=== PATIENT | female | born 1965 ===

== ENCOUNTER 2020-04-08 10:12 | Outpatient (REF) | payer MEDICAID, SELFPAY ==
--- NOTE | 2020-04-08 10:15 | MM_ITS ---
EXAMINATION: MM SCREENING DIGITAL BREAST TOMOSYNTHESIS, BILATERAL CLINICAL INFORMATION: Screening. Asymptomatic. The lifetime risk of breast cancer based on the Tyrer-Cuzick Model is 6.2%. COMPARISON: Mammography: 03/14/2019 and studies dating back to 07/11/2013. TECHNIQUE: Digital breast tomosynthesis is performed in both the craniocaudal and mediolateral oblique views along with computer-aided detection (CAD). Synthesized 2D images are generated from the tomosynthesis. FINDINGS: There are scattered areas of fibroglandular density (ACR BI-RADS breast composition Category b). There is a stable parenchymal pattern within the right breast. Within the anterior-lateral aspect of the left breast, there is a linear region of densities with question some associated calcification with the appearance of possible dilated and beaded ducts. Recommend spot magnification views in craniocaudal and 90-degree mediolateral views as well as possible ultrasound to follow. MM/MM tomosynthesis screening BI IMPRESSION: Left breast findings for which further evaluation with spot magnification films and ultrasound is recommended. ASSESSMENT: BI-RADS 0: Incomplete - Need Additional Imaging Evaluation RECOMMENDATION: 1. Additional views of the left breast. 2. Targeted ultrasound if warranted after review of the additional views. 3. Radiology department staff will contact the patient for additional imaging. This patient's information was entered into a reminder system with a target due date for their next mammogram.
== END 2020-04-08 10:13 | disposition home or self-care (01) ==
LOC: HO.MAMMO 10:12
PROVIDERS: Visit Provider Internal Medicine Geriatric Medicine
DX: Z12.31 Encounter for screening mammogram for malignant neoplasm of breast (principal)
CPT/HCPCS: 77063; 77067

== ENCOUNTER 2020-04-21 14:32 | Outpatient (REF) | payer MEDICAID, SELFPAY ==
--- NOTE | 2020-04-21 14:39 | US_ITS ---
EXAMINATION: MM DIAGNOSTIC DIGITAL MAMMOGRAPHY, LEFT US DIAGNOSTIC ULTRASOUND BREAST, LEFT CLINICAL INFORMATION: Recall from screening for question of focal duct ectasia with calcifications. The lifetime risk of breast cancer based on the Tyrer-Cuzick Model is 6%. COMPARISON: Mammography: 04/08/2020, 03/14/2019, 03/01/2018 TECHNIQUE: Digital mammography is performed in the following views: Magnification CC, magnification ML x2. Ultrasound left breast is targeted to the anterior outer breast. Grayscale imaging and color Doppler are performed without and with harmonics. FINDINGS: There are scattered areas of fibroglandular density (ACR BI-RADS breast composition Category b). The additional views demonstrate no grouped calcifications in the area recent imaging concern. There is no persistent nodular asymmetric density. No architectural abnormality or developing density from prior studies. Ultrasound demonstrates no cystic or solid mass or focal duct ectasia in the targeted area. No architectural abnormality. Results are discussed with the patient at time of visit. US/US breast LT limited IMPRESSION: Additional imaging shows no significant changes from prior studies. ASSESSMENT: BI-RADS 1: Negative RECOMMENDATION: Routine annual mammography screening. This patient's information was entered into a reminder system with a target due date for their next mammogram.
== END 2020-04-21 14:33 | disposition home or self-care (01) ==
LOC: HO.MAMMO 14:32
PROVIDERS: Visit Provider Internal Medicine Geriatric Medicine
DX: Z12.31 Encounter for screening mammogram for malignant neoplasm of breast (principal); R92.2 Inconclusive mammogram; R92.1 Mammographic calcification found on diagnostic imaging of breast
CPT/HCPCS: 76642; 77061; 77065

== ENCOUNTER 2020-09-04 17:29 | Emergency (ER) | payer MEDICAID, SELFPAY ==
--- NOTE | 2020-09-04 18:26 | PC.NURSE ---
called pt, not in WR
--- NOTE | 2020-09-04 18:48 | PC.NURSE ---
called pt 3 times, no answer. left without beinbg seen
== END 2020-09-04 19:01 | disposition left against medical advice (07) ==
PROVIDERS: Emergency Provider Emergency Medicine; PCP Internal Medicine Geriatric Medicine
DX: R10.9 Unspecified abdominal pain (principal)

== ENCOUNTER 2020-09-05 07:35 | Emergency (ER) | payer MEDICAID, SELFPAY ==
--- NOTE | ~2020-09-05 | CT_ITS ---
EXAMINATION: CT ABDOMEN AND PELVIS WITHOUT CONTRAST CLINICAL INFORMATION: 55-year-old female with right-sided flank pain. COMPARISON: Renal ultrasound 07/31/[address] abdomen pelvis 09/20/2018 TECHNIQUE: Multidetector volumetric imaging was performed from the superior aspect of the liver through the pubic symphysis. Sagittal and coronal reformatted images were obtained on the technologist's workstation. This CT examination was performed using dose optimization techniques as appropriate, variously including the following: *Automated exposure control *Adjustment of mA and/or kV according to patient size (this includes techniques or standardized protocols for targeted exams where dose is matched to indication/reason for exam; i.e. extremities or head) *Use of iterative reconstruction technique DLP: 892 mGy-cm FINDINGS: Visualized lung bases demonstrate mild dependent atelectasis. The liver is normal in size but demonstrates diffusely decreased attenuation. The gallbladder is surgically absent. The pancreas, spleen and adrenal glands are unremarkable. Symmetrically sized kidneys. No renal calculi or hydronephrosis bilaterally. Normal caliber loops of small and large bowel. Mild colonic diverticulosis. No CT evidence to suggest active diverticulitis. Normal appendix. Subtle central mesenteric haziness appreciated, nonspecific. Nonaneurysmal abdominal aorta. Retroaortic left renal vein. No gross retroperitoneal lymphadenopathy. The bladder is decompressed and therefore not optimally characterized. There is no gross bladder abnormality however. Unremarkable CT appearance of the uterus. No gross free pelvic fluid. No inguinal lymphadenopathy. Mild to moderate degenerative changes of the spine. CT/CT abdomen pelvis wo con IMPRESSION: -No renal calculi or hydronephrosis bilaterally. -Mild colonic diverticulosis without CT evidence to suggest active diverticulitis. -Diffusely decreased liver attenuation suggesting hepatic steatosis. Correlation with liver enzymes recommended. -Subtle central mesenteric haziness, a nonspecific finding but often times appreciated with mesenteric panniculitis.
[2020-09-05 07:43] VITALS: BP 173/85; PULSE 69; RESP 16; TEMP 36.7; O2SAT 98; BMI 33.9
--- NOTE | 2020-09-05 08:15 | ED_ITS ---
HPI - Abdominal Pain General Chief Complaint: Abdominal Pain Stated Complaint: flank pain Time Seen by Provider: 09/05/20 08:13 History of Present Illness HPI narrative: This is a 55 years old female presented ambulatory to the emergency department with a chief complaint of right flank pain x4 days. She has history of kidney stone in the past denies any nausea, vomiting, diarrhea MD elicited complaint: flank pain Related Data Allergies Allergy/AdvReac Type Severity Reaction Status Date / Time morphine [MORPHINE] Allergy Severe HIVES, Verified 09/05/20 07:42 rash, itching,hives tramadol [TRAMADOL] Allergy Intermediate HIVES Verified 09/05/20 07:42 Review of Systems Review of Systems Yes all other systems are reviewed and are negative Physical Exam Vital Signs: Vital Signs: Last Vital Signs Temp 98.0 F 09/05/20 07:43 Pulse 64 09/05/20 08:26 Resp 18 09/05/20 08:26 BP 159/78 H 09/05/20 08:26 Pulse Ox 96 09/05/20 08:26 Body Mass Index 33.9 Const: Other: She appear well in not acute distress Orientation/consciousness: oriented to person, oriented to place and oriented to time HENMT: Head: Yes normal to inspection Face and sinus: Yes normal facial exam Eyes: General: appearance normal, both eyes and all related structures Neck: Neck: Yes normal visual inspection and Yes full ROM Chest: Chest palpation & inspection: normal inspection of the chest Resp: Effort & Inspection: normal respiratory effort Auscultation: clear to auscultation bilaterally GI: Other: Soft no tenderness, no guarding Inspection: Yes normal to inspection Skin: General skin exam: no rashes or lesions noted Neuro: General: oriented to person, oriented to place and oriented to time Extrem: General: Yes normal to inspection and Yes full ROM Course Reevaluation(s) Reevaluation #1: Patient is feeling much better she has no symptoms at this time labs are within normal limits today CT scan of the abdomen and pelvis is within normal limit. She was unable to produce a urine but she does not have any symptoms of a urinary tract infection such as dysuria or fever at this time medical we could discharge the patient home with abdominal pain instruction to follow-up with her primary care physician Time: 09:40 MDM - Abdominal Pain Lab Data Result diagrams: 09/05/20 08:22 09/05/20 08:22 Labs: Lab Results 09/05/20 09/05/20 Range/Units 08:22 08:22 WBC 9.9 (4.8-10.8) X10*3/uL RBC 4.74 (4.20-5.50) X10*6/uL Hgb 14.4 (12.0-16.0) g/dl Hct 43.6 (37-47) % MCV 92.0 (80-98) fL MCH 30.4 (27.0-33.0) pg MCHC 33.0 (31.0-35.0) g/dl RDW 13.8 (11.0-16.0) % Plt Count 216 (160-400) X10*3/uL MPV 9.6 (9.4-12.3) fL Immature Gran % (Auto) 0.8 H (0.0-0.4) % Neut % (Auto) 47.4 (45-73) % Lymph % (Auto) 43.3 H (20-40) % K[place]t % (Auto) 6.7 (2-11) % Eos % (Auto) 1.4 (0-4) % Baso % (Auto) 0.4 (0-2) % Lymph # (Auto) 4.3 (1.2-4.9) X10*3/uL K[place]t # (Auto) 0.7 (0.1-1.2) X10*3/uL Eos # (Auto) 0.1 (0.0-0.4) X10*3/uL Baso # (Auto) 0.0 (0.0-0.2) X10*3/uL Abs Immat Gran (auto) 0.08 H (0.00-0.03) X10*3/uL Absolute Neuts (auto) 4.7 (2.0-8.3) X10*3/uL Absolute Nucleated RBC 0.000 (0.0-0.012) X10*3/uL Nucleated RBC % (auto) 0.0 (0.0-0.2) /100WBC Sodium 141 (135-145) mmol/L Potassium 3.3 (3.3-5.1) mmol/L Chloride 107 (96-108) mmol/L Carbon Dioxide 25 (22-29) mmol/L Anion Gap 12 (12-20) BUN 16 (9-16) mg/dL Creatinine 0.84 (0.5-1.4) mg/dL Estim Creat Clear Calc 89.0 Estimated GFR > 60 Random Glucose 90 (60-115) mg/dL Calcium 8.7 (8.4-10.2) mg/dL Total Bilirubin 0.9 (0.0-1.0) mg/dL AST 16 (5-31) U/L ALT 25 (0-31) U/L Alkaline Phosphatase 102 (39-117) U/L Total Protein 6.9 (6.5-8.0) g/dL Albumin 4.1 (3.5-5.0) g/dL Lipase 35 (8-78) U/L Imaging Data CT scan - abdomen: Radiologist's impression: No acute disease no free air no kidney stone no diverticulitis no colitis Discharge Plan Discharge Clinical Impression: Acute flank pain Patient Disposition: Home, Self-Care Instructions: Abdominal Pain (ED) Additional Instructions: Follow-up with your primary care physician return to the emergency room if you have a fever, vomiting any concern Referrals: Name,MD Humble [Primary Care Provider] - 3 days Interventions: ED Discharge Assessment Last Done: 09/05/20 10:05 Discharge Date/Time: 09/05/20 10:05 COUNTS INCLUDE 234 BEDS AT THE [facility] Past Medical History Medical History HTN (hypertension) Kidney stones Migraine Social History Social History Smoking Status: Current every day smoker Use of substances other than those prescribed or required for medical reasons: No Advance Directives: No Advance Directives Information Provided: Yes
[2020-09-05] MEDS: Ketorolac Tromethamine 15 MG/ML VIAL IV (08:25)
[2020-09-05 08:26] VITALS: BP 159/78; PULSE 64; RESP 18; O2SAT 96
[2020-09-05 08:26] LABS: MANUAL DIFF FLAG NO
[2020-09-05 08:31] LABS: Basophils Percent Auto 0.4 % (0-2); Eosinophils Absolute Auto 0.1 X10*3/uL (0.0-0.4); Eosinophils Percent Auto 1.4 % (0-4); Hematocrit 43.6 % (37-47); Hemoglobin 14.4 g/dl (12.0-16.0); Imm Gran Abs Auto 0.08 X10*3/uL (0.00-0.03); Imm Gran Pct Auto 0.8 % (0.0-0.4); Lymphocytes Absolute Auto 4.3 X10*3/uL (1.2-4.9); Lymphocytes Percent Auto 43.3 % (20-40); Mean Corpuscular Hemoglobin 30.4 pg (27.0-33.0); Mean Platelet Volume 9.6 fL (9.4-12.3); Monocytes Absolute Auto 0.7 X10*3/uL (0.1-1.2); Monocytes Percent Auto 6.7 % (2-11); Neutrophils Absolute Auto 4.7 X10*3/uL (2.0-8.3); Neutrophils Percent Auto 47.4 % (45-73); Platelet Count 216 X10*3/uL (160-400); Red Blood Count 4.74 X10*6/uL (4.20-5.50); Red Cell Distribution Width 13.8 % (11.0-16.0); White Blood Count 9.9 X10*3/uL (4.8-10.8)
[2020-09-05 08:53] LABS: Alanine Aminotransferase 25 U/L (0-31); Albumin Level 4.1 g/dL (3.5-5.0); Alkaline Phosphatase 102 U/L (39-117); Anion Gap 12 (12-20); Aspartate Amino Transferase 16 U/L (5-31); Bilirubin Total 0.9 mg/dL (0.0-1.0); Blood Urea Nitrogen 16 mg/dL (9-16); Calcium 8.7 mg/dL (8.4-10.2); Carbon Dioxide 25 mmol/L (22-29); Chloride 107 mmol/L (96-108); Estimated Glomerular Filt Rate > 60; Glucose Random 90 mg/dL (60-115); Lipase 35 U/L (8-78); Potassium 3.3 mmol/L (3.3-5.1); Sodium 141 mmol/L (135-145); Total Protein 6.9 g/dL (6.5-8.0)
== END 2020-09-05 10:05 | disposition home or self-care (01) ==
PROVIDERS: Emergency Provider Emergency Medicine; PCP Internal Medicine Geriatric Medicine
DX: R10.9 Unspecified abdominal pain (principal); I10 Essential (primary) hypertension; F17.200 Nicotine dependence, unspecified, uncomplicated; Z87.442 Personal history of urinary calculi; Z71.6 Tobacco abuse counseling; Z79.899 Other long term (current) drug therapy
CPT/HCPCS: 36415; 74176; 80053; 83690; 85025; 96360; 99284; J1885

== ENCOUNTER 2020-12-28 14:48 | Outpatient (REF) | payer MEDICAID, SELFPAY ==
[2020-12-29 09:54] LABS: BV Int Neg Control Negative (Negative); BV Int Pos Control Positive (Positive)
== END 2020-12-28 14:49 | disposition home or self-care (01) ==
LOC: HO.LAB 14:48
PROVIDERS: PCP Internal Medicine Geriatric Medicine; Visit Provider Advanced Practice Midwife
DX: Z11.3 Encounter for screening for infections with a predominantly sexual mode of transmission (principal); B37.3 Candidiasis of vulva and vagina; B35.6 Tinea cruris; Z20.2 Contact with and (suspected) exposure to infections with a predominantly sexual mode of transmission
CPT/HCPCS: 87480; 87510; 87660; 99212

== ENCOUNTER 2021-01-20 11:52 | Outpatient (REF) | payer MEDICAID, SELFPAY ==
[2021-01-25 12:05] LABS: Renin 0.77 ng/mL/h (0.25-5.82)
== END 2021-01-20 11:53 | disposition home or self-care (01) ==
LOC: HO.LAB 11:52
PROVIDERS: PCP Internal Medicine Geriatric Medicine; Visit Provider Internal Medicine Geriatric Medicine
DX: I10 Essential (primary) hypertension (principal)
CPT/HCPCS: 36415; 82088; 84244

== ENCOUNTER 2021-03-01 09:47 | Outpatient (REF) | payer MEDICAID, SELFPAY ==
[2021-03-01 14:26] LABS: CT PCR NOT DETECTED (Not Detect.); NG PCR NOT DETECTED (Not Detect.)
== END 2021-03-01 09:48 | disposition home or self-care (01) ==
LOC: HO.LAB 09:47
PROVIDERS: PCP Internal Medicine Geriatric Medicine; Visit Provider Advanced Practice Midwife
DX: Z01.411 Encounter for gynecological examination (general) (routine) with abnormal findings (principal); N95.2 Postmenopausal atrophic vaginitis; Z20.2 Contact with and (suspected) exposure to infections with a predominantly sexual mode of transmission
CPT/HCPCS: 87491; 87591

== ENCOUNTER → 2021-03-15 20:27 | Outpatient (REF) | payer MEDICAID, SELFPAY | LOC: HO.SL 20:27 | PROVIDERS: Visit Provider Internal Medicine Geriatric Medicine | DX: R40.0 Somnolence (principal); I10 Essential (primary) hypertension | CPT/HCPCS: 95810 ==

== ENCOUNTER 2021-04-02 10:51 | Emergency (ER) | payer MEDICAID, SELFPAY | END 2021-04-02 12:34 | disposition left against medical advice (07) | PROVIDERS: Emergency Provider Emergency Medicine; PCP Internal Medicine Geriatric Medicine | DX: R10.9 Unspecified abdominal pain (principal) ==

== ENCOUNTER 2021-04-03 06:59 | Emergency (ER) | payer MEDICAID, SELFPAY ==
--- NOTE | ~2021-04-03 | CT_ITS ---
EXAMINATION: CT ABDOMEN AND PELVIS WITH CONTRAST CLINICAL INFORMATION: Epigastric pain COMPARISON: None TECHNIQUE: Multidetector volumetric images were obtained from the superior aspect of the liver through the pubic symphysis following administration 85 mL of Omnipaque 350 intravenous contrast. Sagittal and coronal reformatted images were obtained on the technologist's workstation. Oral contrast: No This CT examination was performed using dose optimization techniques as appropriate, variously including the following: *Automated exposure control *Adjustment of mA and/or kV according to patient size (this includes techniques or standardized protocols for targeted exams where dose is matched to indication/reason for exam; i.e. extremities or head) *Use of iterative reconstruction technique DLP: 1127 mGy-cm FINDINGS: LUNG BASES: The visualized lung bases are unremarkable. LIVER, GALLBLADDER, AND BILIARY TREE: Hepatomegaly without any discrete abnormality. No biliary dilatation. Clips consistent with cholecystectomy. No choledocholithiasis. PANCREAS: Unremarkable. SPLEEN: Unremarkable. ADRENAL GLANDS: Unremarkable. KIDNEYS AND URETERS: The kidneys are normal in size, shape, and attenuation. No hydronephrosis, hydroureter, or calculi seen. No perinephric stranding. BLADDER: Unremarkable. GASTROINTESTINAL TRACT: The appendix appears normal. There are inflammatory changes noted within a long segment of the distal colon centered about the sigmoid colon consistent with nonspecific colitis. No evidence for diverticulitis. Scattered diverticula. No obstruction. ABDOMINAL WALL: No significant hernia is appreciated. LYMPH NODES: Normal. VASCULAR: Unremarkable. PELVIC VISCERA: Unremarkable. OSSEOUS STRUCTURES: Unremarkable. CT/CT abdomen pelvis w con IMPRESSION: Nonspecific colitis distal colon as above. No abscess or obstruction.
[2021-04-03 07:04] VITALS: BP 158/78; PULSE 70; RESP 16; TEMP 36.7; O2SAT 96; BMI 37.1
[2021-04-03 07:16] VITALS: BP 167/92; PULSE 67; RESP 18; TEMP 36.6; O2SAT 99
--- NOTE | 2021-04-03 07:23 | ED_ITS ---
HPI - Abdominal Pain General Chief Complaint: Abdominal Pain Stated Complaint: abd pain Time Seen by Provider: 04/03/21 07:14 Source: patient Mode of arrival: ambulatory Limitations: no limitations History of Present Illness HPI narrative: This is 55 years old female presented to the emergency department with a chief complaint of epigastric abdominal pain x2 weeks. She denies any fever, diarrhea, she states that she vomited x2 only. Patient states that she has an appointment with the supervisor chlorine liquefaction Dr. Foster. She has been seen in the past in this emergency room for abdominal pain. MD elicited complaint: abdominal pain Pertinent past history: kidney stones Onset (ago): week(s) (2) Pain Consistency: constant Location: epigastric Severity: moderate Quality: aching Radiation: epigastric Migration to: epigastric Exacerbating factors: nothing Relieving factors: nothing Associated symptoms: denies other symptoms Related Data Home Medications Medication Instructions Recorded Confirmed lisinopril 20 mg tablet 20 mg PO DAILY 12/28/20 12/28/20 albuterol sulfate mg INHALATION QID 03/01/21 albuterol sulfate 90 mcg/actuation 2 puff PO Q4-6H PRN 03/01/21 aerosol inhaler (ProAir HFA) amlodipine 10 mg tablet 10 mg PO DAILY 03/01/21 budesonide-formoterol HFA 160 2 puff PO 03/01/21 mcg-4.5 mcg/actuation aerosol inhaler (Symbicort) stivfgginh-ukztxoamtddyo-uzpojwyl 1 cap PO Q8H PRN 03/01/21 50 mg-300 mg-40 mg capsule (Fioricet) furosemide 40 mg tablet 40 mg PO DAILY 03/01/21 ibuprofen 400 mg tablet 400 mg PO Q6H PRN 03/01/21 loratadine 10 mg tablet 10 mg PO DAILY 03/01/21 metoprolol succinate 25 mg 25 mg PO DAILY 03/01/21 tablet,extended release 24 hr omeprazole 20 mg capsule,delayed 20 mg PO DAILY 03/01/21 release oxycodone-acetaminophen 5 mg-325 1 tab PO Q12H PRN 03/01/21 mg tablet Previous Rx's Medication Instructions Recorded clotrimazole 1 % vaginal cream 1 appful VAGINAL BEDTIME #45 g 12/28/20 clotrimazole-betamethasone 1 1 appl TOPICAL BID #45 g 12/28/20 %-0.05 % topical cream fluconazole 150 mg tablet 150 mg PO Q3D #2 tab 12/28/20 levofloxacin 500 mg tablet 500 mg PO DAILY #5 tab 04/03/21 Allergies Allergy/AdvReac Type Severity Reaction Status Date / Time morphine [MORPHINE] Allergy Severe HIVES, Verified 03/01/21 10:29 rash, itching,hives tramadol [TRAMADOL] Allergy Intermediate HIVES Verified 03/01/21 10:29 Review of Systems Review of Systems Yes all other systems are reviewed and are negative Constitutional: Denies fever(s) Cardiovascular: Denies chest pain Gastrointestinal: Reports abdominal pain Reports system reviewed and no additional complaints, except as documented Physical Exam Vital Signs: Vital Signs: Last Vital Signs Temp 97.9 F 04/03/21 07:16 Pulse 66 04/03/21 11:14 Resp 18 04/03/21 11:14 BP 136/69 04/03/21 11:14 Pulse Ox 98 04/03/21 11:14 Body Mass Index 37.1 Const: Other: She looks well, she is not toxic-appearing, a little anxious during the exam General: cooperative, comfortable, no acute distress, well developed and alert Orientation/consciousness: patient oriented x3 Limitations: no limitations HENMT: Other: Examination the head eyes nose mouth and throat is within normal limit Neck: Other: Neck is supple full range of motion Chest: Chest palpation & inspection: normal inspection of the chest Resp: Effort & Inspection: normal respiratory effort Auscultation: clear to auscultation bilaterally Cardio: Jugular venous distension: no JVD Rate: regular rate Rhythm: regular rhythm GI: Other: Abdomen examination shows soft abdomen no guarding and no rebound there is epigastric tenderness Skin: Other: No rash Neuro: General: patient oriented x3 Course Reevaluation(s) Reevaluation #1: Patient is feeling much better white count is normal, CT scan of the abdomen and pelvis that shows known specific colitis of the distal colon. At this point I think the patient can be discharged home a with follow-up with her supervisor chlorine liquefaction Dr. Foster. 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 She also will continue Prilosec as she was taking . MDM - Abdominal Pain MDM Narrative Medical decision making narrative: We will obtain basic labs including CBC chemistry, LFT and lipase ; we will do a CT scan of the abdomen and pelvis Lab Data Result diagrams: 04/03/21 07:51 04/03/21 07:51 Labs: Lab Results 04/03/21 04/03/21 04/03/21 Range/Units 07:51 07:51 08:28 WBC 6.7 (4.8-10.8) X10*3/uL RBC 4.62 (4.20-5.50) X10*6/uL Hgb 14.1 (12.0-16.0) g/dl Hct 41.7 (37-47) % MCV 90.3 (80-98) fL MCH 30.5 (27.0-33.0) pg MCHC 33.8 (31.0-35.0) g/dl RDW 13.2 (11.0-16.0) % Plt Count 206 (160-400) X10*3/uL MPV 9.8 (9.4-12.3) fL Immature Gran % (Auto) 0.6 H (0.0-0.4) % Neut % (Auto) 44.2 L (45-73) % Lymph % (Auto) 42.9 H (20-40) % Sheridan % (Auto) 7.6 (2-11) % Eos % (Auto) 4.3 H (0-4) % Baso % (Auto) 0.4 (0-2) % Lymph # (Auto) 2.9 (1.2-4.9) X10*3/uL [place]idan # (Auto) 0.5 (0.1-1.2) X10*3/uL Eos # (Auto) 0.3 (0.0-0.4) X10*3/uL Baso # (Auto) 0.0 (0.0-0.2) X10*3/uL Abs Immat Gran (auto) 0.04 H (0.00-0.03) X10*3/uL Absolute Neuts (auto) 3.0 (2.0-8.3) X10*3/uL Absolute Nucleated RBC 0.000 (0.0-0.012) X10*3/uL Nucleated RBC % (auto) 0.0 (0.0-0.2) /100WBC Sodium 138 (135-145) mmol/L Potassium 3.7 (3.3-5.1) mmol/L Chloride 106 (96-108) mmol/L Carbon Dioxide 25 (22-29) mmol/L Anion Gap 11 L (12-20) BUN 8 L (9-16) mg/dL Creatinine 0.76 (0.5-1.4) mg/dL Estim Creat Clear Calc 103.3 Estimated GFR > 60 Random Glucose 108 (60-115) mg/dL Calcium 9.0 (8.4-10.2) mg/dL Total Bilirubin 0.7 (0.0-1.0) mg/dL AST 17 (5-31) U/L ALT 27 (0-31) U/L Alkaline Phosphatase 99 (39-117) U/L Total Protein 6.3 L (6.5-8.0) g/dL Albumin 3.8 (3.5-5.0) g/dL Lipase 33 (8-78) U/L Urine Color YELLOW Urine Appearance HAZY Urine pH 6.0 (5.0-8.0) Ur Specific Speer 1.025 (1.005-1.025) Urine Protein TRACE (NEG-TRACE) MG/DL Urine Glucose (UA) NEG (NEG) MG/DL Urine Ketones NEG (NEG) MG/DL Urine Blood NEG (NEG) Urine Nitrite NEG (NEG) Ur Leukocyte Esterase TRACE H (NEG) Urine RBC 0-2 (0) /HPF Urine WBC 5-9 H (0-4) /HPF Ur Squamous Epith Cells 1+ /LPF Urine Bacteria 2+ /LPF Urine Mucus TRACE /LPF Imaging Data CT scan - abdomen: Radiologist's impression: megaly without any discrete abnormality. No biliary dilatation. Clips consistent with cholecystectomy. No choledocholithiasis.? PANCREAS: Unremarkable.? SPLEEN: Unremarkable.? ADRENAL GLANDS: Unremarkable.? KIDNEYS AND URETERS: The kidneys are normal in size, shape, and attenuation. No hydronephrosis, hydroureter, or calculi seen. No perinephric stranding. ? BLADDER: Unremarkable.? GASTROINTESTINAL TRACT: The appendix appears normal. There are inflammatory changes noted within a long segment of the distal colon centered about the sigmoid colon consistent with nonspecific colitis. No evidence for diverticulitis. Scattered diverticula. No obstruction. ABDOMINAL WALL: No significant hernia is appreciated.? LYMPH NODES: Normal. VASCULAR: Unremarkable. PELVIC VISCERA: Unremarkable.? OSSEOUS STRUCTURES: Unremarkable.? CT/CT abdomen pelvis w con IMPRESSION: Nonspecific colitis distal colon as above. No abscess or obstruction.? Dictated By: LISA CHOW MD Signed By: <Electronically signed by LISA CHOW MD in OV> 04/03/21 1031 Discharge Plan Discharge Clinical Impression: Epigastric abdominal pain, Colitis Patient Disposition: Home, Self-Care Instructions: Colitis (ED) Additional Instructions: Follow-up with gastroenterology as scheduled, return if you worse vomiting any concern. Continue the Prilosec as you are doing now, the CT scan of the abdomen and pelvis showed mild colitis, clear liquid diet of a few days will add an antibiotic also for 5 days Prescriptions: New levofloxacin 500 mg tablet 500 mg PO DAILY Qty: 5 RF: 0 No Action oxycodone-acetaminophen 5-325 mg tablet 1 tab PO Q12H PRNRF: 0 metoprolol succinate 25 mg tablet extended release 24 hr 25 mg PO DAILY RF: 0 albuterol sulfate [ProAir HFA] 90 mcg/actuation HFA aerosol inhaler 2 puff PO Q4-6H PRNRF: 0 lwhqxtbzax-wythnppqhjujk-kcwn [Fioricet] 50-300-40 mg capsule 1 cap PO Q8H PRNRF: 0 budesonide-formoterol [Symbicort] 160-4.5 mcg/actuation HFA aerosol inhaler 2 puff PO RF: 0 loratadine 10 mg tablet 10 mg PO DAILY RF: 0 omeprazole 20 mg capsule,delayed release(DR/EC) 20 mg PO DAILY RF: 0 amlodipine 10 mg tablet 10 mg PO DAILY RF: 0 albuterol sulfate 2.5 mg /3 mL (0.083 %) solution for nebulization inhalation QID RF: 0 furosemide 40 mg tablet 40 mg PO DAILY RF: 0 ibuprofen 400 mg tablet 400 mg PO Q6H PRN (Reason: pain) RF: 0 lisinopril 20 mg tablet 20 mg PO DAILY RF: 0 clotrimazole 1 % cream 1 appful vaginal BEDTIME Qty: 45 RF: 4 fluconazole 150 mg tablet 150 mg PO Q3D Qty: 2 RF: 0 clotrimazole-betamethasone 1-0.05 % cream 1 appl topical BID Qty: 45 RF: 1 Referrals: Yu Foster MD [Physician] - 2 days Interventions: ED Discharge Assessment Last Done: 04/03/21 11:28 Discharge Date/Time: 04/03/21 11:29 FOR[facility]LY [facility], [facility] Past Medical History Attestation statement: The following information was validated with the patient. Medical History Gallbladder abscess History of uterine fibroid HTN (hypertension) Kidney stones Migraine Para-ovarian adhesion Surgical History History of bunionectomy History of tubal ligation Family History Family History Mother Stroke Diabetes HTN (hypertension) Father Heart attack Sister Lupus Social History Social History Alcohol intake: never Patient Tobacco Use Status: Current everyday Tobacco user Tobacco use type: Cigarette Cigarettes Per Day: 2 Use of substances other than those prescribed or required for medical reasons: No Advance Directives: No Gender identity: Female
--- NOTE | 2021-04-03 07:48 | PC.NURSE ---
pt alert and oriented x4. pt c/o epigastric abdominal pain x2 weeks. she states that she has an appointment with the lean specialist Dr. Foster. She also states that she was seen here in the ed in the past for the same thing. She denies any fever, diarrhea, she states that she vomited x2.
[2021-04-03 07:54] LABS: MANUAL DIFF FLAG NO
[2021-04-03 07:56] LABS: Basophils Percent Auto 0.4 % (0-2); Eosinophils Absolute Auto 0.3 X10*3/uL (0.0-0.4); Eosinophils Percent Auto 4.3 % (0-4); Hematocrit 41.7 % (37-47); Hemoglobin 14.1 g/dl (12.0-16.0); Imm Gran Abs Auto 0.04 X10*3/uL (0.00-0.03); Imm Gran Pct Auto 0.6 % (0.0-0.4); Lymphocytes Absolute Auto 2.9 X10*3/uL (1.2-4.9); Lymphocytes Percent Auto 42.9 % (20-40); Mean Corpuscular HGB Conc 33.8 g/dl (31.0-35.0); Mean Corpuscular Hemoglobin 30.5 pg (27.0-33.0); Mean Corpuscular Volume 90.3 fL (80-98); Mean Platelet Volume 9.8 fL (9.4-12.3); Monocytes Absolute Auto 0.5 X10*3/uL (0.1-1.2); Monocytes Percent Auto 7.6 % (2-11); Neutrophils Percent Auto 44.2 % (45-73); Platelet Count 206 X10*3/uL (160-400); Red Blood Count 4.62 X10*6/uL (4.20-5.50); Red Cell Distribution Width 13.2 % (11.0-16.0); White Blood Count 6.7 X10*3/uL (4.8-10.8)
[2021-04-03 08:04] VITALS: BP 159/87; PULSE 86
[2021-04-03] MEDS: lisinopriL 20 MG TABLET PO (08:04)
[2021-04-03] MEDS: Famotidine/PF 20 MG/2 ML VIAL IVPUSH (08:05)
[2021-04-03] MEDS: LORazepam 2 MG/ML VIAL 1 MG IVPUSH (08:05)
[2021-04-03 08:18] LABS: Alanine Aminotransferase 27 U/L (0-31); Albumin Level 3.8 g/dL (3.5-5.0); Alkaline Phosphatase 99 U/L (39-117); Anion Gap 11 (12-20); Aspartate Amino Transferase 17 U/L (5-31); Bilirubin Total 0.7 mg/dL (0.0-1.0); Blood Urea Nitrogen 8 mg/dL (9-16); Carbon Dioxide 25 mmol/L (22-29); Chloride 106 mmol/L (96-108); Creatinine Clr Calc Pharmacy 103.3; Estimated Glomerular Filt Rate > 60; Glucose Random 108 mg/dL (60-115); Lipase 33 U/L (8-78); Potassium 3.7 mmol/L (3.3-5.1); Sodium 138 mmol/L (135-145); Total Protein 6.3 g/dL (6.5-8.0)
[2021-04-03 08:49] LABS: Appearance Urine HAZY; Color Urine YELLOW; Glucose Urine UA NEG (NEG); Leukocyte Esterase Urine TRACE (NEG); Nitrite Urine NEG (NEG); Specific Gravity - Urine 1.025 (1.005-1.025); UACC Culture Trigger YES; Urine Blood NEG (NEG); Urine Ketones NEG (NEG); Urine Protein TRACE MG/DL (NEG-TRACE)
[2021-04-03] MEDS: iohexoL 350 MG/ML 100 ML INFUS..BTL IV (08:50)
[2021-04-03 09:14] LABS: Bacteria Urine 2+ /LPF; RBC Urine 0-2 /HPF (0); Squamous Epithelial Cell Urine 1+ /LPF; UACC CULT YES
[2021-04-03 09:15] LABS: Mucus Urine TRACE /LPF
[2021-04-03 11:14] VITALS: BP 136/69; PULSE 66; RESP 18; O2SAT 98
--- NOTE | 2021-04-03 11:27 | PC.NURSE ---
pt medically cleared for discharge. discharge summary given and explained. pt reported understanding of information. vss.
== END 2021-04-03 11:29 | disposition home or self-care (01) ==
PROVIDERS: Emergency Provider Emergency Medicine; PCP Internal Medicine Geriatric Medicine
DX: K52.9 Noninfective gastroenteritis and colitis, unspecified (principal); R10.13 Epigastric pain; F17.210 Nicotine dependence, cigarettes, uncomplicated; Z71.6 Tobacco abuse counseling; Z79.899 Other long term (current) drug therapy
CPT/HCPCS: 36415; 74177; 80053; 81001; 83690; 85025; 87086; 99284; J2060; Q9967

== ENCOUNTER 2021-04-08 09:55 | Outpatient (REF) | payer MEDICAID, SELFPAY ==
--- NOTE | ~2021-04-08 | XR_ITS ---
EXAMINATION: CHEST AND BILATERAL RIB X-RAYS CLINICAL INFORMATION: Pain COMPARISON: Previous chest x-ray May 2019 TECHNIQUE: One view of the chest and 5 views of both ribs FINDINGS: Chest: The cardiac and mediastinal contours are normal. There is subsegmental atelectasis seen at both lung bases. The lungs are otherwise clear. There is no pleural effusion or pneumothorax. The ribs are normal appearing. No rib fracture is seen. There are degenerative changes of the spine. XR/XR ribs BI 3V IMPRESSION: Subsegmental atelectasis at the lung bases. No rib fracture seen.
--- NOTE | ~2021-04-08 | XR_ITS ---
EXAMINATION: CHEST AND BILATERAL RIB X-RAYS CLINICAL INFORMATION: Pain COMPARISON: Previous chest x-ray May 2019 TECHNIQUE: One view of the chest and 5 views of both ribs FINDINGS: Chest: The cardiac and mediastinal contours are normal. There is subsegmental atelectasis seen at both lung bases. The lungs are otherwise clear. There is no pleural effusion or pneumothorax. The ribs are normal appearing. No rib fracture is seen. There are degenerative changes of the spine. XR/XR chest 2V IMPRESSION: Subsegmental atelectasis at the lung bases. No rib fracture seen.
== END 2021-04-08 09:56 | disposition home or self-care (01) ==
LOC: HO.XRAY 09:55
PROVIDERS: PCP Internal Medicine Geriatric Medicine; Referring Provider Internal Medicine Geriatric Medicine; Visit Provider Nurse Practitioner
DX: R10.9 Unspecified abdominal pain (principal); K21.9 Gastro-esophageal reflux disease without esophagitis; K29.60 Other gastritis without bleeding; N20.0 Calculus of kidney
CPT/HCPCS: 71046; 71110; 99212

== ENCOUNTER 2021-04-16 15:19 | Outpatient (REF) | payer MEDICAID, SELFPAY ==
--- NOTE | ~2021-04-16 | US_ITS ---
EXAMINATION: US RETROPERITONEAL LIMITED (RENAL ONLY) CLINICAL INFORMATION: Abdominal pain. COMPARISON: 04/03/2021 TECHNIQUE: Sonographic evaluation of both kidneys. FINDINGS: RIGHT KIDNEY: 10.4 x 4.1 x 4.9 cm (SAG x AP x TRV). The kidney is normal in size, contour, and echogenicity. Renal cortical thickness is normal. No calculi or focal parenchymal lesions. No hydronephrosis. LEFT KIDNEY: 11 x 4.7 x 4 cm (SAG x AP x TRV). The kidney is normal in size, contour, and echogenicity. Renal cortical thickness is normal. No calculi or focal parenchymal lesions. No hydronephrosis. US/US renal BI IMPRESSION: Normal appearance of the kidneys.
== END 2021-04-16 15:20 | disposition home or self-care (01) ==
LOC: HO.US 15:19
PROVIDERS: PCP Internal Medicine Geriatric Medicine; Visit Provider Nurse Practitioner
DX: R10.9 Unspecified abdominal pain (principal)
CPT/HCPCS: 76775

== ENCOUNTER 2021-06-07 11:09 | Outpatient (REF) | payer MEDICAID, SELFPAY ==
--- NOTE | ~2021-06-07 | MM_ITS ---
EXAMINATION: MM SCREENING DIGITAL BREAST TOMOSYNTHESIS, BILATERAL CLINICAL INFORMATION: Screening. Asymptomatic. Prior reduction mammoplasty. The lifetime risk of breast cancer based on the Tyrer-Cuzick Model is 6%. COMPARISON: Mammography: 04/21/2020, 04/08/2020, 03/14/2019, 03/01/2018 TECHNIQUE: Digital breast tomosynthesis is performed in both the craniocaudal and mediolateral oblique views along with computer-aided detection (CAD). Synthesized 2D images are generated from the tomosynthesis. FINDINGS: There are scattered areas of fibroglandular density (ACR BI-RADS breast composition Category b). There are no significant masses, abnormal calcifications, or other abnormalities. Parenchymal pattern is similar to prior studies. There is no developing density or architectural abnormality. The axilla and skin contours are unremarkable. No significant changes. MM/MM tomosynthesis screening BI IMPRESSION: No mammographic evidence of malignancy. ASSESSMENT: BI-RADS 1: Negative RECOMMENDATION: Routine annual mammography screening. This patient's information was entered into a reminder system with a target due date for their next mammogram.
== END 2021-06-07 11:10 | disposition home or self-care (01) ==
LOC: HO.MAMMO 11:09
PROVIDERS: PCP Internal Medicine Geriatric Medicine; Visit Provider Internal Medicine Geriatric Medicine
DX: Z12.31 Encounter for screening mammogram for malignant neoplasm of breast (principal)
CPT/HCPCS: 77063; 77067

== ENCOUNTER 2021-10-23 06:57 | Emergency (ER) | payer MEDICAID, SELFPAY | END 2021-10-23 09:18 | disposition left against medical advice (07) | PROVIDERS: Emergency Provider Emergency Medicine; PCP Internal Medicine Geriatric Medicine | DX: R10.9 Unspecified abdominal pain (principal); M54.9 Dorsalgia, unspecified ==

== ENCOUNTER 2021-10-24 08:12 | Emergency (ER) | payer MEDICAID, SELFPAY ==
[2021-10-24 08:22] VITALS: BP 137/71; PULSE 68; RESP 19; TEMP 36.6; O2SAT 98; BMI 37.1
[2021-10-24 11:56] LABS: Appearance Urine CLOUDY; Color Urine YELLOW; Glucose Urine UA NEG (NEG); Leukocyte Esterase Urine NEG (NEG); Nitrite Urine NEG (NEG); PH 5.5 (5.0-8.0); Specific Gravity - Urine >= 1.030 (1.005-1.025); Urine Blood NEG (NEG); Urine Ketones NEG (NEG); Urine Protein NEG (NEG-TRACE)
[2021-10-24 11:58] LABS: Basophils Percent Auto 0.3 % (0-2); Eosinophils Absolute Auto 0.1 X10*3/uL (0.0-0.4); Eosinophils Percent Auto 0.7 % (0-4); Hematocrit 45.1 % (37.0-47.0); Hemoglobin 14.9 g/dl (12.0-16.0); Imm Gran Abs Auto 0.13 X10*3/uL (0.00-0.03); Imm Gran Pct Auto 1.1 % (0.0-0.4); Lymphocytes Percent Auto 33.6 % (20-40); MANUAL DIFF FLAG SCAN; Mean Corpuscular Hemoglobin 29.9 pg (27.0-33.0); Mean Corpuscular Volume 90.4 fL (80.0-98.0); Mean Platelet Volume 10.5 fL (9.4-12.3); Monocytes Absolute Auto 0.9 X10*3/uL (0.1-1.2); Monocytes Percent Auto 7.4 % (2-11); Neutrophils Absolute Auto 6.8 x10*3/uL (2.0-8.3); Neutrophils Percent Auto 56.9 % (45-73); PLT CLUMP 1; Red Blood Count 4.99 X10*6/uL (4.20-5.50); Red Cell Distribution Width 14.2 % (11.0-16.0); SCAN SMEAR FLAG 1
[2021-10-24 12:14] LABS: Alanine Aminotransferase 18 U/L (0-31); Albumin Level 4.2 g/dL (3.5-5.0); Alkaline Phosphatase 101 U/L (39-117); Anion Gap 11 (12-20); Aspartate Amino Transferase 14 U/L (5-31); Bilirubin Direct 0.3 mg/dL (0.0-0.5); Blood Urea Nitrogen 14 mg/dL (9-16); Calcium 9.8 mg/dL (8.4-10.2); Carbon Dioxide 29 mmol/L (22-29); Chloride 106 mmol/L (96-108); Creatinine Clr Calc Pharmacy 79.1; Estimated Glomerular Filt Rate 59; Glucose Random 91 mg/dL (60-115); Lipase 22 U/L (8-78); Sodium 142 mmol/L (135-145); Total Protein 7.3 g/dL (6.5-8.0)
[2021-10-24 12:22] LABS: White Blood Count 11.9 X10*3/uL (4.8-10.8)
[2021-10-24 12:23] LABS: Platelet Count 187 X10*3/uL (160-400); SLIDE REVIEW VERIFIED
== END 2021-10-24 12:15 | disposition left against medical advice (07) ==
PROVIDERS: Emergency Provider Emergency Medicine; PCP Internal Medicine Geriatric Medicine
DX: M54.50 Low back pain, unspecified (principal); N23 Unspecified renal colic
CPT/HCPCS: 36415; 80048; 80076; 81003; 83690; 85025; 99283

== ENCOUNTER 2021-12-06 09:10 | Outpatient (REF) | payer MEDICAID, SELFPAY ==
--- NOTE | ~2021-12-06 | XR_ITS ---
EXAMINATION: BILATERAL HIP X-RAY CLINICAL INFORMATION: Bilateral hip pain COMPARISON: Pelvis x-ray May 2016 TECHNIQUE: 2 views of each hip FINDINGS: Bone alignment is normal. No fracture or dislocation is seen. The joint spaces are normal. There is a small osteophyte or bony protuberance projecting off the inferior right greater trochanter that is unchanged. Soft tissues are otherwise unremarkable. XR/XR hip RT min 2V IMPRESSION: Small osteophyte or broad bony protuberance projecting off the right inferior greater trochanter similar to 2016 exam.
--- NOTE | ~2021-12-06 | XR_ITS ---
EXAMINATION: BILATERAL HIP X-RAY CLINICAL INFORMATION: Bilateral hip pain COMPARISON: Pelvis x-ray May 2016 TECHNIQUE: 2 views of each hip FINDINGS: Bone alignment is normal. No fracture or dislocation is seen. The joint spaces are normal. There is a small osteophyte or bony protuberance projecting off the inferior right greater trochanter that is unchanged. Soft tissues are otherwise unremarkable. XR/XR hip LT min 2V IMPRESSION: Small osteophyte or broad bony protuberance projecting off the right inferior greater trochanter similar to 2016 exam.
--- NOTE | ~2021-12-06 | XR_ITS ---
EXAMINATION: XR LUMBOSACRAL SPINE CLINICAL INFORMATION: Pain COMPARISON: Previous x-ray most recent 2018 MRI 2019 TECHNIQUE: Three views of the lumbosacral spine. FINDINGS: Bone alignment is normal. No fracture or dislocation is seen. There is degenerative disc disease at L4-L5. There is lower lumbar spine facet arthritis. XR/XR lumbar spine 2-3V IMPRESSION: Degenerative changes.
== END 2021-12-06 09:11 | disposition home or self-care (01) ==
LOC: HO.LAB 09:10
PROVIDERS: PCP Internal Medicine Geriatric Medicine; Visit Provider Internal Medicine Geriatric Medicine
DX: M25.551 Pain in right hip (principal); M25.552 Pain in left hip; M54.9 Dorsalgia, unspecified
CPT/HCPCS: 72100; 73502

== ENCOUNTER 2022-03-03 09:49 | Outpatient (REF) | payer MEDICAID, SELFPAY ==
[2022-03-03 19:50] LABS: CT PCR NOT DETECTED (Not Detect.); NG PCR NOT DETECTED (Not Detect.)
[2022-03-04 09:46] LABS: BV Int Neg Control Negative (Negative); BV Int Pos Control Positive (Positive)
== END 2022-03-03 09:50 | disposition home or self-care (01) ==
LOC: HO.LNP 09:49
PROVIDERS: Visit Provider Advanced Practice Midwife
DX: Z11.3 Encounter for screening for infections with a predominantly sexual mode of transmission (principal); R10.2 Pelvic and perineal pain
CPT/HCPCS: 87480; 87491; 87510; 87591; 87660

== ENCOUNTER 2022-03-22 08:30 | Outpatient (REF) | payer MEDICAID, SELFPAY ==
--- NOTE | ~2022-03-22 | MM_ITS ---
EXAMINATION: MM DIAGNOSTIC DIGITAL BREAST TOMOSYNTHESIS, LEFT US DIAGNOSTIC ULTRASOUND BREAST, LEFT CLINICAL INFORMATION: Chronic intermittent left medial breast pain past year. Tenderness at clinical exam. Prior history reduction mammoplasty. TC score 6%. COMPARISON: Mammography: 06/07/2021, 04/21/2020, 04/08/2020, 03/14/2019 TECHNIQUE: Digital breast tomosynthesis is performed in both the craniocaudal and mediolateral oblique views along with computer-aided detection (CAD). Synthesized 2D images are generated from the tomosynthesis. Additional spot left CC view is performed. Ultrasound left breast is targeted to the areas of clinical concern, 6:00-11:00. Grayscale imaging and color Doppler are performed without and with harmonics. FINDINGS: There are scattered areas of fibroglandular density (ACR BI-RADS breast composition Category b). There are no significant masses, abnormal calcifications, or other abnormalities. No developing density or interval architectural changes. No skin thickening or coarsening of the Saurav's ligaments. The axilla is unremarkable. Ultrasound demonstrates no cystic or solid mass or architectural abnormality. No skin thickening or edema tracking in soft tissue planes. No focal duct ectasia. No hyperemia. Results are discussed with the patient at time of visit, using an automotive parts interpreter. MM/MM tomosynthesis diagnostic LT IMPRESSION: -No mammographic evidence of malignancy or inflammatory changes.. -Unremarkable left breast ultrasound. ASSESSMENT: BI-RADS 1: Negative RECOMMENDATION: 1. Patient's chronic intermittent left breast pain may be managed based on the clinical impression. 2. Otherwise, routine annual screening mammography. This patient's information was entered into a reminder system with a target due date for their next mammogram.
== END 2022-03-22 08:31 | disposition home or self-care (01) ==
LOC: HO.MAMMO 08:30
PROVIDERS: Visit Provider Internal Medicine Geriatric Medicine
DX: N64.4 Mastodynia (principal)
CPT/HCPCS: 76642; 77061; 77065

== ENCOUNTER 2022-04-16 08:26 | Emergency (ER) | payer MEDICAID, SELFPAY ==
--- NOTE | ~2022-04-16 | CT_ITS ---
EXAMINATION: CT ABDOMEN AND PELVIS WITHOUT CONTRAST CLINICAL INFORMATION: Right flank pain. COMPARISON: 04/03/2021. TECHNIQUE: Multidetector volumetric imaging was performed from the superior aspect of the liver through the pubic symphysis. Sagittal and coronal reformatted images were obtained on the technologist's workstation. This CT examination was performed using dose optimization techniques as appropriate, variously including the following: *Automated exposure control *Adjustment of mA and/or kV according to patient size (this includes techniques or standardized protocols for targeted exams where dose is matched to indication/reason for exam; i.e. extremities or head) *Use of iterative reconstruction technique DLP: 776 mGy-cm FINDINGS: LUNG BASES: The lung bases appear clear, with no evidence of inflammation or nodules. LIVER, GALLBLADDER, AND BILIARY TREE: The liver appears unremarkable in size, shape, and attenuation. No focal hepatic lesion or biliary ductal dilatation is appreciated. Status post cholecystectomy. PANCREAS: Unremarkable SPLEEN: Unremarkable ADRENAL GLANDS: Unremarkable KIDNEYS AND URETERS: The kidneys appear unremarkable in size, shape, and attenuation. No hydronephrosis, hydroureter, or calculi seen. BLADDER: Unremarkable GASTROINTESTINAL TRACT: Stomach and small bowel appear unremarkable. Colonic diverticula predominantly involving the sigmoid colon, without evidence of diverticulitis. Normal-appearing distal ileum and vermiform appendix. ABDOMINAL WALL: No significant hernia is appreciated. LYMPH NODES: No evidence of adenopathy by size criteria. VASCULAR: Normal variant retroaortic left renal vein. PELVIC VISCERA: Unremarkable OSSEOUS STRUCTURES: No acute finding. Moderate disc degenerative change at L4-L5. CT/CT abdomen pelvis wo IV con IMPRESSION: Essentially unremarkable CT scans of the abdomen and pelvis without oral or intravenous contrast.
[2022-04-16 08:46] VITALS: PULSE 70; RESP 18; TEMP 37; O2SAT 97; BMI 36.3
--- NOTE | 2022-04-16 08:47 | ED_ITS ---
HPI - Abdominal Pain General Chief Complaint: Abdominal Pain Stated Complaint: pain in R side Time Seen by Provider: 04/16/22 08:35 Source: patient Mode of arrival: ambulatory Limitations: no limitations History of Present Illness HPI narrative: This is a 56 years old female presented to the ED with chief complaint of right flank pain x1 week denies any vomiting any fever. She has history of kidney stones, she has history of migraines, she is status post cholecystectomy. MD elicited complaint: flank pain Pertinent past history: other (kidney stones) Onset (ago): week(s) (1) Pain Consistency: constant Location: R flank Severity: moderate Radiation: none Migration to: no migration Exacerbating factors: nothing Relieving factors: nothing Associated symptoms: denies other symptoms Related Data Home Medications Medication Instructions Recorded Confirmed lisinopril 20 mg tablet 20 mg PO DAILY 12/28/20 12/28/20 albuterol sulfate 2.5 mg/3 mL mg inhalation QID 03/01/21 (0.083 %) solution for nebulization albuterol sulfate 90 mcg/actuation 2 puff PO Q4-6H PRN 03/01/21 aerosol inhaler (ProAir HFA) amlodipine 10 mg tablet 10 mg PO DAILY 03/01/21 budesonide-formoterol HFA 160 2 puff PO 03/01/21 mcg-4.5 mcg/actuation aerosol inhaler (Symbicort) mijwohbhsf-hdpcvehzxhkyj-zpylqdgj 1 cap PO Q8H PRN 03/01/21 50 mg-300 mg-40 mg capsule (Fioricet) furosemide 40 mg tablet 40 mg PO DAILY 03/01/21 ibuprofen 400 mg tablet 400 mg PO Q6H PRN pain 03/01/21 loratadine 10 mg tablet 10 mg PO DAILY itch 03/01/21 metoprolol succinate 25 mg 25 mg PO DAILY 03/01/21 tablet,extended release 24 hr omeprazole 20 mg capsule,delayed 20 mg PO DAILY 03/01/21 release oxycodone-acetaminophen 7.5 mg-325 1 tab PO Q8H PRN 03/03/22 mg tablet (Percocet) Previous Rx's Medication Instructions Recorded clotrimazole-betamethasone 1 1 appl topical BID #45 grams 12/28/20 %-0.05 % topical cream fluconazole 150 mg tablet 150 mg PO ONCE 1 day #1 tab 03/07/22 (Diflucan) Allergies Allergy/AdvReac Type Severity Reaction Status Date / Time morphine [MORPHINE] Allergy Severe HIVES, Verified 04/16/22 08:46 rash, itching,hives tramadol [TRAMADOL] Allergy Intermediate HIVES Verified 04/16/22 08:46 Review of Systems Constitutional: Reports no additional constitutional complaints Reports system reviewed and no additional complaints, except as documented Cardiovascular: Reports no additional cardiovascular complaints Gastrointestinal: Reports other (rt flank pain) PMFSH Past Medical History Medical History Chondral defect of patella Gallbladder abscess History of uterine fibroid HTN (hypertension) Kidney stones Migraine Para-ovarian adhesion Surgical History History of bunionectomy History of cholecystectomy History of kidney surgery History of tubal ligation Family History Family History Mother Stroke Diabetes HTN (hypertension) Father Heart attack Sister Lupus Leukemia Social History Social History Household Members: Spouse and Children Housing: Apartment Alcohol intake: never Patient Tobacco Use Status: Former Tobacco user Tobacco use type: Cigarette Cigarettes Per Day: 2 Smoked in Last 30 Days: No Use of substances other than those prescribed or required for medical reasons: No Advance Directives: No Advance Directives Information Provided: Yes Patient : No Current occupational status: unemployed Sexual orientation: Straight/Heterosexual Gender identity: Female Physical Exam ED Vital Signs: Vital Signs - 24 hr 04/16/22 08:46 04/16/22 10:47 Temperature 98.6 F 97.7 F Pulse Rate 70 66 Respiratory Rate 18 18 Blood Pressure 129/67 Pulse Oximetry 97 97 Oxygen Delivery Method Room Air Room Air BMI result Body Mass Index 36.3 Const General: cooperative and comfortable Nutritional Appearance: average body habitus and well nourished Orientation/consciousness: patient oriented x3 HENMT Head: Yes normal to inspection Ears: hearing grossly normal bilaterally General nose exam: Normal external nose present Mouth: Normal oral and palatal mucosa present Neck Neck: Yes full ROM and Yes no lymphadenopathy Chest Chest palpation & inspection: normal inspection of the chest Resp Effort & Inspection: normal respiratory effort Auscultation: clear to auscultation bilaterally Cardio Rate: regular rate GI Inspection: Yes normal to inspection Palpation (GI): Other GI palpation findings present (Tenderness right flank) Skin General skin exam: no rashes or lesions noted and elasticity normal Lesions: no lesions Rashes: no rashes Neuro General: patient oriented x3 and gait normal Cranial nerves: Yes CN's II-XII intact bilaterally Course Reevaluation(s) Reevaluation #1: Re-examined at this time she is feeling better workup negative plan discharge Time: 12:17 MDM - Abdominal Pain Lab Data Result diagrams: 04/16/22 09:39 04/16/22 09:39 Labs: Lab Results 04/16/22 04/16/22 04/16/22 Range/Units 09:39 09:39 09:39 WBC 7.7 (4.8-10.8) X10*3/uL RBC 4.69 (4.20-5.50) X10*6/uL Hgb 14.1 (12.0-16.0) g/dl Hct 42.1 (37.0-47.0) % MCV 89.8 (80.0-98.0) fL MCH 30.1 (27.0-33.0) pg MCHC 33.5 (31.0-35.0) g/dl RDW 13.7 (11.0-16.0) % Plt Count 227 (160-400) X10*3/uL MPV 9.7 (9.4-12.3) fL Immature Gran % (Auto) 0.8 H (0.0-0.4) % Neut % (Auto) 51.4 (45-73) % Lymph % (Auto) 35.9 (20-40) % [place] % (Auto) 8.6 (2-11) % Eos % (Auto) 2.9 (0-4) % Baso % (Auto) 0.4 (0-2) % Lymph # (Auto) 2.8 (1.2-4.9) X10*3/uL [place] # (Auto) 0.7 (0.1-1.2) X10*3/uL Eos # (Auto) 0.2 (0.0-0.4) X10*3/uL Baso # (Auto) 0.0 (0.0-0.2) X10*3/uL Abs Immat Gran (auto) 0.06 H (0.00-0.03) X10*3/uL Absolute Neuts (auto) 4.0 (2.0-8.3) x10*3/uL Absolute Nucleated RBC 0.000 (0.0-0.012) X10*3/uL Nucleated RBC % (auto) 0.0 (0.0-0.2) /100WBC Sodium 142 (135-145) mmol/L Potassium 4.0 (3.3-5.1) mmol/L Chloride 107 (96-108) mmol/L Carbon Dioxide 24 (22-29) mmol/L Anion Gap 15 (12-20) BUN 15 (9-16) mg/dL Creatinine 0.74 (0.5-1.4) mg/dL Estim Creat Clear Calc 103.5 Estimated GFR > 60 Random Glucose 97 (60-115) mg/dL Calcium 8.7 D (8.4-10.2) mg/dL Total Bilirubin 0.9 (0.0-1.0) mg/dL AST 16 (5-31) U/L ALT 25 (0-31) U/L Alkaline Phosphatase 117 (39-117) U/L Total Protein 6.4 L (6.5-8.0) g/dL Albumin 3.8 (3.5-5.0) g/dL Lipase 43 (8-78) U/L Urine Color Yellow Urine Appearance Clear Urine pH 5.5 (5.0-9.0) Ur Specific [place] 1.025 (1.005-1.025) Urine Protein Negative (Neg-Trace) mg/dL Urine Glucose (UA) Negative (Negative) mg/dL Urine Ketones Negative (Negative) mg/dL Urine Blood Negative (Negative) Urine Nitrite Negative (Negative) Ur Leukocyte Esterase Small (1+) H (Negative) Urine RBC 0-2 (0-2) /HPF Urine WBC 11-20 H (0-5) /HPF Ur Squamous Epith Cells 6-10 (0-2) /HPF Urine Bacteria 1+ (None Seen) Hyaline Casts 0-2 (0-2) /LPF Imaging Data CT scan - abdomen: Radiologist's impression: [address] [address] [address] Scan Report Signed Patient: Shira Molina MR#: [id number] : 1965 Acct:[id number] Age/Sex: 56 / F ADM Date: 04/16/22 Loc: HO.ED Attending Dr: Ordering Physician: Erickson Banks MD Date of Service: 04/16/22 Procedure(s): CT abdomen pelvis wo IV con Accession Number(s): [id number] cc: Erickson Banks MD~ EXAMINATION: CT ABDOMEN AND PELVIS WITHOUT CONTRAST? CLINICAL INFORMATION: Right flank pain.? COMPARISON: 04/03/2021.? TECHNIQUE: Multidetector volumetric imaging was performed from the superior aspect of the liver through the pubic symphysis. Sagittal and coronal reformatted images were obtained on the technologist's workstation.? This CT examination was performed using dose optimization techniques as appropriate, variously including the following: *Automated exposure control *Adjustment of mA and/or kV according to patient size (this includes techniques or standardized protocols for targeted exams where dose is matched to indication/reason for exam; i.e. extremities or head) *Use of iterative reconstruction technique DLP: 776 mGy-cm FINDINGS: LUNG BASES: The lung bases appear clear, with no evidence of inflammation or nodules.? LIVER, GALLBLADDER, AND BILIARY TREE: The liver appears unremarkable in size, shape, and attenuation. No focal hepatic lesion or biliary ductal dilatation is appreciated. Status post cholecystectomy.? PANCREAS: Unremarkable? SPLEEN: Unremarkable? ADRENAL GLANDS: Unremarkable? KIDNEYS AND URETERS: The kidneys appear unremarkable in size, shape, and attenuation. No hydronephrosis, hydroureter, or calculi seen. ? BLADDER: Unremarkable? GASTROINTESTINAL TRACT: Stomach and small bowel appear unremarkable. Colonic diverticula predominantly involving the sigmoid colon, without evidence of diverticulitis. Normal-appearing distal ileum and vermiform appendix.? ABDOMINAL WALL: No significant hernia is appreciated.? LYMPH NODES: No evidence of adenopathy by size criteria. VASCULAR: Normal variant retroaortic left renal vein. PELVIC VISCERA: Unremarkable OSSEOUS STRUCTURES: No acute finding. Moderate disc degenerative change at L4-L5.? CT/CT abdomen pelvis wo IV con IMPRESSION: ? Essentially unremarkable CT scans of the abdomen and pelvis without oral or intravenous contrast. Dictated By: Efrem Ricardo Signed By: <Electronically signed by Efrem? Haleigh in OV> 04/16/22937 DD/ 6 Discharge Plan Discharge Clinical Impression: Abdominal pain Patient Disposition: Home, Self-Care Instructions: Abdominal Pain (ED) Prescriptions: No Action fluconazole [Diflucan] 150 mg tablet 150 mg PO ONCE 1 Days Qty: 1 0RF metoprolol succinate 25 mg tablet extended release 24 hr 25 mg PO DAILY albuterol sulfate [ProAir HFA] 90 mcg/actuation HFA aerosol inhaler 2 puff PO Q4-6H PRN pijoamnmyj-rrvukpffxaxzd-nzby [Fioricet] 50-300-40 mg capsule 1 cap PO Q8H PRN budesonide-formoterol [Symbicort] 160-4.5 mcg/actuation HFA aerosol inhaler 2 puff PO loratadine 10 mg tablet 10 mg PO DAILY omeprazole 20 mg capsule,delayed release(DR/EC) 20 mg PO DAILY amlodipine 10 mg tablet 10 mg PO DAILY albuterol sulfate 2.5 mg /3 mL (0.083 %) solution for nebulization inhalation QID furosemide 40 mg tablet 40 mg PO DAILY ibuprofen 400 mg tablet 400 mg PO Q6H PRN (Reason: pain) lisinopril 20 mg tablet 20 mg PO DAILY clotrimazole-betamethasone 1-0.05 % cream 1 appl topical BID Qty: 45 1RF oxycodone-acetaminophen [Percocet] 7.5-325 mg tablet 1 tab PO Q8H PRN Referrals: Name,MD Humble [Primary Care Provider] - 3 days Interventions: ED Discharge Assessment Last Done: 04/16/22 13:02 Discharge Date/Time: 04/16/22 13:04
[2022-04-16 09:44] LABS: MANUAL DIFF FLAG NO
[2022-04-16 09:46] LABS: Basophils Percent Auto 0.4 % (0-2); Eosinophils Absolute Auto 0.2 X10*3/uL (0.0-0.4); Eosinophils Percent Auto 2.9 % (0-4); Hematocrit 42.1 % (37.0-47.0); Hemoglobin 14.1 g/dl (12.0-16.0); Imm Gran Abs Auto 0.06 X10*3/uL (0.00-0.03); Imm Gran Pct Auto 0.8 % (0.0-0.4); Lymphocytes Absolute Auto 2.8 X10*3/uL (1.2-4.9); Lymphocytes Percent Auto 35.9 % (20-40); Mean Corpuscular HGB Conc 33.5 g/dl (31.0-35.0); Mean Corpuscular Hemoglobin 30.1 pg (27.0-33.0); Mean Corpuscular Volume 89.8 fL (80.0-98.0); Mean Platelet Volume 9.7 fL (9.4-12.3); Monocytes Absolute Auto 0.7 X10*3/uL (0.1-1.2); Monocytes Percent Auto 8.6 % (2-11); Neutrophils Percent Auto 51.4 % (45-73); Platelet Count 227 X10*3/uL (160-400); Red Blood Count 4.69 X10*6/uL (4.20-5.50); Red Cell Distribution Width 13.7 % (11.0-16.0); White Blood Count 7.7 X10*3/uL (4.8-10.8)
[2022-04-16 09:47] LABS: Appearance Urine Clear; Color Urine Yellow; Glucose Urine UA Negative (Negative); Leukocyte Esterase Urine Small (1+) (Negative); Nitrite Urine Negative (Negative); PH 5.5 (5.0-9.0); Specific Gravity - Urine 1.025 (1.005-1.025); UMIC TRIGGER UACC YES; Urine Blood Negative (Negative); Urine Ketones Negative (Negative); Urine Protein Negative (Neg-Trace)
[2022-04-16 09:52] LABS: Bacteria Urine 1+ (None Seen); Hyaline Casts Urine 0-2 /LPF (0-2); RBC Urine 0-2 /HPF (0-2); UACC Culture Trigger YES
[2022-04-16] MEDS: 0.9 % Sodium Chloride 1,000 ML 999 ML IVCONT (09:58)
[2022-04-16] MEDS: Ketorolac Tromethamine 30 MG/ML VIAL IVPUSH (09:58)
[2022-04-16 10:05] LABS: Alanine Aminotransferase 25 U/L (0-31); Albumin Level 3.8 g/dL (3.5-5.0); Alkaline Phosphatase 117 U/L (39-117); Anion Gap 15 (12-20); Aspartate Amino Transferase 16 U/L (5-31); Bilirubin Total 0.9 mg/dL (0.0-1.0); Blood Urea Nitrogen 15 mg/dL (9-16); Calcium 8.7 mg/dL (8.4-10.2); Carbon Dioxide 24 mmol/L (22-29); Chloride 107 mmol/L (96-108); Creatinine Clr Calc Pharmacy 103.5; Estimated Glomerular Filt Rate > 60; Glucose Random 97 mg/dL (60-115); Lipase 43 U/L (8-78); Sodium 142 mmol/L (135-145); Total Protein 6.4 g/dL (6.5-8.0)
[2022-04-16 10:47] VITALS: BP 129/67; PULSE 66; RESP 18; TEMP 36.5; O2SAT 97
== END 2022-04-16 13:04 | disposition home or self-care (01) ==
PROVIDERS: Emergency Provider Emergency Medicine; PCP Internal Medicine Geriatric Medicine
DX: R10.9 Unspecified abdominal pain (principal); I10 Essential (primary) hypertension; Z87.891 Personal history of nicotine dependence; Z90.49 Acquired absence of other specified parts of digestive tract; Z87.442 Personal history of urinary calculi; Z79.899 Other long term (current) drug therapy
CPT/HCPCS: 36415; 74176; 80053; 81001; 83690; 85025; 87086; 96374; 99284; J1885

== ENCOUNTER 2022-07-29 14:56 | Outpatient (REF) | payer MEDICAID, SELFPAY ==
--- NOTE | ~2022-07-29 | US_ITS ---
EXAMINATION: US PELVIS COMPLETE CLINICAL INFORMATION: Pelvic and perineal pain; postmenopausal patient. COMPARISON: Pelvic ultrasound dated 12/03/2018 TECHNIQUE: Transabdominal and transvaginal imaging were performed. FINDINGS: The uterus is of normal size and echogenicity, measuring 6.6 x 3.5 x 4.7 cm. The uterus is anteverted and anteflexed. A regular, homogeneous endometrium is identified measuring 0.9 cm. There is a small amount nonspecific free fluid within the endometrial canal. FIBROIDS: There is 1 fibroid seen. 1. Location: Rightward body, myometrial. Size: 1.5 x 1.6 x 1.8 cm. Prior: 1.3 x 1.6 x 1.8 cm. Fibroid characteristics: Heterogeneous echotexture. Both ovaries are of normal size and echogenicity. The right ovary measures 2.5 x 1.4 x 1.7 cm for a volume of 3.1 mL. Small ovarian peripheral calcifications are incidentally noted, likely psammomatous calcifications or sequela of prior inflammation or infection. The left ovary measures 1.7 x 0.9 x 1.7 cm for a volume of 2.3 mL. There is no pelvic free fluid. No adnexal mass is seen. US/US pelvic and transvaginal IMPRESSION: 1. A small uterine fibroid is seen, as detailed. 2. There is a small amount nonspecific fluid within the endometrial canal.
== END 2022-07-29 14:57 | disposition home or self-care (01) ==
LOC: HO.US 14:56
PROVIDERS: Visit Provider Advanced Practice Midwife
DX: R10.2 Pelvic and perineal pain (principal); N64.4 Mastodynia
CPT/HCPCS: 76830; 76856

== ENCOUNTER → 2022-09-22 09:28 | Outpatient (BNVA) | payer MEDICAID, SELFPAY | PROVIDERS: PCP Internal Medicine Geriatric Medicine; Visit Provider Advanced Practice Midwife | DX: Z71.2 Person consulting for explanation of examination or test findings (principal); D25.9 Leiomyoma of uterus, unspecified | CPT/HCPCS: 99212 ==

== ENCOUNTER → 2022-10-17 12:36 | Outpatient (BNVA) | payer MEDICAID, SELFPAY | PROVIDERS: PCP Internal Medicine Geriatric Medicine; Visit Provider Nurse Practitioner Family | DX: N20.0 Calculus of kidney (principal) | CPT/HCPCS: 99202 ==

== ENCOUNTER 2022-11-10 08:45 | Outpatient (REF) | payer MEDICAID, SELFPAY ==
--- NOTE | ~2022-11-10 | US_ITS ---
EXAMINATION: US RETROPERITONEAL LIMITED (RENAL ONLY) CLINICAL INFORMATION: Calculus of kidney. COMPARISON: CT abdomen and pelvis 04/16/2022. Renal ultrasound 04/16/2021 and 07/31/2019. X-ray abdomen KUB 03/14/2011. TECHNIQUE: Real-time imaging of the kidneys. FINDINGS: RIGHT KIDNEY: 11.1 x 4.8 x 3.6 cm (SAG x AP x TRV). The kidney is normal in size, contour, and echogenicity. Renal cortical thickness is normal. No calculi or focal parenchymal lesions. No hydronephrosis. LEFT KIDNEY: 11.8 x 4.9 x 4.7 cm (SAG x AP x TRV). The kidney is normal in size, contour, and echogenicity. Renal cortical thickness is normal. No calculi or focal parenchymal lesions. No hydronephrosis. US/US renal BI IMPRESSION: No significant sonographic abnormality.
== END 2022-11-10 08:46 | disposition home or self-care (01) ==
LOC: HO.US 08:45
PROVIDERS: PCP Internal Medicine Geriatric Medicine; Visit Provider Nurse Practitioner Family
DX: N20.0 Calculus of kidney (principal)
CPT/HCPCS: 76775

== ENCOUNTER → 2022-11-30 09:07 | Outpatient (BNVA) | payer MEDICAID, SELFPAY | PROVIDERS: PCP Internal Medicine Geriatric Medicine; Visit Provider Nurse Practitioner Family ==

== ENCOUNTER 2022-12-19 19:23 | Emergency (ER) | payer MEDICAID, SELFPAY ==
--- NOTE | ~2022-12-19 | XR_ITS ---
EXAMINATION: XR LUMBOSACRAL SPINE CLINICAL INFORMATION: Lower back pain COMPARISON: 12/06/2021 TECHNIQUE: Three views of the lumbosacral spine. FINDINGS: Bones are normal anatomic alignment with no acute fracture or spondylolisthesis seen. Degenerative changes are seen with loss of disc height, osteophyte formation, and endplate sclerosis more so at L4/L5, similar to the prior study. Unremarkable bowel gas pattern. Surgical clips the right upper quadrant likely from prior cholecystectomy. XR/XR lumbar spine 2-3V IMPRESSION: Chronic appearing and degenerative changes similar to the prior study.
[2022-12-19 19:25] VITALS: BP 137/67; PULSE 87; RESP 16; TEMP 36.3; O2SAT 99; BMI 36.0
--- NOTE | 2022-12-19 19:29 | ED_ITS ---
HPI - General Adult General Chief complaint: Back Pain/Injury Stated complaint: Back Pain/Hip pain Time Seen by Provider: 12/19/22 21:50 Source: patient Mode of arrival: ambulatory Limitations: language barrier (Malay-speaking medical laboratory specialist utilized) History of Present Illness HPI narrative: Patient is a 57-year-old female who presents to the emergency department for evaluation of acute on chronic right lower back pain with radiation to the right leg. Patient has had chronic pain due to arthritis of her spine. She has been followed by her primary care provider for pain management with Percocet. Just over 1 month ago she went to her routine appointment at her primary care provider's office, they had checked a urine drug screening, and reportedly oxycodone was not present therefore they are no longer prescribing her the oxycodone. Patient states that she brought with her to the office her oxycodone tablets that were remaining, to prove that she had taken some but did have some remaining; she was taking at less than prescribed. However her doctor is no longer willing to prescribe her the oxycodone by her report. Over the past few days her pain has increased, making it difficult to ambulate. Denies fevers, chills, nausea, vomiting, abdominal pain, dysuria urinary frequency/urgency/hesitancy, saddle paresthesias Related Data Home Medications Medication Instructions Recorded Confirmed lisinopril 20 mg tablet 20 mg PO DAILY 12/28/20 12/28/20 albuterol sulfate 2.5 mg/3 mL mg inhalation QID 03/01/21 (0.083 %) solution for nebulization albuterol sulfate 90 mcg/actuation 2 puff PO Q4-6H PRN 03/01/21 aerosol inhaler (ProAir HFA) amlodipine 10 mg tablet 10 mg PO DAILY 03/01/21 budesonide-formoterol HFA 160 2 puff PO 03/01/21 mcg-4.5 mcg/actuation aerosol inhaler (Symbicort) [id number]-hgtwsbkbfapcq-iffifyaw 1 cap PO Q8H PRN 03/01/21 50 mg-300 mg-40 mg capsule (Fioricet) furosemide 40 mg tablet 40 mg PO DAILY 03/01/21 loratadine 10 mg tablet 10 mg PO DAILY itch 03/01/21 omeprazole 20 mg capsule,delayed 20 mg PO DAILY 03/01/21 release oxycodone-acetaminophen 7.5 mg-325 1 tab PO Q8H PRN 03/03/22 mg tablet (Percocet) buspirone 5 mg tablet 5 mg PO BID 10/17/22 carvedilol 12.5 mg tablet 12.5 mg PO BID 10/17/22 duloxetine 30 mg capsule,delayed 30 mg PO DAILY 10/17/22 release gabapentin 100 mg capsule 100 mg PO DAILY 10/17/22 lisinopril 20 2 tab PO DAILY 10/17/22 mg-hydrochlorothiazide 12.5 mg tablet naloxone 4 mg/actuation nasal spray 0 spray intranasal 10/17/22 tiotropium bromide 18 mcg capsule 1 cap inhalation DAILY 10/17/22 with inhalation device (Spiriva with HandiHaler) Previous Rx's Medication Instructions Recorded oxycodone 5 mg tablet 7.5 mg PO BID PRN pain #9 tabs 12/19/22 Allergies Allergy/AdvReac Type Severity Reaction Status Date / Time morphine [MORPHINE] Allergy Severe HIVES, Verified 11/30/22 09:25 rash, itching,hives tramadol [TRAMADOL] Allergy Intermediate HIVES Verified 11/30/22 09:25 Review of Systems Review of Systems: Constitutional: No weight loss, fever, chills, weakness or fatigue. HEENT: No visual loss, blurred vision, double vision. No hearing loss, sneezing, congestion, runny nose or sore throat. Skin: No rash or itching. Cardiovascular: No chest pain, chest pressure or chest discomfort. No palpitations or pedal edema. Respiratory: No shortness of breath, cough or sputum production. Gastrointestinal: No anorexia, nausea, vomiting or diarrhea. No abdominal pain or blood in stool. Genitourinary: No burning micturition. No urinary frequency or incontinence. Neurologic: No headache, dizziness, syncope, unilateral weakness, ataxia, numbness or tingling in the extremities. No change in bowel or bladder control. Musculoskeletal: + Back pain as noted in HPI. No joint pain or stiffness. Hematologic: No bleeding or bruising. Lymphatics: No enlarged lymph nodes. Psychiatric:No depression or anxiety. Endocrine: No reports of sweating. No cold or heat intolerance. No polyuria or polydipsia. [facility] Past Medical History Attestation statement: The following information was validated with the patient. Source: old records reviewed Medical History Chondral defect of patella Gallbladder abscess History of uterine fibroid HTN (hypertension) Kidney stones Migraine Para-ovarian adhesion Surgical History History of bunionectomy History of cholecystectomy History of kidney surgery History of tubal ligation Family History Family History Mother Stroke Diabetes HTN (hypertension) Father Heart attack Sister Lupus Leukemia Social History Social History Household Members: Spouse and Children Housing: Apartment Alcohol intake: never Patient Tobacco Use Status: Former Tobacco user Tobacco use type: Cigarette Cigarettes Per Day: 2 Advance Directives: No Advance Directives Information Provided: No Current occupational status: unemployed Sexual orientation: Straight/Heterosexual Gender identity: Female Physical Exam ED Vital Signs: Vital Signs - 24 hr 12/19/22 19:25 Temperature 97.3 F Pulse Rate 87 Respiratory Rate 16 Blood Pressure 137/67 Pulse Oximetry 99 Oxygen Delivery Method Room Air BMI result Body Mass Index 36.0 Appearance: Alert.?Oriented to person, place and time. No acute distress.?Normal affect. Eyes: Pupils equal, round and reactive to light.? ENT: Pharynx normal.?? Neck: Normal inspection.? Neck supple.?? CVS: Heart sounds normal. Normal heart rate and rhythm.? Pulses normal.?? Respiratory: No respiratory distress.? Lung sounds clear to auscultation bilaterally?? Abdomen: Soft and non-tender. Normoactive bowel sounds. Skin: Skin warm and dry.? Normal skin color.? Back: Right paraspinal muscle tenderness upon palpation?? Extremities: No lower extremity edema.? No calf ttp? Neuro: Moves all extremities spontaneously. Sensation intact bilaterally. No focal neuro deficits. Ambulates with normal steady gait. Course Course Course Narrative: This is an RME: Additional HPI, ROS, PE not included below will be deferred to primary provider. Patient is a 57 year old female presenting with atraumatic right sided flank pain for 1 week. Patient has known arthritis in back and notes this feels similar to that. No trauma or falls. No red flag sx. No fever, chills, numbness, tingling, nausea, vomiting. Plan: imaging, pain control Medications Administered Discontinued Medications Generic Name Dose Route Start Last Admin Trade Name Grace PRN Reason Stop Dose Admin Ketorolac Tromethamine 30 mg 12/19/22 19:30 12/19/22 22:07 Ketorolac Tromethamine 15 Mg/Ml Vial IM 12/19/22 19:31 30 mg ONCE ONE Administration Lidocaine 2 patch 12/19/22 19:30 12/19/22 22:07 Lidocaine 4 % Patch Adh..Patch TRANSDERMA 12/19/22 19:31 2 patch ONCE ONE Administration Protocol Medical Decision Making Medical Decision Making MDM Narrative: Patient is a 57-year-old female presenting to emergency department for acute on chronic lower back pain in the setting of recent discontinuation of her chronic opiates. Pain by her count is consistent with her chronic pain no worse than baseline. This is likely due to the discontinuation of her chronic opiates. No precipitating injury, no genitourinary symptoms. No neurological deficits upon examination. Not consistent with spinal fracture, spinal infection, epidural abscess. XR imaging reveals no acute fracture, consistent with chronic degeneration. She has no high-risk past medical history that would warrant MRI or CT. Not consistent with pyelonephritis, urinary tract infection, renal calculi, pelvic infection, appendicitis, diverticulitis. On exam no concern for cauda equina syndrome. No imaging is currently indicated at this time. Plan for discharge home with short course of oxycodone, and follow-up with primary care provider for further chronic pain management and patient agreed with plan. Differential Diagnosis Differential Diagnoses: The differential diagnosis associated with the presentation includes (As noted above) Independent Interpretation I performed an independent interpretation of an: Plain X-Ray (I have personally interpreted XR imaging and agree with radiologist impression no acute fracture dislocation) Radiology Impression Discussion of test interpretation with radiology: I have reviewed the radiologist's reading. Radiologist Impression: XR/XR lumbar spine 2-3V IMPRESSION: Chronic appearing and degenerative changes similar to the prior study. Independent Historian Clinical information obtained from an independent historian. History obtained from or confirmed by: Spouse (Spouse is present at bedside who confirms history) External Record Review External record reviewed: Outpatient record and Other (Reviewed [employer] [facility] prior to prescription for oxycodone, no conflicts at this time) Tests considered The following testing was considered but not selected: CT/MRI imaging of the lumbar spine as noted above, deferred Prescription Management I considered prescription management with: Pain Medication Discharge Plan Discharge Clinical Impression: Lumbar radiculopathy Patient Disposition: Home, Self-Care Additional Instructions: As discussed, I have sent a short prescription for the oxycodone to your pharmacy. You must follow-up with your primary care doctor to discuss continued chronic pain management with the use of oxycodone at your doctor's discretion. Prescriptions: New oxycodone 5 mg tablet 7.5 mg PO BID PRN (Reason: pain) Qty: 9 0RF Rx Instructions: Partial Fill upon patient request. No Action albuterol sulfate [ProAir HFA] 90 mcg/actuation HFA aerosol inhaler 2 puff PO Q4-6H PRN gitywutnqm-rqceepajrwicr-uuve [Fioricet] 50-300-40 mg capsule 1 cap PO Q8H PRN budesonide-formoterol [Symbicort] 160-4.5 mcg/actuation HFA aerosol inhaler 2 puff PO loratadine 10 mg tablet 10 mg PO DAILY omeprazole 20 mg capsule,delayed release(DR/EC) 20 mg PO DAILY amlodipine 10 mg tablet 10 mg PO DAILY albuterol sulfate 2.5 mg /3 mL (0.083 %) solution for nebulization inhalation QID furosemide 40 mg tablet 40 mg PO DAILY lisinopril 20 mg tablet 20 mg PO DAILY oxycodone-acetaminophen [Percocet] 7.5-325 mg tablet 1 tab PO Q8H PRN naloxone 4 mg/actuation spray,non-aerosol 0 spray intranasal duloxetine 30 mg capsule,delayed release(DR/EC) 30 mg PO DAILY Spiriva with HandiHaler 18 mcg capsule, w/inhalation device 1 cap inhalation DAILY gabapentin 100 mg capsule 100 mg PO DAILY buspirone 5 mg tablet 5 mg PO BID carvedilol 12.5 mg tablet 12.5 mg PO BID lisinopril-hydrochlorothiazide 20-12.5 mg tablet 2 tab PO DAILY
[2022-12-19] MEDS: Lidocaine 4 % Patch ADH..PATCH 2 PATCH TRANSDERMA (22:07)
[2022-12-19] MEDS: Ketorolac Tromethamine 15 MG/ML VIAL 30 MG IM (22:07)
--- NOTE | 2022-12-19 22:14 | PC.NURSE ---
pt medicated per AUG for 10 right lower back/hip pain. pt pending ED provider.
== END 2022-12-19 22:59 | disposition home or self-care (01) ==
PROVIDERS: Emergency Provider Internal Medicine; PCP Internal Medicine Geriatric Medicine
DX: M54.16 Radiculopathy, lumbar region (principal); M54.50 Low back pain, unspecified; Z87.891 Personal history of nicotine dependence; Z79.899 Other long term (current) drug therapy
CPT/HCPCS: 72100; 96372; 99283; 99284; J1885

== ENCOUNTER 2022-12-23 10:59 | Outpatient (REF) | payer MEDICAID, SELFPAY ==
--- NOTE | ~2022-12-23 | CT_ITS ---
EXAMINATION: CT ABDOMEN AND PELVIS without CONTRAST CLINICAL INFORMATION: Abdominal pain. COMPARISON: CT scan abdomen pelvis 04/16/2022. Renal ultrasound 11/10/2022 TECHNIQUE: Helical CT scan of abdomen and pelvis. IV contrast: None Oral contrast: None Reconstruction: Coronal and sagittal reformatted images performed at CT scanner by the technologist. [This CT examination was performed using dose optimization techniques as appropriate, variously including the following: *Automated exposure control *Adjustment of mA and/or kV according to patient size (this includes techniques or standardized protocols for targeted exams where dose is matched to indication/reason for exam; i.e. extremities or head) *Use of iterative reconstruction technique] FINDINGS: LUNG BASES: The visualized lung bases are unremarkable. LIVER, GALLBLADDER, AND BILIARY TREE: The liver is normal in size, shape, and attenuation. No focal hepatic lesion or biliary ductal dilatation is present. Status post cholecystectomy PANCREAS: No acute change of the pancreas. No mass. No pancreatic duct dilatation. SPLEEN: Spleen normal in size and contour. No focal lesion. ADRENAL GLANDS: Adrenal glands are normal in size. No focal mass. KIDNEYS AND URETERS: The kidneys are normal in size, shape, and attenuation. No hydronephrosis, hydroureter, or calculi seen. No perinephric stranding. BLADDER: Unremarkable. GASTROINTESTINAL TRACT: There are scattered diverticula of the sigmoid colon. There is no diverticulitis. There is no bowel wall thickening /edema. There is no bowel obstruction. There is a moderate volume of stool in the colon. The appendix is normal . The small bowel loops are unremarkable. The stomach is normal. There is no hiatal hernia. MESENTERY: No focal inflammation. No free fluid. No free air. ABDOMINAL WALL: No significant hernia is appreciated. LYMPH NODES: Normal. VASCULAR: Unremarkable. PELVIC VISCERA: Unremarkable. OSSEOUS STRUCTURES: Degenerative disc height narrowing vacuum disc phenomenon L5-S1 with endplate spurs of vertebrae. Degenerative bridging and nonbridging vertebral endplate spurs of the lower thoracic and the upper lumbar spine. CT/CT kidney stone IMPRESSION: No acute abnormality CT scan abdomen pelvis.
== END 2022-12-23 11:00 | disposition home or self-care (01) ==
LOC: HO.CT 10:59
PROVIDERS: Visit Provider Nurse Practitioner Family
DX: R10.9 Unspecified abdominal pain (principal); N20.0 Calculus of kidney
CPT/HCPCS: 74176

== ENCOUNTER 2022-12-27 07:15 | Emergency (ER) | payer MEDICAID, SELFPAY ==
[2022-12-27 07:49] VITALS: BP 147/88; PULSE 71; RESP 18; TEMP 36.7; O2SAT 99; BMI 35.5
== END 2022-12-27 07:55 | disposition left against medical advice (07) ==
PROVIDERS: Emergency Provider Emergency Medicine; PCP Internal Medicine Geriatric Medicine
DX: I10 Essential (primary) hypertension (principal)
CPT/HCPCS: 99281

== ENCOUNTER 2022-12-29 08:27 | Emergency (ER) | payer MEDICAID, SELFPAY ==
[2022-12-29 08:31] VITALS: BP 155/73; PULSE 76; RESP 20; TEMP 36.1; O2SAT 96; BMI 35.5
--- NOTE | 2022-12-29 08:54 | ED.GENADULT ---
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 Patient states that she was seen here approximately 9 days ago and given 9 pills of medication for her pain. Patient states that the medication helped her pain but now she is out of them. Patient states that she previously saw a pain specialist but given her fear of needles, she did not follow up with them again. Patient denies any dizziness, lightheadedness, abdominal pain, nausea, vomiting, fever, chills, blurry vision, double vision, loss of vision, chest pain, difficulty breathing, shortness of breath, night sweats, pain with urination, increased urinary frequency, increased urinary urgency, blood in her urine or stool, syncope or a near syncopal episode, recent trauma or falls, bowel incontinence, bladder incontinence, bowel retention, bladder retention, or any other complaints at this time. Onset (ago): year(s) Location: back Radiation: non-radiation Severity: mild Severity scale (1-10): 4 Quality: aching and dull Pain Consistency: constant Relieving factors: none Exacerbating factors: movement Associated symptoms: denies other symptoms Treatments prior to arrival: other (oxycodone previously prescribed) Related Data Home Medications Medication Instructions Recorded Confirmed lisinopril 20 mg tablet 20 mg PO DAILY 12/28/20 12/28/20 albuterol sulfate 2.5 mg/3 mL mg inhalation QID 03/01/21 (0.083 %) solution for nebulization albuterol sulfate 90 mcg/actuation 2 puff PO Q4-6H PRN 03/01/21 aerosol inhaler (ProAir HFA) amlodipine 10 mg tablet 10 mg PO DAILY 03/01/21 budesonide-formoterol HFA 160 2 puff PO 03/01/21 mcg-4.5 mcg/actuation aerosol inhaler (Symbicort) iazikuewlb-hjacokgaiiyvo-sbulaijs 1 cap PO Q8H PRN 03/01/21 50 mg-300 mg-40 mg capsule (Fioricet) furosemide 40 mg tablet 40 mg PO DAILY 03/01/21 loratadine 10 mg tablet 10 mg PO DAILY itch 03/01/21 omeprazole 20 mg capsule,delayed 20 mg PO DAILY 03/01/21 release oxycodone-acetaminophen 7.5 mg-325 1 tab PO Q8H PRN 03/03/22 mg tablet (Percocet) buspirone 5 mg tablet 5 mg PO BID 10/17/22 carvedilol 12.5 mg tablet 12.5 mg PO BID 10/17/22 duloxetine 30 mg capsule,delayed 30 mg PO DAILY 10/17/22 release gabapentin 100 mg capsule 100 mg PO DAILY 10/17/22 lisinopril 20 2 tab PO DAILY 10/17/22 mg-hydrochlorothiazide 12.5 mg tablet naloxone 4 mg/actuation nasal spray 0 spray intranasal 10/17/22 tiotropium bromide 18 mcg capsule 1 cap inhalation DAILY 10/17/22 with inhalation device (Spiriva with HandiHaler) Previous Rx's Medication Instructions Recorded oxycodone 5 mg tablet 7.5 mg PO BID PRN pain #9 tabs 12/19/22 cyclobenzaprine 5 mg tablet 5 mg PO TID PRN muscle spasm 7 12/29/22 days #21 tabs prednisone 20 mg tablet 20 mg PO DAILY 7 days #7 tabs 12/29/22 Allergies Allergy/AdvReac Type Severity Reaction Status Date / Time morphine [MORPHINE] Allergy Severe HIVES, Verified 11/30/22 09:25 rash, itching,hives tramadol [TRAMADOL] Allergy Intermediate HIVES Verified 11/30/22 09:25 Review of Systems Constitutional: Constitutional: Reports no additional constitutional complaints, Denies chills, Denies fever(s) and Denies night sweats Eyes: Eyes: Reports no additional eye complaints, Denies blurry vision, Denies change in vision, Denies diplopia, Denies eye discharge, Denies loss of vision and Denies eye pain ENT: Denies dizziness Cardiovascular: Cardiovascular: Reports no additional cardiovascular complaints, Denies chest pain, Denies lightheadedness, Denies Loss of Consciousness and Denies dyspnea Respiratory: Respiratory: Reports no additional respiratory complaints and Denies dyspnea Gastrointestinal: Gastrointestinal: Reports no additional gastrointestinal complaints, Denies abdominal pain, Denies melena, Denies hematochezia, Denies change in bowel habits and Denies change in stool character Genitourinary: Genitourinary: Denies hematuria, Denies urinary frequency, Denies dysuria, Denies urinary incontinence, Denies urinary hesitancy and Denies urinary urgency Musculoskeletal: Musculoskeletal: Reports no additional musculoskeletal complaints, Reports back pain, Denies numbness and Denies tingling Neurologic: Denies dizziness, Denies loss of vision, Denies numbness and Denies tingling Psychiatric: Psychiatric: Reports no additional psychiatric complaints Endocrine: Endocrine: Reports no additional endocrine complaints Hematologic/Lymphatic: Hematologic/Lymphatic: Reports no additional hematologic/lymphatic complaints Allergic/Immunologic: Allergic/Immunologic: Reports no additional allergic/immunologic complaints PMFSH Past Medical History Attestation statement: The following information was validated with the patient. Source: old records reviewed and nursing notes reviewed Medical History Breast pain Chondral defect of patella Encounter for annual routine gynecological examination Flank pain Fungal infection of the groin Gallbladder abscess History of uterine fibroid HTN (hypertension) Kidney stones Migraine Migraines Para-ovarian adhesion Pelvic pain in female Right flank pain Yeast infection involving the vagina and surrounding area Surgical History History of bunionectomy History of cholecystectomy History of kidney surgery History of tubal ligation Family History Family History Mother Stroke Diabetes HTN (hypertension) Father Heart attack Sister Lupus Leukemia Social History Social History Household Members: Spouse and Children Housing: Apartment Alcohol intake: never Patient Tobacco Use Status: Former Tobacco user Tobacco use type: Cigarette Cigarettes Per Day: 2 Advance Directives: No Current occupational status: unemployed Sexual orientation: Straight/Heterosexual Gender identity: Female Physical Exam ED Vital Signs: Vital Signs - 24 hr 12/29/22 08:31 Temperature 97.0 F Pulse Rate 76 Respiratory Rate 20 Blood Pressure 155/73 H Pulse Oximetry 96 Oxygen Delivery Method Room Air BMI result Body Mass Index 35.5 Const General: cooperative, no acute distress, alert and awake Nutritional Appearance: well nourished Orientation/consciousness: patient oriented x3 Limitations: no limitations HENMT Head: Yes normal to inspection and Yes atraumatic Ears: hearing grossly normal bilaterally and external ears normal General nose exam: Normal external nose present, no nasal discharge noted and no epistaxis Face and sinus: Yes normal facial exam, No abrasion and No laceration Mouth: Normal oral and palatal mucosa present, no drooling and no muffled voice Eyes General: appearance normal, both eyes and all related structures Periorbital: periorbital findings normal Eyelids: Yes eyelids normal Conjunctivae: conjunctivae normal Pupils: Equal, round and reactive pupils present EOM: EOMs intact bilaterally Neck Neck: Yes normal visual inspection, Yes full ROM and Yes no lymphadenopathy Chest Chest palpation & inspection: normal inspection of the chest Resp Effort & Inspection: normal respiratory effort and able to speak in complete sentences GI Inspection: Yes normal to inspection General: Yes no CVA tenderness Back/Spine/Pelvis Back: no CVA tenderness Cervical Spine: normal cervical lordosis and cervical ROM normal Thoracic/Lumbar Spine: thoraco-lumbar ROM normal Neuro General: patient oriented x3 and moves all extremities Cranial nerves: Yes Equal, round and reactive pupils present Cognition (Neuro): normal cognition Motor exam (neuro): 5/5 motor strength present throughout Sensory Exam: Normal double simultaneous stimulation for sensation Coordination: eiwmam-[id number] test normal Extrem General: Yes normal to inspection, Yes full ROM and Yes capillary refill normal Psych Appearance: grossly normal Mental Status: mental status grossly normal Affect: normal affect Attitude: cooperative Thought process: Normal thought process present Thought content: Normal thought content present Insight: Good insight present (Psych) Medications Administered Discontinued Medications Generic Name Dose Route Start Last Admin Trade Name Amosq PRN Reason Stop Dose Admin Cyclobenzaprine HCl 5 mg 12/29/22 09:22 12/29/22 09:39 Cyclobenzaprine Hcl 5 Mg Tablet PO 12/29/22 09:23 5 mg ONCE ONE Administration Ketorolac Tromethamine 15 mg 12/29/22 09:22 12/29/22 09:39 Ketorolac Tromethamine 15 Mg/Ml Vial IM 12/29/22 09:23 15 mg ONCE ONE Administration Lidocaine 1 patch 12/29/22 09:22 12/29/22 09:40 Lidocaine 4 % Patch Adh..Patch TRANSDERMA 12/29/22 09:23 1 patch ONCE ONE Administration Protocol Prednisone 20 mg 12/29/22 09:23 12/29/22 09:39 Prednisone 20 Mg Tablet PO 12/29/22 09:24 20 mg ONCE ONE Administration Medical Decision Making Medical Decision Making [facility] Narrative: Patient is a 57 year old assigned female at with a history of chronic back pain presenting to the emergency department today with acute on chronic back pain. Patient's physical exam was unremarkable. Patient's lumbar spine x-ray from 12/19/2022 showed no acute process. I explained my physical exam findings to the patient. I answered all questions asked by the patient. Patient received IM Toradol, PO Prednisone, and PO flexeril which she stated helped her symptoms significantly. I stressed the importance of the patient taking her medication as prescribed. I stressed the importance of the patient following up with her primary care provider, a medicare contact specialist, and a pain specialist. I stressed the importance of the patient returning to the emergency department immediately if her symptoms were to worsen or if she were to develop any dizziness, shortness of breath, difficulty breathing, chest pain, blurry vision, loss of vision, nausea, vomiting, abdominal pain, fever, chills, back pain, or any other complaints. Patient verbalized agreement and understanding with this treatment plan and discharge. Differential Diagnosis Differential Diagnoses: The differential diagnosis associated with the presentation includes Chronic back pain Acute on chronic back pain External Record Review External record reviewed: Other (reviewed all previous ED records and imaging.) Prescription Management I considered prescription management with: Pain Medication (patient prescribed prednisone and flexeril) Chronic Conditions Patient?s care impacted by: Other (chronic back pain) Discharge Plan Discharge Clinical Impression: Back pain Patient Disposition: Home, Self-Care Instructions: Back Pain (ED) Additional Instructions: Follow up with your primary care provider, a medicare contact specialist, and a pain specialist. Return to the emergency department immediately if your symptoms worsen or if you develop any dizziness, shortness of breath, difficulty breathing, chest pain, blurry vision, loss of vision, nausea, vomiting, abdominal pain, fever, chills, back pain, or any other complaints. Olivia un seguimiento con mata proveedor de atenci?n primaria, un especialista en [place]um[place] vertebral y un especialista en dolor. Regrese al departamento de emergencias de inmediato si laura s?ntomas empeoran o si presenta mareos, dificultad para respirar, dolor en el pecho, visi?n borrosa, p?rdida de la visi?n, n?useas, v?mitos, dolor abdominal, fiebre, escalofr?os, dolor de espalda o cualquier otra molestia. Prescriptions: New prednisone 20 mg tablet 20 mg PO DAILY 7 Days Qty: 7 0RF cyclobenzaprine 5 mg tablet 5 mg PO TID PRN (Reason: muscle spasm) 7 Days Qty: 21 0RF No Action oxycodone 5 mg tablet 7.5 mg PO BID PRN (Reason: pain) Qty: 9 0RF Rx Instructions: Partial Fill upon patient request. albuterol sulfate [ProAir HFA] 90 mcg/actuation HFA aerosol inhaler 2 puff PO Q4-6H PRN anbwzdilyw-snctzoajxxyxf-wxaf [Fioricet] 50-300-40 mg capsule 1 cap PO Q8H PRN budesonide-formoterol [Symbicort] 160-4.5 mcg/actuation HFA aerosol inhaler 2 puff PO loratadine 10 mg tablet 10 mg PO DAILY omeprazole 20 mg capsule,delayed release(DR/EC) 20 mg PO DAILY amlodipine 10 mg tablet 10 mg PO DAILY albuterol sulfate 2.5 mg /3 mL (0.083 %) solution for nebulization inhalation QID furosemide 40 mg tablet 40 mg PO DAILY lisinopril 20 mg tablet 20 mg PO DAILY oxycodone-acetaminophen [Percocet] 7.5-325 mg tablet 1 tab PO Q8H PRN naloxone 4 mg/actuation spray,non-aerosol 0 spray intranasal duloxetine 30 mg capsule,delayed release(DR/EC) 30 mg PO DAILY Spiriva with HandiHaler 18 mcg capsule, w/inhalation device 1 cap inhalation DAILY gabapentin 100 mg capsule 100 mg PO DAILY buspirone 5 mg tablet 5 mg PO BID carvedilol 12.5 mg tablet 12.5 mg PO BID lisinopril-hydrochlorothiazide 20-12.5 mg tablet 2 tab PO DAILY Referrals: [facility] [Provider Group] (Call to establish and follow up with a pain specialist. Llame para establecer y hacer un seguimiento con un especialista en dolor.) [facility] [Provider Group] (Call to establish and follow up with a medicare contact specialist. Llame para establecer y hacer un seguimiento con [place] especialista en colum[place] vertebral.) [place],[facility] [Primary Care Provider] - Interventions: ED Discharge Assessment Last Done: 12/29/22 09:48 Discharge Date/Time: 12/29/22 09:49 Print Language: Danish
[2022-12-29] MEDS: Ketorolac Tromethamine 15 MG/ML VIAL IM (09:39)
[2022-12-29] MEDS: Cyclobenzaprine HCl 5 MG TABLET PO (09:39)
[2022-12-29] MEDS: predniSONE 20 MG TABLET PO (09:39)
[2022-12-29] MEDS: Lidocaine 4 % Patch ADH..PATCH 1 PATCH TRANSDERMA (09:40)
--- NOTE | 2022-12-29 09:49 | PC.NURSE ---
meds given as ordered, cleared for discharge. discharge instructions reviewed with pt and at her bed side.
== END 2022-12-29 09:49 | disposition home or self-care (01) ==
PROVIDERS: Emergency Provider Emergency Medicine
DX: M54.50 Low back pain, unspecified (principal)
CPT/HCPCS: 96372; 99283; 99284; J1885

== ENCOUNTER 2023-01-01 11:59 | Emergency (ER) | payer MEDICAID, SELFPAY ==
--- NOTE | 2023-01-01 12:03 | ED_ITS ---
HPI - Back Pain/Injury General Chief Complaint: Back Pain/Injury Stated Complaint: back pain Time Seen by Provider: 01/01/23 14:49 Source: patient Mode of arrival: ambulatory Limitations: no limitations History of Present Illness HPI Narrative: 57 yold female with pmh of lumbar radiculopathy presents to the ED for chronic back pain exacerbation. patient denies any recent trauma, abdominal pain, nausea, vomitting, dysuria, hematuria, flank pain, fever, chills, or uriany/bowel incontienence. patient denies any pmh of IV drug use or HIV/Hepc C Related Data Home Medications Medication Instructions Recorded Confirmed lisinopril 20 mg tablet 20 mg PO DAILY 12/28/20 01/03/23 albuterol sulfate 2.5 mg/3 mL mg inhalation QID 03/01/21 01/03/23 (0.083 %) solution for nebulization albuterol sulfate 90 mcg/actuation 2 puff PO Q4-6H PRN 03/01/21 01/03/23 aerosol inhaler (ProAir HFA) amlodipine 10 mg tablet 10 mg PO DAILY 03/01/21 01/03/23 budesonide-formoterol HFA 160 2 puff PO 03/01/21 01/03/23 mcg-4.5 mcg/actuation aerosol inhaler (Symbicort) esjdhlgwlk-khtqidjjdlrsc-wkejnknt 1 cap PO Q8H PRN 03/01/21 01/03/23 50 mg-300 mg-40 mg capsule (Fioricet) furosemide 40 mg tablet 40 mg PO DAILY 03/01/21 01/03/23 loratadine 10 mg tablet 10 mg PO DAILY itch 03/01/21 01/03/23 omeprazole 20 mg capsule,delayed 20 mg PO DAILY 03/01/21 01/03/23 release oxycodone-acetaminophen 7.5 mg-325 1 tab PO Q8H PRN 03/03/22 01/03/23 mg tablet (Percocet) buspirone 5 mg tablet 5 mg PO BID 10/17/22 01/03/23 carvedilol 12.5 mg tablet 12.5 mg PO BID 10/17/22 01/03/23 duloxetine 30 mg capsule,delayed 30 mg PO DAILY 10/17/22 01/03/23 release gabapentin 100 mg capsule 100 mg PO DAILY 10/17/22 01/03/23 lisinopril 20 2 tab PO DAILY 10/17/22 01/03/23 mg-hydrochlorothiazide 12.5 mg tablet naloxone 4 mg/actuation nasal spray 0 spray intranasal 10/17/22 01/03/23 tiotropium bromide 18 mcg capsule 1 cap inhalation DAILY 10/17/22 01/03/23 with inhalation device (Spiriva with HandiHaler) Previous Rx's Medication Instructions Recorded oxycodone 5 mg tablet 7.5 mg PO BID PRN pain #9 tabs 12/19/22 cyclobenzaprine 5 mg tablet 5 mg PO TID PRN muscle spasm 7 12/29/22 days #21 tabs prednisone 20 mg tablet 20 mg PO DAILY 7 days #7 tabs 12/29/22 ketorolac 10 mg tablet 10 mg PO QID PRN pain 5 days #20 01/01/23 tabs oxycodone 5 mg capsule 5 mg PO TID PRN pain 3 days #9 caps 01/01/23 Allergies Allergy/AdvReac Type Severity Reaction Status Date / Time morphine [MORPHINE] Allergy Severe HIVES, Verified 01/03/23 16:06 rash, itching,hives tramadol [TRAMADOL] Allergy Intermediate HIVES Verified 01/03/23 16:06 Review of Systems Review of Systems: chronic back pain exacerbation Yes all other systems are reviewed and are negative [facility] Past Medical History Medical History Breast pain Chondral defect of patella Encounter for annual routine gynecological examination Flank pain Fungal infection of the groin Gallbladder abscess History of uterine fibroid HTN (hypertension) Kidney stones Migraine Migraines Para-ovarian adhesion Pelvic pain in female Right flank pain Yeast infection involving the vagina and surrounding area Surgical History History of bunionectomy History of cholecystectomy History of kidney surgery History of tubal ligation Family History Family History Mother Stroke Diabetes HTN (hypertension) Father Heart attack Sister Lupus Leukemia Social History Social History Household Members: Spouse and Children Housing: Apartment Alcohol intake: never Patient Tobacco Use Status: Former Tobacco user Tobacco use type: Cigarette Cigarettes Per Day: 2 Current occupational status: unemployed Sexual orientation: Straight/Heterosexual Gender identity: Female Physical Exam Vital Signs: Vital Signs: Last Vital Signs Temp 98.0 F 01/01/23 12:04 Pulse 87 01/01/23 12:04 Resp 18 01/01/23 12:04 BP 119/74 01/01/23 12:04 Pulse Ox 99 01/01/23 12:04 O2 Del Method Room Air 01/01/23 12:04 BMI result Body Mass Index 36.0 Const: General: cooperative, healthy appearing, comfortable, no acute distress, well developed, alert, awake and Physically active Orientation/consciousness: oriented to person, oriented to place, oriented to time and patient oriented x3 HEENT: Head: Yes normal to inspection, Yes No palpable skull fracture present, Yes normocephalic, Yes atraumatic and No abrasion Eyes: General: appearance normal, both eyes and all related structures Neck: Neck: Yes normal visual inspection, Yes full ROM, Yes no lymphadenopathy, Yes no meningeal signs, Yes trachea midline, Yes supple, No anterior neck swelling and No tender Chest: Chest palpation & inspection: normal inspection of the chest and normal palpation of entire chest wall Resp: Effort & Inspection: normal respiratory effort and able to speak in complete sentences Auscultation: clear to auscultation bilaterally Cardio: Jugular venous distension: no JVD Heart sounds: S1 normal heart sound present and S2 normal heart sound present GI: Inspection: Yes normal to inspection and No abdominal wall ecchymosis Palpation (GI): Soft to palpation, not firm, nontender, no guarding and not rigid : General: No CVA tenderness and Yes no CVA tenderness Back/Spine/Pelvis: Back: no CVA tenderness, No CVA tenderness and back tenderness (lumbar spine tenderness) Skin: General skin exam: no rashes or lesions noted and elasticity normal Neuro: General: oriented to person, oriented to place, oriented to time, patient oriented x3, gait normal, tone normal, moves all extremities, Normal light touch and pain sensation, no meningeal signs, no focal motor deficits, CN's II-XI intact bilaterally and normal sensation to monofilament Extrem: General: Yes normal to inspection and Yes full ROM Psych: Appearance: grossly normal, well kempt and not disheveled Course Course Course Narrative: This is an RME: Additional HPI, ROS, PE not included below will be deferred to primary provider. Patient is a 57-year-old Colombian-speaking female with history of arthritis who presents to the emergency department for of acute on chronic mid lower back pain radiating to the right leg/ calf. Denies fevers, numbness, tingling, genitourinary symptoms. Patient has been seen in the emergency department twice this past month for similar concerns. Her primary care doctor is no longer prescribing her oxycodone, as she apparently had a urine screening which did not reveal the oxycodone and therefore they discontinued her prescription for chronic pain management. Patient reportedly has an appointment 01/05/2023 with a new doctor, it is unclear if this is. The last time she was seen in the emergency department she received prescription for prednisone and cyclobenzaprine which she reports did not help her pain and it caused her to become constipated. Plan: Pain management Medications Administered Discontinued Medications Generic Name Dose Route Start Last Admin Trade Name Grace PRN Reason Stop Dose Admin Ketorolac Tromethamine 30 mg 01/01/23 15:43 01/01/23 16:26 Ketorolac Tromethamine 30 Mg/Ml Vial IM 01/01/23 15:44 30 mg ONCE ONE Administration Oxycodone HCl 5 mg 01/01/23 15:43 01/01/23 16:25 Oxycodone Hcl Immed Release 5 Mg Tablet PO 01/01/23 15:44 5 mg ONCE ONE Administration Medical Decision Making Medical Decision Making MDM Narrative: 57-year-old female presents to ED for chronic back pain exacerbation. Patient has history of lumbar radiculopathy. Patient denies any urinary / bowel incontinence. Patient denies any or abdominal symptoms. Patient denies any IV drug use. Patient given pain medication will follow up with primary care provider. patient denies any recent trauma. Differential Diagnosis Differential Diagnoses: The differential diagnosis associated with the presentation includes (lumbar radiculopahty, fracture, UTI, spinal epidural abscess, caudina equina syndrome, ) Admission/Observation Consideration of admission/observation: Escalation of care including admission/observation considered Independent Historian Clinical information obtained from an independent historian. History obtained from or confirmed by: Spouse External Record Review External record reviewed: Other (Prior ED visit) Prescription Management I considered prescription management with: Pain Medication Discharge Plan Discharge Clinical Impression: Lumbar radiculopathy Patient Disposition: Home, Self-Care Instructions: Lumbar Radiculopathy (ED) Additional Instructions: Necesitar? un seguimiento con mata proveedor de atenci?n primaria para derivarlo a fisioterapia y manejo del dolor. Es posible que tambi?n necesite shelton resonancia magn?chaya en el futuro. Regrese al servicio de urgencias por cualquier incontinencia urinaria o intestinal, empeoramiento del dolor de espalda, disuria, hematuria, n?useas, v?mitos, fiebre, escalofr?os, dolor abdominal, n?useas, v?mitos o cualquier otro s?ntoma preocupante. Contin?e usando la prednisona que le recetaron. Prescriptions: New ketorolac 10 mg tablet 10 mg PO QID PRN (Reason: pain) 5 Days Qty: 20 0RF Rx Instructions: Received 30mg IM toradol in the ED oxycodone 5 mg capsule 5 mg PO TID PRN (Reason: pain) 3 Days Qty: 9 0RF Rx Instructions: Partial Fill upon patient request. No Action oxycodone 5 mg tablet 7.5 mg PO BID PRN (Reason: pain) Qty: 9 0RF Rx Instructions: Partial Fill upon patient request. prednisone 20 mg tablet 20 mg PO DAILY 7 Days Qty: 7 0RF cyclobenzaprine 5 mg tablet 5 mg PO TID PRN (Reason: muscle spasm) 7 Days Qty: 21 0RF albuterol sulfate [ProAir HFA] 90 mcg/actuation HFA aerosol inhaler 2 puff PO Q4-6H PRN bcpgiormwv-nuctmgwdrcyfw-sszw [Fioricet] 50-300-40 mg capsule 1 cap PO Q8H PRN budesonide-formoterol [Symbicort] 160-4.5 mcg/actuation HFA aerosol inhaler 2 puff PO loratadine 10 mg tablet 10 mg PO DAILY omeprazole 20 mg capsule,delayed release(DR/EC) 20 mg PO DAILY amlodipine 10 mg tablet 10 mg PO DAILY albuterol sulfate 2.5 mg /3 mL (0.083 %) solution for nebulization inhalation QID furosemide 40 mg tablet 40 mg PO DAILY lisinopril 20 mg tablet 20 mg PO DAILY oxycodone-acetaminophen [Percocet] 7.5-325 mg tablet 1 tab PO Q8H PRN naloxone 4 mg/actuation spray,non-aerosol 0 spray intranasal duloxetine 30 mg capsule,delayed release(DR/EC) 30 mg PO DAILY Spiriva with HandiHaler 18 mcg capsule, w/inhalation device 1 cap inhalation DAILY gabapentin 100 mg capsule 100 mg PO DAILY buspirone 5 mg tablet 5 mg PO BID carvedilol 12.5 mg tablet 12.5 mg PO BID lisinopril-hydrochlorothiazide 20-12.5 mg tablet 2 tab PO DAILY Stand Alone Forms: Work/School Release Interventions: ED Discharge Assessment Last Done: 01/01/23 16:38 Discharge Date/Time: 01/01/23 16:39 Print Language: Colombian
[2023-01-01 12:04] VITALS: BP 119/74; PULSE 87; RESP 18; TEMP 36.7; O2SAT 99; BMI 36.0
[2023-01-01] MEDS: oxyCODONE HCl Immed Release 5 MG TABLET PO (16:25)
[2023-01-01] MEDS: Ketorolac Tromethamine 30 MG/ML VIAL IM (16:26)
== END 2023-01-01 16:39 | disposition home or self-care (01) ==
PROVIDERS: Emergency Provider Emergency Medicine Emergency Medical Services
DX: M54.16 Radiculopathy, lumbar region (principal); I10 Essential (primary) hypertension; Z87.891 Personal history of nicotine dependence
CPT/HCPCS: 96372; 99283; 99284; J1885

== ENCOUNTER 2023-01-03 15:42 | Outpatient (AMB) | payer MEDICAID, SELFPAY ==
--- NOTE | 2023-01-03 15:42 | A.OFFVIS_ITS ---
Intake Intake Visit Reasons: CT- follow up (set) Intake Note: Patient is present for follow up kidney stones/CT Scan (imaging 12/23) Urology Medications: none Blood Thinner: none Periodontist Required: Yes Periodontist Name: GUILLE Accompanied by: Self / Same As Patient Allergies morphine [MORPHINE] Allergy (Severe, Verified 01/03/23 16:06) HIVES, rash, itching,hives tramadol [TRAMADOL] Allergy (Intermediate, Verified 01/03/23 16:06) HIVES Medication List - Last Reconciled 01/03/23 by JADYN George- albuterol sulfate 90 mcg/actuation (ProAir HFA) 2 puffs PO Q4-6H PRN albuterol sulfate mg inhalation QID amlodipine 10 mg PO DAILY budesonide-formoterol 160-4.5 mcg/actuation (Symbicort) 2 puffs PO buspirone 5 mg PO BID pnvdtijoii-ncycvqmjdbdcs-yvlu 50-300-40 mg (Fioricet) 1 cap PO Q8H PRN carvedilol 12.5 mg PO BID cyclobenzaprine 5 mg PO TID PRN 7 days duloxetine 30 mg PO DAILY furosemide 40 mg PO DAILY gabapentin 100 mg PO DAILY ketorolac 10 mg PO QID PRN 5 days lisinopril 20 mg PO DAILY lisinopril-hydrochlorothiazide 20-12.5 mg 2 tabs PO DAILY loratadine 10 mg PO DAILY naloxone 4 mg/actuation 0 sprays intranasal omeprazole 20 mg PO DAILY oxycodone 7.5 mg (1.5 x 5 mg) PO BID PRN oxycodone 5 mg PO TID PRN 3 days oxycodone-acetaminophen 7.5-325 mg (Percocet) 1 tab PO Q8H PRN prednisone 20 mg PO DAILY 7 days tiotropium bromide (Spiriva with HandiHaler) 1 cap inhalation DAILY HPI HPI Comments History of Present Illness Details Shira is a pleasant 57 year old Yi speaking patient of Dr. Cifuentes. She has a past medical history of anxiety, depression, nephrolithiasis, asthma, hypertension, GERD, and migraines. Of note patient was follow-up on via telehealth approximately 1 month ago at which time a CT KUB was ordered for further assessment evaluation due to patient's history of nephrolithiasis and reports of flank pain on right side greater than left. These results were reviewed with the patient today. Bilateral kidneys with no hydronephrosis, hydroureter, or calculi seen. The bladder is unremarkable. In discussion with the patient today she reports recently being diagnosed with sciatica issues and is following up with her primary care regarding this issue. She reports flank pain has since subsided. She otherwise denies any urinary issues or concerns at this time. When asked she denies urinary urgency, urinary frequency, incontinence, nocturia, hematuria, dysuria, foul smelling urine, changes to urinary stream, flank pain, fever, and or chills. She is happy with her current voiding parameters. In office urinalysis results reviewed with the patient today. Patient otherwise denies any issues or concerns at this time. [facility] Medical History Breast pain Chondral defect of patella Encounter for annual routine gynecological examination Flank pain Fungal infection of the groin Gallbladder abscess History of uterine fibroid HTN (hypertension) Kidney stones Migraine Migraines Para-ovarian adhesion Pelvic pain in female Right flank pain Yeast infection involving the vagina and surrounding area Surgical History History of bunionectomy History of cholecystectomy History of kidney surgery History of tubal ligation Family History Mother Stroke Diabetes HTN (hypertension) Father Heart attack Sister Lupus Leukemia Social History Household Members: Spouse and Children Housing: Apartment Alcohol intake: never Patient Tobacco Use Status: Former Tobacco user Tobacco use type: Cigarette Cigarettes Per Day: 2 Current occupational status: unemployed Sexual orientation: Straight/Heterosexual Gender identity: Female Review of Systems Const All systems reviewed & are unremarkable except as noted in HPI and below Reports as per HPI Eyes Reports no additional complaints ENT Reports no additional complaints Card Reports as per HPI Resp Reports no additional complaints GI Reports as per HPI Reports as per HPI Musc Reports as per HPI Neuro Reports as per HPI Psych Reports as per HPI Physical Exam Const General: cooperative, healthy appearing, comfortable, no acute distress, well developed, alert and awake Orientation/consciousness: patient oriented x3 Limitations: no limitations HEENT Head: Yes normal to inspection, Yes normocephalic and Yes atraumatic Ears: hearing grossly normal bilaterally Eyes General: appearance normal, both eyes and all related structures Neck Neck: Yes normal visual inspection and Yes trachea midline Chest Chest palpation & inspection: normal inspection of the chest Resp Effort & Inspection: able to speak in complete sentences Cardio Rate: regular rate GI Inspection: Yes normal to inspection General: Yes no CVA tenderness Back/Spine/Pelvis Back: no CVA tenderness Skin General skin exam: no rashes or lesions noted Neuro General: patient oriented x3 Extrem General: Yes normal to inspection Psych Appearance: grossly normal and well kempt Mental Status: mental status grossly normal Speech and movement: Clear speech present Affect: normal affect Attitude: cooperative Thought process: Normal thought process present Thought content: Normal thought content present Insight: Fair insight present (Psych) Judgement: Fair judgement present (Psych) Results AMB Urinalysis, Automated UA Leukoctes 0 Peewee/uL Last Edit by [employer] on 01/03/23 15:53 UA Nitrite Last Edit by [employer] on 01/03/23 15:53 UA Urobilinogen 0.2 mg/dL Last Edit by [employer] on 01/03/23 15:53 UA Protein 0 mg/dL Last Edit by [employer] on 01/03/23 15:53 UA pH 6.0 Last Edit by [employer] on 01/03/23 15:53 UA Blood 0 Elijah/uL Last Edit by [employer] on 01/03/23 15:53 UA Specific [place] 1.015 Last Edit by [employer] on 01/03/23 15:53 UA Ketone Last Edit by [employer] on 01/03/23 15:53 UA Bilirubin 0 mg/dL Last Edit by [employer] on 01/03/23 15:53 UA Glucose 0 mg/dL Last Edit by [employer] on 01/03/23 15:53 Results Reviewed Results Reviewed: Date of Service: 12/23/22 EXAMINATION: CT ABDOMEN AND PELVIS without CONTRAST FINDINGS: LUNG BASES: The visualized lung bases are unremarkable.? LIVER, GALLBLADDER, AND BILIARY TREE: The liver is normal in size, shape, and attenuation. No focal hepatic lesion or biliary ductal dilatation is present. Status post cholecystectomy? PANCREAS: No acute change of the pancreas. No mass. No pancreatic duct dilatation.? SPLEEN: Spleen normal in size and contour. No focal lesion.? ADRENAL GLANDS: Adrenal glands are normal in size. No focal mass.? KIDNEYS AND URETERS: The kidneys are normal in size, shape, and attenuation. No hydronephrosis, hydroureter, or calculi seen. No perinephric stranding. ? BLADDER: Unremarkable.? GASTROINTESTINAL TRACT: There are scattered diverticula of the sigmoid colon. There is no diverticulitis. There is no bowel wall thickening /edema. There is no bowel obstruction. There is a moderate volume of stool in the colon. The appendix is normal . The small bowel loops are unremarkable. The stomach is normal. There is no hiatal hernia. MESENTERY: No focal inflammation. No free fluid. No free air. ABDOMINAL WALL: No significant hernia is appreciated.? LYMPH NODES: Normal. VASCULAR: Unremarkable. PELVIC VISCERA: Unremarkable.? OSSEOUS STRUCTURES: Degenerative disc height narrowing vacuum disc phenomenon L5-S1 with endplate spurs of vertebrae. Degenerative bridging and nonbridging vertebral endplate spurs of the lower thoracic and the upper lumbar spine.? IMPRESSION: No acute abnormality CT scan abdomen pelvis. Assessment & Plan Assessment & Plan (1) Kidney stones: Code(s): N20.0 - Calculus of kidney Plan In office urinalysis results reviewed with the patient today; as noted above. Recent CT KUB results reviewed with the patient today; as noted above. Patient reports flank pain has since subsided. She denies any urinary issues or concerns at this time. Discussed, educated, encouraged to continue drinking plenty of water daily. Discussed adding 1 oz of lemon juice to water daily. Renal ultrasound in 1 year Follow-up in 1 year with imaging to be completed prior; or sooner with any issues, concerns, and or questions. Orders: Orders US renal BI 364 Days N20.0 - Calculus of kidney AMB Urinalysis Automated Today Z13.9 - Encounter for screening, unspecified Patient Instructions: The patient had an opportunity to ask questions regarding the treatment plan. All questions were answered. Physical exam, labs, and imaging were discussed and reviewed in detail. As well as risks, benefits, and discussion of treatment choices. No major barriers to understanding were identified. The patient expressed understanding and agreement with the above treatment plan. The patient was made aware they should contact our office by phone for worsening of their current condition, the appearance of new symptoms, or with any questions or concerns. Compliance is encouraged with any medications and follow up testing that is ordered. It is a privilege to be allowed the opportunity to participate in? your urological care.? Again, if you have any questions or concerns If you have any questions or concerns please do not hesitate to contact me. The office is [phone]. This note is constructed using voice recognition software. While every effort has been made to ensure accuracy fabric worker fitter errors may have been included. Yours sincerely, RENITA George Coding Level of Care Code Est Pt Level 3 (49573) Diagnoses Kidney stones N20.0
== END 2023-01-03 16:00 | disposition home or self-care (01) ==
LOC: HO.HUSH 15:42
PROVIDERS: Visit Provider Nurse Practitioner Family
DX: N20.0 Calculus of kidney (principal)
CPT/HCPCS: 99213

== ENCOUNTER → 2023-01-03 15:42 | Outpatient (BNVA) | payer MEDICAID, SELFPAY | PROVIDERS: Visit Provider Nurse Practitioner Family | DX: N20.0 Calculus of kidney (principal); M54.30 Sciatica, unspecified side; Z79.891 Long term (current) use of opiate analgesic; Z79.899 Other long term (current) drug therapy | CPT/HCPCS: 99213 ==

== ENCOUNTER 2023-01-14 07:36 | Emergency (ER) | payer MEDICAID, SELFPAY ==
--- NOTE | ~2023-01-14 | XR_ITS ---
EXAMINATION: XR LUMBAR SPINE CLINICAL INFORMATION: Reason for Exam acute traumatic lumbar back pain COMPARISON: 12/19/2022 TECHNIQUE: Frontal lateral and coned-down L5-S1 frontal lateral, total of 3 views FINDINGS: Five [id number]-okyhyfi lumbar vertebrae were identified maintaining normal height and alignments. Narrowing of intervertebral disc spaces suggest underlying degenerative disc disease. Paravertebral soft tissues are unremarkable. Surgical clip right upper quadrant from prior cholecystectomy. There are radiolucencies, most likely superimposed bowel gas.. No radiographic evidence of osteolytic or osteoblastic lesions. XR/XR lumbar spine 2-3V IMPRESSION: * No fracture. * Redemonstration of chronic Narrowing of intervertebral disc spaces suggest underlying degenerative disc disease. Bone alignments remain satisfactory.
[2023-01-14 07:39] VITALS: BP 196/103; PULSE 77; RESP 18; TEMP 35.9; O2SAT 100; BMI 36.1
--- NOTE | 2023-01-14 09:22 | ED_ITS ---
HPI - Back Pain/Injury General Chief Complaint: Back Pain/Injury Stated Complaint: back inj Time Seen by Provider: 01/14/23 08:20 Source: patient Mode of arrival: ambulatory Limitations: no limitations History of Present Illness HPI Narrative: 57-year-old female presents with severe low back pain. Patient's legs gave out from under her when she fell and hit her back. Pain she currently has is a 10/10. Worse with any movement. The pain does not radiate. There is no numbness or tingling. The pain is described as sharp and tight feeling. She denies any numbness, tingling, loss of bowel or bladder control, saddle paresthesias. She denies any head injury. Patient denies any prodrome such lightheadedness, palpitations, shortness of breath. Her predominant complaint was that her legs gave out from under her and she subsequently fell. Related Data Home Medications Medication Instructions Recorded Confirmed lisinopril 20 mg tablet 20 mg PO DAILY 12/28/20 01/03/23 albuterol sulfate 2.5 mg/3 mL mg inhalation QID 03/01/21 01/03/23 (0.083 %) solution for nebulization albuterol sulfate 90 mcg/actuation 2 puff PO Q4-6H PRN 03/01/21 01/03/23 aerosol inhaler (ProAir HFA) amlodipine 10 mg tablet 10 mg PO DAILY 03/01/21 01/03/23 budesonide-formoterol HFA 160 2 puff PO 03/01/21 01/03/23 mcg-4.5 mcg/actuation aerosol inhaler (Symbicort) [id number]-mcaqxgcmgglzd-iuekxsvc 1 cap PO Q8H PRN 03/01/21 01/03/23 50 mg-300 mg-40 mg capsule (Fioricet) furosemide 40 mg tablet 40 mg PO DAILY 03/01/21 01/03/23 loratadine 10 mg tablet 10 mg PO DAILY itch 03/01/21 01/03/23 omeprazole 20 mg capsule,delayed 20 mg PO DAILY 03/01/21 01/03/23 release oxycodone-acetaminophen 7.5 mg-325 1 tab PO Q8H PRN 03/03/22 01/03/23 mg tablet (Percocet) buspirone 5 mg tablet 5 mg PO BID 10/17/22 01/03/23 carvedilol 12.5 mg tablet 12.5 mg PO BID 10/17/22 01/03/23 duloxetine 30 mg capsule,delayed 30 mg PO DAILY 10/17/22 01/03/23 release gabapentin 100 mg capsule 100 mg PO DAILY 10/17/22 01/03/23 lisinopril 20 2 tab PO DAILY 10/17/22 01/03/23 mg-hydrochlorothiazide 12.5 mg tablet naloxone 4 mg/actuation nasal spray 0 spray intranasal 10/17/22 01/03/23 tiotropium bromide 18 mcg capsule 1 cap inhalation DAILY 10/17/22 01/03/23 with inhalation device (Spiriva with HandiHaler) Previous Rx's Medication Instructions Recorded oxycodone 5 mg tablet 7.5 mg PO BID PRN pain #9 tabs 12/19/22 cyclobenzaprine 5 mg tablet 5 mg PO TID PRN muscle spasm 7 12/29/22 days #21 tabs prednisone 20 mg tablet 20 mg PO DAILY 7 days #7 tabs 12/29/22 ketorolac 10 mg tablet 10 mg PO QID PRN pain 5 days #20 01/01/23 tabs oxycodone 5 mg capsule 5 mg PO TID PRN pain 3 days #9 caps 01/01/23 acetaminophen 500 mg capsule 1,000 mg PO QID PRN fever or pain 01/14/23 #20 caps cyclobenzaprine 10 mg tablet 10 mg PO TID PRN muscle spasm #10 01/14/23 tabs lidocaine 5 % topical patch 1 patch topical DAILY #30 ea 01/14/23 (Lidoderm) meloxicam 15 mg tablet 15 mg PO DAILY #10 tabs 01/14/23 Allergies Allergy/AdvReac Type Severity Reaction Status Date / Time morphine [MORPHINE] Allergy Severe HIVES, Verified 01/14/23 07:44 rash, itching,hives tramadol [TRAMADOL] Allergy Intermediate HIVES Verified 01/14/23 07:44 Review of Systems Review of Systems: CONSTITUTIONAL: Denies weight loss, fever and chills. HEENT: Denies changes in vision and hearing. RESPIRATORY: Denies SOB and cough. CV: Denies palpitations no CP. GI: Denies abdominal pain, nausea, vomiting and diarrhea. : Denies dysuria and urinary frequency. MSK: + myalgia and joint pain. SKIN: Denies rash and pruritus. NEUROLOGICAL: Denies headache and syncope. PSYCHIATRIC: Denies recent changes in mood. Denies anxiety and depression. All other ROS are negative unless in HPI PMFSH Past Medical History Medical History Breast pain Chondral defect of patella Encounter for annual routine gynecological examination Flank pain Fungal infection of the groin Gallbladder abscess History of uterine fibroid HTN (hypertension) Kidney stones Migraine Migraines Para-ovarian adhesion Pelvic pain in female Right flank pain Yeast infection involving the vagina and surrounding area Surgical History History of bunionectomy History of cholecystectomy History of kidney surgery History of tubal ligation Family History Family History Mother Stroke Diabetes HTN (hypertension) Father Heart attack Sister Lupus Leukemia Social History Social History Household Members: Spouse and Children Housing: Apartment Alcohol intake: never Patient Tobacco Use Status: Former Tobacco user Tobacco use type: Cigarette Cigarettes Per Day: 2 Advance Directives: No Advance Directives Information Provided: No Current occupational status: unemployed Sexual orientation: Straight/Heterosexual Gender identity: Female Physical Exam Vital Signs: Vital Signs: Last Vital Signs Temp 96.7 F L 01/14/23 07:39 Pulse 67 01/14/23 09:45 Resp 16 01/14/23 09:45 BP 167/89 H 01/14/23 09:45 Pulse Ox 96 01/14/23 09:45 O2 Del Method Room Air 01/14/23 09:45 BMI result Body Mass Index 36.1 GEN: Well developed, no acute distress, alert, oriented HEENT: Normocephalic, atraumatic, normal external ears, nose appears normal Eyes: Normal to appearance Neck: Supple, no lymphadenopathy Respiratory: Talks in complete sentences, no respiratory distress Extremities: No clubbing cyanosis or edema Neurologic: No focal neurologic deficits, cranial nerves 2-12 intact, gait normal Skin: No rash BACK: tenderness lumbar back and paraspinous muscles, no midline tenderness or stepoff Course Reevaluation(s) Reevaluation #1: Xray discussed wtih patient, pain 02/19. Will try IM dilaudid Time: 10:02 Reevaluation #2: Patient is feeling much better. I will discuss aftercare instructions with an metalworking instructor when available. Time: 11:40 Medications Administered Discontinued Medications Generic Name Dose Route Start Last Admin Trade Name Grace PRN Reason Stop Dose Admin Acetaminophen 975 mg 01/14/23 09:07 01/14/23 09:39 Acetaminophen 325 Mg Tablet PO 01/14/23 09:08 975 mg ONCE ONE Administration Cyclobenzaprine HCl 10 mg 01/14/23 09:07 01/14/23 09:39 Cyclobenzaprine Hcl 10 Mg Tablet PO 01/14/23 09:08 10 mg ONCE ONE Administration Diphenhydramine HCl 25 mg 01/14/23 10:07 01/14/23 10:23 Diphenhydramine Hcl 25 Mg Capsule PO 01/14/23 10:08 25 mg ONCE ONE Administration Gabapentin 300 mg 01/14/23 09:07 01/14/23 09:39 Gabapentin 300 Mg Capsule PO 01/14/23 09:08 300 mg ONCE ONE Administration Hydromorphone HCl 2 mg 01/14/23 10:07 01/14/23 10:23 Hydromorphone Hcl 2 Mg Tablet PO 01/14/23 10:08 2 mg ONCE ONE Administration Ketorolac Tromethamine 30 mg 01/14/23 09:07 01/14/23 09:39 Ketorolac Tromethamine 30 Mg/Ml Vial IM 01/14/23 09:08 30 mg ONCE ONE Administration Lidocaine 2 patch 01/14/23 10:02 01/14/23 10:22 Lidocaine 4 % Patch Adh..Patch TRANSDERMA 01/14/23 10:03 2 patch ONCE ONE Administration Protocol Lisinopril 20 mg 01/14/23 09:39 01/14/23 09:52 Lisinopril 20 Mg Tablet PO 01/14/23 09:40 20 mg ONCE ONE Administration Protocol Medical Decision Making Medical Decision Making MDM Narrative: [age] year old female presents with low back pain. Is traumatic. Examination revealed tenderness. she has straightening of the normal lordotic curve suggestive of muscle spasms. She had no midline tenderness but there could be concerns of compression fractures due to the nature of the injury. Will obtain an x-ray. In the meantime, will provide patient with analgesia and muscle Relaxers. Differential Diagnosis Differential Diagnoses: The differential diagnosis associated with the presentation includes ( Contusion, sprain, strain, spasm, fracture) Admission/Observation Consideration of admission/observation: Escalation of care including admission/observation considered Independent Interpretation I performed an independent interpretation of an: Plain X-Ray ( lumbar spine: Straightening of feeling lordotic, L4-L5 disc space narrowing, no compression fracture) Independent Historian Clinical information obtained from an independent historian. History obtained from or confirmed by: Spouse Prescription Management I considered prescription management with: Pain Medication Discharge Plan Discharge Clinical Impression: Acute low back pain Patient Disposition: Home, Self-Care Instructions: Acute Low Back Pain (ED) Prescriptions: New meloxicam 15 mg tablet 15 mg PO DAILY Qty: 10 0RF acetaminophen 500 mg capsule 1,000 mg PO QID PRN (Reason: fever or pain) Qty: 20 0RF cyclobenzaprine 10 mg tablet 10 mg PO TID PRN (Reason: muscle spasm) Qty: 10 0RF lidocaine [Lidoderm] 5 % adhesive patch,medicated 1 patch topical DAILY Qty: 30 0RF Rx Instructions: leave on most painful area for up to 12 hrs No Action oxycodone 5 mg tablet 7.5 mg PO BID PRN (Reason: pain) Qty: 9 0RF Rx Instructions: Partial Fill upon patient request. prednisone 20 mg tablet 20 mg PO DAILY 7 Days Qty: 7 0RF cyclobenzaprine 5 mg tablet 5 mg PO TID PRN (Reason: muscle spasm) 7 Days Qty: 21 0RF ketorolac 10 mg tablet 10 mg PO QID PRN (Reason: pain) 5 Days Qty: 20 0RF Rx Instructions: Received 30mg IM toradol in the ED oxycodone 5 mg capsule 5 mg PO TID PRN (Reason: pain) 3 Days Qty: 9 0RF Rx Instructions: Partial Fill upon patient request. albuterol sulfate [ProAir HFA] 90 mcg/actuation HFA aerosol inhaler 2 puff PO Q4-6H PRN [id number]-oazuodcomwyia-eyrv [Fioricet] 50-300-40 mg capsule 1 cap PO Q8H PRN budesonide-formoterol [Symbicort] 160-4.5 mcg/actuation HFA aerosol inhaler 2 puff PO loratadine 10 mg tablet 10 mg PO DAILY omeprazole 20 mg capsule,delayed release(DR/EC) 20 mg PO DAILY amlodipine 10 mg tablet 10 mg PO DAILY albuterol sulfate 2.5 mg /3 mL (0.083 %) solution for nebulization inhalation QID furosemide 40 mg tablet 40 mg PO DAILY lisinopril 20 mg tablet 20 mg PO DAILY oxycodone-acetaminophen [Percocet] 7.5-325 mg tablet 1 tab PO Q8H PRN naloxone 4 mg/actuation spray,non-aerosol 0 spray intranasal duloxetine 30 mg capsule,delayed release(DR/EC) 30 mg PO DAILY Spiriva with HandiHaler 18 mcg capsule, w/inhalation device 1 cap inhalation DAILY gabapentin 100 mg capsule 100 mg PO DAILY buspirone 5 mg tablet 5 mg PO BID carvedilol 12.5 mg tablet 12.5 mg PO BID lisinopril-hydrochlorothiazide 20-12.5 mg tablet 2 tab PO DAILY Referrals: Physician,Unknown J [Primary Care Provider] - (PMD in 1 week)
[2023-01-14] MEDS: Acetaminophen 325 MG TABLET 975 MG PO (09:39)
[2023-01-14] MEDS: Ketorolac Tromethamine 30 MG/ML VIAL IM (09:39)
[2023-01-14] MEDS: Gabapentin 300 MG CAPSULE PO (09:39)
[2023-01-14] MEDS: Cyclobenzaprine HCl 10 MG TABLET PO (09:39)
[2023-01-14 09:45] VITALS: BP 167/89; PULSE 67; RESP 16; O2SAT 96
[2023-01-14] MEDS: lisinopriL 20 MG TABLET PO (09:52)
[2023-01-14] MEDS: Lidocaine 4 % Patch ADH..PATCH 2 PATCH TRANSDERMA (10:22)
[2023-01-14] MEDS: HYDROmorphone HCl 2 MG TABLET PO (10:23)
[2023-01-14] MEDS: diphenhydrAMINE HCL 25 MG CAPSULE PO (10:23)
[2023-01-14 11:58] VITALS: BP 149/70; PULSE 59; RESP 17; TEMP 36.6; O2SAT 97
== END 2023-01-14 12:24 | disposition home or self-care (01) ==
PROVIDERS: Emergency Provider Emergency Medicine
DX: M54.50 Low back pain, unspecified (principal); I10 Essential (primary) hypertension; Z87.891 Personal history of nicotine dependence
CPT/HCPCS: 72100; 96372; 99284; J1885

== ENCOUNTER 2023-01-17 06:51 | Emergency (ER) | payer MEDICAID, SELFPAY ==
[2023-01-17 07:24] VITALS: BP 191/110; PULSE 73; RESP 18; TEMP 36.8; O2SAT 95; BMI 35.8
--- NOTE | 2023-01-17 07:28 | PC.NURSE ---
Pt. hypertensive to 191/110 (134) but reports that she hasn't taken her blood pressure medications today.
--- NOTE | 2023-01-17 08:24 | ED_ITS ---
HPI - General Adult General Chief complaint: Back Pain/Injury Stated complaint: Back pain/High blood pressure Time Seen by Provider: 01/17/23 08:21 Source: patient and translator and interpreter Mode of arrival: ambulatory Limitations: language barrier History of Present Illness HPI narrative: Patient is a 57-year-old Danish-speaking female with history of chronic back pain due to degenerative disease presenting to the emergency department with severe lower back pain radiating down anterior aspect of right upper leg. Patient reports she has been using Tylenol and meloxicam as prescribed by her PCP without relief. Was recently prescribed cyclobenzaprine but was told to discontinue this by her PCP. States she has alternated ice and heat, lidocaine patches. Reports seeing pain management two to 3 years ago without relief. She was offered surgery at that time but was told it may not decrease her pain so she declined. She denies any new injuries or trauma recently. States her pain is currently the same as baseline but she is unsure what else to do. States that her pain is causing her blood pressure to be elevated. She denies any saddle anesthesia or bowel or bladder incontinence. MD complaint: back pain Onset (ago): year(s) Location: back Radiation: distal Severity: severe Quality: burning Pain Consistency: constant Relieving factors: none Associated symptoms: denies other symptoms Treatments prior to arrival: NSAID, cold therapy and heat therapy Related Data Home Medications Medication Instructions Recorded Confirmed lisinopril 20 mg tablet 20 mg PO DAILY 12/28/20 01/03/23 albuterol sulfate 2.5 mg/3 mL mg inhalation QID 03/01/21 01/03/23 (0.083 %) solution for nebulization albuterol sulfate 90 mcg/actuation 2 puff PO Q4-6H PRN 03/01/21 01/03/23 aerosol inhaler (ProAir HFA) amlodipine 10 mg tablet 10 mg PO DAILY 03/01/21 01/03/23 budesonide-formoterol HFA 160 2 puff PO 03/01/21 01/03/23 mcg-4.5 mcg/actuation aerosol inhaler (Symbicort) nclskyensw-jlayjglnkjoya-qoekwxsw 1 cap PO Q8H PRN 03/01/21 01/03/23 50 mg-300 mg-40 mg capsule (Fioricet) furosemide 40 mg tablet 40 mg PO DAILY 03/01/21 01/03/23 loratadine 10 mg tablet 10 mg PO DAILY itch 03/01/21 01/03/23 omeprazole 20 mg capsule,delayed 20 mg PO DAILY 03/01/21 01/03/23 release oxycodone-acetaminophen 7.5 mg-325 1 tab PO Q8H PRN 03/03/22 01/03/23 mg tablet (Percocet) buspirone 5 mg tablet 5 mg PO BID 10/17/22 01/03/23 carvedilol 12.5 mg tablet 12.5 mg PO BID 10/17/22 01/03/23 duloxetine 30 mg capsule,delayed 30 mg PO DAILY 10/17/22 01/03/23 release gabapentin 100 mg capsule 100 mg PO DAILY 10/17/22 01/03/23 lisinopril 20 2 tab PO DAILY 10/17/22 01/03/23 mg-hydrochlorothiazide 12.5 mg tablet naloxone 4 mg/actuation nasal spray 0 spray intranasal 10/17/22 01/03/23 tiotropium bromide 18 mcg capsule 1 cap inhalation DAILY 10/17/22 01/03/23 with inhalation device (Spiriva with HandiHaler) Previous Rx's Medication Instructions Recorded oxycodone 5 mg tablet 7.5 mg PO BID PRN pain #9 tabs 12/19/22 cyclobenzaprine 5 mg tablet 5 mg PO TID PRN muscle spasm 7 12/29/22 days #21 tabs prednisone 20 mg tablet 20 mg PO DAILY 7 days #7 tabs 12/29/22 ketorolac 10 mg tablet 10 mg PO QID PRN pain 5 days #20 01/01/23 tabs oxycodone 5 mg capsule 5 mg PO TID PRN pain 3 days #9 caps 01/01/23 acetaminophen 500 mg capsule 1,000 mg PO QID PRN fever or pain 01/14/23 #20 caps cyclobenzaprine 10 mg tablet 10 mg PO TID PRN muscle spasm #10 01/14/23 tabs lidocaine 5 % topical patch 1 patch topical DAILY #30 ea 01/14/23 (Lidoderm) meloxicam 15 mg tablet 15 mg PO DAILY #10 tabs 01/14/23 Allergies Allergy/AdvReac Type Severity Reaction Status Date / Time morphine [MORPHINE] Allergy Severe HIVES, Verified 01/14/23 07:44 rash, itching,hives tramadol [TRAMADOL] Allergy Intermediate HIVES Verified 01/14/23 07:44 Review of Systems Review of Systems: As per HPI. Yes all other systems are reviewed and are negative Constitutional: Constitutional: Reports as per HPI [facility] Past Medical History Medical History Breast pain Chondral defect of patella Encounter for annual routine gynecological examination Flank pain Fungal infection of the groin Gallbladder abscess History of uterine fibroid HTN (hypertension) Kidney stones Migraine Migraines Para-ovarian adhesion Pelvic pain in female Right flank pain Yeast infection involving the vagina and surrounding area Surgical History History of bunionectomy History of cholecystectomy History of kidney surgery History of tubal ligation Family History Family History Mother Stroke Diabetes HTN (hypertension) Father Heart attack Sister Lupus Leukemia Social History Social History Household Members: Spouse and Children Housing: Apartment Alcohol intake: never Patient Tobacco Use Status: Former Tobacco user Tobacco use type: Cigarette Cigarettes Per Day: 2 Advance Directives: No Current occupational status: unemployed Sexual orientation: Straight/Heterosexual Gender identity: Female Physical Exam ED Vital Signs: Vital Signs - 24 hr 01/17/23 07:24 Temperature 98.2 F Pulse Rate 73 Respiratory Rate 18 Blood Pressure 191/110 H Pulse Oximetry 95 Oxygen Delivery Method Room Air BMI result Body Mass Index 35.8 Vital signs have been reviewed and appear to be correct. Blood pressure elevated. Heart rate normal. Respiratory rate normal. Temperature normal. Oxygen saturation normal. Const General: cooperative and no acute distress Orientation/consciousness: oriented to person, oriented to place, oriented to time and patient oriented x3 Limitations: no limitations HENMT Head: Yes normocephalic and Yes atraumatic Ears: external ears normal General nose exam: Normal external nose present Face and sinus: Yes face symmetric Mouth: oropharynx normal and moist mucous membranes Throat: Yes uvula midline Eyes Pupils: Equal, round and reactive pupils present Neck Neck: Yes normal visual inspection and Yes supple Resp Effort & Inspection: normal respiratory effort and able to speak in complete sentences Auscultation: clear to auscultation bilaterally Cardio Rate: regular rate Rhythm: regular rhythm Heart sounds: S1 normal heart sound present and S2 normal heart sound present GI Palpation (GI): Soft to palpation and nontender Auscultation: normoactive bowel sounds General: Yes no CVA tenderness Back/Spine/Pelvis Back: no CVA tenderness Cervical Spine: normal cervical lordosis and cervical ROM normal Thoracic/Lumbar Spine: thoracic and lumbar spine normal to inspection, thoraco-lumbar ROM normal, No thoracic spinal tenderness and No lumbar spinal tenderness Skin General skin exam: elasticity normal and turgor normal Neuro General: oriented to person, oriented to place, oriented to time, patient oriented x3, moves all extremities, no focal motor deficits, CN's II-XI intact bilaterally and deep tendon reflexes 2+ bilaterally Cranial nerves: Yes Equal, round and reactive pupils present Cognition (Neuro): normal cognition Gait exam (Neuro): Normal gait present Motor exam (neuro): 5/5 motor strength present throughout Sensory Exam: Normal double simultaneous stimulation for sensation Extrem General: Yes full ROM, Yes no pedal edema and Yes no calf tenderness Psych Mental Status: mental status grossly normal Affect: normal affect Thought process: Normal thought process present Medications Administered Discontinued Medications Generic Name Dose Route Start Last Admin Trade Name Freq PRN Reason Stop Dose Admin Oxycodone HCl 5 mg 01/17/23 08:55 01/17/23 09:04 Oxycodone Hcl Immed Release 5 Mg Tablet PO 01/17/23 08:56 5 mg ONCE ONE Administration Medical Decision Making Medical Decision Making [facility] Narrative: Patient is a 57-year-old Danish-speaking female with history of chronic back pain due to degenerative disease presenting to the emergency department with severe lower back pain radiating down anterior aspect of right upper leg. Patient reports she has been using Tylenol and meloxicam as prescribed by her PCP without relief. On exam patient is awake, A+Ox3, VS WNL, afebrile, normal neurological exam without focal deficits, no midline tenderness, 5/5 strength all extremities, DTRs 2+. Given reported symptoms and physical exam findings, initial differential includes chronic back pain related to degenerative disc disease. Unlikely fracture or herniation. No red flag findings concerning for cauda equina or spinal epidural abscess. Patient was seen in this ED on 01/14, had imaging which revealed no new abnormalities and demonstrated degenerative disc disease. Patient was medicated with IM Dilaudid at that time. Do not feel repeat imaging is indicated at this time as patient denies new injury/trauma. Had a lengthy discussion with patient via translator and interpreter that due to the chronicity of her symptoms, and known etiology, and advised that her symptoms would be best managed by her PCP/pain management/medical authorization specialist. Patient states that her PCP did refer her to the medical authorization specialist but she is waiting for insurance authorization. Patient specifically requesting 1 dose of medication in the ED for her pain. Will prescribe one time dose of 5 mg oxycodone in the ED, but discussed with patient that this will not be prescribed for her for home as it is not the appropriate management of her chronic pain. Will refer patient to medical authorization specialist. Differential Diagnosis Differential Diagnoses: The differential diagnosis associated with the presentation includes As per MDM. External Record Review External record reviewed: Inpatient record, Office record and Outpatient record Prescription Management I considered prescription management with: Pain Medication Discharge Plan Discharge Clinical Impression: Degenerative disc disease, lumbar Patient Disposition: Home, Self-Care Instructions: Degenerative Disc Disease (ED) Additional Instructions: You were evaluated in the emergency department today for back pain. Your evalua tion did not show signs of medical conditions requiring emergent intervention at this time. You are being referred to the medical authorization specialist, please CONTACT THEM for an appointment. Please schedule an appointment for follow-up with your primary care physician this week for further evaluation of your symptoms. Return to the emergency department if you experience worsening back pain, difficulty walking, fevers, numbness, tingling, incontinence, groin numbness or tingling, or any other concerning symptoms. Prescriptions: No Action oxycodone 5 mg tablet 7.5 mg PO BID PRN (Reason: pain) Qty: 9 0RF Rx Instructions: Partial Fill upon patient request. prednisone 20 mg tablet 20 mg PO DAILY 7 Days Qty: 7 0RF cyclobenzaprine 5 mg tablet 5 mg PO TID PRN (Reason: muscle spasm) 7 Days Qty: 21 0RF ketorolac 10 mg tablet 10 mg PO QID PRN (Reason: pain) 5 Days Qty: 20 0RF Rx Instructions: Received 30mg IM toradol in the ED oxycodone 5 mg capsule 5 mg PO TID PRN (Reason: pain) 3 Days Qty: 9 0RF Rx Instructions: Partial Fill upon patient request. meloxicam 15 mg tablet 15 mg PO DAILY Qty: 10 0RF acetaminophen 500 mg capsule 1,000 mg PO QID PRN (Reason: fever or pain) Qty: 20 0RF cyclobenzaprine 10 mg tablet 10 mg PO TID PRN (Reason: muscle spasm) Qty: 10 0RF lidocaine [Lidoderm] 5 % adhesive patch,medicated 1 patch topical DAILY Qty: 30 0RF Rx Instructions: leave on most painful area for up to 12 hrs albuterol sulfate [ProAir HFA] 90 mcg/actuation HFA aerosol inhaler 2 puff PO Q4-6H PRN [id number]-mued [Fioricet] 50-300-40 mg capsule 1 cap PO Q8H PRN budesonide-formoterol [Symbicort] 160-4.5 mcg/actuation HFA aerosol inhaler 2 puff PO loratadine 10 mg tablet 10 mg PO DAILY omeprazole 20 mg capsule,delayed release(DR/EC) 20 mg PO DAILY amlodipine 10 mg tablet 10 mg PO DAILY albuterol sulfate 2.5 mg /3 mL (0.083 %) solution for nebulization inhalation QID furosemide 40 mg tablet 40 mg PO DAILY lisinopril 20 mg tablet 20 mg PO DAILY oxycodone-acetaminophen [Percocet] 7.5-325 mg tablet 1 tab PO Q8H PRN naloxone 4 mg/actuation spray,non-aerosol 0 spray intranasal duloxetine 30 mg capsule,delayed release(DR/EC) 30 mg PO DAILY Spiriva with HandiHaler 18 mcg capsule, w/inhalation device 1 cap inhalation DAILY gabapentin 100 mg capsule 100 mg PO DAILY buspirone 5 mg tablet 5 mg PO BID carvedilol 12.5 mg tablet 12.5 mg PO BID lisinopril-hydrochlorothiazide 20-12.5 mg tablet 2 tab PO DAILY Referrals: [facility] [Provider Group]
[2023-01-17] MEDS: oxyCODONE HCl Immed Release 5 MG TABLET PO (09:04)
== END 2023-01-17 09:21 | disposition home or self-care (01) ==
PROVIDERS: Emergency Provider Emergency Medicine
DX: M51.36 Other intervertebral disc degeneration, lumbar region (principal); Z87.891 Personal history of nicotine dependence; Z79.899 Other long term (current) drug therapy
CPT/HCPCS: 99283; 99284

== ENCOUNTER 2023-01-18 12:11 | Emergency (ER) | payer MEDICAID, SELFPAY ==
--- NOTE | ~2023-01-18 | XR_ITS ---
EXAMINATION: XR CHEST CLINICAL INFORMATION: Chest wall pain COMPARISON: Chest radiograph from 04/08/2021 TECHNIQUE: 2 views of the chest were obtained. FINDINGS: Patchy radiopacities involving the bilateral mid and lower lung jamison may reflect infectious/inflammatory etiology. Chronic interstitial lung markings. Slight prominence of the pulmonary vasculature. No pneumothorax. Trachea is midline. Cardiomediastinal silhouette is not enlarged. Aorta demonstrates atherosclerotic calcifications. No large pleural effusion. Degenerative changes of the thoracolumbar spine. Surgical clips in the upper abdomen. Soft tissues are unremarkable. XR/XR chest 2V IMPRESSION: 1. Patchy radiopacities involving the bilateral mid and lower lung jamison may reflect infectious/inflammatory etiology. 2. Chronic interstitial lung markings. 3. Slight prominence of the pulmonary vasculature.
[2023-01-18 12:16] VITALS: BP 162/78; BP 166/83; PULSE 73; PULSE 80; RESP 19; TEMP 36.8; O2SAT 97; BMI 37.2
--- NOTE | 2023-01-18 12:16 | ECG_ITS ---
Test Reason : CP Blood Pressure : / mmHG Vent. Rate : 078 BPM Atrial Rate : 078 BPM P-R Int : 176 ms QRS Dur : 108 ms QT Int : 402 ms P-R-T Axes : 051 043 044 degrees QTc Int : 458 ms Normal sinus rhythm Incomplete right bundle branch block Borderline ECG When compared with ECG of 03-SEP-2017 12:26, No significant change was found Referred By: Nikki Romano Electronically Signed By:Ba Ceballos
--- NOTE | 2023-01-18 12:31 | ED_ITS ---
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 Related Data Home Medications Medication Instructions Recorded Confirmed lisinopril 20 mg tablet 20 mg PO DAILY 12/28/20 01/03/23 albuterol sulfate 2.5 mg/3 mL mg inhalation QID 03/01/21 01/03/23 (0.083 %) solution for nebulization albuterol sulfate 90 mcg/actuation 2 puff PO Q4-6H PRN 03/01/21 01/03/23 aerosol inhaler (ProAir HFA) amlodipine 10 mg tablet 10 mg PO DAILY 03/01/21 01/03/23 budesonide-formoterol HFA 160 2 puff PO 03/01/21 01/03/23 mcg-4.5 mcg/actuation aerosol inhaler (Symbicort) htrimmxjaj-brwicvqsardvq-uiomtkpd 1 cap PO Q8H PRN 03/01/21 01/03/23 50 mg-300 mg-40 mg capsule (Fioricet) furosemide 40 mg tablet 40 mg PO DAILY 03/01/21 01/03/23 loratadine 10 mg tablet 10 mg PO DAILY itch 03/01/21 01/03/23 omeprazole 20 mg capsule,delayed 20 mg PO DAILY 03/01/21 01/03/23 release oxycodone-acetaminophen 7.5 mg-325 1 tab PO Q8H PRN 03/03/22 01/03/23 mg tablet (Percocet) buspirone 5 mg tablet 5 mg PO BID 10/17/22 01/03/23 carvedilol 12.5 mg tablet 12.5 mg PO BID 10/17/22 01/03/23 duloxetine 30 mg capsule,delayed 30 mg PO DAILY 10/17/22 01/03/23 release gabapentin 100 mg capsule 100 mg PO DAILY 10/17/22 01/03/23 lisinopril 20 2 tab PO DAILY 10/17/22 01/03/23 mg-hydrochlorothiazide 12.5 mg tablet naloxone 4 mg/actuation nasal spray 0 spray intranasal 10/17/22 01/03/23 tiotropium bromide 18 mcg capsule 1 cap inhalation DAILY 10/17/22 01/03/23 with inhalation device (Spiriva with HandiHaler) Previous Rx's Medication Instructions Recorded oxycodone 5 mg tablet 7.5 mg PO BID PRN pain #9 tabs 12/19/22 cyclobenzaprine 5 mg tablet 5 mg PO TID PRN muscle spasm 7 12/29/22 days #21 tabs prednisone 20 mg tablet 20 mg PO DAILY 7 days #7 tabs 12/29/22 ketorolac 10 mg tablet 10 mg PO QID PRN pain 5 days #20 01/01/23 tabs oxycodone 5 mg capsule 5 mg PO TID PRN pain 3 days #9 caps 01/01/23 acetaminophen 500 mg capsule 1,000 mg PO QID PRN fever or pain 01/14/23 #20 caps cyclobenzaprine 10 mg tablet 10 mg PO TID PRN muscle spasm #10 01/14/23 tabs lidocaine 5 % topical patch 1 patch topical DAILY #30 ea 01/14/23 (Lidoderm) meloxicam 15 mg tablet 15 mg PO DAILY #10 tabs 01/14/23 Allergies Allergy/AdvReac Type Severity Reaction Status Date / Time morphine [MORPHINE] Allergy Severe HIVES, Verified 01/14/23 07:44 rash, itching,hives tramadol [TRAMADOL] Allergy Intermediate HIVES Verified 01/14/23 07:44 Review of Systems Review of Systems: Pertinent positives and negatives as stated in HPI [facility] Past Medical History Source: nursing notes reviewed Medical History Breast pain Chondral defect of patella Encounter for annual routine gynecological examination Flank pain Fungal infection of the groin Gallbladder abscess History of uterine fibroid HTN (hypertension) Kidney stones Migraine Migraines Para-ovarian adhesion Pelvic pain in female Right flank pain Yeast infection involving the vagina and surrounding area Surgical History History of bunionectomy History of cholecystectomy History of kidney surgery History of tubal ligation Family History Family History Mother Stroke Diabetes HTN (hypertension) Father Heart attack Sister Lupus Leukemia Social History Social History Household Members: Spouse and Children Housing: Apartment Alcohol intake: never Patient Tobacco Use Status: Former Tobacco user Tobacco use type: Cigarette Cigarettes Per Day: 2 Smoked in Last 30 Days: No Use of substances other than those prescribed or required for medical reasons: No Advance Directives: No Patient : No Current occupational status: unemployed Sexual orientation: Straight/Heterosexual Gender identity: Female Physical Exam Vital Signs: Vital Signs: Last Vital Signs Temp 98.2 F 01/18/23 12:16 Pulse 73 01/18/23 12:16 Resp 19 01/18/23 12:16 BP 166/83 H 01/18/23 12:16 Pulse Ox 97 01/18/23 12:16 O2 Del Method Room Air 01/18/23 12:16 BMI result Body Mass Index 37.2 VITAL SIGNS: Reviewed. GENERAL: Well developed, well nourished, in no acute distress. HEAD: Normocephalic/atraumatic EYES: PERRLA, EOMI EARS: Ext canals without abnormality NOSE: Nares patent bilateral OROPHARYNX: no oral lesions noted, posterior pharynx clear NECK: Supple, no adenopathy LUNGS: Normal breath sounds. No adventitious sounds or accessory muscle use. SpO2<97> CARDIOVASCULAR: Regular rate and rhythm without noted murmurs ABDOMEN: Soft, non-tender, non-distended with bowel sounds. MUSCULOSKELETAL: No tenderness, deformities, or effusions noted on gross inspection. EXTREMITIES: No cyanosis, clubbing or edema. SKIN: Inspection of the skin reveals no rashes NEUROLOGIC: Alert and oriented x 4. Strength and sensation to light touch were grossly intact x 4. Medical Decision Making Medical Decision Making MDM Narrative: 1234: 57-year-old female with history and clinical presentation, DDX: Musculoskeletal, gastritis, less likely to be cardiopulmonary in nature. HEART Score: 3 Reviewed all investigations and there are no hematologic indices to indicate evidence of infection, anemia, thrombocytopenia. Coagulation studies are within normal limits. Chemistry indices are negative for electrolyte pain, evidence of MEREDITH, or liver enzyme derangement. Serial troponins although detectable are not elevated. Urinalysis negative for UTI or hematuria. Chest x-ray negative for infiltrates, there is no elevated temperature or leukocytosis and patient denies any recent cough. My interpretation is that patient may have a component of chronic pain in addition to mild asthma symptoms and will receive a short course of steroids. All results discussed with her at bedside. Differential Diagnosis Differential Diagnoses: The differential diagnosis associated with the presentation includes Please see the discussion above Admission/Observation Consideration of admission/observation: Escalation of care including admission/observation considered Please see the discussion above Lab Data MDM Lab Attestation statement: I reviewed the patient's lab results. Please see the discussion above 01/18/23 12:52 01/18/23 12:52 Labs: Lab Results 01/18/23 01/18/23 01/18/23 Range/Units 12:52 12:52 12:52 WBC 7.0 (4.8-10.8) X10*3/uL RBC 5.05 (4.20-5.50) X10*6/uL Hgb 15.2 (12.0-16.0) g/dl Hct 45.4 (37.0-47.0) % MCV 89.9 (80.0-98.0) fL MCH 30.1 (27.0-33.0) pg MCHC 33.5 (31.0-35.0) g/dl RDW 13.6 (11.0-16.0) % Plt Count 191 (160-400) X10*3/uL MPV 10.1 (9.4-12.3) fL Immature Gran % (Auto) 0.7 H (0.0-0.4) % Neut % (Auto) 53.3 (45-73) % Lymph % (Auto) 32.9 (20-40) % Walker % (Auto) 8.5 (2-11) % Eos % (Auto) 3.9 (0-4) % Baso % (Auto) 0.7 (0-2) % Lymph # (Auto) 2.3 (1.2-4.9) X10*3/uL Walker # (Auto) 0.6 (0.1-1.2) X10*3/uL Eos # (Auto) 0.3 (0.0-0.4) X10*3/uL Baso # (Auto) 0.1 (0.0-0.2) X10*3/uL Abs Immat Gran (auto) 0.05 H (0.00-0.03) X10*3/uL Absolute Neuts (auto) 3.7 (2.0-8.3) x10*3/uL Absolute Nucleated RBC 0.000 (0.0-0.012) X10*3/uL Nucleated RBC % (auto) 0.0 (0.0-0.2) /100WBC PT 11.3 (11.1-13.3) SEC INR 0.9 (0.9-1.1) Sodium 142 (135-145) mmol/L Potassium 3.8 (3.3-5.1) mmol/L Chloride 107 (96-108) mmol/L Carbon Dioxide 24 (22-29) mmol/L Anion Gap 15 (12-20) BUN 15 (9-16) mg/dL Creatinine 0.86 (0.5-1.4) mg/dL Estim Creat Clear Calc 89.3 Estimated GFR > 60 Random Glucose 90 (60-115) mg/dL Calcium 9.6 D (8.4-10.2) mg/dL Total Bilirubin 1.0 (0.0-1.0) mg/dL AST 16 (5-31) U/L ALT 19 (0-31) U/L Alkaline Phosphatase 113 (39-117) U/L Troponin I High Sens (<3.5-17.0) ng/L B-Natriuretic Peptide (<100) pg/mL Total Protein 7.3 (6.5-8.0) g/dL Albumin 4.0 (3.5-5.0) g/dL Urine Color Urine Appearance Urine pH (5.0-9.0) Ur Specific [place] (1.005-1.025) Urine Protein (Neg-Trace) mg/dL Urine Glucose (UA) (Negative) mg/dL Urine Ketones (Negative) mg/dL Urine Blood (Negative) Urine Nitrite (Negative) Ur Leukocyte Esterase (Negative) Urine RBC (0-2) /HPF Urine WBC (0-5) /HPF Ur Squamous Epith Cells (0-2) /HPF Urine Bacteria (None Seen) Hyaline Casts (0-2) /LPF 01/18/23 01/18/23 01/18/23 Range/Units 12:52 12:52 13:29 WBC (4.8-10.8) X10*3/uL RBC (4.20-5.50) X10*6/uL Hgb (12.0-16.0) g/dl Hct (37.0-47.0) % MCV (80.0-98.0) fL MCH (27.0-33.0) pg MCHC (31.0-35.0) g/dl RDW (11.0-16.0) % Plt Count (160-400) X10*3/uL MPV (9.4-12.3) fL Immature Gran % (Auto) (0.0-0.4) % Neut % (Auto) (45-73) % Lymph % (Auto) (20-40) % Walker % (Auto) (2-11) % Eos % (Auto) (0-4) % Baso % (Auto) (0-2) % Lymph # (Auto) (1.2-4.9) X10*3/uL Walker # (Auto) (0.1-1.2) X10*3/uL Eos # (Auto) (0.0-0.4) X10*3/uL Baso # (Auto) (0.0-0.2) X10*3/uL Abs Immat Gran (auto) (0.00-0.03) X10*3/uL Absolute Neuts (auto) (2.0-8.3) x10*3/uL Absolute Nucleated RBC (0.0-0.012) X10*3/uL Nucleated RBC % (auto) (0.0-0.2) /100WBC PT (11.1-13.3) SEC INR (0.9-1.1) Sodium (135-145) mmol/L Potassium (3.3-5.1) mmol/L Chloride (96-108) mmol/L Carbon Dioxide (22-29) mmol/L Anion Gap (12-20) BUN (9-16) mg/dL Creatinine (0.5-1.4) mg/dL Estim Creat Clear Calc Estimated GFR Random Glucose (60-115) mg/dL Calcium (8.4-10.2) mg/dL Total Bilirubin (0.0-1.0) mg/dL AST (5-31) U/L ALT (0-31) U/L Alkaline Phosphatase (39-117) U/L Troponin I High Sens 3.2 (<3.5-17.0) ng/L B-Natriuretic Peptide 23 (<100) pg/mL Total Protein (6.5-8.0) g/dL Albumin (3.5-5.0) g/dL Urine Color Yellow Urine Appearance Clear Urine pH 7.5 (5.0-9.0) Ur Specific [place] 1.015 (1.005-1.025) Urine Protein Negative (Neg-Trace) mg/dL Urine Glucose (UA) Negative (Negative) mg/dL Urine Ketones Negative (Negative) mg/dL Urine Blood Negative (Negative) Urine Nitrite Negative (Negative) Ur Leukocyte Esterase Trace H (Negative) Urine RBC 0-2 (0-2) /HPF Urine WBC 0-5 (0-5) /HPF Ur Squamous Epith Cells 3-5 (0-2) /HPF Urine Bacteria None Seen (None Seen) Hyaline Casts 0-2 (0-2) /LPF 01/18/23 Range/Units 15:38 WBC (4.8-10.8) X10*3/uL RBC (4.20-5.50) X10*6/uL Hgb (12.0-16.0) g/dl Hct (37.0-47.0) % MCV (80.0-98.0) fL MCH (27.0-33.0) pg MCHC (31.0-35.0) g/dl RDW (11.0-16.0) % Plt Count (160-400) X10*3/uL MPV (9.4-12.3) fL Immature Gran % (Auto) (0.0-0.4) % Neut % (Auto) (45-73) % Lymph % (Auto) (20-40) % Walker % (Auto) (2-11) % Eos % (Auto) (0-4) % Baso % (Auto) (0-2) % Lymph # (Auto) (1.2-4.9) X10*3/uL Walker # (Auto) (0.1-1.2) X10*3/uL Eos # (Auto) (0.0-0.4) X10*3/uL Baso # (Auto) (0.0-0.2) X10*3/uL Abs Immat Gran (auto) (0.00-0.03) X10*3/uL Absolute Neuts (auto) (2.0-8.3) x10*3/uL Absolute Nucleated RBC (0.0-0.012) X10*3/uL Nucleated RBC % (auto) (0.0-0.2) /100WBC PT (11.1-13.3) SEC INR (0.9-1.1) Sodium (135-145) mmol/L Potassium (3.3-5.1) mmol/L Chloride (96-108) mmol/L Carbon Dioxide (22-29) mmol/L Anion Gap (12-20) BUN (9-16) mg/dL Creatinine (0.5-1.4) mg/dL Estim Creat Clear Calc Estimated GFR Random Glucose (60-115) mg/dL Calcium (8.4-10.2) mg/dL Total Bilirubin (0.0-1.0) mg/dL AST (5-31) U/L ALT (0-31) U/L Alkaline Phosphatase (39-117) U/L Troponin I High Sens 4.6 (<3.5-17.0) ng/L B-Natriuretic Peptide (<100) pg/mL Total Protein (6.5-8.0) g/dL Albumin (3.5-5.0) g/dL Urine Color Urine Appearance Urine pH (5.0-9.0) Ur Specific [place] (1.005-1.025) Urine Protein (Neg-Trace) mg/dL Urine Glucose (UA) (Negative) mg/dL Urine Ketones (Negative) mg/dL Urine Blood (Negative) Urine Nitrite (Negative) Ur Leukocyte Esterase (Negative) Urine RBC (0-2) /HPF Urine WBC (0-5) /HPF Ur Squamous Epith Cells (0-2) /HPF Urine Bacteria (None Seen) Hyaline Casts (0-2) /LPF Independent Interpretation I performed an independent interpretation of an: EKG Interpretation: Normal sinus rhythm, HR-78, no STEMI, NJ/QTC are within normal limits, incomplet e right bundle-branch block at baseline. Radiology Impression Discussion of test interpretation with radiology: I have reviewed the radiolo gist's reading. Radiologist Impression: Please see the discussion above External Record Review External record reviewed: Outpatient record and Prior outpatient labs Chronic Conditions Patient?s care impacted by: Hypertension Discharge Plan Discharge Clinical Impression: Chronic back pain, Asthma Patient Disposition: Home, Self-Care Instructions: Asthma (ED), Chronic Pain (ED), Back Pain (ED) Additional Instructions: 1. Reanudar todos los medicamentos caseros seg?n lo prescrito. 2. Complete el curso corto de esteroides para mata asma. 3. Olivia un seguimiento con mata proveedor de atenci?n primaria en los pr?ximos 1 o 2 d?as. Regrese a la federico de emergencias si los s?ntomas empeoran. 1. Resume all home medications as prescribed. 2. Please complete the short course of steroids for your asthma. 3. Please follow-up with your primary care provider in the next 1-2 days. Return to the ER for any worsening symptoms. Prescriptions: No Action oxycodone 5 mg tablet 7.5 mg PO BID PRN (Reason: pain) Qty: 9 0RF Rx Instructions: Partial Fill upon patient request. prednisone 20 mg tablet 20 mg PO DAILY 7 Days Qty: 7 0RF cyclobenzaprine 5 mg tablet 5 mg PO TID PRN (Reason: muscle spasm) 7 Days Qty: 21 0RF ketorolac 10 mg tablet 10 mg PO QID PRN (Reason: pain) 5 Days Qty: 20 0RF Rx Instructions: Received 30mg IM toradol in the ED oxycodone 5 mg capsule 5 mg PO TID PRN (Reason: pain) 3 Days Qty: 9 0RF Rx Instructions: Partial Fill upon patient request. meloxicam 15 mg tablet 15 mg PO DAILY Qty: 10 0RF acetaminophen 500 mg capsule 1,000 mg PO QID PRN (Reason: fever or pain) Qty: 20 0RF cyclobenzaprine 10 mg tablet 10 mg PO TID PRN (Reason: muscle spasm) Qty: 10 0RF lidocaine [Lidoderm] 5 % adhesive patch,medicated 1 patch topical DAILY Qty: 30 0RF Rx Instructions: leave on most painful area for up to 12 hrs albuterol sulfate [ProAir HFA] 90 mcg/actuation HFA aerosol inhaler 2 puff PO Q4-6H PRN ylmctqbyam-rexpczhauwruq-iglh [Fioricet] 50-300-40 mg capsule 1 cap PO Q8H PRN budesonide-formoterol [Symbicort] 160-4.5 mcg/actuation HFA aerosol inhaler 2 puff PO loratadine 10 mg tablet 10 mg PO DAILY omeprazole 20 mg capsule,delayed release(DR/EC) 20 mg PO DAILY amlodipine 10 mg tablet 10 mg PO DAILY albuterol sulfate 2.5 mg /3 mL (0.083 %) solution for nebulization inhalation QID furosemide 40 mg tablet 40 mg PO DAILY lisinopril 20 mg tablet 20 mg PO DAILY oxycodone-acetaminophen [Percocet] 7.5-325 mg tablet 1 tab PO Q8H PRN naloxone 4 mg/actuation spray,non-aerosol 0 spray intranasal duloxetine 30 mg capsule,delayed release(DR/EC) 30 mg PO DAILY Spiriva with HandiHaler 18 mcg capsule, w/inhalation device 1 cap inhalation DAILY gabapentin 100 mg capsule 100 mg PO DAILY buspirone 5 mg tablet 5 mg PO BID carvedilol 12.5 mg tablet 12.5 mg PO BID lisinopril-hydrochlorothiazide 20-12.5 mg tablet 2 tab PO DAILY Referrals: [facility] [Primary Care Provider] - Print Language: Faroese
[2023-01-18 12:57] LABS: MANUAL DIFF FLAG NO
[2023-01-18 13:04] LABS: Basophils Absolute Auto 0.1 X10*3/uL (0.0-0.2); Basophils Percent Auto 0.7 % (0-2); Eosinophils Absolute Auto 0.3 X10*3/uL (0.0-0.4); Eosinophils Percent Auto 3.9 % (0-4); Hematocrit 45.4 % (37.0-47.0); Hemoglobin 15.2 g/dl (12.0-16.0); Imm Gran Abs Auto 0.05 X10*3/uL (0.00-0.03); Imm Gran Pct Auto 0.7 % (0.0-0.4); Lymphocytes Absolute Auto 2.3 X10*3/uL (1.2-4.9); Lymphocytes Percent Auto 32.9 % (20-40); Mean Corpuscular HGB Conc 33.5 g/dl (31.0-35.0); Mean Corpuscular Hemoglobin 30.1 pg (27.0-33.0); Mean Corpuscular Volume 89.9 fL (80.0-98.0); Mean Platelet Volume 10.1 fL (9.4-12.3); Monocytes Absolute Auto 0.6 X10*3/uL (0.1-1.2); Monocytes Percent Auto 8.5 % (2-11); Neutrophils Absolute Auto 3.7 x10*3/uL (2.0-8.3); Neutrophils Percent Auto 53.3 % (45-73); Platelet Count 191 X10*3/uL (160-400); Red Blood Count 5.05 X10*6/uL (4.20-5.50); Red Cell Distribution Width 13.6 % (11.0-16.0)
[2023-01-18 13:18] LABS: INTERNATIONAL NORM RATIO 0.9 (0.9-1.1); Prothrombin Time 11.3 SEC (11.1-13.3)
[2023-01-18 13:34] LABS: Troponin-I High Sensitivity 3.2 ng/L (<3.5-17.0)
[2023-01-18 13:45] LABS: Appearance Urine Clear; Color Urine Yellow; Glucose Urine UA Negative (Negative); Leukocyte Esterase Urine Trace (Negative); Nitrite Urine Negative (Negative); PH 7.5 (5.0-9.0); Specific Gravity - Urine 1.015 (1.005-1.025); UMIC TRIGGER UACC YES; Urine Blood Negative (Negative); Urine Ketones Negative (Negative); Urine Protein Negative (Neg-Trace)
[2023-01-18 13:51] LABS: Bacteria Urine None Seen (None Seen); Hyaline Casts Urine 0-2 /LPF (0-2); RBC Urine 0-2 /HPF (0-2); WBC Urine 0-5 /HPF (0-5)
[2023-01-18 14:04] LABS: Alanine Aminotransferase 19 U/L (0-31); Alkaline Phosphatase 113 U/L (39-117); Anion Gap 15 (12-20); Aspartate Amino Transferase 16 U/L (5-31); Blood Urea Nitrogen 15 mg/dL (9-16); Calcium 9.6 mg/dL (8.4-10.2); Carbon Dioxide 24 mmol/L (22-29); Chloride 107 mmol/L (96-108); Creatinine Clr Calc Pharmacy 89.3; Estimated Glomerular Filt Rate > 60; Glucose Random 90 mg/dL (60-115); Potassium 3.8 mmol/L (3.3-5.1); Sodium 142 mmol/L (135-145); Total Protein 7.3 g/dL (6.5-8.0)
[2023-01-18 15:16] LABS: B Type Natriuretic Peptide 23 pg/mL (<100)
[2023-01-18 16:08] LABS: Troponin-I High Sensitivity 4.6 ng/L (<3.5-17.0)
[2023-01-18 16:13] VITALS: BP 147/56; PULSE 67; RESP 16; TEMP 36.5; O2SAT 96
== END 2023-01-18 16:38 | disposition home or self-care (01) ==
PROVIDERS: Emergency Provider Student in an Organized Health Care Education/Training Program
DX: R07.89 Other chest pain (principal); M54.50 Low back pain, unspecified; J45.909 Unspecified asthma, uncomplicated; R06.02 Shortness of breath; Z79.899 Other long term (current) drug therapy
CPT/HCPCS: 36415; 71046; 80053; 81001; 83880; 84484; 85025; 85610; 93005; 99283; 99285

== ENCOUNTER → 2023-01-18 12:16 | Outpatient (BNV) | payer MEDICAID, SELFPAY | PROVIDERS: Emergency Provider Student in an Organized Health Care Education/Training Program; Visit Provider Internal Medicine Cardiovascular Disease | DX: R07.9 Chest pain, unspecified (principal) | CPT/HCPCS: 93010 ==

== ENCOUNTER 2023-01-19 08:12 | Outpatient (REF) | payer MEDICAID, SELFPAY ==
[2023-01-19 12:46] LABS: Anion Gap 12 (12-20); Blood Urea Nitrogen 15 mg/dL (9-16); Calcium 10.1 mg/dL (8.4-10.2); Carbon Dioxide 29 mmol/L (22-29); Chloride 104 mmol/L (96-108); Estimated Glomerular Filt Rate > 60; Glucose Random 69 mg/dL (60-115); Potassium 3.9 mmol/L (3.3-5.1); Sodium 141 mmol/L (135-145)
== END 2023-01-19 08:13 | disposition home or self-care (01) ==
LOC: HO.HHCL 08:12
PROVIDERS: Visit Provider Registered Nurse
DX: I10 Essential (primary) hypertension (principal)
CPT/HCPCS: 36415; 80048; 82088

== ENCOUNTER 2023-01-30 07:53 | Emergency (ER) | payer MEDICAID, SELFPAY ==
[2023-01-30 08:00] VITALS: BP 187/110; PULSE 74; RESP 18; TEMP 37.1; O2SAT 99; BMI 35.7
--- NOTE | 2023-01-30 08:26 | ED.BACK ---
HPI - Back Pain/Injury General Chief Complaint: Back Pain/Injury Stated Complaint: Back pain Time Seen by Provider: 01/30/23 08:25 Source: patient Mode of arrival: ambulatory Limitations: no limitations History of Present Illness HPI Narrative: 57-year-old female history of GERD, hypertension, asthma, depression with anxiety, presenting to the emergency department complaints of low back pain going on for the past few weeks, worsening over the past few days has been seen multiple times for this same concern. Patient reports pain is in the midline worse with movement and heavy lifting better at rest. Patient reports she has had multiple MRIs of her back. And she has taken medications with little to no relief has not yet seen a specialist however is followed by her PCP. Denies urinary/ bowel incontinence /retention, saddle paresthesias, numbness, tingling, chest pain, shortness of breath, fevers, chills, nausea, vomiting, abdominal pain. No known trauma. This feels like her typical back pain however not going away. Related Data Home Medications Medication Instructions Recorded Confirmed lisinopril 20 mg tablet 20 mg PO DAILY 12/28/20 01/03/23 albuterol sulfate 2.5 mg/3 mL mg inhalation QID 03/01/21 01/03/23 (0.083 %) solution for nebulization albuterol sulfate 90 mcg/actuation 2 puff PO Q4-6H PRN 03/01/21 01/03/23 aerosol inhaler (ProAir HFA) amlodipine 10 mg tablet 10 mg PO DAILY 03/01/21 01/03/23 budesonide-formoterol HFA 160 2 puff PO 03/01/21 01/03/23 mcg-4.5 mcg/actuation aerosol inhaler (Symbicort) scwdcejism-zcgtfwgkrqjxu-akncrgvn 1 cap PO Q8H PRN 03/01/21 01/03/23 50 mg-300 mg-40 mg capsule (Fioricet) furosemide 40 mg tablet 40 mg PO DAILY 03/01/21 01/03/23 loratadine 10 mg tablet 10 mg PO DAILY itch 03/01/21 01/03/23 omeprazole 20 mg capsule,delayed 20 mg PO DAILY 03/01/21 01/03/23 release oxycodone-acetaminophen 7.5 mg-325 1 tab PO Q8H PRN 03/03/22 01/03/23 mg tablet (Percocet) buspirone 5 mg tablet 5 mg PO BID 10/17/22 01/03/23 carvedilol 12.5 mg tablet 12.5 mg PO BID 10/17/22 01/03/23 duloxetine 30 mg capsule,delayed 30 mg PO DAILY 10/17/22 01/03/23 release gabapentin 100 mg capsule 100 mg PO DAILY 10/17/22 01/03/23 lisinopril 20 2 tab PO DAILY 10/17/22 01/03/23 mg-hydrochlorothiazide 12.5 mg tablet naloxone 4 mg/actuation nasal spray 0 spray intranasal 10/17/22 01/03/23 tiotropium bromide 18 mcg capsule 1 cap inhalation DAILY 10/17/22 01/03/23 with inhalation device (Spiriva with HandiHaler) Previous Rx's Medication Instructions Recorded oxycodone 5 mg tablet 7.5 mg PO BID PRN pain #9 tabs 12/19/22 cyclobenzaprine 5 mg tablet 5 mg PO TID PRN muscle spasm 7 12/29/22 days #21 tabs prednisone 20 mg tablet 20 mg PO DAILY 7 days #7 tabs 12/29/22 ketorolac 10 mg tablet 10 mg PO QID PRN pain 5 days #20 01/01/23 tabs oxycodone 5 mg capsule 5 mg PO TID PRN pain 3 days #9 caps 01/01/23 acetaminophen 500 mg capsule 1,000 mg PO QID PRN fever or pain 01/14/23 #20 caps cyclobenzaprine 10 mg tablet 10 mg PO TID PRN muscle spasm #10 01/14/23 tabs lidocaine 5 % topical patch 1 patch topical DAILY #30 ea 01/14/23 (Lidoderm) meloxicam 15 mg tablet 15 mg PO DAILY #10 tabs 01/14/23 ketorolac 10 mg tablet 10 mg PO TID PRN pain 5 days #15 01/30/23 tabs lidocaine 5 % topical patch 1 patch topical DAILY PRN pain #15 01/30/23 ea prednisone 20 mg tablet 40 mg PO DAILY 5 days #10 tabs 01/30/23 Allergies Allergy/AdvReac Type Severity Reaction Status Date / Time morphine [MORPHINE] Allergy Severe HIVES, Verified 01/14/23 07:44 rash, itching,hives tramadol [TRAMADOL] Allergy Intermediate HIVES Verified 01/14/23 07:44 Review of Systems Review of Systems: Constitutional : No Weight loss, No Fever, No Chills, ENT/Mouth : No Hearing loss, No Ear Pain, No Nasal Congestion, No Sinus Pain, No Hoarseness, No sore throat, No Rhinorrhea, No Swallowing Difficulty Cardiovascular : No Chest Pain, No SOB Respiratory : No Cough, No Dyspnea Gastrointestinal : No Nausea, No Vomiting, No Diarrhea, No abdominal Pain, No Hematochezia, No Melena Genitourinary : No Dysuria, No Urinary Frequency, No Hematuria, No Urinary Incontinence, Musculoskeletal : positive back pain Skin : No Skin Lesions, No rash Neuro : No Weakness, No Numbness, No Paresthesias, no loss of bowel or bladder incontinence, no saddle anesthesia Yes all other systems are reviewed and are negative PMFSH Past Medical History Attestation statement: The following information was validated with the patient. Source: old records reviewed and nursing notes reviewed Medical History Breast pain Chondral defect of patella Encounter for annual routine gynecological examination Flank pain Fungal infection of the groin Gallbladder abscess History of uterine fibroid HTN (hypertension) Kidney stones Migraine Migraines Para-ovarian adhesion Pelvic pain in female Right flank pain Yeast infection involving the vagina and surrounding area Surgical History History of bunionectomy History of cholecystectomy History of kidney surgery History of tubal ligation Family History Family History Mother Stroke Diabetes HTN (hypertension) Father Heart attack Sister Lupus Leukemia Social History Social History Household Members: Spouse and Children Housing: Apartment Alcohol intake: never Patient Tobacco Use Status: Former Tobacco user Tobacco use type: Cigarette Cigarettes Per Day: 2 Advance Directives: No Advance Directives Information Provided: Yes Current occupational status: unemployed Sexual orientation: Straight/Heterosexual Gender identity: Female Physical Exam Vital Signs: Vital Signs: Last Vital Signs Temp 98.7 F 01/30/23 08:00 Pulse 74 01/30/23 08:00 Resp 18 01/30/23 08:00 BP 187/110 H 01/30/23 08:00 Pulse Ox 99 01/30/23 08:00 O2 Del Method Room Air 01/30/23 08:00 BMI result Body Mass Index 35.7 vss Appearance: Alert.? Oriented X3.? No acute distress.? Head: Normocephalic, atraumatic, no step-offs or deformities Eyes: Pupils equal, round and reactive to light.? ENT: Pharynx normal.? Neck: Normal inspection.? Neck supple.? CVS: Normal heart rate and rhythm.? Pulses normal.? Respiratory: No respiratory distress.? Breath sounds normal.? Abdomen: Soft and nontender.? Skin: Skin warm and dry.? Normal skin color.? Normal skin turgor.? Extremities: No lower extremity edema.? No calf ttp. 5/5 strength to bilateral upper and lower extremities Back: No midline tenderness, no C-spine tenderness, full range of motion, no CVA tenderness bilaterally + pain to palpation to lower lumbar region L4-L5, S1 Midline and associated paraspinous tenderness bilaterally. No overlying skin changes. Neuro: Oriented X 3.? No motor deficit.? No sensory deficit. CN 2-12 intact. Ambulating w/ steady gait normal coordination. No saddle paresthesias Course Reevaluation(s) Reevaluation #1: Educated patient on diagnosis and treatment plan, answered all question, patient verbalizes understanding. At this time patient will be discharged home, advised to return with new or worsening symptoms. Educated on worrisome signs and symptoms and when to return. At this time I feel comfortable discharge home. Medications Administered Discontinued Medications Generic Name Dose Route Start Last Admin Trade Name Grace PRN Reason Stop Dose Admin Ketorolac Tromethamine 30 mg 01/30/23 08:43 01/30/23 08:52 Ketorolac Tromethamine 15 Mg/Ml Vial IM 01/30/23 08:44 30 mg ONCE ONE Administration Lidocaine 1 patch 01/30/23 08:43 01/30/23 08:54 Lidocaine 4 % Patch Adh..Patch TRANSDERMA 01/30/23 08:44 1 patch ONCE ONE Administration Protocol Medical Decision Making Medical Decision Making [facility] Narrative: 0840 57-year-old female presents with lower back pain for the past few weeks worsening over the past few days. Physical exam with pain to palpation to lower lumbar region L4-L5, S1 Midline and associated paraspinous tenderness bilaterally. No overlying skin changes. No saddle paresthesias. Neuro nonfocal. Ambulatory. This is likely degenerative disc disease versus herniated disc. Unlikely fracture, dislocation, cord compression, cauda equina, epidural abscess. Other differentials include lumbago, paraspinous spasm or strain. Plan Toradol, Lidoderm patch in discharge patient home with PCP and specialty follow-up. Differential Diagnosis Differential Diagnoses: The differential diagnosis associated with the presentation includes This is likely degenerative disc disease versus herniated disc. Unlikely fracture, dislocation, cord compression, cauda equina, epidural abscess. Other differentials include lumbago, paraspinous spasm or strain. Admission/Observation Consideration of admission/observation: Escalation of care including admission/observation considered No indication Tests considered The following testing was considered but not selected: no indication for x-ray, atraumatic in nature. No red flag symptoms no indication for MRI. Patient also had x-ray done of lumbar spine on 2 separate occasions 01/14/2023 and 12/19/2022, no need for further imaging. Core Measures AMI core measures followed: Yes Measure exclusions: not indicated Discharge Plan Discharge Clinical Impression: Lower back pain Patient Disposition: Home, Self-Care Instructions: Back Pain (ED) Additional Instructions: Take your medications as prescribed. If you were prescribed antibiotics today, it is important that you take your medication to their entirety, do not skip any doses, do not finish them early. Follow-up with your primary care provider this week. Return to the emergency department with new or worsening symptoms. Such as fevers, chills, chest pain, shortness of breath, nausea, vomiting, dizziness, headache, vision changes, lethargy In case of emergency call 911 Prescriptions: New prednisone 20 mg tablet 40 mg PO DAILY 5 Days Qty: 10 0RF ketorolac 10 mg tablet 10 mg PO TID PRN (Reason: pain) 5 Days Qty: 15 0RF lidocaine 5 % adhesive patch,medicated 1 patch topical DAILY PRN (Reason: pain) Qty: 15 0RF Rx Instructions: leave on most painful area for up to 12 hrs No Action oxycodone 5 mg tablet 7.5 mg PO BID PRN (Reason: pain) Qty: 9 0RF Rx Instructions: Partial Fill upon patient request. prednisone 20 mg tablet 20 mg PO DAILY 7 Days Qty: 7 0RF cyclobenzaprine 5 mg tablet 5 mg PO TID PRN (Reason: muscle spasm) 7 Days Qty: 21 0RF ketorolac 10 mg tablet 10 mg PO QID PRN (Reason: pain) 5 Days Qty: 20 0RF Rx Instructions: Received 30mg IM toradol in the ED oxycodone 5 mg capsule 5 mg PO TID PRN (Reason: pain) 3 Days Qty: 9 0RF Rx Instructions: Partial Fill upon patient request. meloxicam 15 mg tablet 15 mg PO DAILY Qty: 10 0RF acetaminophen 500 mg capsule 1,000 mg PO QID PRN (Reason: fever or pain) Qty: 20 0RF cyclobenzaprine 10 mg tablet 10 mg PO TID PRN (Reason: muscle spasm) Qty: 10 0RF lidocaine [Lidoderm] 5 % adhesive patch,medicated 1 patch topical DAILY Qty: 30 0RF Rx Instructions: leave on most painful area for up to 12 hrs albuterol sulfate [ProAir HFA] 90 mcg/actuation HFA aerosol inhaler 2 puff PO Q4-6H PRN [id number] [Fioricet] 50-300-40 mg capsule 1 cap PO Q8H PRN budesonide-formoterol [Symbicort] 160-4.5 mcg/actuation HFA aerosol inhaler 2 puff PO loratadine 10 mg tablet 10 mg PO DAILY omeprazole 20 mg capsule,delayed release(DR/EC) 20 mg PO DAILY amlodipine 10 mg tablet 10 mg PO DAILY albuterol sulfate 2.5 mg /3 mL (0.083 %) solution for nebulization inhalation QID furosemide 40 mg tablet 40 mg PO DAILY lisinopril 20 mg tablet 20 mg PO DAILY oxycodone-acetaminophen [Percocet] 7.5-325 mg tablet 1 tab PO Q8H PRN naloxone 4 mg/actuation spray,non-aerosol 0 spray intranasal duloxetine 30 mg capsule,delayed release(DR/EC) 30 mg PO DAILY Spiriva with HandiHaler 18 mcg capsule, w/inhalation device 1 cap inhalation DAILY gabapentin 100 mg capsule 100 mg PO DAILY buspirone 5 mg tablet 5 mg PO BID carvedilol 12.5 mg tablet 12.5 mg PO BID lisinopril-hydrochlorothiazide 20-12.5 mg tablet 2 tab PO DAILY Referrals: [facility] [Provider Group] - 2 days Interventions: ED Discharge Assessment Last Done: 01/30/23 09:04 Discharge Date/Time: 01/30/23 09:06
[2023-01-30] MEDS: Ketorolac Tromethamine 15 MG/ML VIAL 30 MG IM (08:52)
[2023-01-30] MEDS: Lidocaine 4 % Patch ADH..PATCH 1 PATCH TRANSDERMA (08:54)
--- NOTE | 2023-01-30 09:06 | PC.NURSE ---
Discharge plan reviewed with patient who verbalized understanding
== END 2023-01-30 09:06 | disposition home or self-care (01) ==
PROVIDERS: Emergency Provider Emergency Medicine
DX: M54.50 Low back pain, unspecified (principal); I10 Essential (primary) hypertension; Z79.899 Other long term (current) drug therapy
CPT/HCPCS: 96372; 99283; 99284; J1885

== ENCOUNTER 2023-02-04 09:01 | Emergency (ER) | payer MEDICAID, SELFPAY ==
[2023-02-04 09:10] VITALS: BP 175/100; PULSE 74; RESP 20; TEMP 36.4; O2SAT 97; BMI 36.1
--- NOTE | 2023-02-04 09:38 | ED.GENADULT ---
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 This is the patient's 7th visit for similar complaints since December of this year. Patient was seen on 01/30 and prescribed ketorolac, lidocaine patches, and prednisone. She was also given a referral to [facility] Patient states that when she contacted [facility] she was told they are not accepting patients at this time. Discussed with patient that a visit may require a referral from her primary care provider. Patient states she does not see her PCP until February 10. She is stating that her back pain is causing her blood pressure to be elevated. She states she is currently taking 40 mg of lisinopril daily. She states that she has been told by 2 separate providers that she is not to take cyclobenzaprine. She is specifically requesting a prescription for oxycodone. She denies any dysuria, hematuria or other urinary symptoms. She denies fevers. Denies numbness/tingling radiating down lower extremities. She denies any falls or other recent trauma. She has had extensive prior imaging of her lumbar spine. She denies any saddle anesthesia or bowel or bladder incontinence. MD complaint: low back pain Onset (ago): year(s) Location: back Radiation: non-radiation Severity: severe Severity scale (1-10): >10 Quality: aching Pain Consistency: constant Relieving factors: none Exacerbating factors: movement Associated symptoms: denies other symptoms Treatments prior to arrival: NSAID, cold therapy, heat therapy and other (Prednisone, lidocaine patches) Related Data Home Medications Medication Instructions Recorded Confirmed lisinopril 20 mg tablet 20 mg PO DAILY 12/28/20 01/03/23 albuterol sulfate 2.5 mg/3 mL mg inhalation QID 03/01/21 01/03/23 (0.083 %) solution for nebulization albuterol sulfate 90 mcg/actuation 2 puff PO Q4-6H PRN 03/01/21 01/03/23 aerosol inhaler (ProAir HFA) amlodipine 10 mg tablet 10 mg PO DAILY 03/01/21 01/03/23 budesonide-formoterol HFA 160 2 puff PO 03/01/21 01/03/23 mcg-4.5 mcg/actuation aerosol inhaler (Symbicort) tguoyplaoa-xkolbmxvvstxn-nuckfbvf 1 cap PO Q8H PRN 03/01/21 01/03/23 50 mg-300 mg-40 mg capsule (Fioricet) furosemide 40 mg tablet 40 mg PO DAILY 03/01/21 01/03/23 loratadine 10 mg tablet 10 mg PO DAILY itch 03/01/21 01/03/23 omeprazole 20 mg capsule,delayed 20 mg PO DAILY 03/01/21 01/03/23 release oxycodone-acetaminophen 7.5 mg-325 1 tab PO Q8H PRN 03/03/22 01/03/23 mg tablet (Percocet) buspirone 5 mg tablet 5 mg PO BID 10/17/22 01/03/23 carvedilol 12.5 mg tablet 12.5 mg PO BID 10/17/22 01/03/23 duloxetine 30 mg capsule,delayed 30 mg PO DAILY 10/17/22 01/03/23 release gabapentin 100 mg capsule 100 mg PO DAILY 10/17/22 01/03/23 lisinopril 20 2 tab PO DAILY 10/17/22 01/03/23 mg-hydrochlorothiazide 12.5 mg tablet naloxone 4 mg/actuation nasal spray 0 spray intranasal 10/17/22 01/03/23 tiotropium bromide 18 mcg capsule 1 cap inhalation DAILY 10/17/22 01/03/23 with inhalation device (Spiriva with HandiHaler) Previous Rx's Medication Instructions Recorded oxycodone 5 mg tablet 7.5 mg PO BID PRN pain #9 tabs 12/19/22 cyclobenzaprine 5 mg tablet 5 mg PO TID PRN muscle spasm 7 12/29/22 days #21 tabs prednisone 20 mg tablet 20 mg PO DAILY 7 days #7 tabs 12/29/22 ketorolac 10 mg tablet 10 mg PO QID PRN pain 5 days #20 01/01/23 tabs oxycodone 5 mg capsule 5 mg PO TID PRN pain 3 days #9 caps 01/01/23 acetaminophen 500 mg capsule 1,000 mg PO QID PRN fever or pain 01/14/23 #20 caps cyclobenzaprine 10 mg tablet 10 mg PO TID PRN muscle spasm #10 01/14/23 tabs lidocaine 5 % topical patch 1 patch topical DAILY #30 ea 01/14/23 (Lidoderm) meloxicam 15 mg tablet 15 mg PO DAILY #10 tabs 01/14/23 ketorolac 10 mg tablet 10 mg PO TID PRN pain 5 days #15 01/30/23 tabs lidocaine 5 % topical patch 1 patch topical DAILY PRN pain #15 01/30/23 ea prednisone 20 mg tablet 40 mg PO DAILY 5 days #10 tabs 01/30/23 Allergies Allergy/AdvReac Type Severity Reaction Status Date / Time morphine [MORPHINE] Allergy Severe HIVES, Verified 01/14/23 07:44 rash, itching,hives tramadol [TRAMADOL] Allergy Intermediate HIVES Verified 01/14/23 07:44 Review of Systems Review of Systems: As per HPI. Yes all other systems are reviewed and are negative Constitutional: Constitutional: Reports as per HPI PMFSH Past Medical History Medical History Breast pain Chondral defect of patella Encounter for annual routine gynecological examination Flank pain Fungal infection of the groin Gallbladder abscess History of uterine fibroid HTN (hypertension) Kidney stones Migraine Migraines Para-ovarian adhesion Pelvic pain in female Right flank pain Yeast infection involving the vagina and surrounding area Surgical History History of bunionectomy History of cholecystectomy History of kidney surgery History of tubal ligation Family History Family History Mother Stroke Diabetes HTN (hypertension) Father Heart attack Sister Lupus Leukemia Social History Social History Household Members: Spouse and Children Housing: Apartment Alcohol intake: never Patient Tobacco Use Status: Former Tobacco user Tobacco use type: Cigarette Cigarettes Per Day: 2 Smoked in Last 30 Days: No Use of substances other than those prescribed or required for medical reasons: No Advance Directives: No Advance Directives Information Provided: Yes Current occupational status: unemployed Sexual orientation: Straight/Heterosexual Gender identity: Female Physical Exam ED Vital Signs: Vital Signs - 24 hr 02/04/23 09:10 02/04/23 09:41 02/04/23 10:14 Temperature 97.5 F 98.7 F 98.5 F Pulse Rate 74 70 Respiratory Rate 20 18 20 Blood Pressure 175/100 H 173/87 H Pulse Oximetry 97 97 97 Oxygen Delivery Method Room Air Room Air Room Air BMI result Body Mass Index 36.1 Vital signs have been reviewed and appear to be correct. Blood pressure elevated. Heart rate normal. Respiratory rate normal. Temperature normal. Oxygen saturation normal. Const General: cooperative, healthy appearing and no acute distress Orientation/consciousness: oriented to person, oriented to place, oriented to time and patient oriented x3 Limitations: no limitations HENMT Head: Yes normocephalic and Yes atraumatic Ears: external ears normal General nose exam: Normal external nose present Face and sinus: Yes face symmetric Mouth: oropharynx normal and moist mucous membranes Throat: Yes uvula midline Eyes Pupils: Equal, round and reactive pupils present Neck Neck: Yes normal visual inspection, Yes no meningeal signs and Yes supple Resp Effort & Inspection: normal respiratory effort and able to speak in complete sentences Auscultation: clear to auscultation bilaterally Cardio Rate: regular rate Rhythm: regular rhythm Heart sounds: S1 normal heart sound present and S2 normal heart sound present GI Palpation (GI): Soft to palpation and nontender Auscultation: normoactive bowel sounds General: Yes no CVA tenderness Back/Spine/Pelvis Back: no CVA tenderness Cervical Spine: cervical ROM normal, No cervical muscular tenderness, No pain with cervical ROM, No Cervical spine tenderness and No step off deformity Thoracic/Lumbar Spine: thoracic and lumbar spine normal to inspection, thoraco-lumbar ROM normal, straight leg raise negative bilaterally, paraspinal muscle tenderness bilaterally in the lower thoracic, in the upper lumbar and in the mid lumbar, No thoracic spinal tenderness and lumbar spinal tenderness at L4 and at L5 Skin General skin exam: elasticity normal and turgor normal Neuro General: oriented to person, oriented to place, oriented to time, patient oriented x3, gait normal, tone normal, moves all extremities, Normal light touch and pain sensation, no meningeal signs, no focal motor deficits, CN's II-XI intact bilaterally and normal sensation to monofilament Cranial nerves: Yes Equal, round and reactive pupils present Cognition (Neuro): normal cognition Gait exam (Neuro): Normal gait present Motor exam (neuro): 5/5 motor strength present throughout, Normal motor muscle tone present throughout and Motor abnormalities not present Sensory Exam: Normal double simultaneous stimulation for sensation Extrem General: Yes full ROM, Yes no pedal edema and Yes no calf tenderness Psych Mental Status: mental status grossly normal Affect: normal affect Thought process: Normal thought process present Medications Administered Discontinued Medications Generic Name Dose Route Start Last Admin Trade Name Grace PRN Reason Stop Dose Admin Amlodipine Besylate 5 mg 02/04/23 10:06 02/04/23 10:20 Amlodipine Besylate 5 Mg Tablet PO 02/04/23 10:07 5 mg ONCE ONE Administration Protocol Ketorolac Tromethamine 30 mg 02/04/23 10:02 02/04/23 10:21 Ketorolac Tromethamine 30 Mg/Ml Vial IM 02/04/23 10:03 30 mg ONCE ONE Administration Medical Decision Making Medical Decision Making MDM Narrative: 57-year-old female with history of GERD, hypertension, asthma, depression with anxiety presenting to the emergency department with chronic low back pain. On exam patient is awake, A+Ox3, VS WNL, afebrile, normal neurological exam without focal deficits, midline and paraspinal tenderness in area of L4/5, full ROM, 5/5 equal strength to bilateral lower extremities, DTRs 2+ throughout, patient ambulating independently with steady gait. Given reported symptoms and physical exam findings, initial differential includes degenerative disc disease, lumbar strain. No red flag findings concerning for cauda equina, cord compression, or spinal epidural abscess. Do not feel imaging is indicated at this time as pain is atraumatic and patient has had extensive imaging previously. Plan to medicate with IM Toradol and amlodipine for blood pressure control. Patient unable to provide urine specimen in the emergency department today, do not suspect UTI or pyelonephritis as patient denies any urinary symptoms or flank pain. Lengthy discussion had with patient via railroad construction director that patient needs to follow-up with primary care provider for ongoing pain management, and likely physical therapy referral, and that patient will not be receiving a prescription for opiate pain medication in the emergency department today. Offered to prescribe additional lidocaine patches, however, patient states she has adequate amount at home. Advised patient to continue utilizing Tylenol and ibuprofen along with lidocaine patches until she follows up with PCP. Red flag findings for which patient should return to the ED were discussed. Patient verbalized understanding of plan. Differential Diagnosis Differential Diagnoses: The differential diagnosis associated with the presentation includes As per MDM. External Record Review External record reviewed: Inpatient record, Office record and Outpatient record Tests considered The following testing was considered but not selected: Considered x-ray, however, patient has previously had extensive imaging and has not had any recent falls or other trauma Prescription Management I considered prescription management with: Pain Medication (Offered lidocaine patches which patient declined) Chronic Conditions Patient?s care impacted by: Hypertension Discharge Plan Discharge Clinical Impression: Chronic low back pain Patient Disposition: Home, Self-Care Instructions: Pain Management (ED), Chronic Pain (ED), Non-pharmacological Pain Management Therapies for Adults (ED) Additional Instructions: Please follow up with your primary care provider at your scheduled appointment on 02/10/23. Your evaluation today did not show signs of medical conditions requiring emergent intervention at this time. Continue to alternate Tylenol and ibuprofen as well as apply topical lidocaine patches for your discomfort. Return to the emergency department for difficulty walking, fevers, numbness, tingling, incontinence, worsening back pain, or any other symptoms. Prescriptions: No Action prednisone 20 mg tablet 40 mg PO DAILY 5 Days Qty: 10 0RF ketorolac 10 mg tablet 10 mg PO TID PRN (Reason: pain) 5 Days Qty: 15 0RF lidocaine 5 % adhesive patch,medicated 1 patch topical DAILY PRN (Reason: pain) Qty: 15 0RF Rx Instructions: leave on most painful area for up to 12 hrs oxycodone 5 mg tablet 7.5 mg PO BID PRN (Reason: pain) Qty: 9 0RF Rx Instructions: Partial Fill upon patient request. prednisone 20 mg tablet 20 mg PO DAILY 7 Days Qty: 7 0RF cyclobenzaprine 5 mg tablet 5 mg PO TID PRN (Reason: muscle spasm) 7 Days Qty: 21 0RF ketorolac 10 mg tablet 10 mg PO QID PRN (Reason: pain) 5 Days Qty: 20 0RF Rx Instructions: Received 30mg IM toradol in the ED oxycodone 5 mg capsule 5 mg PO TID PRN (Reason: pain) 3 Days Qty: 9 0RF Rx Instructions: Partial Fill upon patient request. meloxicam 15 mg tablet 15 mg PO DAILY Qty: 10 0RF acetaminophen 500 mg capsule 1,000 mg PO QID PRN (Reason: fever or pain) Qty: 20 0RF cyclobenzaprine 10 mg tablet 10 mg PO TID PRN (Reason: muscle spasm) Qty: 10 0RF lidocaine [Lidoderm] 5 % adhesive patch,medicated 1 patch topical DAILY Qty: 30 0RF Rx Instructions: leave on most painful area for up to 12 hrs albuterol sulfate [ProAir HFA] 90 mcg/actuation HFA aerosol inhaler 2 puff PO Q4-6H PRN ledudqbylv-lzmtzcihjasmv-kheb [Fioricet] 50-300-40 mg capsule 1 cap PO Q8H PRN budesonide-formoterol [Symbicort] 160-4.5 mcg/actuation HFA aerosol inhaler 2 puff PO loratadine 10 mg tablet 10 mg PO DAILY omeprazole 20 mg capsule,delayed release(DR/EC) 20 mg PO DAILY amlodipine 10 mg tablet 10 mg PO DAILY albuterol sulfate 2.5 mg /3 mL (0.083 %) solution for nebulization inhalation QID furosemide 40 mg tablet 40 mg PO DAILY lisinopril 20 mg tablet 20 mg PO DAILY oxycodone-acetaminophen [Percocet] 7.5-325 mg tablet 1 tab PO Q8H PRN naloxone 4 mg/actuation spray,non-aerosol 0 spray intranasal duloxetine 30 mg capsule,delayed release(DR/EC) 30 mg PO DAILY Spiriva with HandiHaler 18 mcg capsule, w/inhalation device 1 cap inhalation DAILY gabapentin 100 mg capsule 100 mg PO DAILY buspirone 5 mg tablet 5 mg PO BID carvedilol 12.5 mg tablet 12.5 mg PO BID lisinopril-hydrochlorothiazide 20-12.5 mg tablet 2 tab PO DAILY
[2023-02-04 09:41] VITALS: RESP 18; TEMP 37.1; O2SAT 97
--- NOTE | 2023-02-04 09:45 | PC.NURSE ---
Patient arrived from home reporting that she threw out her back while walking yesterday. States has chronic back and hip pain but today is worse after yesterday. States she feels like her back is going to snap. Bp elevated 193/99, patient stating she took her meds this morning and it was high at home.
--- NOTE | 2023-02-04 09:47 | PC.NURSE ---
Reports dr stopped oxy prescription 3 months ago and has been having elevated BP and pain since.
[2023-02-04 10:14] VITALS: BP 173/87; PULSE 70; RESP 20; TEMP 36.9; O2SAT 97
[2023-02-04] MEDS: amLODIPine Besylate 5 MG TABLET PO (10:20)
[2023-02-04] MEDS: Ketorolac Tromethamine 30 MG/ML VIAL IM (10:21)
== END 2023-02-04 12:21 | disposition home or self-care (01) ==
PROVIDERS: Emergency Provider Student in an Organized Health Care Education/Training Program
DX: G89.29 Other chronic pain (principal); M54.50 Low back pain, unspecified; I10 Essential (primary) hypertension; J45.909 Unspecified asthma, uncomplicated; K21.9 Gastro-esophageal reflux disease without esophagitis; Z79.899 Other long term (current) drug therapy; Z87.891 Personal history of nicotine dependence
CPT/HCPCS: 96372; 99284; J1885

== ENCOUNTER 2023-02-10 12:38 | Outpatient (REF) | payer MEDICAID, SELFPAY ==
[2023-02-10 17:27] LABS: Creatinine Urine 139.69 mg/dL; Microalbum/Creatinine Ratio Ur 7.8 ug/mg cr (<30)
[2023-02-10 17:28] LABS: Amphetamine Screen Urine Not Detected (Not Detect); Barbiturates, Urine Not Detected (Not Detect); Benzodiazepines Screen Urine Not Detected (Not Detect); Cannabinoid Screen Urine Not Detected (Not Detect); Cocaine Screen Urine Not Detected (Not Detect); Fentanyl, urine Not Detected (Not Detect); Opiate Screen Urine Not Detected (Not Detect); Phencyclidine Screen Urine Not Detected (Not Detect)
[2023-02-11 07:31] LABS: CT PCR NOT DETECTED (Not Detect.); NG PCR NOT DETECTED (Not Detect.)
== END 2023-02-10 12:39 | disposition home or self-care (01) ==
LOC: HO.HHCL 12:38
PROVIDERS: Visit Provider Student in an Organized Health Care Education/Training Program
DX: Z00.00 Encounter for general adult medical examination without abnormal findings (principal); M25.50 Pain in unspecified joint
CPT/HCPCS: 0353U; 80307; 82043; 82570

== ENCOUNTER 2023-02-14 08:26 | Outpatient (REF) | payer MEDICAID, SELFPAY ==
[2023-02-14 11:32] LABS: MANUAL DIFF FLAG NO
[2023-02-14 11:40] LABS: Basophils Percent Auto 0.4 % (0-2); Eosinophils Absolute Auto 0.3 X10*3/uL (0.0-0.4); Eosinophils Percent Auto 4.6 % (0-4); Hematocrit 44.6 % (37.0-47.0); Hemoglobin 14.5 g/dl (12.0-16.0); Imm Gran Abs Auto 0.04 X10*3/uL (0.00-0.03); Imm Gran Pct Auto 0.6 % (0.0-0.4); Lymphocytes Absolute Auto 2.6 X10*3/uL (1.2-4.9); Lymphocytes Percent Auto 39.2 % (20-40); Mean Corpuscular HGB Conc 32.5 g/dl (31.0-35.0); Mean Corpuscular Hemoglobin 30.1 pg (27.0-33.0); Mean Corpuscular Volume 92.5 fL (80.0-98.0); Mean Platelet Volume 10.8 fL (9.4-12.3); Monocytes Absolute Auto 0.5 X10*3/uL (0.1-1.2); Monocytes Percent Auto 7.9 % (2-11); Neutrophils Absolute Auto 3.2 x10*3/uL (2.0-8.3); Neutrophils Percent Auto 47.3 % (45-73); Platelet Count 205 X10*3/uL (160-400); Red Blood Count 4.82 X10*6/uL (4.20-5.50); Red Cell Distribution Width 13.5 % (11.0-16.0); White Blood Count 6.7 X10*3/uL (4.8-10.8)
[2023-02-14 12:17] LABS: Erythrocyte Sedimentation Rate 8 MM/HR (0-20)
[2023-02-14 12:32] LABS: Estimated Average Glucose 105 mg/dL; Hemoglobin A1c % 5.3 % (<6.0)
[2023-02-14 14:40] LABS: Alanine Aminotransferase 17 U/L (0-31); Albumin Level 3.9 g/dL (3.5-5.0); Alkaline Phosphatase 100 U/L (39-117); Anion Gap 8 (12-20); Aspartate Amino Transferase 16 U/L (5-31); Bilirubin Total 0.9 mg/dL (0.0-1.0); Blood Urea Nitrogen 13 mg/dL (9-16); C Reactive Protein 0.83 mg/dL (< or = 0.50); Carbon Dioxide 29 mmol/L (22-29); Chloride 107 mmol/L (96-108); Cholesterol 170 mg/dL (<200); Estimated Glomerular Filt Rate > 60; Glucose Random 87 mg/dL (60-115); HDL Cholesterol 49 mg/dL (>40); LDL Cholesterol Calculated 102 mg/dL (<100); Potassium 3.9 mmol/L (3.3-5.1); Sodium 140 mmol/L (135-145); Total Protein 6.8 g/dL (6.5-8.0); Triglycerides 99 mg/dL (<150)
[2023-02-14 15:00] LABS: TSH reflex Free T4 3.85 uIU/mL (0.32-4.0); Vitamin D 25-OH Total 17.4 ng/mL (>30)
[2023-02-14 15:05] LABS: Rheumatoid Factor < 13.0 IU/mL (<15.0)
[2023-02-14 15:38] LABS: Folate 6.1 ng/mL (> or = 4.0); Vitamin B12 484 pg/mL (200-900)
[2023-02-15 04:28] LABS: ~HepC Num1 0.14 S/CO (0.00-0.79); ~Hepatitis C Antibody Nonreactive (Nonreactive)
[2023-02-15 04:32] LABS: HBS Num1 0.02 mIU/mL (0-7.99); HBsAGNum1 0.27 S/CO (0.00-0.99); HIV AB/AG Nonreactive (Nonreactive); HIV Num 1 0.06 S/CO (0.00-0.99); Hepatitis B Core Antibody Nonreactive (Nonreactive); Hepatitis B Surface Antigen Negative (Negative); ~Hepatitis B Surface Antibody NONREACTIVE (Nonreactive)
[2023-02-15 04:41] LABS: Syphilis Screen Nonreactive (Nonreactive)
[2023-02-17 09:04] LABS: Anti Nuclear Antibody Screen NEGATIVE (NEGATIVE)
[2023-02-17 13:28] LABS: Cyclic Citrullinated Peptide 21 UNITS
== END 2023-02-14 08:27 | disposition home or self-care (01) ==
LOC: HO.HHCL 08:26
PROVIDERS: Visit Provider Student in an Organized Health Care Education/Training Program
DX: Z00.00 Encounter for general adult medical examination without abnormal findings (principal); Z11.4 Encounter for screening for human immunodeficiency virus [HIV]; M25.50 Pain in unspecified joint
CPT/HCPCS: 36415; 80053; 80061; 82306; 82607; 82746; 83036; 84443; 85025; 85652; 86038; 86140; 86200; 86431; 86704; 86706; 86780; 86803; 87340; 87389

== ENCOUNTER 2023-02-14 08:47 | Outpatient (REF) | payer MEDICAID, SELFPAY ==
--- NOTE | ~2023-02-14 | XR_ITS ---
EXAMINATION: XR KNEE, RIGHT CLINICAL INFORMATION: Chronic and worsening pain. COMPARISON: Radiographs dated 09/14/2018. TECHNIQUE: AP, tunnel, and sunrise views of the right knee are submitted. FINDINGS: No fracture or joint effusion. Alignment is anatomic. Joint spaces are maintained. No abnormal soft tissue calcification. XR/XR knee LT 3V IMPRESSION: Normal right knee. EXAMINATION: XR KNEE, LEFT CLINICAL INFORMATION: Chronic and worsening pain. COMPARISON: Radiographs dated 09/14/2018. TECHNIQUE: AP, tunnel, and sunrise views of the left knee. FINDINGS: Bony alignment and mineralization are normal. The lateral and medial joint space compartment are well-maintained. There is mild narrowing and peripheral osteophyte formation of the patellofemoral compartment. A small osteophyte arises from the upper pole of the patella at the quadriceps tendon insertion. There is no fracture, dislocation or joint effusion. No foreign body is seen. IMPRESSION: 1. No fracture, dislocation or joint effusion is seen. 2. There is mild osteoarthritic change of the left patellofemoral compartment.
--- NOTE | ~2023-02-14 | XR_ITS ---
EXAMINATION: XR KNEE, RIGHT CLINICAL INFORMATION: Chronic and worsening pain. COMPARISON: Radiographs dated 09/14/2018. TECHNIQUE: AP, tunnel, and sunrise views of the right knee are submitted. FINDINGS: No fracture or joint effusion. Alignment is anatomic. Joint spaces are maintained. No abnormal soft tissue calcification. XR/XR knee RT 3V IMPRESSION: Normal right knee. EXAMINATION: XR KNEE, LEFT CLINICAL INFORMATION: Chronic and worsening pain. COMPARISON: Radiographs dated 09/14/2018. TECHNIQUE: AP, tunnel, and sunrise views of the left knee. FINDINGS: Bony alignment and mineralization are normal. The lateral and medial joint space compartment are well-maintained. There is mild narrowing and peripheral osteophyte formation of the patellofemoral compartment. A small osteophyte arises from the upper pole of the patella at the quadriceps tendon insertion. There is no fracture, dislocation or joint effusion. No foreign body is seen. IMPRESSION: 1. No fracture, dislocation or joint effusion is seen. 2. There is mild osteoarthritic change of the left patellofemoral compartment.
== END 2023-02-14 08:48 | disposition home or self-care (01) ==
LOC: HO.HHCX 08:47
PROVIDERS: Visit Provider Student in an Organized Health Care Education/Training Program
DX: M25.561 Pain in right knee (principal); M25.562 Pain in left knee
CPT/HCPCS: 73562

== ENCOUNTER 2023-02-14 14:23 | Emergency (ER) | payer MEDICAID, SELFPAY ==
--- NOTE | 2023-02-14 14:24 | ECG_ITS ---
Test Reason : HBP Blood Pressure : / mmHG Vent. Rate : 071 BPM Atrial Rate : 071 BPM P-R Int : 174 ms QRS Dur : 112 ms QT Int : 410 ms P-R-T Axes : 048 046 043 degrees QTc Int : 445 ms Normal sinus rhythm Incomplete right bundle branch block Borderline ECG When compared with ECG of 18-JAN-2023 12:18, No significant change was found Referred By: Annelise Romero Electronically Signed By:ELADIO MYERS
[2023-02-14 14:44] VITALS: BP 184/89; PULSE 74; RESP 18; TEMP 37.1; O2SAT 97; BMI 36.5
[2023-02-14 14:44] LABS: Basophils Percent Auto 0.6 % (0-2); Eosinophils Absolute Auto 0.3 X10*3/uL (0.0-0.4); Eosinophils Percent Auto 4.1 % (0-4); Hematocrit 41.9 % (37.0-47.0); Hemoglobin 14.1 g/dl (12.0-16.0); Imm Gran Abs Auto 0.03 X10*3/uL (0.00-0.03); Imm Gran Pct Auto 0.4 % (0.0-0.4); Lymphocytes Absolute Auto 2.8 X10*3/uL (1.2-4.9); MANUAL DIFF FLAG NO; Mean Corpuscular HGB Conc 33.7 g/dl (31.0-35.0); Mean Corpuscular Hemoglobin 30.3 pg (27.0-33.0); Mean Corpuscular Volume 89.9 fL (80.0-98.0); Monocytes Absolute Auto 0.6 X10*3/uL (0.1-1.2); Monocytes Percent Auto 7.7 % (2-11); Neutrophils Absolute Auto 3.4 x10*3/uL (2.0-8.3); Neutrophils Percent Auto 48.2 % (45-73); Platelet Count 180 X10*3/uL (160-400); Red Blood Count 4.66 X10*6/uL (4.20-5.50); Red Cell Distribution Width 13.4 % (11.0-16.0); White Blood Count 7.1 X10*3/uL (4.8-10.8)
--- NOTE | 2023-02-14 14:44 | ED_ITS ---
HPI - General Adult General Chief complaint: General Medical Stated complaint: HBP Related Data Home Medications Medication Instructions Recorded Confirmed albuterol sulfate 2.5 mg/3 mL mg inhalation QID 03/01/21 03/24/23 (0.083 %) solution for nebulization albuterol sulfate 90 mcg/actuation 2 puff PO Q4-6H PRN 03/01/21 03/24/23 aerosol inhaler (ProAir HFA) amlodipine 10 mg tablet 10 mg PO DAILY 03/01/21 03/24/23 budesonide-formoterol HFA 160 2 puff PO 03/01/21 03/24/23 mcg-4.5 mcg/actuation aerosol inhaler (Symbicort) orpqfcvimq-amlaigynfhmqv-bugyxgfu 1 cap PO Q8H PRN 03/01/21 03/24/23 50 mg-300 mg-40 mg capsule (Fioricet) furosemide 40 mg tablet 40 mg PO DAILY 03/01/21 03/24/23 loratadine 10 mg tablet 10 mg PO DAILY itch 03/01/21 03/24/23 omeprazole 20 mg capsule,delayed 20 mg PO DAILY 03/01/21 03/24/23 release buspirone 5 mg tablet 5 mg PO BID 10/17/22 03/24/23 gabapentin 100 mg capsule 100 mg PO DAILY 10/17/22 03/24/23 lisinopril 20 2 tab PO DAILY 10/17/22 03/24/23 mg-hydrochlorothiazide 12.5 mg tablet naloxone 4 mg/actuation nasal spray 0 spray intranasal 10/17/22 03/24/23 tiotropium bromide 18 mcg capsule 1 cap inhalation DAILY 10/17/22 03/24/23 with inhalation device (Spiriva with HandiHaler) acetaminophen 500 mg tablet 500 mg PO Q8H PRN mild pain 03/28/23 carvedilol 25 mg tablet 25 mg PO BID 03/28/23 duloxetine 60 mg capsule,delayed 60 mg PO QAM 03/28/23 release chlorthalidone 25 mg tablet 25 mg PO QAM 03/29/23 ergocalciferol (vitamin D2) 1,250 1,250 mcg PO QWEEK 03/29/23 mcg (50,000 unit) capsule lisinopril 40 mg tablet 40 mg PO QAM 03/29/23 naproxen 500 mg tablet 500 mg PO BID 03/29/23 oxycodone 7.5 mg tablet,oral ONLY 7.5 mg PO BID PRN 03/29/23 (not for feeding tubes) Previous Rx's Medication Instructions Recorded lidocaine 5 % topical patch 1 patch topical DAILY PRN pain #15 01/30/23 ea leflunomide 10 mg tablet 10 mg PO DAILY #60 tabs 03/29/23 clotrimazole-betamethasone 1 1 appl topical BID PRN fungal rash 05/18/23 %-0.05 % topical cream 7 days #45 grams Allergies Allergy/AdvReac Type Severity Reaction Status Date / Time morphine [MORPHINE] Allergy Severe HIVES, Verified 05/18/23 11:02 rash, itching,hives tramadol [TRAMADOL] Allergy Intermediate HIVES Verified 05/18/23 11:02 PMFSH Past Medical History Medical History Long-term use of immunosuppressant medication Osteoarthritis involving multiple joints on both sides of body Inflammatory arthropathy Flank pain Breast pain Pelvic pain in female Encounter for annual routine gynecological examination Right flank pain Chondral defect of patella Migraines Fungal infection of the groin Yeast infection involving the vagina and surrounding area History of uterine fibroid Para-ovarian adhesion Gallbladder abscess Migraine HTN (hypertension) Kidney stones Surgical History Hx of colonoscopy History of bladder surgery Hx of knee surgery History of kidney surgery History of cholecystectomy History of tubal ligation History of bunionectomy Family History Family History Mother Stroke Diabetes HTN (hypertension) Father Heart attack Sister Lupus Leukemia Social History Social History Household Members: Spouse and Children Housing: Apartment Alcohol intake: never Patient Tobacco Use Status: Former Tobacco user Tobacco use type: Cigarette Cigarettes Per Day: 2 Current occupational status: unemployed Sexual orientation: Straight/Heterosexual Gender identity: Female Physical Exam ED Vital Signs: BMI result Body Mass Index 36.5 Course Course Course Narrative: This is an RME: Additional HPI, ROS, PE not included below will be deferred to primary provider. 57 year old female presenting with high blood pressure after being seen at [facility]. She is also having back pain but this is chronic for her. After being seen she took her blood pressure medications, about an hour ago. Plan: labs, EKG Medical Decision Making Lab Data 02/14/23 14:39 02/14/23 14:38 Labs: Lab Results 02/14/23 02/14/23 02/14/23 Range/Units 14:37 14:38 14:39 WBC 7.1 (4.8-10.8) X10*3/uL RBC 4.66 (4.20-5.50) X10*6/uL Hgb 14.1 (12.0-16.0) g/dl Hct 41.9 (37.0-47.0) % MCV 89.9 (80.0-98.0) fL MCH 30.3 (27.0-33.0) pg MCHC 33.7 (31.0-35.0) g/dl RDW 13.4 (11.0-16.0) % Plt Count 180 (160-400) X10*3/uL MPV 10.0 (9.4-12.3) fL Immature Gran % (Auto) 0.4 (0.0-0.4) % Neut % (Auto) 48.2 (45-73) % Lymph % (Auto) 39.0 (20-40) % Brooks % (Auto) 7.7 (2-11) % Eos % (Auto) 4.1 H (0-4) % Baso % (Auto) 0.6 (0-2) % Lymph # (Auto) 2.8 (1.2-4.9) X10*3/uL Brooks # (Auto) 0.6 (0.1-1.2) X10*3/uL Eos # (Auto) 0.3 (0.0-0.4) X10*3/uL Baso # (Auto) 0.0 (0.0-0.2) X10*3/uL Abs Immat Gran (auto) 0.03 (0.00-0.03) X10*3/uL Absolute Neuts (auto) 3.4 (2.0-8.3) x10*3/uL Absolute Nucleated RBC 0.000 (0.0-0.012) X10*3/uL Nucleated RBC % (auto) 0.0 (0.0-0.2) /100WBC Sodium 139 (135-145) mmol/L Potassium 4.1 (3.3-5.1) mmol/L Chloride 111 H (96-108) mmol/L Carbon Dioxide 21 L (22-29) mmol/L Anion Gap 11 L (12-20) BUN 12 (9-16) mg/dL Creatinine 0.82 (0.5-1.4) mg/dL Estim Creat Clear Calc 92.7 Estimated GFR > 60 Random Glucose 93 (60-115) mg/dL Calcium 9.2 (8.4-10.2) mg/dL Magnesium 2.2 (1.6-2.6) mg/dL Total Bilirubin 0.9 (0.0-1.0) mg/dL AST 17 (5-31) U/L ALT 16 (0-31) U/L Alkaline Phosphatase 104 (39-117) U/L Troponin I High Sens < 2.7 (<3.5-17.0) ng/L Total Protein 6.7 (6.5-8.0) g/dL Albumin 3.8 (3.5-5.0) g/dL Discharge Plan Discharge Clinical Impression: Eloped from emergency department Patient Disposition: Elopement Prescriptions: No Action clotrimazole-betamethasone 1-0.05 % cream 1 appl topical BID PRN (Reason: fungal rash) 7 Days Qty: 45 1RF lidocaine 5 % adhesive patch,medicated 1 patch topical DAILY PRN (Reason: pain) Qty: 15 0RF Rx Instructions: leave on most painful area for up to 12 hrs albuterol sulfate [ProAir HFA] 90 mcg/actuation HFA aerosol inhaler 2 puff PO Q4-6H PRN imzzrwiwoc-gxwzkqhcixbjs-bcmx [Fioricet] 50-300-40 mg capsule 1 cap PO Q8H PRN budesonide-formoterol [Symbicort] 160-4.5 mcg/actuation HFA aerosol inhaler 2 puff PO loratadine 10 mg tablet 10 mg PO DAILY omeprazole 20 mg capsule,delayed release(DR/EC) 20 mg PO DAILY amlodipine 10 mg tablet 10 mg PO DAILY albuterol sulfate 2.5 mg /3 mL (0.083 %) solution for nebulization inhalation QID furosemide 40 mg tablet 40 mg PO DAILY naloxone 4 mg/actuation spray,non-aerosol 0 spray intranasal Spiriva with HandiHaler 18 mcg capsule, w/inhalation device 1 cap inhalation DAILY gabapentin 100 mg capsule 100 mg PO DAILY buspirone 5 mg tablet 5 mg PO BID lisinopril-hydrochlorothiazide 20-12.5 mg tablet 2 tab PO DAILY duloxetine 60 mg capsule,delayed release(DR/EC) 60 mg PO QAM acetaminophen 500 mg tablet 500 mg PO Q8H PRN (Reason: mild pain) carvedilol 25 mg tablet 25 mg PO BID ergocalciferol (vitamin D2) 1,250 mcg (50,000 unit) capsule 1,250 mcg PO QWEEK lisinopril 40 mg tablet 40 mg PO QAM chlorthalidone 25 mg tablet 25 mg PO QAM naproxen 500 mg tablet 500 mg PO BID oxycodone 7.5 mg tablet, oral only 7.5 mg PO BID PRN leflunomide 10 mg tablet 10 mg PO DAILY Qty: 60 0RF Rx Instructions: 1 tablet for per day for two weeks. Then increase to two tablets per day. Discharge Date/Time: 02/14/23 21:01
[2023-02-14 15:03] LABS: Alanine Aminotransferase 16 U/L (0-31); Albumin Level 3.8 g/dL (3.5-5.0); Alkaline Phosphatase 104 U/L (39-117); Anion Gap 11 (12-20); Aspartate Amino Transferase 17 U/L (5-31); Bilirubin Total 0.9 mg/dL (0.0-1.0); Blood Urea Nitrogen 12 mg/dL (9-16); Calcium 9.2 mg/dL (8.4-10.2); Carbon Dioxide 21 mmol/L (22-29); Chloride 111 mmol/L (96-108); Creatinine Clr Calc Pharmacy 92.7; Estimated Glomerular Filt Rate > 60; Glucose Random 93 mg/dL (60-115); Magnesium 2.2 mg/dL (1.6-2.6); Potassium 4.1 mmol/L (3.3-5.1); Sodium 139 mmol/L (135-145); Total Protein 6.7 g/dL (6.5-8.0)
[2023-02-14 15:35] LABS: Troponin-I High Sensitivity < 2.7 ng/L (<3.5-17.0)
== END 2023-02-14 21:01 | disposition left against medical advice (07) ==
PROVIDERS: Physician Assistant; Emergency Provider Emergency Medicine
DX: I10 Essential (primary) hypertension (principal); I45.10 Unspecified right bundle-branch block; Z87.891 Personal history of nicotine dependence; Z79.899 Other long term (current) drug therapy
CPT/HCPCS: 36415; 80053; 83735; 84484; 85025; 93005; 99283

== ENCOUNTER 2023-02-15 07:53 | Emergency (ER) | payer MEDICAID, SELFPAY ==
[2023-02-15 08:26] VITALS: BP 175/93; PULSE 72; RESP 16; TEMP 36.6; O2SAT 97; BMI 36.3
--- NOTE | 2023-02-15 11:05 | ED.GENADULT ---
HPI - General Adult General Chief complaint: General Medical Stated complaint: HBP Time Seen by Provider: 02/15/23 11:03 Source: patient, RN notes reviewed and old records reviewed Mode of arrival: ambulatory History of Present Illness HPI narrative: 57-year-old female with a past medical history of migraines, GERD, HTN, asthma, depression, anxiety, presenting to the ED complaining of hypertension at home 177/114 noted this morning after taking her blood pressure medications. Patient states she went to her PCP yesterday then presented to the ED however LWT'd due to wait time. Reports elevated BP at home x 2 weeks. Reports compliance with medications, takes 10mg of Amlodipine and 40mg of Lisinopril, Lisinopril was recently changed/increased about 1 month ago by PCP. Reports acute on chronic dizziness with known history of vertigo, unchanged from chronic and mild headache. Also reports swelling yesterday which is resolved/improved today. Denies CP/SOB, vision change/loss, numbness, tingling, weakness Onset (ago): week(s) Related Data Home Medications Medication Instructions Recorded Confirmed lisinopril 20 mg tablet 20 mg PO DAILY 12/28/20 01/03/23 albuterol sulfate 2.5 mg/3 mL mg inhalation QID 03/01/21 01/03/23 (0.083 %) solution for nebulization albuterol sulfate 90 mcg/actuation 2 puff PO Q4-6H PRN 03/01/21 01/03/23 aerosol inhaler (ProAir HFA) amlodipine 10 mg tablet 10 mg PO DAILY 03/01/21 01/03/23 budesonide-formoterol HFA 160 2 puff PO 03/01/21 01/03/23 mcg-4.5 mcg/actuation aerosol inhaler (Symbicort) [id number] 1 cap PO Q8H PRN 03/01/21 01/03/23 50 mg-300 mg-40 mg capsule (Fioricet) furosemide 40 mg tablet 40 mg PO DAILY 03/01/21 01/03/23 loratadine 10 mg tablet 10 mg PO DAILY itch 03/01/21 01/03/23 omeprazole 20 mg capsule,delayed 20 mg PO DAILY 03/01/21 01/03/23 release oxycodone-acetaminophen 7.5 mg-325 1 tab PO Q8H PRN 03/03/22 01/03/23 mg tablet (Percocet) buspirone 5 mg tablet 5 mg PO BID 10/17/22 01/03/23 carvedilol 12.5 mg tablet 12.5 mg PO BID 10/17/22 01/03/23 duloxetine 30 mg capsule,delayed 30 mg PO DAILY 10/17/22 01/03/23 release gabapentin 100 mg capsule 100 mg PO DAILY 10/17/22 01/03/23 lisinopril 20 2 tab PO DAILY 10/17/22 01/03/23 mg-hydrochlorothiazide 12.5 mg tablet naloxone 4 mg/actuation nasal spray 0 spray intranasal 10/17/22 01/03/23 tiotropium bromide 18 mcg capsule 1 cap inhalation DAILY 10/17/22 01/03/23 with inhalation device (Spiriva with HandiHaler) Previous Rx's Medication Instructions Recorded oxycodone 5 mg tablet 7.5 mg PO BID PRN pain #9 tabs 12/19/22 cyclobenzaprine 5 mg tablet 5 mg PO TID PRN muscle spasm 7 12/29/22 days #21 tabs prednisone 20 mg tablet 20 mg PO DAILY 7 days #7 tabs 12/29/22 ketorolac 10 mg tablet 10 mg PO QID PRN pain 5 days #20 01/01/23 tabs oxycodone 5 mg capsule 5 mg PO TID PRN pain 3 days #9 caps 01/01/23 acetaminophen 500 mg capsule 1,000 mg PO QID PRN fever or pain 01/14/23 #20 caps cyclobenzaprine 10 mg tablet 10 mg PO TID PRN muscle spasm #10 01/14/23 tabs lidocaine 5 % topical patch 1 patch topical DAILY #30 ea 01/14/23 (Lidoderm) meloxicam 15 mg tablet 15 mg PO DAILY #10 tabs 01/14/23 ketorolac 10 mg tablet 10 mg PO TID PRN pain 5 days #15 01/30/23 tabs lidocaine 5 % topical patch 1 patch topical DAILY PRN pain #15 01/30/23 ea prednisone 20 mg tablet 40 mg PO DAILY 5 days #10 tabs 01/30/23 Allergies Allergy/AdvReac Type Severity Reaction Status Date / Time morphine [MORPHINE] Allergy Severe HIVES, Verified 02/14/23 14:43 rash, itching,hives tramadol [TRAMADOL] Allergy Intermediate HIVES Verified 02/14/23 14:43 Review of Systems Review of Systems: Constitutional: No Fever, No Chills, No Fatigue, No Malaise ENT/Mouth: No Ear Pain, No Nasal Congestion, No sore throat, No Rhinorrhea, No Swallowing Difficulty Eyes: No Eye Pain, No Swelling, No Redness, No Vision Changes Cardiovascular: No Chest Pain, No SOB, No Edema Respiratory: No Cough, No Sputum, No Dyspnea Gastrointestinal: No Nausea, No Vomiting, No Abdominal pain Musculoskeletal: No joint pain, No Myalgias, No Joint Swelling Skin: No Skin Lesions, No rash Neuro: No Weakness, No Numbness, No Paresthesias, No Loss of Consciousness, + Dizziness, + Headache Yes all other systems are reviewed and are negative Constitutional: Constitutional: Reports as per HPI Neurologic: Denies Abnormal speech present [facility] Past Medical History Attestation statement: The following information was validated with the patient. Source: old records reviewed Medical History Breast pain Chondral defect of patella Encounter for annual routine gynecological examination Flank pain Fungal infection of the groin Gallbladder abscess History of uterine fibroid HTN (hypertension) Kidney stones Migraine Migraines Para-ovarian adhesion Pelvic pain in female Right flank pain Yeast infection involving the vagina and surrounding area Surgical History History of bunionectomy History of cholecystectomy History of kidney surgery History of tubal ligation Family History Family History Mother Stroke Diabetes HTN (hypertension) Father Heart attack Sister Lupus Leukemia Social History Social History Household Members: Spouse and Children Housing: Apartment Alcohol intake: never Patient Tobacco Use Status: Former Tobacco user Tobacco use type: Cigarette Cigarettes Per Day: 2 Smoked in Last 30 Days: No Advance Directives: No Patient : No Current occupational status: unemployed Sexual orientation: Straight/Heterosexual Gender identity: Female Physical Exam ED Vital Signs: Vital Signs - 24 hr 02/15/23 08:26 02/15/23 12:13 02/15/23 13:07 Temperature 97.8 F 98 F Pulse Rate 72 79 60 Respiratory Rate 16 18 Blood Pressure 175/93 H 166/78 H 160/79 H Pulse Oximetry 97 100 Oxygen Delivery Method Room Air Room Air 02/15/23 13:09 02/15/23 13:11 Temperature Pulse Rate 64 64 Respiratory Rate Blood Pressure 176/91 H 159/87 H Pulse Oximetry Oxygen Delivery Method BMI result Body Mass Index 36.3 Const General: cooperative, healthy appearing and no acute distress Orientation/consciousness: patient oriented x3 Limitations: no limitations HENMT Head: Yes normal to inspection and Yes atraumatic Ears: hearing grossly normal bilaterally General nose exam: Normal external nose present Face and sinus: Yes normal facial exam Eyes General: appearance normal, both eyes and all related structures EOM: EOMs intact bilaterally Neck Neck: Yes normal visual inspection and Yes no meningeal signs Resp Effort & Inspection: normal respiratory effort and no respiratory distress Auscultation: clear to auscultation bilaterally Cardio Rate: regular rate Heart sounds: S1 normal heart sound present and S2 normal heart sound present GI Inspection: Yes normal to inspection Palpation (GI): Soft to palpation, nontender, no guarding and not rigid General: Yes no CVA tenderness Back/Spine/Pelvis Back: no CVA tenderness Skin Rashes: no rashes Wounds: no wounds Neuro General: patient oriented x3, gait normal, tone normal, moves all extremities, no meningeal signs, no focal motor deficits and CN's II-XI intact bilaterally Cranial nerves: Yes CN's II-XII intact bilaterally Cognition (Neuro): normal cognition Speech: No Abnormal speech present Gait exam (Neuro): Normal gait present Motor exam (neuro): 5/5 motor strength present throughout, Pronator motor function not present and no tremor noted Coordination: [id number] test normal Extrem General: Yes normal to inspection, Yes no pedal edema and Yes no calf tenderness Course Course Course Narrative: -1405--labs reassuring. Troponin negative -orthostatic vital signs negative. -patient's BP has improved to 159/87 without intervention Results discussed with patient including worrisome signs and symptoms and strict return precautions, and when to return to the emergency department. They verbalized understanding and feel safe for discharge at this time. Medications Administered Discontinued Medications Generic Name Dose Route Start Last Admin Trade Name Freq PRN Reason Stop Dose Admin Acetaminophen/Butalbital/Caffeine 1 tab 02/15/23 11:25 02/15/23 11:33 Butalb/Acetamin/Caff 50/325/40 Tablet PO 02/15/23 11:26 1 tab ONCE ONE Administration Meclizine HCl 25 mg 02/15/23 14:22 02/15/23 14:58 Meclizine Hcl 25 Mg Tablet PO 02/15/23 14:23 25 mg ONCE ONE Administration Medical Decision Making Medical Decision Making MDM Narrative: 57-year-old female with a past medical history of migraines, GERD, HTN, asthma, depression, anxiety, presenting to the ED complaining of hypertension at home 177/114 noted this morning after taking her blood pressure medications. Reports acute on chronic dizziness with known history of vertigo, unchanged from chronic and mild headache. On exam initially 175/93, upon repeat 166/78, patient currently takes 10mg of Amlodipine and 40mg of Lisinopril daily last took this morning around 06:30AM. No focal neuro deficits. Concern for chronic hypertension. Lower suspicion for ACS, ICH, CVA/TIA Patient had labs in our ED yesterday including troponin which were unremarkable, no need for repeat labs at this time as symptoms are unchanged/improved Plan: Orthostatics, PO Fioricet, re-evaluate Please refer to course for remaining clinical decision making, interpretation of labs/imaging results, and discussions with consultants and/or family members. Differential Diagnosis Differential Diagnoses: The differential diagnosis associated with the presentation includes As above Admission/Observation Consideration of admission/observation: Escalation of care including admission/observation considered Lab Data [facility] Lab Attestation statement: I reviewed the patient's lab results. 02/15/23 12:40 02/15/23 12:40 Labs: Lab Results 02/15/23 02/15/23 02/15/23 Range/Units 12:40 12:40 12:40 WBC 6.5 (4.8-10.8) X10*3/uL RBC 4.99 (4.20-5.50) X10*6/uL Hgb 14.9 (12.0-16.0) g/dl Hct 45.4 (37.0-47.0) % MCV 91.0 (80.0-98.0) fL MCH 29.9 (27.0-33.0) pg MCHC 32.8 (31.0-35.0) g/dl RDW 13.3 (11.0-16.0) % Plt Count 178 (160-400) X10*3/uL MPV 10.0 (9.4-12.3) fL Immature Gran % (Auto) 0.6 H (0.0-0.4) % Neut % (Auto) 47.8 (45-73) % Lymph % (Auto) 40.5 H (20-40) % [place] % (Auto) 6.0 (2-11) % Eos % (Auto) 4.5 H (0-4) % Baso % (Auto) 0.6 (0-2) % Lymph # (Auto) 2.6 (1.2-4.9) X10*3/uL [place] # (Auto) 0.4 (0.1-1.2) X10*3/uL Eos # (Auto) 0.3 (0.0-0.4) X10*3/uL Baso # (Auto) 0.0 (0.0-0.2) X10*3/uL Abs Immat Gran (auto) 0.04 H (0.00-0.03) X10*3/uL Absolute Neuts (auto) 3.1 (2.0-8.3) x10*3/uL Absolute Nucleated RBC 0.000 (0.0-0.012) X10*3/uL Nucleated RBC % (auto) 0.0 (0.0-0.2) /100WBC Sodium 140 (135-145) mmol/L Potassium 3.9 (3.3-5.1) mmol/L Chloride 109 H (96-108) mmol/L Carbon Dioxide 22 (22-29) mmol/L Anion Gap 13 (12-20) BUN 12 (9-16) mg/dL Creatinine 0.80 (0.5-1.4) mg/dL Estim Creat Clear Calc 94.7 Estimated GFR > 60 Random Glucose 106 (60-115) mg/dL Calcium 9.4 (8.4-10.2) mg/dL Magnesium 2.3 (1.6-2.6) mg/dL Total Bilirubin 1.0 (0.0-1.0) mg/dL Direct Bilirubin 0.3 (0.0-0.5) mg/dL AST 18 (5-31) U/L ALT 15 (0-31) U/L Alkaline Phosphatase 109 (39-117) U/L Troponin I High Sens < 2.7 (<3.5-17.0) ng/L Total Protein 7.0 (6.5-8.0) g/dL Albumin 3.8 (3.5-5.0) g/dL Independent Interpretation I performed an independent interpretation of an: EKG (Follow-up EKG sinus rhythm with frequent PVCs and PACs. Incomplete right bundle-branch block. PVCs and PACs new when compared to yesterday. Prolonged QT. No STEMI) Radiology Impression Discussion of test interpretation with radiology: I have reviewed the radiologist's reading. External Record Review External record reviewed: Inpatient record, Office record, Outpatient record, Prior outpatient labs, Prior outpatient radiology, Primary care record and Outside ED record Tests considered The following testing was considered but not selected: As above Chronic Conditions Patient?s care impacted by: Hypertension Discharge Plan Discharge Clinical Impression: Hypertension Patient Disposition: Home, Self-Care Instructions: Hypertension (ED) Additional Instructions: Your blood work is reassuring continue your home prescribed medications please do not miss any doses Continue to monitor her blood pressure at home, please have close follow-up with her primary care doctor Symptoms persist or worsen return to the emergency department Tu an?lisis de lex es tranquilizador. contin?e con laura medicamentos recetados en casa, no omita ninguna dosis Contin?e monitoreando mata presi?n arterial en casa, tenga un seguimiento estrecho con mata m?dico de atenci?n primaria. Los s?ntomas persisten o empeoran. Regrese al servicio de urgencias. Prescriptions: No Action prednisone 20 mg tablet 40 mg PO DAILY 5 Days Qty: 10 0RF ketorolac 10 mg tablet 10 mg PO TID PRN (Reason: pain) 5 Days Qty: 15 0RF lidocaine 5 % adhesive patch,medicated 1 patch topical DAILY PRN (Reason: pain) Qty: 15 0RF Rx Instructions: leave on most painful area for up to 12 hrs oxycodone 5 mg tablet 7.5 mg PO BID PRN (Reason: pain) Qty: 9 0RF Rx Instructions: Partial Fill upon patient request. prednisone 20 mg tablet 20 mg PO DAILY 7 Days Qty: 7 0RF cyclobenzaprine 5 mg tablet 5 mg PO TID PRN (Reason: muscle spasm) 7 Days Qty: 21 0RF ketorolac 10 mg tablet 10 mg PO QID PRN (Reason: pain) 5 Days Qty: 20 0RF Rx Instructions: Received 30mg IM toradol in the ED oxycodone 5 mg capsule 5 mg PO TID PRN (Reason: pain) 3 Days Qty: 9 0RF Rx Instructions: Partial Fill upon patient request. meloxicam 15 mg tablet 15 mg PO DAILY Qty: 10 0RF acetaminophen 500 mg capsule 1,000 mg PO QID PRN (Reason: fever or pain) Qty: 20 0RF cyclobenzaprine 10 mg tablet 10 mg PO TID PRN (Reason: muscle spasm) Qty: 10 0RF lidocaine [Lidoderm] 5 % adhesive patch,medicated 1 patch topical DAILY Qty: 30 0RF Rx Instructions: leave on most painful area for up to 12 hrs albuterol sulfate [ProAir HFA] 90 mcg/actuation HFA aerosol inhaler 2 puff PO Q4-6H PRN hijpzetyzm-umwaxtyubjedv-gllt [Fioricet] 50-300-40 mg capsule 1 cap PO Q8H PRN budesonide-formoterol [Symbicort] 160-4.5 mcg/actuation HFA aerosol inhaler 2 puff PO loratadine 10 mg tablet 10 mg PO DAILY omeprazole 20 mg capsule,delayed release(DR/EC) 20 mg PO DAILY amlodipine 10 mg tablet 10 mg PO DAILY albuterol sulfate 2.5 mg /3 mL (0.083 %) solution for nebulization inhalation QID furosemide 40 mg tablet 40 mg PO DAILY lisinopril 20 mg tablet 20 mg PO DAILY oxycodone-acetaminophen [Percocet] 7.5-325 mg tablet 1 tab PO Q8H PRN naloxone 4 mg/actuation spray,non-aerosol 0 spray intranasal duloxetine 30 mg capsule,delayed release(DR/EC) 30 mg PO DAILY Spiriva with HandiHaler 18 mcg capsule, w/inhalation device 1 cap inhalation DAILY gabapentin 100 mg capsule 100 mg PO DAILY buspirone 5 mg tablet 5 mg PO BID carvedilol 12.5 mg tablet 12.5 mg PO BID lisinopril-hydrochlorothiazide 20-12.5 mg tablet 2 tab PO DAILY Referrals: [facility] [Primary Care Provider] - 2 days Interventions: ED Discharge Assessment Last Done: 02/15/23 15:17 Discharge Date/Time: 02/15/23 14:50 Print Language: Yakut
[2023-02-15] MEDS: Butalb/Acetamin/Caff 50/325/40 TABLET 1 TAB PO (11:33)
--- NOTE | 2023-02-15 11:35 | ECG_ITS ---
Test Reason : HIGH BP Blood Pressure : / mmHG Vent. Rate : 072 BPM Atrial Rate : 093 BPM P-R Int : 164 ms QRS Dur : 118 ms QT Int : 450 ms P-R-T Axes : 046 047 035 degrees QTc Int : 492 ms Sinus rhythm with frequent Premature ventricular complexes and Premature atrial complexes Incomplete right bundle branch block Prolonged QT Abnormal ECG When compared with ECG of 14-FEB-2023 14:32, Premature ventricular complexes are now Present Premature atrial complexes are now Present Referred By: Zeina Garcia Electronically Signed By:ELADIO MYERS
[2023-02-15 12:13] VITALS: BP 166/78; PULSE 79; RESP 18; TEMP 36.6; O2SAT 100
[2023-02-15 12:44] LABS: MANUAL DIFF FLAG NO
[2023-02-15 12:47] LABS: Basophils Percent Auto 0.6 % (0-2); Eosinophils Absolute Auto 0.3 X10*3/uL (0.0-0.4); Eosinophils Percent Auto 4.5 % (0-4); Hematocrit 45.4 % (37.0-47.0); Hemoglobin 14.9 g/dl (12.0-16.0); Imm Gran Abs Auto 0.04 X10*3/uL (0.00-0.03); Imm Gran Pct Auto 0.6 % (0.0-0.4); Lymphocytes Absolute Auto 2.6 X10*3/uL (1.2-4.9); Lymphocytes Percent Auto 40.5 % (20-40); Mean Corpuscular HGB Conc 32.8 g/dl (31.0-35.0); Mean Corpuscular Hemoglobin 29.9 pg (27.0-33.0); Monocytes Absolute Auto 0.4 X10*3/uL (0.1-1.2); Neutrophils Absolute Auto 3.1 x10*3/uL (2.0-8.3); Neutrophils Percent Auto 47.8 % (45-73); Platelet Count 178 X10*3/uL (160-400); Red Blood Count 4.99 X10*6/uL (4.20-5.50); Red Cell Distribution Width 13.3 % (11.0-16.0); White Blood Count 6.5 X10*3/uL (4.8-10.8)
[2023-02-15 13:07] VITALS: BP 160/79; PULSE 60
[2023-02-15 13:08] LABS: Alanine Aminotransferase 15 U/L (0-31); Albumin Level 3.8 g/dL (3.5-5.0); Alkaline Phosphatase 109 U/L (39-117); Anion Gap 13 (12-20); Aspartate Amino Transferase 18 U/L (5-31); Bilirubin Direct 0.3 mg/dL (0.0-0.5); Blood Urea Nitrogen 12 mg/dL (9-16); Calcium 9.4 mg/dL (8.4-10.2); Carbon Dioxide 22 mmol/L (22-29); Chloride 109 mmol/L (96-108); Creatinine Clr Calc Pharmacy 94.7; Estimated Glomerular Filt Rate > 60; Glucose Random 106 mg/dL (60-115); Magnesium 2.3 mg/dL (1.6-2.6); Potassium 3.9 mmol/L (3.3-5.1); Sodium 140 mmol/L (135-145)
[2023-02-15 13:09] VITALS: BP 176/91; PULSE 64
[2023-02-15 13:11] VITALS: BP 159/87; PULSE 64
[2023-02-15 13:14] LABS: Troponin-I High Sensitivity < 2.7 ng/L (<3.5-17.0)
[2023-02-15] MEDS: Meclizine HCl 25 MG TABLET PO (14:58)
== END 2023-02-15 14:50 | disposition home or self-care (01) ==
PROVIDERS: Physician Assistant; Emergency Provider Emergency Medicine
DX: I10 Essential (primary) hypertension (principal); R51.9 Headache, unspecified; Z79.899 Other long term (current) drug therapy; Z87.891 Personal history of nicotine dependence
CPT/HCPCS: 36415; 80048; 80076; 83735; 84484; 85025; 93005; 99283; 99284

== ENCOUNTER 2023-02-23 10:33 | Outpatient (REF) | payer MEDICAID, SELFPAY | END 2023-02-23 10:34 | disposition home or self-care (01) | LOC: HO.MAMMO 10:33 | PROVIDERS: Visit Provider Student in an Organized Health Care Education/Training Program | DX: Z12.31 Encounter for screening mammogram for malignant neoplasm of breast (principal) | CPT/HCPCS: 77063; 77067 ==

== ENCOUNTER → 2023-02-23 11:00 | Outpatient (BNV) | payer MEDICAID, SELFPAY | PROVIDERS: Visit Provider Radiology Diagnostic Radiology | DX: Z12.31 Encounter for screening mammogram for malignant neoplasm of breast (principal) | CPT/HCPCS: 77063; 77067 ==

== ENCOUNTER 2023-03-24 08:39 | Outpatient (REF) | payer MEDICAID, SELFPAY ==
--- NOTE | ~2023-03-24 | XR_ITS ---
EXAMINATION: XR KNEE, LEFT CLINICAL INFORMATION: Chronic and worsening pain. COMPARISON: 02/14/2023 TECHNIQUE: AP, tunnel, and sunrise views of the left knee, standing. FINDINGS: Mild medial and patellofemoral joint space narrowing. Small quadriceps enthesophyte. Trace joint effusion. Small posterior patellar osteophytes. XR/XR knee LT 3V IMPRESSION: Mild degenerative changes. Additional imaging with CT scan or MRI should be considered for better visualization as these modalities are much more sensitive for detection of fracture or other underlying pathology.
== END 2023-03-24 08:40 | disposition home or self-care (01) ==
LOC: HO.HOSX 08:39
PROVIDERS: Visit Provider Orthopaedic Surgery
DX: M25.562 Pain in left knee (principal)
CPT/HCPCS: 73562; 99202

== ENCOUNTER 2023-03-24 08:39 | Outpatient (AMB) | payer MEDICAID, SELFPAY ==
--- NOTE | 2023-03-24 08:43 | A.OFFVIS_ITS ---
Intake Intake Visit Reasons: [employer]- B/L Knee OA Intake Note: Shira is a 57 year old female presents today for bilateral knee pain. Hx of LTKR with Dr. Lyon in 2012. Patient currently states her left is worse than her right. Reports her knee feels weak and gives out when walking, making her step wrong and increases pain in knee. The patient states that she re-injured her knee approximately 1 year ago. She twisted her knee and acute onset of pain. Most of the pain is along the medial and anterior aspects of her knee. She has had injections in the past which gave her minimal relief. She has also done physical therapy which aggravated her symptoms. She has tried Tylenol and anti- inflammatory medicines which gave her minimal relief. The patient states that she thinks she may have had ?my knee replaced? when she had surgery by Dr. Lyon. The patient states that she was also told that she has ?no cartilage under my kneecap?. Allergies morphine [MORPHINE] Allergy (Severe, Verified 03/24/23 08:56) HIVES, rash, itching,hives tramadol [TRAMADOL] Allergy (Intermediate, Verified 03/24/23 08:56) HIVES Medication List - Last Reconciled 03/24/23 by Filippo Alcaraz MD acetaminophen 1,000 mg (2 x 500 mg) PO QID PRN albuterol sulfate 90 mcg/actuation (ProAir HFA) 2 puffs PO Q4-6H PRN albuterol sulfate mg inhalation QID amlodipine 10 mg PO DAILY budesonide-formoterol 160-4.5 mcg/actuation (Symbicort) 2 puffs PO buspirone 5 mg PO BID laphgqzhtt-xqpvrhoxxjxaa-dgjd 50-300-40 mg (Fioricet) 1 cap PO Q8H PRN carvedilol 12.5 mg PO BID cyclobenzaprine 5 mg PO TID PRN 7 days cyclobenzaprine 10 mg PO TID PRN duloxetine 30 mg PO DAILY furosemide 40 mg PO DAILY gabapentin 100 mg PO DAILY ketorolac 10 mg PO TID PRN 5 days ketorolac 10 mg PO QID PRN 5 days lidocaine 5% 1 patch topical DAILY PRN lidocaine 5% (Lidoderm) 1 patch topical DAILY lisinopril 20 mg PO DAILY lisinopril-hydrochlorothiazide 20-12.5 mg 2 tabs PO DAILY loratadine 10 mg PO DAILY meloxicam 15 mg PO DAILY naloxone 4 mg/actuation 0 sprays intranasal omeprazole 20 mg PO DAILY oxycodone 7.5 mg (1.5 x 5 mg) PO BID PRN oxycodone 5 mg PO TID PRN 3 days oxycodone-acetaminophen 7.5-325 mg (Percocet) 1 tab PO Q8H PRN prednisone 20 mg PO DAILY 7 days prednisone 40 mg (2 x 20 mg) PO DAILY 5 days tiotropium bromide (Spiriva with HandiHaler) 1 cap inhalation DAILY PFSH Medical History Breast pain Chondral defect of patella Encounter for annual routine gynecological examination Flank pain Fungal infection of the groin Gallbladder abscess History of uterine fibroid HTN (hypertension) Kidney stones Migraine Migraines Para-ovarian adhesion Pelvic pain in female Right flank pain Yeast infection involving the vagina and surrounding area Surgical History History of bunionectomy History of cholecystectomy History of kidney surgery History of tubal ligation Family History Mother Stroke Diabetes HTN (hypertension) Father Heart attack Sister Lupus Leukemia Social History Household Members: Spouse and Children Housing: Apartment Alcohol intake: never Patient Tobacco Use Status: Former Tobacco user Tobacco use type: Cigarette Cigarettes Per Day: 2 Current occupational status: unemployed Sexual orientation: Straight/Heterosexual Gender identity: Female Physical Exam Const Other: Well-nourished well-developed very friendly female awake alert and oriented x3 in no acute distress Extrem Other: Bilateral lower extremity examination shows good capillary refill, no skin lesions noted, normal sensation light touch Left knee examination shows a longitudinal scar extending proximal and distal to her patella which is well healed, no erythema, mild crepitus with range of motion, tenderness along her medial joint line, positive Harmony's test, no instability Results Reviewed Results Reviewed: X-rays of the patient's left knee taken today were compared to prior x-rays which show mild diffuse joint space narrowing, no acute bony abnormalities Assessment & Plan Assessment & Plan (1) Left knee pain: Code(s): M25.562 - Pain in left knee Plan: Ms. Molina presents with progressively worsening left knee pain and mechanical symptoms possibly due to a tear of her medial meniscus and patellofemoral joint arthritis. Thus, I will send her for an MRI of her left knee for further evaluation. I will have her follow-up with Dr. Lyon following the MRI to further discuss her treatment options. Patient will contact me prior to the MRI should her symptoms worsen in his right knee. I spent 22 minutes in reviewing the patient's records and imaging studies, seeing the patient and documenting in the medical record. Orders: Orders XR knee LT 3V Today M25.562 - Pain in left knee Coding Level of Care Code New Pt Level 2 (73272) Diagnoses Left knee pain M25.562
== END 2023-03-24 10:04 | disposition home or self-care (01) ==
PROVIDERS: Visit Provider Orthopaedic Surgery
DX: M25.562 Pain in left knee (principal)
CPT/HCPCS: 99202

== ENCOUNTER 2023-03-29 08:20 | Outpatient (AMB) | payer MEDICAID, SELFPAY ==
[2023-03-29 08:22] VITALS: BP 108/70; PULSE 85; TEMP 36.2; O2SAT 98; BMI 34.6
--- NOTE | 2023-03-29 08:22 | MHC.OFFVIS ---
Intake Vital Signs 03/29/23 08:22 Height 5 ft 6 in Weight 214 lb 4.629 oz BMI 34.6 BP 108/70 Blood Pressure Location Rt brachial Position Sitting Pulse 85 Pulse Source Pulse Oximeter Temp 97.1 F Temp Source Skin Pulse Oximetry (%) 98 Oxygen Delivery Method Room Air Intake Visit Reasons: Joint Pain + CRP/CCP Intake Note: New patient presenting today for joint pain and +CRP and CCP. 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 Patient reports she fell at [employer] on 03/26/23. This has worsened her pains. c/o right hip pain, right leg pain, left knee pain since 2003 . 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 She has a past medical history of anxiety, depression, nephrolithiasis, asthma, hypertension, GERD, and migraines. In discussion with the patient today she reports recently being diagnosed with sciatica issues and is following up with her primary care regarding this issue. She reports flank pain has since subsided. Denies: dry, itchy eyes, red burning eyes needing steroids to treat; dry mouth, mouth sores or ulcers; nose bleed; ringing in the ear. When asked she denies excessive fatigue, fever, and or chills and unexplained weightloss or gain, raynaud's phenomenon, butterfly rash on face or other rashes; denies photosensitivity - getting sick or developing a rash from being out in the sun; denies blood or froth in urine; patient denies hx of SOB, chest pain, hx of Carditis or Pleuritis. Patient denies any history of DVT/PE. The patient reports never have had o take aspirin or a blood thinner during the successful pregnancies. Denies: thinning hair or hair loss except when on prednisone. Denies abdominal pain, blood or mucous in stool; nausea, vomitting and diarrhea but endorses constipation. She denies difficulty swallowing and does takes medication for heartburn. She endorses morning stiffness lasting more than 20 mins. She has had left knee surgery that never returned to full function and has to use a cane to stability. Mammogram and colonoscopy utodate. [facility] Medical History (Updated 03/29/23 @ 11:45 by Aditi Lei [facility]) Long-term use of immunosuppressant medication Osteoarthritis involving multiple joints on both sides of body Inflammatory arthropathy Flank pain Breast pain Pelvic pain in female Encounter for annual routine gynecological examination Right flank pain Chondral defect of patella Migraines Fungal infection of the groin Yeast infection involving the vagina and surrounding area History of uterine fibroid Para-ovarian adhesion Gallbladder abscess Migraine HTN (hypertension) Kidney stones Surgical History (Updated 03/29/23 @ 08:31 by REKHA Javed) Hx of colonoscopy History of bladder surgery Hx of knee surgery History of kidney surgery History of cholecystectomy History of tubal ligation History of bunionectomy Family History Mother Stroke Diabetes HTN (hypertension) Father Heart attack Sister Lupus Leukemia Social History Household Members: Spouse and Children Housing: Apartment Alcohol intake: never Patient Tobacco Use Status: Former Tobacco user Tobacco use type: Cigarette Cigarettes Per Day: 2 Current occupational status: unemployed Sexual orientation: Straight/Heterosexual Gender identity: Female Female Reproductive History Menstrual Total pregnancies: 4 Number of Living Children: 4 Review of Systems Const All systems reviewed & are unremarkable except as noted in HPI and below Reports as per HPI Eyes Reports no additional complaints ENT Reports no additional complaints Card Details: HTN Resp Details: Asthama GI Reports as per HPI Reports as per HPI Musc Reports no additional complaints and Reports as per HPI Skin/Breast Details: Mammogram Neuro Reports no additional complaints Psych Reports no additional complaints Endo Reports no additional complaints Physical Exam Vital Signs: Last Vital Signs Temp 97.1 F 03/29/23 08:22 Pulse 85 03/29/23 08:22 BP 108/70 03/29/23 08:22 Pulse Ox 98 03/29/23 08:22 Oxygen Delivery Method Room Air 03/29/23 08:22 BMI result Body Mass Index 34.6 APPEARANCE: Patient in no acute distress EYES no redness, pupils equal and reactive to light, eyelids normal EARS:? External ear normal, canal clear and tympanic membrane normal. NOSE/SINUS:? Airflow through both nares, no nasal discharge, no bleeding THROAT:? Oral mucosa moist, no ulcerations NECK:? No thyromegaly or masses, no adenopathy, trachea midline. HEART:? Regulrar rhythm, S1-S2 heard, no murmurs, rubs or gallops. LUNG:? Clear to percussion and auscultation ABD:? Enlarged; Normal bowel sounds, no organomegaly, masses or tenderness. EXTREMITIES:? No edema, no calf tenderness, normal peripheral pulses. NEURO:? Oriented and alert x3.? No focal weakness.? Reflexes symmetric.? Gait normal. SKIN:? There are no skin lesions evident. No objective signs of Raynaud's phenomenon. JOINT EXAM: Cervical Spine:.? Full range of motion without pain; no tenderness. Thoracic Spine:.? No scoliosis.? No tenderness on palpation. Lumbar Spine:.? Alignment normal.? Full range of motion without pain, no tenderness. Chest Wall:.? No tenderness, swelling, increased warmth or erythema. Hands:.? Normal range of motion with no tenderness no swelling, increased warmth or erythema. Able to make a full fist and has a good machine technician strength. Wrists:.? Normal range of motion with right wrist tenderness, but no swelling, increased warmth or erythema. Elbows:. Normal pain-free range of motion without tenderness, swelling, increased warmth or erythema. Shoulders:.?? Full range of motion without pain. No tenderness, weakness, swelling, increased warmth or erythema. Hips:.? Full range of motion without pain. Hip bursa:.?tenderness. Knees:.?? Normal pain-free range of motion with patelofemoral tenderness to left knee, but no swelling, increased warmth or erythema.? There is no effusion or crepitus. Weak quads with 2/5 strength. Ankles:.? Normal pain-free range of motion without tenderness, swelling, increased warmth or erythema. Feet:.? Normal pain-free range of motion without tenderness, swelling, increased warmth or erythema. Tender points:? No tenderness to digital palpation at the occiput, trapezius, second rib, lateral epicondyle. Tenderness to knees, greater trochanter and gluteal area bilaterally. ? Results Reviewed Results Reviewed: EXAMINATION: XR KNEE, LEFT CLINICAL INFORMATION: Chronic and worsening pain. COMPARISON: 02/14/2023 TECHNIQUE: AP, tunnel, and sunrise views of the left knee, standing. FINDINGS: Mild medial and patellofemoral joint space narrowing. Small quadriceps enthesophyte. Trace joint effusion. Small posterior patellar osteophytes. XR/XR knee LT 3V IMPRESSION: Mild degenerative changes. Additional imaging with CT scan or MRI should be considered for better visualization as these modalities are much more sensitive for detection of fracture or other underlying pathology. EXAMINATION: XR KNEE, RIGHT CLINICAL INFORMATION: Chronic and worsening pain. COMPARISON: Radiographs dated 09/14/2018. TECHNIQUE: AP, tunnel, and sunrise views of the right knee are submitted. FINDINGS: No fracture or joint effusion. Alignment is anatomic. Joint spaces are maintained. No abnormal soft tissue calcification. XR/XR knee RT 3V IMPRESSION: Normal right knee. EXAMINATION: XR KNEE, LEFT CLINICAL INFORMATION: Chronic and worsening pain. COMPARISON: Radiographs dated 09/14/2018. TECHNIQUE: AP, tunnel, and sunrise views of the left knee. FINDINGS: Bony alignment and mineralization are normal. The lateral and medial joint space compartment are well-maintained. There is mild narrowing and peripheral osteophyte formation of the patellofemoral compartment. A small osteophyte arises from the upper pole of the patella at the quadriceps tendon insertion. There is no fracture, dislocation or joint effusion. No foreign body is seen. IMPRESSION: 1. No fracture, dislocation or joint effusion is seen. 2. There is mild osteoarthritic change of the left patellofemoral compartment. EXAMINATION: XR LUMBAR SPINE CLINICAL INFORMATION: Reason for Exam acute traumatic lumbar back pain COMPARISON: 12/19/2022 TECHNIQUE: Frontal lateral and coned-down L5-S1 frontal lateral, total of 3 views FINDINGS: Five [id number]-ryi-sbhkaum lumbar vertebrae were identified maintaining normal height and alignments. Narrowing of intervertebral disc spaces suggest underlying degenerative disc disease. Paravertebral soft tissues are unremarkable. Surgical clip right upper quadrant from prior cholecystectomy. There are radiolucencies, most likely superimposed bowel gas.. No radiographic evidence of osteolytic or osteoblastic lesions. XR/XR lumbar spine 2-3V IMPRESSION: * No fracture. * Redemonstration of chronic Narrowing of intervertebral disc spaces suggest underlying degenerative disc disease. Bone alignments remain satisfactory. EXAMINATION: MM SCREENING DIGITAL BREAST TOMOSYNTHESIS, BILATERAL CLINICAL INFORMATION: Screening. Asymptomatic. COMPARISON: Mammography: This study is compared with prior exams dating back to 2019. TECHNIQUE: Digital breast tomosynthesis is performed in both the craniocaudal and mediolateral oblique views along with computer-aided detection (CAD). Synthesized 2D images are generated from the tomosynthesis. FINDINGS: There are scattered areas of fibroglandular density (ACR BI-RADS breast composition Category b). There are no significant masses, abnormal calcifications, or other abnormalities. MM/MM tomosynthesis screening BI IMPRESSION: No mammographic evidence of malignancy. ASSESSMENT: BI-RADS BI-RADS 1 - Negative RECOMMENDATION: Routine annual mammography screening. Laboratory Tests 02/14/23 02/14/23 02/15/23 08:31 08:31 12:40 Immature Gran % (Auto) Lymph % (Auto) 40.5 H Eos % (Auto) 4.5 H Abs Immat Gran (auto) 0.04 H Chloride 109 H C-Reactive Protein 0.83 H Rheumatoid Factor < 13.0 Cycl Citrul Peptide IgG 21 H LUANNE Screen NEGATIVE 02/15/23 12:40 Immature Gran % (Auto) 0.6 H Lymph % (Auto) Eos % (Auto) Abs Immat Gran (auto) Chloride C-Reactive Protein Rheumatoid Factor Cycl Citrul Peptide IgG LUANNE Screen Laboratory Tests 02/14/23 08:31 ESR 8 TSH 3.85 Assessment & Plan Assessment & Plan (1) Inflammatory arthropathy: Code(s): M19.90 - Unspecified osteoarthritis, unspecified site (2) Left knee pain: Code(s): M25.562 - Pain in left knee Qualifiers: Chronicity: chronic Qualified Code(s): M25.562 - Pain in left knee; G89.29 - Other chronic pain (3) Osteoarthritis involving multiple joints on both sides of body: Code(s): M15.9 - Polyosteoarthritis, unspecified (4) Long-term use of immunosuppressant medication: Code(s): Z79.60 - long term care social worker (current) use of unspecified immunomodulators and immunosuppressants Plan Ms. Molina presents for left knee pain and a weakly positive CCP .21 (.20). Upon initial review of history, labs, imaging and physical exam, I do not think her joint pain is due to an autoimmune or inflammatory pathology. However, given the weakly positive CCP (CCP has specificity to RA), it cannot be entirely ruled out. I wanted to start a prednisone course and assess for improvement, however, patient states a past course of prednisone caused her hair to fall out in clumps after 3 days. I will start her on Leflunomide. It just might be that, given the weakly positive CCP, her immune system is stirred enough and is contributory to the joint pain. Will assess for improvement at 8 week visit. At the core of her discomfort is the left knee, which causes altered gain and body misalignment putting strain on her sides her hips and lower back. I conclude that her joint pains is largely due to mechanical reasons. Per Ortho, the pain may be due to a tear of her medial meniscus and patellofemoral joint arthritis and she will be sent to follow-up with Dr. Lyon following the MRI to further discuss her treatment options. The patient also has pain in the right wrist. I observed that the right wrist bears much of the weight when she leans on the cane. This is sure to cause increase discomfort. There is no swelling, warmth or erythema. I will see her in 8 weeks. Patient will do labs 1 week before visit to assess for changes relating to Leflunomide. I spent 55 minutes in reviewing the patient's records and imaging studies, seeing and examining the patient and documenting in the medical record. Orders: Orders Complete Blood Count Auto Diff 7 Weeks M1.90 - Unspecified osteoarthritis, unspecified site Comprehensive Met. Panel 7 Weeks M1 - Unspecified osteoarthritis, unspecified site C Reactive Protein 7 Weeks M1. - Unspecified osteoarthritis, unspecified site Erythrocyte Sedimentation Rate 7 Weeks M1. - Unspecified osteoarthritis, unspecified site Medications: New leflunomide 1 tablet for per day for two weeks. Then increase to two tablets per day. 10 mg PO DAILY 60 tabs 0RF - Unspecified osteoarthritis, unspecified site Coding Level of Care Code New Pt Level 4 (81531) Diagnoses Inflammatory arthropathy M1.90 Chronic pain of left knee M25.562; G89.29 Chronicity: chronic Osteoarthritis involving multiple joints on both sides of body M15.9 Long-term use of immunosuppressant medication Z79.60
== END 2023-03-29 09:24 | disposition home or self-care (01) ==
PROVIDERS: PCP Student in an Organized Health Care Education/Training Program; Referring Provider Student in an Organized Health Care Education/Training Program; Visit Provider Nurse Practitioner Family
DX: M25.562 Pain in left knee (principal); G89.29 Other chronic pain; M15.9 Polyosteoarthritis, unspecified; Z79.60 Long term (current) use of unspecified immunomodulators and immunosuppressants
CPT/HCPCS: 99205

== ENCOUNTER → 2023-03-29 08:20 | Outpatient (BNVA) | payer MEDICAID, SELFPAY | PROVIDERS: Visit Provider Nurse Practitioner Family | DX: M19.90 Unspecified osteoarthritis, unspecified site (principal); M25.562 Pain in left knee; G89.29 Other chronic pain; Z79.60 Long term (current) use of unspecified immunomodulators and immunosuppressants | CPT/HCPCS: 99212 ==

== ENCOUNTER 2023-05-18 10:21 | Outpatient (REF) | payer MEDICAID, SELFPAY ==
[2023-05-18 12:30] LABS: HBsAGNum1 0.32 S/CO (0.00-0.99); HIV AB/AG Nonreactive (Nonreactive); HIV Num 1 0.05 S/CO (0.00-0.99); Hepatitis B Surface Antigen Negative (Negative)
[2023-05-26 01:14] LABS: VITAMIN D (1,25 OH) D3 18 pg/mL; Vit D (1,25-Dihydroxy) Total 81 pg/mL (18-72); Vitamin D (1,25 OH) D2 63 pg/mL
== END 2023-05-18 10:22 | disposition home or self-care (01) ==
LOC: HO.HHCL 10:21
PROVIDERS: Visit Provider Student in an Organized Health Care Education/Training Program
DX: Z01.419 Encounter for gynecological examination (general) (routine) without abnormal findings (principal); Z11.4 Encounter for screening for human immunodeficiency virus [HIV]; R10.2 Pelvic and perineal pain; D21.9 Benign neoplasm of connective and other soft tissue, unspecified
CPT/HCPCS: 36415; 81003; 82652; 87340; 87389; 99396

== ENCOUNTER 2023-05-18 10:47 | Outpatient (AMB) | payer MEDICAID, SELFPAY ==
--- NOTE | 2023-05-18 11:00 | MHC.OFFVIS ---
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 She is doing well with concerns: pelvic pain, history of fibroids. Attempting to eat a healthy diet with calcium and vitamin D and stays active with exercise. Currently sexually active. Denies any vaginal dryness or irritation. STI testing offered; she accepts. Mammogram up-to-date. Colonoscopy is UTD. Denies any family history of breast, ovarian or colon cancer. [facility] Medical History Long-term use of immunosuppressant medication Osteoarthritis involving multiple joints on both sides of body Inflammatory arthropathy Flank pain Breast pain Pelvic pain in female Encounter for annual routine gynecological examination Right flank pain Chondral defect of patella Migraines Fungal infection of the groin Yeast infection involving the vagina and surrounding area History of uterine fibroid Para-ovarian adhesion Gallbladder abscess Migraine HTN (hypertension) Kidney stones Surgical History Hx of colonoscopy History of bladder surgery Hx of knee surgery History of kidney surgery History of cholecystectomy History of tubal ligation History of bunionectomy Family History Mother Stroke Diabetes HTN (hypertension) Father Heart attack Sister Lupus Leukemia Social History Household Members: Spouse and Children Housing: Apartment Alcohol intake: never Patient Tobacco Use Status: Former Tobacco user Tobacco use type: Cigarette Cigarettes Per Day: 2 Current occupational status: unemployed Sexual orientation: Straight/Heterosexual Gender identity: Female Female Reproductive History Menstrual Menopause type: natural Total pregnancies: 4 Full term: 4 Number of Living Children: 4 Date of last pap smear: 01/24/19 (neg pap and hpv) History of abnormal pap smear: Yes (02/2017 ascus) Date of Mammogram: 02/23/23 (Birad 1) Review of Systems Const All systems reviewed & are unremarkable except as noted in HPI and below Reports as per HPI Eyes Reports no additional complaints ENT Reports no additional complaints Card Reports no additional complaints Resp Reports no additional complaints GI Reports as per HPI and Reports no additional complaints Reports as per HPI Musc Reports no additional complaints Skin/Breast Reports as per HPI Neuro Reports no additional complaints Psych Reports no additional complaints Endo Reports no additional complaints Jamal/Lymph Reports no additional complaints Aller/Immun Reports no additional complaints Physical Exam Vital Signs: Last Vital Signs BP 102/64 05/18/23 11:02 BMI result Body Mass Index 33.6 Const General: cooperative, healthy appearing, no acute distress, well developed and alert Orientation/consciousness: patient oriented x3 HEENT Head: Yes normal to inspection Eyes General: appearance normal, both eyes and all related structures Neck Neck: Yes normal visual inspection Thyroid: Thyroid normal Chest Chest palpation & inspection: normal inspection of the chest and other (no puckering, dimpling, peau de orange, retraction, discharge, masses) Breast/axilla inspection: normal inspection of the breasts Breast/axilla palpation: normal palpation of the breasts Resp Effort & Inspection: normal respiratory effort GI Inspection: Yes normal to inspection Palpation (GI): Soft to palpation Rectal Exam - Female: deferred General: Yes bladder normal to palpation External Female Exam: normal external appearance and normal appearance of the urethra Speculum Exam - Vagina: normal appearance of the vagina, normal palpation and normal vaginal discharge Speculum Exam - Cervix: normal appearance of the cervix and normal palpation Bimanual exam- vagina & uterus: normal bimanual exam, normal palpation, uterine size normal, bladder normal to palpation, normal palpation, non-tender and other (Blood slightly with Pap) Bimanual Exam- Adnexa, other: no masses Skin General skin exam: no rashes or lesions noted Rashes: no rashes Neuro General: patient oriented x3 Cognition (Neuro): normal cognition Extrem General: Yes normal to inspection Psych Attitude: cooperative Thought process: Normal thought process present Results AMB Urinalysis, Automated UA Leukoctes 0 Peewee/uL Last Edit by REKHA Hedrick on 05/18/23 11:36 UA Nitrite Negative Last Edit by Yvette Nefflyudmila [facility] on 05/18/23 11:36 UA Urobilinogen 0 mg/dL Last Edit by Yvette Nefflyudmila [facility] on 05/18/23 11:36 UA Protein 0.5 mg/dL Last Edit by Yvette Ryder [facility] on 05/18/23 11:36 UA pH 6.0 Last Edit by Yvette Khai Aishwaryalyudmila [facility] on 05/18/23 11:36 UA Blood 0 Elijah/uL Last Edit by Yvette Ryder [facility] on 05/18/23 11:36 UA Specific Cowan 1.020 Last Edit by Yvette Khai Ryder [facility] on 05/18/23 11:36 UA Ketone Positive Last Edit by Yvette Ryder [facility] on 05/18/23 11:36 trace Yvette Donnellysandy 05/18/23 11:36 UA Bilirubin 1 mg/dL Last Edit by Yvette Khai Ryder [facility] on 05/18/23 11:36 UA Glucose 0 mg/dL Last Edit by Yvette Donnellysandy [facility] on 05/18/23 11:36 Assessment & Plan Assessment & Plan (1) Encounter for well woman exam with routine gynecological exam: Code(s): Z01.419 - Encounter for gynecological examination (general) (routine) without abnormal findings (2) Fibroid: Code(s): D21.9 - Benign neoplasm of connective and other soft tissue, unspecified Plan: Follow-up yearly check in July for thyroid stability. Return to the office for results. (3) Pelvic pain: Code(s): R10.2 - Pelvic and perineal pain Plan: GC and BV panel done Plan Discussed: Current recommendations for pap smears per ASCCP guidelines. Breast awareness, periodic self breast exams and yearly mammogram. Maintain a healthy lifestyle, well balanced diet including Calcium 1,200 mg and Vitamin D 600 IU daily, and routine exercise. Use of condoms for STI if indicated. Contact the office with any postmenopausal bleeding. All of her questions and concerns were addressed to the best of my ability. 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 Orders: Orders US pelvic and transvaginal 07/19/23 D21.9 - Benign neoplasm of connective and other soft tissue, unspecified AMB Urinalysis Automated Today Z13.9 - Encounter for screening, unspecified HIV Ab/Ag Today Z20.2 - Contact with and (suspected) exposure to infections with a predominantly sexual mode of transmission Syphilis Screen Today Z20.2 - Contact with and (suspected) exposure to infections with a predominantly sexual mode of transmission Hepatitis C Antibody Today Z20.2 - Contact with and (suspected) exposure to infections with a predominantly sexual mode of transmission Hepatitis B Core Antibody Today Z20.2 - Contact with and (suspected) exposure to infections with a predominantly sexual mode of transmission Coding Level of Care Code Est Pt Prev Care 40-64y(28946) Diagnoses Encounter for well woman exam with routine gynecological exam Z01.419 Fibroid D21.9 Pelvic pain R10.2
[2023-05-18 11:02] VITALS: BP 102/64; BMI 33.6
== END 2023-05-18 13:11 | disposition home or self-care (01) ==
PROVIDERS: PCP Student in an Organized Health Care Education/Training Program; Visit Provider Advanced Practice Midwife
DX: Z01.419 Encounter for gynecological examination (general) (routine) without abnormal findings (principal); D21.9 Benign neoplasm of connective and other soft tissue, unspecified; R10.2 Pelvic and perineal pain; Z13.9 Encounter for screening, unspecified
CPT/HCPCS: 99396

== ENCOUNTER 2023-05-18 11:46 | Outpatient (REF) | payer MEDICAID, SELFPAY | END 2023-05-18 11:47 | disposition home or self-care (01) | LOC: HO.LAB 11:46 | PROVIDERS: Visit Provider Advanced Practice Midwife | DX: Z13.89 Encounter for screening for other disorder (principal) ==

== ENCOUNTER 2023-05-18 11:46 | Outpatient (REF) | payer MEDICAID, SELFPAY ==
[2023-05-19 03:39] LABS: CT PCR NOT DETECTED (Not Detect.); NG PCR NOT DETECTED (Not Detect.)
[2023-05-19 13:15] LABS: BV Int Neg Control Negative (Negative); BV Int Pos Control Positive (Positive)
[2023-05-25 21:38] LABS: HPV mRNA E6/E7 rflx Not Detected (Not Detected)
== END 2023-05-18 11:47 | disposition home or self-care (01) ==
LOC: HO.LNP 11:46
PROVIDERS: Visit Provider Advanced Practice Midwife
DX: Z01.419 Encounter for gynecological examination (general) (routine) without abnormal findings (principal); Z11.51 Encounter for screening for human papillomavirus (HPV); R10.2 Pelvic and perineal pain
CPT/HCPCS: 0353U; 87480; 87510; 87624; 87660; 88142

== ENCOUNTER 2023-06-29 08:38 | Outpatient (REF) | payer MEDICAID, SELFPAY ==
--- NOTE | ~2023-06-29 | MM_ITS ---
EXAMINATION: BONE DENSITOMETRY CLINICAL INDICATION: Early menopause. Bone pain. COMPARISON: This is the patient's baseline examination. TECHNIQUE: Using a [employer] DXA System (software version: 13.1) manufactured by [employer], dual-energy x-ray absorptiometry was performed of the lumbar spine and left hip. The images are of good technical quality. Summary results are attached. FINDINGS: AP SPINE L2-L4 (excluding L1): The data of L1-L4 has been changed to exclude the L1 vertebral body, because degenerative sclerosis at this level may cause overestimation of lumbar spine density. BMD 1.008 g/cm2, Z-score -1.4, T-score -1.6, osteopenia. LEFT FEMUR, NECK: BMD 0.638 g/cm2, Z-score -2.3, T-score -2.9, osteoporosis. LEFT FEMUR, TOTAL: BMD 0.627 g/cm2, Z-score -2.8, T-score -3.0, osteoporosis. IDENTIFIED RISK FACTORS: Early menopause, tobacco use (current smoker), secondary osteoporosis. HISTORY OF FRACTURE: None listed. MEDICATIONS: None listed. MM/XR DEXA axial skeleton IMPRESSION: 1. DIAGNOSIS: Osteoporosis based on the lowest T-score value of -3.0 in the total femur applying World Health Organization criteria. 2. 10-YEAR FRACTURE RISK PREDICTION, FRAX: According to the guidelines, FRAX calculation should only be performed on patients in the osteopenia bone density category. Therefore, FRAX was not performed on this patient. 3. Treatment Recommendations: NOF guidelines recommend consideration for treatment in postmenopausal women and men age 50 and older presenting with the following: -A hip or vertebral (clinical or morphometric) fracture. -T-score less than or equal to -2.5 at the femoral neck or spine after appropriate evaluation to exclude secondary causes. -Low bone mass at the hip or spine and a 10-year fracture probability by FRAX of greater than or equal to 3% for hip fracture or greater than or equal to 20% for major osteoporotic fracture based on the [place] adapted WHO algorithm. 4. Other Recommendations: All treatment decisions require clinical judgment and consideration of individual patient factors, including patient preferences, comorbidities, previous drug use, risk factors not captured in the FRAX model (e.g. frailty, falls, vitamin D deficiency, increased bone turnover, interval significant decline in bone density) and possible under or overestimation of fracture risk by FRAX. Additional medical evaluation for secondary cause of low bone mineral density may be appropriate. FUTURE SCAN RECOMMENDATION: People with diagnosed cases of osteoporosis or at high risk for fracture should have regular bone mineral density tests. For patients eligible for Medicare, routine testing is allowed once every 2 years. The testing frequency can be increased to one year for patients who have rapidly progressing disease, those who are receiving or discontinuing medical therapy to restore bone mass, or have additional risk factors.
== END 2023-06-29 08:39 | disposition home or self-care (01) ==
LOC: HO.MAMMO 08:38
PROVIDERS: PCP Student in an Organized Health Care Education/Training Program; Visit Provider Student in an Organized Health Care Education/Training Program
DX: Z13.820 Encounter for screening for osteoporosis (principal); E28.319 Asymptomatic premature menopause; M89.8X9 Other specified disorders of bone, unspecified site
CPT/HCPCS: 77080

== ENCOUNTER 2023-07-14 07:18 | Outpatient (REF) | payer MEDICAID, SELFPAY ==
--- NOTE | ~2023-07-14 | MR_ITS ---
EXAMINATION: MR LUMBAR SPINE WITHOUT CONTRAST CLINICAL INFORMATION: 58-year-old female with chronic lumbar pain, not controlled with multiple therapies. COMPARISON: 08/27/2018 MRI. TECHNIQUE: MRI of the lumbar spine was obtained using routine sequences without contrast. FINDINGS: Coronal Alignment: Normal. Sagittal Alignment: Normal anatomic alignment, stable in appearance. Lumbosacral Junction: Normal. Vertebral Bodies: Stable vertebral body heights. No interval compression fractures. Disc Spaces and Endplates: Severe disc space height loss is noted at L4-L5, slightly progressed from previous exam with Schmorl's nodes, disc desiccation and spondylosis. Remaining lumbar intervertebral disc space heights are well maintained with mild degrees of disc desiccation noted without significant spondylosis. Central Schmorl's nodes are noted along the endplates between L1-L2 and L3-L4 inclusive. Spinal Canal: No abnormal developmental findings. Bone Marrow: No significant marrow-replacing process or bone marrow edema. There are type II degenerative marrow signal changes noted along the endplates at L4-L5, similar to the previous exam. There is a 1.8 cm benign vertebral hemangioma within the L2 vertebral body stable in appearance. Conus Medullaris: Terminates at L1. Morphology and signal is normal. Intradural Nerve Roots: Within normal limits. L5-S1: Normal annular contour. Gtfj-yq-ywrggnum facet hypertrophic changes, left more than right with ligamentum flavum thickening slightly progressed from previous exam without significant canal or neural foraminal stenosis. L4-L5: Diffuse disc bulging again noted with endplate spurring and mild flattening of the ventral dural sac, with some crowding of the lateral recesses. There is mild facet arthropathy, right more than left similar to previous exam without central canal stenosis. There is mild encroachment on the traversing L5 nerve roots, left more than right in the lateral recesses, stable in appearance. There is eaan-dm-kxrzwrjs bilateral neural foraminal narrowing, with right posterolateral disc osteophyte complex abutting the exiting right L4 nerve root and a left foraminal/extraforaminal disc herniation abutting the exiting left L4 nerve root, stable in appearance. L3-L4: Small inferior foraminal disc protrusion noted on the left without neural impingement, stable in appearance. Mild facet hypertrophic changes bilaterally, stable in appearance. No canal or foraminal stenosis. L2-L3: Normal annular contour. Mild facet arthropathy left more than right, stable in appearance. No canal or foraminal stenosis. L1-L2: Normal annular contour. No facet arthropathy, canal or foraminal stenosis. T12-L1: Normal annular contour. No facet arthropathy, canal or neural foraminal stenosis. Paravertebral and Included Extraspinal Soft Tissues: The visualized paravertebral soft tissues and included retroperitoneal structures are unremarkable within the limitations of the exam. MR/MR lumbar spine wo con IMPRESSION: 1. Discogenic degenerative changes primarily at L4-L5 slightly progressed from previous exam with stable disc bulging and spondylosis at this level and stable facet arthropathy with rdhd-lt-reackagf bilateral neural foraminal stenosis and mild encroachment on the exiting L4 nerve roots, similar in appearance. Note that the previously noted right foraminal disc herniation now appears as a disc osteophyte complex. 2. Small inferior foraminal disc protrusion on the left at L3-L4 without neural impingement, stable in appearance with mild facet arthropathy stable in appearance. 3. Mqkr-ms-ygqrpgdr facet arthropathy at L5-S1 slightly progressed from previous exam without canal or neural foraminal stenosis.
[2023-07-14 12:20] LABS: MANUAL DIFF FLAG NO
[2023-07-14 13:48] LABS: Basophils Percent Auto 0.4 % (0-2); Eosinophils Absolute Auto 0.1 X10*3/uL (0.0-0.4); Eosinophils Percent Auto 1.7 % (0-4); Hematocrit 44.3 % (37.0-47.0); Hemoglobin 14.9 g/dl (12.0-16.0); Imm Gran Abs Auto 0.04 X10*3/uL (0.00-0.03); Imm Gran Pct Auto 0.5 % (0.0-0.4); Lymphocytes Percent Auto 37.7 % (20-40); Mean Corpuscular HGB Conc 33.6 g/dl (31.0-35.0); Mean Corpuscular Hemoglobin 31.4 pg (27.0-33.0); Mean Corpuscular Volume 93.5 fL (80.0-98.0); Mean Platelet Volume 10.2 fL (9.4-12.3); Monocytes Absolute Auto 0.6 X10*3/uL (0.1-1.2); Monocytes Percent Auto 7.7 % (2-11); Neutrophils Absolute Auto 4.1 x10*3/uL (2.0-8.3); Platelet Count 232 X10*3/uL (160-400); Red Blood Count 4.74 X10*6/uL (4.20-5.50); Red Cell Distribution Width 13.8 % (11.0-16.0); White Blood Count 7.8 X10*3/uL (4.8-10.8)
[2023-07-14 14:30] LABS: Erythrocyte Sedimentation Rate 11 MM/HR (0-20)
[2023-07-14 14:46] LABS: Alanine Aminotransferase 22 U/L (0-31); Albumin Level 4.2 g/dL (3.5-5.0); Alkaline Phosphatase 80 U/L (39-117); Anion Gap 13 (12-20); Aspartate Amino Transferase 16 U/L (5-31); Bilirubin Total 0.9 mg/dL (0.0-1.0); Blood Urea Nitrogen 15 mg/dL (9-16); C Reactive Protein 0.38 mg/dL (< or = 0.50); Calcium 9.6 mg/dL (8.4-10.2); Carbon Dioxide 29 mmol/L (22-29); Chloride 103 mmol/L (96-108); Estimated Glomerular Filt Rate 59; Glucose Random 102 mg/dL (60-115); Potassium 3.7 mmol/L (3.3-5.1); Sodium 141 mmol/L (135-145); Total Protein 7.4 g/dL (6.5-8.0)
== END 2023-07-14 07:19 | disposition home or self-care (01) ==
LOC: HO.MRI 07:18
PROVIDERS: Absent Provider Nurse Practitioner Family; PCP Student in an Organized Health Care Education/Training Program; Visit Provider Student in an Organized Health Care Education/Training Program
DX: M54.16 Radiculopathy, lumbar region (principal); M19.90 Unspecified osteoarthritis, unspecified site
CPT/HCPCS: 36415; 72148; 80053; 85025; 85652; 86140

== ENCOUNTER 2023-07-19 10:43 | Outpatient (REF) | payer MEDICAID, SELFPAY ==
--- NOTE | ~2023-07-19 | US_ITS ---
EXAMINATION: US PELVIS CLINICAL INFORMATION: Benign neoplasm of connective and other soft tissue, unspecified Fibroids Postmenopausal COMPARISON: Pelvic ultrasound 07/29/2022 TECHNIQUE: Ultrasound of the pelvis is performed using both transabdominal and transvaginal transducers along with Doppler. Transvaginal imaging is performed due to inadequate visualization transabdominally. FINDINGS: Uterus: The uterus is retroverted and measures 9.7 x 3.8 x 5.0 cm. The myometrium is heterogeneous without evidence of a focal fibroid. The endometrial thickness is 0.35 cm. Small amount of fluid is seen within the endometrial cavity. Adnexa: Both ovaries are visualized. There is normal color flow to the adnexa. There is no ovarian torsion. There is no pelvic ascites or fluid collection. Right ovary measures 1.9 x 1.8 x 1.7 cm. Volume 2.9 mL. Left ovary measures 2.0 x 1.4 x 1.4 cm. Volume 2.0 mL. US/US pelvic and transvaginal IMPRESSION: 1. Retroverted heterogeneous uterus without a focal fibroid. 2. Normal ovaries.
== END 2023-07-19 10:44 | disposition home or self-care (01) ==
LOC: HO.US 10:43
PROVIDERS: PCP Student in an Organized Health Care Education/Training Program; Visit Provider Advanced Practice Midwife
DX: D21.9 Benign neoplasm of connective and other soft tissue, unspecified (principal)
CPT/HCPCS: 76830; 76856

== ENCOUNTER 2023-07-21 08:59 | Outpatient (AMB) | payer MEDICAID, SELFPAY ==
--- NOTE | 2023-07-21 09:05 | A.OFFVIS_ITS ---
Intake Vital Signs 07/21/23 09:10 Height 5 ft 6 in Weight 206 lb 2.115 oz BMI 33.3 BP 124/82 Blood Pressure Location Lt brachial Position Sitting Pulse 61 Pulse Source Pulse Oximeter Temp 96.7 F L Temp Source Skin Pulse Oximetry (%) 97 Oxygen Delivery Method Room Air Intake Visit Reasons: Joint pain/CRP/CCP Intake Note: Patient last seen 03/29/23 by Do, presents today for follow up and test results. C/o pain in back and hips. States she took leflunomide for about 3 days then stopped because of GI upset. Reports DEXA done with PCP prescibed alendronate. Nutrition Partner Required: Yes Nutrition Partner Language: Fixed Route Operator Name: Andres Camejo [id number] Information Interpreted: clinical only Accompanied by: Self / Same As Patient Allergies morphine [MORPHINE] Allergy (Severe, Verified 07/21/23 09:17) HIVES, rash, itching,hives tramadol [TRAMADOL] Allergy (Intermediate, Verified 07/21/23 09:17) HIVES HPI HPI Comments History of Present Illness Details Miss Silva is a pleasant 57 year old Japanese speaking patient returns for followup of initial evaluation of joint pain and weekly positive CCP to determine if an autoimmune or inflammatory pathology is contributing to her joint pain. She stopped the Leflunomide after 3 days due to diarrhea. She reports her joint pains are about the same. Initial History: Shira is a pleasant 57 year old Japanese speaking patient who is here for evaluation of joint pain and weekly positive CCP to determine if an autoimmune or inflammatory pathology is contributing to her joint pain. She has a past medical history of anxiety, depression, nephrolithiasis, asthma, hypertension, GERD, and migraines. In discussion with the patient today she reports recently being diagnosed with sciatica issues and is following up with her primary care regarding this issue. She reports flank pain has since subsided. Denies: dry, itchy eyes, red burning eyes needing steroids to treat; dry mouth, mouth sores or ulcers; nose bleed; ringing in the ear. When asked she denies excessive fatigue, fever, and or chills and unexplained weightloss or gain, raynaud's phenomenon, butterfly rash on face or other rashes; denies photosensitivity - getting sick or developing a rash from being out in the sun; denies blood or froth in urine; patient denies hx of SOB, chest pain, hx of Carditis or Pleuritis. Patient denies any history of DVT/PE. The patient reports never have had o take aspirin or a blood thinner during the successful pregnancies. Denies: thinning hair or hair loss except when on prednisone. Denies abdominal pain, blood or mucous in stool; nausea, vomitting and diarrhea but endorses constipation. She denies difficulty swallowing and does takes medication for heartburn. She endorses morning stiffness lasting more than 20 mins. She has had left knee surgery that never returned to full function and has to use a cane to stability. Mammogram and colonoscopy utodate. [facility] Medical History (Updated 07/21/23 @ 10:25 by RENITA Kulkarni) Age-related osteoporosis without current pathological fracture Trochanteric bursitis of left hip Long-term use of immunosuppressant medication Osteoarthritis involving multiple joints on both sides of body Inflammatory arthropathy Flank pain Breast pain Pelvic pain in female Encounter for annual routine gynecological examination Right flank pain Chondral defect of patella Migraines Fungal infection of the groin Yeast infection involving the vagina and surrounding area History of uterine fibroid Para-ovarian adhesion Gallbladder abscess Migraine HTN (hypertension) Kidney stones Surgical History Hx of colonoscopy History of bladder surgery Hx of knee surgery History of kidney surgery History of cholecystectomy History of tubal ligation History of bunionectomy Family History Mother Stroke Diabetes HTN (hypertension) Father Heart attack Sister Lupus Leukemia Social History Household Members: Spouse and Children Housing: Apartment Alcohol intake: never Patient Tobacco Use Status: Former Tobacco user Tobacco use type: Cigarette Cigarettes Per Day: 2 Current occupational status: unemployed Sexual orientation: Straight/Heterosexual Gender identity: Female Review of Systems Const All systems reviewed & are unremarkable except as noted in HPI and below Physical Exam Vital Signs: Last Vital Signs Temp 96.7 F L 07/21/23 09:10 Pulse 61 07/21/23 09:10 BP 124/82 07/21/23 09:10 Pulse Ox 97 07/21/23 09:10 Oxygen Delivery Method Room Air 07/21/23 09:10 BMI result Body Mass Index 33.3 APPEARANCE: Patient in no acute distress HEART:? Regulrar rhythm, S1-S2 heard, no murmurs, rubs or gallops. LUNG:? Clear to percussion and auscultation EXTREMITIES:? No edema, no calf tenderness, normal peripheral pulses. NEURO:? Oriented and alert x3.? No focal weakness.? Reflexes symmetric.? Gait normal. SKIN:? There are no skin lesions evident. No objective signs of Raynaud's phenomenon. JOINT EXAM: Hands:.? Normal range of motion with no tenderness no swelling, increased warmth or erythema. 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 Wrists:.? Normal range of motion with right wrist tenderness, but no swelling, increased warmth or erythema. Elbows:. Normal pain-free range of motion without tenderness, swelling, increased warmth or erythema. Shoulders:.?? Full range of motion without pain. No tenderness, weakness, s welling, increased warmth or erythema. Hips:.? Full range of motion without pain. Hip bursa:.?Blu tenderness L>R Knees:.?? Normal pain-free range of motion with patelofemoral tenderness to left knee, but no swelling, increased warmth or erythema.? There is no effusion or crepitus. Weak quads with 2/5 strength. Ankles:.? Normal pain-free range of motion without tenderness, swelling, increased warmth or erythema. Feet:.? Normal pain-free range of motion without tenderness, swelling, increased warmth or erythema. Tender points:? No tenderness to digital palpation at the occiput, trapezius, second rib, lateral epicondyle. Tenderness to knees, greater trochanter and gluteal area bilaterally. ? Office Procedures Joint Injection/Drain Joint Injection/Drain Primary Site: other Prep: site was prepped using aseptic technique Injected: 40 mg of, Kenalog, with 1 mL of and 1% plain lidocaine Approach Used: anterolateral Procedure: The patient tolerated the procedure well Coding 67205 - Glenohumeral/Tronchanteric Bursa/Intraarticular Procedure code (CPT) selection complete Results Reviewed Results Reviewed: Laboratory Tests 07/14/23 12:19 Eos # (Auto) 0.1 ESR 11 EXAMINATION: MR LUMBAR SPINE WITHOUT CONTRAST CLINICAL INFORMATION: 58-year-old female with chronic lumbar pain, not controlled with multiple therapies. COMPARISON: 08/27/2018 MRI. TECHNIQUE: MRI of the lumbar spine was obtained using routine sequences without contrast. FINDINGS: Coronal Alignment: Normal. Sagittal Alignment: Normal anatomic alignment, stable in appearance. Lumbosacral Junction: Normal. Vertebral Bodies: Stable vertebral body heights. No interval compression fractures. Disc Spaces and Endplates: Severe disc space height loss is noted at L4-L5, slightly progressed from previous exam with Schmorl's nodes, disc desiccation and spondylosis. Remaining lumbar intervertebral disc space heights are well maintained with mild degrees of disc desiccation noted without significant spondylosis. Central Schmorl's nodes are noted along the endplates between L1-L2 and L3-L4 inclusive. Spinal Canal: No abnormal developmental findings. Bone Marrow: No significant marrow-replacing process or bone marrow edema. There are type II degenerative marrow signal changes noted along the endplates at L4-L5, similar to the previous exam. There is a 1.8 cm benign vertebral hemangioma within the L2 vertebral body stable in appearance. Conus Medullaris: Terminates at L1. Morphology and signal is normal. Intradural Nerve Roots: Within normal limits. L5-S1: Normal annular contour. Lbuv-xb-wespazoj facet hypertrophic changes, left more than right with ligamentum flavum thickening slightly progressed from previous exam without significant canal or neural foraminal stenosis. L4-L5: Diffuse disc bulging again noted with endplate spurring and mild flattening of the ventral dural sac, with some crowding of the lateral recesses. There is mild facet arthropathy, right more than left similar to previous exam without central canal stenosis. There is mild encroachment on the traversing L5 nerve roots, left more than right in the lateral recesses, stable in appearance. There is myyd-sy-kdjuljjf bilateral neural foraminal narrowing, with right posterolateral disc osteophyte complex abutting the exiting right L4 nerve root and a left foraminal/extraforaminal disc herniation abutting the exiting left L4 nerve root, stable in appearance. L3-L4: Small inferior foraminal disc protrusion noted on the left without neural impingement, stable in appearance. Mild facet hypertrophic changes bilaterally, stable in appearance. No canal or foraminal stenosis. L2-L3: Normal annular contour. Mild facet arthropathy left more than right, stable in appearance. No canal or foraminal stenosis. L1-L2: Normal annular contour. No facet arthropathy, canal or foraminal stenosis. T12-L1: Normal annular contour. No facet arthropathy, canal or neural foraminal stenosis. Paravertebral and Included Extraspinal Soft Tissues: The visualized paravertebral soft tissues and included retroperitoneal structures are unremarkable within the limitations of the exam. MR/MR lumbar spine wo con IMPRESSION: 1. Discogenic degenerative changes primarily at L4-L5 slightly progressed from previous exam with stable disc bulging and spondylosis at this level and stable facet arthropathy with ofor-kr-sqkssblg bilateral neural foraminal stenosis and mild encroachment on the exiting L4 nerve roots, similar in appearance. Note that the previously noted right foraminal disc herniation now appears as a disc osteophyte complex. 2. Small inferior foraminal disc protrusion on the left at L3-L4 without neural impingement, stable in appearance with mild facet arthropathy stable in appearance. 3. Sndi-vv-utjwibyf facet arthropathy at L5-S1 slightly progressed from previous exam without canal or neural foraminal stenosis. 06/29/2023 EXAMINATION: BONE DENSITOMETRY CLINICAL INDICATION: Early menopause. Bone pain. COMPARISON: This is the patient's baseline examination. TECHNIQUE: Using a [employer] DXA System (software version: 13.1) manufactured by [employer], dual-energy x-ray absorptiometry was performed of the lumbar spine and left hip. The images are of good technical quality. Summary results are attached. FINDINGS: AP SPINE L2-L4 (excluding L1): The data of L1-L4 has been changed to exclude the L1 vertebral body, because degenerative sclerosis at this level may cause overestimation of lumbar spine density. BMD 1.008 g/cm2, Z-score -1.4, T-score -1.6, osteopenia. LEFT FEMUR, NECK: BMD 0.638 g/cm2, Z-score -2.3, T-score -2.9, osteoporosis. LEFT FEMUR, TOTAL: BMD 0.627 g/cm2, Z-score -2.8, T-score -3.0, osteoporosis. IDENTIFIED RISK FACTORS: Early menopause, tobacco use (current smoker), secondary osteoporosis. HISTORY OF FRACTURE: None listed. MEDICATIONS: None listed. MM/XR DEXA axial skeleton IMPRESSION: 1. DIAGNOSIS: Osteoporosis based on the lowest T-score value of -3.0 in the total femur applying World Health Organization criteria. 2. 10-YEAR FRACTURE RISK PREDICTION, FRAX: According to the guidelines, FRAX calculation should only be performed on patients in the osteopenia bone density category. Therefore, FRAX was not performed on this patient. 3. Treatment Recommendations: NOF guidelines recommend consideration for treatment in postmenopausal women and men age 50 and older presenting with the following: -A hip or vertebral (clinical or morphometric) fracture. -T-score less than or equal to -2.5 at the femoral neck or spine after appropriate evaluation to exclude secondary causes. -Low bone mass at the hip or spine and a 10-year fracture probability by FRAX of greater than or equal to 3% for hip fracture or greater than or equal to 20% for major osteoporotic fracture based on the [place] adapted WHO algorithm. 4. Other Recommendations: All treatment decisions require clinical judgment and consideration of individual patient factors, including patient preferences, comorbidities, previous drug use, risk factors not captured in the FRAX model (e.g. frailty, falls, vitamin D deficiency, increased bone turnover, interval significant decline in bone density) and possible under or overestimation of fracture risk by FRAX. Additional medical evaluation for secondary cause of low bone mineral density may be appropriate. FUTURE SCAN RECOMMENDATION: People with diagnosed cases of osteoporosis or at high risk for fracture should have regular bone mineral density tests. For patients eligible for Medicare, routine testing is allowed once every 2 years. The testing frequency can be increased to one year for patients who have rapidly progressing disease, those who are receiving or discontinuing medical therapy to restore bone mass, or have additional risk factors. Assessment & Plan Assessment & Plan (1) Left knee pain: Code(s): M25.562 - Pain in left knee Qualifiers: Chronicity: chronic Qualified Code(s): M25.562 - Pain in left knee; G89.29 - Other chronic pain (2) Osteoarthritis involving multiple joints on both sides of body: Code(s): M15.9 - Polyosteoarthritis, unspecified (3) Trochanteric bursitis of left hip: Code(s): M70.62 - Trochanteric bursitis, left hip (4) Age-related osteoporosis without current pathological fracture: Code(s): M81.0 - Age-related osteoporosis without current pathological fracture Plan #Weakly +CCP: Ms. Molina presents for left knee pain and a weakly positive CCP .21 (.20). Despit this weakly +CCP, I do not think the patient has RA or inflammatory Joint pain. She stopped the Leflunomide after 3 days due to diarrhea per patient. The ESR/CRP is normal. She continues without synovitis on PE but has marked trochanteric tenderness L>R. I will treat the left with corticosteroid injection today and if improved, daniel will call to have the right done. She is very afraid of needles. #Left Knee pain/OA multiple Joints: At the core of her discomfort is the left knee, which causes altered gain and body misalignment putting strain on her sides her hips and lower back. I conclude that her joint pains is largely due to mechanical reasons. Per Ortho, the pain may be due to a tear of her medial meniscus and patellofemoral joint arthritis and she will be sent to follow-up with Dr. Lyon following the MRI to further discuss her treatment options. She an continue with Tylenol, the other medications that she currently uses. #Osteoporosis: Recent Bone Density TScore -3.0. Patient is currently on Alendronate 7omg QW. She may need to so another treatment such as prolia. I will reach out to PCP to recommend I spent 35 minutes in reviewing the patient's records and imaging studies, seeing and examining the patient and documenting in the medical record. I will see patient again in 5 months or sooner if needed. Coding Level of Care Code Est Pt Level 4 (65033) Diagnoses Chronic pain of left knee M25.562; G89.29 Chronicity: chronic Osteoarthritis involving multiple joints on both sides of body M15.9 Trochanteric bursitis of left hip M70.62 Age-related osteoporosis without current pathological fracture M81.0 CPT Codes Coding - Joint 7: 74030 - Glenohumeral/Tronchanteric Bursa/Intraarticular ([id number])
[2023-07-21 09:10] VITALS: BP 124/82; PULSE 61; TEMP 35.9; O2SAT 97; BMI 33.3
== END 2023-07-21 10:06 | disposition home or self-care (01) ==
PROVIDERS: PCP Student in an Organized Health Care Education/Training Program; Visit Provider Nurse Practitioner Family
DX: M25.562 Pain in left knee (principal); G89.29 Other chronic pain; M15.9 Polyosteoarthritis, unspecified; M70.62 Trochanteric bursitis, left hip; M81.0 Age-related osteoporosis without current pathological fracture
CPT/HCPCS: 20610; 99214

== ENCOUNTER → 2023-07-21 08:59 | Outpatient (BNVA) | payer MEDICAID, SELFPAY | PROVIDERS: PCP Student in an Organized Health Care Education/Training Program; Visit Provider Nurse Practitioner Family | DX: M70.62 Trochanteric bursitis, left hip (principal); M25.562 Pain in left knee; M81.0 Age-related osteoporosis without current pathological fracture; M15.9 Polyosteoarthritis, unspecified; G89.29 Other chronic pain | CPT/HCPCS: 20610; 99212 ==

== ENCOUNTER 2023-08-03 10:29 | Outpatient (AMB) | payer MEDICAID, SELFPAY ==
--- NOTE | 2023-08-03 11:14 | MHC.OFFVIS ---
Intake Vital Signs 08/03/23 11:19 BP 118/72 Intake Visit Reasons: Ultra sound follow up Income Tax Analyst Required: Yes Income Tax Analyst Language: Heel Seat Fitter Machine Name: Yady Staffing Program Manager: Staffing Program Manager Present Allergies morphine [MORPHINE] Allergy (Severe, Verified 08/03/23 11:14) HIVES, rash, itching,hives tramadol [TRAMADOL] Allergy (Intermediate, Verified 08/03/23 11:14) HIVES Is last menstrual period known: Yes HPI HPI Comments History of Present Illness Details Patient is here today for a follow up ultrasound results prior visit she reported some pelvic pain. Patient previously reported she had a history of fibroids. She said the pain has resolved. [facility] Medical History (Updated 07/21/23 @ 10:25 by RENITA Kulkarni) Age-related osteoporosis without current pathological fracture Trochanteric bursitis of left hip Long-term use of immunosuppressant medication Osteoarthritis involving multiple joints on both sides of body Inflammatory arthropathy Flank pain Breast pain Pelvic pain in female Encounter for annual routine gynecological examination Right flank pain Chondral defect of patella Migraines Fungal infection of the groin Yeast infection involving the vagina and surrounding area History of uterine fibroid Para-ovarian adhesion Gallbladder abscess Migraine HTN (hypertension) Kidney stones Surgical History Hx of colonoscopy History of bladder surgery Hx of knee surgery History of kidney surgery History of cholecystectomy History of tubal ligation History of bunionectomy Family History Mother Stroke Diabetes HTN (hypertension) Father Heart attack Sister Lupus Leukemia Social History Household Members: Spouse and Children Housing: Apartment Alcohol intake: never Patient Tobacco Use Status: Former Tobacco user Tobacco use type: Cigarette Cigarettes Per Day: 2 Current occupational status: unemployed Sexual orientation: Straight/Heterosexual Gender identity: Female Review of Systems Const All systems reviewed & are unremarkable except as noted in HPI and below Endo Reports no additional complaints Physical Exam Vital Signs: Last Vital Signs BP 118/72 08/03/23 11:19 Const General: cooperative, healthy appearing and no acute distress Psych Appearance: well kempt Attitude: cooperative Thought process: Normal thought process present Results Reviewed Results Reviewed: [address] [address] Ultrasound Report Signed Patient: Shira Molina MR#: [id number] : 1965 Acct:[id number] Age/Sex: 58 / F ADM Date: 07/19/23 Loc: .[place] Attending Dr: Lina Christian CNM Ordering Physician: Lina Christian CNM Date of Service: 07/19/23 Procedure(s): US pelvic and transvaginal Accession Number(s): [id number] cc: Lina Christian CNM; Niyah Scott MD~ EXAMINATION: US PELVIS CLINICAL INFORMATION: Benign neoplasm of connective and other soft tissue, unspecified Fibroids Postmenopausal COMPARISON: Pelvic ultrasound 07/29/2022 TECHNIQUE: Ultrasound of the pelvis is performed using both transabdominal and transvaginal transducers along with Doppler. Transvaginal imaging is performed due to inadequate visualization transabdominally. FINDINGS: Uterus: The uterus is retroverted and measures 9.7 x 3.8 x 5.0 cm. The myometrium is heterogeneous without evidence of a focal fibroid. The endometrial thickness is 0.35 cm. Small amount of fluid is seen within the endometrial cavity. Adnexa: Both ovaries are visualized. There is normal color flow to the adnexa. There is no ovarian torsion. There is no pelvic ascites or fluid collection. Right ovary measures 1.9 x 1.8 x 1.7 cm. Volume 2.9 mL. Left ovary measures 2.0 x 1.4 x 1.4 cm. Volume 2.0 mL. US/US pelvic and transvaginal IMPRESSION: 1. Retroverted heterogeneous uterus without a focal fibroid. 2. Normal ovaries. 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 Advised to report any pelvic pain or concerns. All of her questions and concerns were addressed to the best of my ability. This note is constructed using voice recognition software. While every effort has been made to ensure accuracy, vp publisher development errors may have been included. Coding Level of Care Code Est Pt Level 3 (24919) Diagnoses Encounter to discuss test results Z71.2
[2023-08-03 11:19] VITALS: BP 118/72
== END 2023-08-03 11:48 | disposition home or self-care (01) ==
LOC: HO.HWS 10:29
PROVIDERS: PCP Student in an Organized Health Care Education/Training Program; Visit Provider Advanced Practice Midwife
DX: Z71.2 Person consulting for explanation of examination or test findings (principal)
CPT/HCPCS: 99213

== ENCOUNTER → 2023-08-03 10:29 | Outpatient (BNVA) | payer MEDICAID, SELFPAY | PROVIDERS: PCP Student in an Organized Health Care Education/Training Program; Visit Provider Advanced Practice Midwife | DX: Z71.2 Person consulting for explanation of examination or test findings (principal) | CPT/HCPCS: 99212 ==

== ENCOUNTER 2023-08-12 10:27 | Outpatient (REF) | payer MEDICAID, SELFPAY ==
[2023-08-12 11:47] LABS: Estimated Average Glucose 105 mg/dL; Hemoglobin A1c % 5.3 % (<6.0)
[2023-08-12 12:00] LABS: Alanine Aminotransferase 46 U/L (0-31); Albumin Level 4.1 g/dL (3.5-5.0); Alkaline Phosphatase 103 U/L (39-117); Anion Gap 14 (12-20); Aspartate Amino Transferase 39 U/L (5-31); Bilirubin Total 0.9 mg/dL (0.0-1.0); Blood Urea Nitrogen 12 mg/dL (9-16); Calcium 9.9 mg/dL (8.4-10.2); Carbon Dioxide 32 mmol/L (22-29); Chloride 101 mmol/L (96-108); Cholesterol 186 mg/dL (<200); Estimated Glomerular Filt Rate > 60; Glucose Random 91 mg/dL (60-115); HDL Cholesterol 66 mg/dL (>40); LDL Cholesterol Calculated 104 mg/dL (<100); Potassium 4.5 mmol/L (3.3-5.1); Sodium 142 mmol/L (135-145); Total Protein 7.4 g/dL (6.5-8.0); Triglycerides 81 mg/dL (<150)
[2023-08-14 08:58] LABS: Syphilis Screen Nonreactive (Nonreactive)
[2023-08-14 09:04] LABS: HIV AB/AG Nonreactive (Nonreactive); HIV Num 1 0.05 S/CO (0.00-0.99); Hepatitis B Core Antibody Nonreactive (Nonreactive); ~HepC Num1 0.16 S/CO (0.00-0.79); ~Hepatitis C Antibody Nonreactive (Nonreactive)
== END 2023-08-12 10:28 | disposition home or self-care (01) ==
LOC: HO.LAB 10:27
PROVIDERS: Advanced Practice Midwife; PCP Student in an Organized Health Care Education/Training Program; Visit Provider Student in an Organized Health Care Education/Training Program
DX: E66.09 Other obesity due to excess calories (principal); Z68.36 Body mass index [BMI] 36.0-36.9, adult; Z20.2 Contact with and (suspected) exposure to infections with a predominantly sexual mode of transmission
CPT/HCPCS: 36415; 80053; 80061; 83036; 86704; 86780; 86803; 87389

== ENCOUNTER 2024-01-02 11:25 | Outpatient (REF) | payer MEDICAID, SELFPAY ==
[2024-01-02 13:02] LABS: Alanine Aminotransferase 13 U/L (0-31); Alkaline Phosphatase 59 U/L (39-117); Anion Gap 12 (12-20); Aspartate Amino Transferase 14 U/L (5-31); Bilirubin Total 0.8 mg/dL (0.0-1.0); Blood Urea Nitrogen 17 mg/dL (9-16); Calcium 9.7 mg/dL (8.4-10.2); Carbon Dioxide 28 mmol/L (22-29); Chloride 104 mmol/L (96-108); Estimated Glomerular Filt Rate > 60; Glucose Random 121 mg/dL (60-115); Potassium 3.9 mmol/L (3.3-5.1); Sodium 140 mmol/L (135-145); Total Protein 7.1 g/dL (6.5-8.0)
[2024-01-02 13:11] LABS: Vitamin D 25-OH Total 34.2 ng/mL (>30)
== END 2024-01-02 11:26 | disposition home or self-care (01) ==
LOC: HO.LAB 11:25
PROVIDERS: PCP Student in an Organized Health Care Education/Training Program; Visit Provider Student in an Organized Health Care Education/Training Program
DX: M81.0 Age-related osteoporosis without current pathological fracture (principal)
CPT/HCPCS: 36415; 80053; 82306

== ENCOUNTER 2024-01-12 08:47 | Outpatient (REF) | payer MEDICAID, SELFPAY ==
--- NOTE | ~2024-01-12 | US_ITS ---
EXAMINATION: US RETROPERITONEAL LIMITED (RENAL ONLY) CLINICAL INFORMATION: Calculus of kidney. COMPARISON: CT stone study 12/23/2022. Renal ultrasound 11/10/2022 and 04/16/2021. X-ray abdomen KUB 03/14/2018. TECHNIQUE: Limited visualization due to bowel gas. FINDINGS: RIGHT KIDNEY: 10.6 x 4.2 x 5.4 cm (SAG x AP x TRV). No hydronephrosis. No renal calculi. Renal cortical thickness is normal. Limited visualization. LEFT KIDNEY: 11.5 x 4.7 x 4.9 cm (SAG x AP x TRV). No hydronephrosis. No renal calculi. Renal cortical thickness is normal. Limited visualization. US/US renal BI IMPRESSION: No hydronephrosis. No renal calculi.
== END 2024-01-12 08:48 | disposition home or self-care (01) ==
LOC: HO.US 08:47
PROVIDERS: PCP Student in an Organized Health Care Education/Training Program; Visit Provider Nurse Practitioner Family
DX: N20.0 Calculus of kidney (principal)
CPT/HCPCS: 76775

== ENCOUNTER 2024-01-25 09:45 | Outpatient (REF) | payer MEDICAID, SELFPAY ==
--- NOTE | ~2024-01-25 | XR_ITS ---
EXAMINATION: XR CHEST CLINICAL INFORMATION: 1 week of shortness of breath and wheezing. COMPARISON: 01/18/2023 TECHNIQUE: 2 views of the chest were obtained. FINDINGS: The lungs are well expanded. There is linear atelectasis versus scarring in the right midlung. Central peribronchial cuffing possibly representing bronchial inflammation/bronchitis. No focal consolidation. No pleural effusion. Cardiac silhouette is unchanged. XR/XR chest 2V IMPRESSION: Central peribronchial cuffing possibly representing bronchial inflammation/bronchitis. Advise clinical correlation.
== END 2024-01-25 09:46 | disposition home or self-care (01) ==
LOC: HO.HHCX 09:45
PROVIDERS: Visit Provider Student in an Organized Health Care Education/Training Program
DX: R09.89 Other specified symptoms and signs involving the circulatory and respiratory systems (principal); R06.02 Shortness of breath
CPT/HCPCS: 71046

== ENCOUNTER 2024-02-02 13:44 | Outpatient (AMB) | payer MEDICAID, SELFPAY ==
--- NOTE | 2024-02-02 13:45 | A.OFFVIS_ITS ---
Intake Visit Reasons: US results(set) Intake Note: Patient presents today for tele visit follow up on: kidney stone and ultrasound results Imaging Completed: 01/12/24 Urology Medications: none Blood Thinner: none Cardiovascular Physician Assistant Required: Yes Cardiovascular Physician Assistant Name: AGUSTINA MELENDREZALEC Accompanied by: Self / Same As Patient Allergies morphine [MORPHINE] Allergy (Severe, Verified 02/02/24 14:02) HIVES, rash, itching,hives tramadol [TRAMADOL] Allergy (Intermediate, Verified 02/02/24 14:02) HIVES Medication List - Last Reconciled 02/02/24 by JADYN George-MAURA acetaminophen 500 mg PO Q8H PRN albuterol sulfate 90 mcg/actuation (ProAir HFA) 2 puffs PO Q4-6H PRN albuterol sulfate mg inhalation QID alendronate 70 mg PO QWEEK amlodipine 10 mg PO DAILY budesonide-formoterol 160-4.5 mcg/actuation (Symbicort) 2 puffs PO buspirone 5 mg PO BID bpkfovxiak-ajptghwlgbzwy-uerl 50-300-40 mg (Fioricet) 1 cap PO Q8H PRN calcium carbonate 500 mg PO carvedilol 25 mg PO BID chlorthalidone 25 mg PO QAM clotrimazole-betamethasone 1-0.05 % 1 appl topical BID PRN 7 days ergocalciferol (vitamin D2) 1,250 mcg PO QWEEK escitalopram oxalate 10 mg PO QAM gabapentin 100 mg PO DAILY leflunomide 10 mg PO DAILY lisinopril 40 mg PO QAM loratadine 10 mg PO DAILY magnesium oxide 400 mg PO QAM naloxone 4 mg/actuation 0 sprays intranasal omeprazole 20 mg PO DAILY oxycodone 7.5 mg PO BID PRN oxycodone-acetaminophen 7.5-325 mg 1 tab PO Q12H PRN tiotropium bromide (Spiriva with HandiHaler) 1 cap inhalation DAILY HPI Comments Details: Shira is a pleasant 58 year old [place] speaking patient of Dr. Cifuentes. She has a past medical history of anxiety, depression, nephrolithiasis, asthma, hypertension, GERD, and migraines. She is being followed up on today via telehealth for her history of nephrolithiasis. In discussion with the patient today she reports since her last office visit here approximately 1 year ago she has had no bothersome urinary issues or concerns. Recent renal imaging results reviewed with the patient today. Bilateral kidneys with no calculi, lesions, and or hydronephrosis. When asked denies any urinary issues or concerns at this time. When asked she denies urinary urgency, urinary frequency, incontinence, nocturia, hematuria, dysuria, foul smelling urine, changes to urinary stream, flank pain, fever, and or chills. She is happy with her current voiding parameters. Patient otherwise denies any issues or concerns at this time. [facility] Medical History Age-related osteoporosis without current pathological fracture Trochanteric bursitis of left hip Long-term use of immunosuppressant medication Osteoarthritis involving multiple joints on both sides of body Inflammatory arthropathy Flank pain Breast pain Pelvic pain in female Encounter for annual routine gynecological examination Right flank pain Chondral defect of patella Migraines Fungal infection of the groin Yeast infection involving the vagina and surrounding area History of uterine fibroid Para-ovarian adhesion Gallbladder abscess Migraine HTN (hypertension) Kidney stones Surgical History Hx of colonoscopy History of bladder surgery Hx of knee surgery History of kidney surgery History of cholecystectomy History of tubal ligation History of bunionectomy Family History Mother Stroke Diabetes HTN (hypertension) Father Heart attack Sister Lupus Leukemia Social History Household Members: Spouse and Children Housing: Apartment Alcohol intake: never Patient Tobacco Use Status: Former Tobacco user Tobacco use type: Cigarette Cigarettes Per Day: 2 Current occupational status: unemployed Sexual orientation: Straight/Heterosexual Gender identity: Female Review of Systems Const All systems reviewed & are unremarkable except as noted in HPI and below Reports as per HPI Eyes Reports no additional complaints ENT Reports no additional complaints Card Reports as per HPI Resp Reports no additional complaints GI Reports as per HPI Reports as per HPI Musc Reports as per HPI Neuro Reports as per HPI Psych Reports as per HPI Physical Exam Const General: cooperative Orientation/consciousness: patient oriented x3 Neuro General: patient oriented x3 Psych Mental Status: mental status grossly normal Speech and movement: Clear speech present Attitude: cooperative Thought process: Normal thought process present Thought content: Normal thought content present Insight: Fair insight present (Psych) Judgement: Fair judgement present (Psych) Telehealth Telehealth Telehealth Platform: [employer] Location of provider rendering services: practice address Location of patient: address on file Patient Identification confirmed using: Name, : Yes Telehealth method: video Patient verbally consented to treatment: Yes Patient verbally consented to billing insurance company: Yes Patient informed of any privacy concerns related to visit: Yes Minutes spent on Phone/Video with Pt.: 15 Results Reviewed Results Reviewed: Date of Service: 01/12/24 EXAMINATION: US RETROPERITONEAL LIMITED (RENAL ONLY) FINDINGS: RIGHT KIDNEY: 10.6 x 4.2 x 5.4 cm (SAG x AP x TRV). No hydronephrosis. No renal calculi. Renal cortical thickness is normal. Limited visualization. LEFT KIDNEY: 11.5 x 4.7 x 4.9 cm (SAG x AP x TRV). No hydronephrosis. No renal calculi. Renal cortical thickness is normal. Limited visualization. IMPRESSION: No hydronephrosis. No renal calculi. Assessment & Plan Assessment & Plan (1) Kidney stones: Code(s): N20.0 - Calculus of kidney Category: Medical (2) Nephrolithiasis: Code(s): N20.0 - Calculus of kidney Category: Medical Plan Recent renal imaging results reviewed with the patient today; as noted above. She denies any urinary issues or concerns at this time. She reports be happy with current voiding parameters. Discussed, educated, encouraged to continue drinking plenty of water daily. Renal ultrasound in 1 year Follow-up in 1 year with imaging to be completed prior; or sooner with any issues, concerns, and or questions. Orders: Orders US renal BI 1 Year N20.0 - Calculus of kidney Patient Instructions: The patient had an opportunity to ask questions regarding the treatment plan. All questions were answered. Physical exam, labs, and imaging were discussed and reviewed in detail. As well as risks, benefits, and discussion of treatment choices. No major barriers to understanding were identified. The patient expressed understanding and agreement with the above treatment plan. The patient was made aware they should contact our office by phone for worsening of their current condition, the appearance of new symptoms, or with any questions or concerns. Compliance is encouraged with any medications and follow up testing that is ordered. It is a privilege to be allowed the opportunity to participate in? your urological care.? Again, if you have any questions or concerns If you have any questions or concerns please do not hesitate to contact me. The office is [phone]. This note is constructed using voice recognition software. While every effort has been made to ensure accuracy director hydrogen storage engineering errors may have been included. Yours sincerely, RENITA George Coding Level of Care Code Tele Est Pt Level 3 (20062) Complex EM visit Add On G2211 Diagnoses Kidney stones N20.0
== END 2024-02-02 14:16 | disposition home or self-care (01) ==
LOC: HO.HUSH 13:44
PROVIDERS: PCP Student in an Organized Health Care Education/Training Program; Visit Provider Nurse Practitioner Family
DX: N20.0 Calculus of kidney (principal)
CPT/HCPCS: 99213

== ENCOUNTER → 2024-02-02 13:44 | Outpatient (BNVA) | payer MEDICAID, SELFPAY | PROVIDERS: PCP Student in an Organized Health Care Education/Training Program; Visit Provider Nurse Practitioner Family ==

== ENCOUNTER 2024-02-29 09:52 | Outpatient (REF) | payer MEDICAID, SELFPAY ==
--- NOTE | ~2024-02-29 | MM_ITS ---
EXAMINATION: MM SCREENING DIGITAL BREAST TOMOSYNTHESIS, BILATERAL CLINICAL INFORMATION: Screening. Asymptomatic. COMPARISON: Mammography: Comparison is made with available priors TECHNIQUE: Digital breast mammography with tomosynthesis is performed in both the craniocaudal and mediolateral oblique views along with computer-aided detection (CAD). FINDINGS: There are scattered areas of fibroglandular density (ACR BI-RADS breast composition Category b). There are no significant masses, abnormal calcifications, or other abnormalities. MM/MM tomosynthesis screening BI IMPRESSION: No mammographic evidence of malignancy. ASSESSMENT: BI-RADS BI-RADS 1 - Negative RECOMMENDATION: Routine annual mammography screening. 1 year F/U This examination should not preclude the clinical evaluation of a suspicious palpable abnormality. This patient's information was entered into a reminder system with a target due date for their next mammogram. Electronically signed by: Tatianna Sow DO 03/12/2024 07:15 PM EDT
== END 2024-02-29 09:53 | disposition home or self-care (01) ==
LOC: HO.MAMMO 09:52
PROVIDERS: PCP Student in an Organized Health Care Education/Training Program; Visit Provider Student in an Organized Health Care Education/Training Program
DX: Z12.31 Encounter for screening mammogram for malignant neoplasm of breast (principal)
CPT/HCPCS: 77063; 77067

== ENCOUNTER → 2024-02-29 10:30 | Outpatient (BNV) | payer MEDICAID, SELFPAY | PROVIDERS: PCP Student in an Organized Health Care Education/Training Program; Visit Provider Internal Medicine | DX: Z12.31 Encounter for screening mammogram for malignant neoplasm of breast (principal) | CPT/HCPCS: 77063; 77067 ==

== ENCOUNTER → 2024-03-02 13:00 | Outpatient (BNV) | payer MEDICAID, SELFPAY | PROVIDERS: PCP Student in an Organized Health Care Education/Training Program; Visit Provider Radiology Diagnostic Radiology | DX: R51.9 Headache, unspecified (principal) | CPT/HCPCS: 70553 ==

== ENCOUNTER 2024-03-02 13:02 | Outpatient (REF) | payer MEDICAID, SELFPAY ==
--- NOTE | ~2024-03-02 | MR_ITS ---
EXAMINATION: MR BRAIN IAC PROTOCOL WITHOUT IV CONTRAST CLINICAL INFORMATION: Decreased hearing. Headache. Vertigo. COMPARISON: None available. TECHNIQUE: Multiplanar, multisequence MRI of the brain IAC protocol was obtained without the intravenous administration.. FINDINGS: Cochlear and vestibular components of the 8th cranial nerves demonstrated no signal abnormality. No signal abnormality within the porous acusticus or the cerebellopontine angle cisterns. CSF prominence of the Bee scabies, bilaterally. No signal abnormality within the Meckel's caves, cisterns segments or entry zones of the trigeminal nerves. The left anterior inferior cerebellar artery demonstrates a loop within the left internal auditory canal. The right anterior inferior cerebellar artery passes at the porus acusticus level. No restricted diffusion. No acute intracranial hemorrhage, mass effect, midline shift, hydrocephalus or herniation. Posterior cranial fossa contents demonstrated no signal abnormality or mass effect. The jugular foramina demonstrate abnormal anatomy position. Sellar/suprasellar region is normal. Craniocervical junction is intact and normal. Painting-white matter differentiation is normal. Flow-void signal within the mean vessels is normal. Mucosal thickening, paranasal sinuses without air-fluid levels. MR/MR head/brain wo/w con IMPRESSION: No signal abnormality at either 8th cranial nerves. Meningocele, bilateral Meckel's caves. Electronically signed by: Marcin Merrill MD 04/09/2024 02:24 PM EDT
== END 2024-03-02 13:03 | disposition home or self-care (01) ==
LOC: HO.MRI 13:02
PROVIDERS: PCP Student in an Organized Health Care Education/Training Program; Visit Provider Student in an Organized Health Care Education/Training Program
DX: H93.13 Tinnitus, bilateral (principal)
CPT/HCPCS: 70553

== ENCOUNTER 2024-05-23 15:33 | Outpatient (AMB) | payer MEDICAID, SELFPAY ==
--- NOTE | 2024-05-23 15:34 | MHC.OFFVIS ---
Vital Signs 05/23/24 15:39 Height 5 ft 6 in Weight 198 lb 13.711 oz BMI 32.1 BP 100/60 Blood Pressure Location Lt brachial Position Sitting Pulse 65 Pulse Source Pulse Oximeter Pulse Oximetry (%) 97 Oxygen Delivery Method Room Air Intake Visit Reasons: Joint Pain Intake Note: Patient presents for joint pain. I feel pain on both my hips and lower back. Clark Driver Required: Yes Clark Driver Language: Penal Officer Services: Clark Driver Present Clark Driver Name: Jennifer [id number] Information Interpreted: non-clinical & clinical Allergies morphine [MORPHINE] Allergy (Severe, Verified 05/23/24 15:37) HIVES, rash, itching,hives tramadol [TRAMADOL] Allergy (Intermediate, Verified 05/23/24 15:37) HIVES Medication List - Last Reconciled 05/23/24 by Briseida Snell MD acetaminophen 500 mg PO Q8H PRN albuterol sulfate 90 mcg/actuation (ProAir HFA) 2 puffs PO Q4-6H PRN albuterol sulfate mg inhalation QID alendronate 70 mg PO QWEEK amlodipine 10 mg PO DAILY budesonide-formoterol 160-4.5 mcg/actuation (Symbicort) 2 puffs PO buspirone 5 mg PO BID srcrrzbvnk-feonjvazucgeo-fstv 50-300-40 mg (Fioricet) 1 cap PO Q8H PRN calcium carbonate 500 mg PO carvedilol 25 mg PO BID chlorthalidone 25 mg PO QAM clotrimazole-betamethasone 1-0.05 % 1 appl topical BID PRN 7 days ergocalciferol (vitamin D2) 1,250 mcg PO QWEEK escitalopram oxalate 10 mg PO QAM gabapentin 100 mg PO DAILY leflunomide 10 mg PO DAILY lisinopril 40 mg PO QAM loratadine 10 mg PO DAILY magnesium oxide 400 mg PO QAM naloxone 4 mg/actuation 0 sprays intranasal omeprazole 20 mg PO DAILY oxycodone 7.5 mg PO BID PRN oxycodone-acetaminophen 7.5-325 mg 1 tab PO Q12H PRN tiotropium bromide (Spiriva with HandiHaler) 1 cap inhalation DAILY HPI Comments Details: This is a 58-year-old female with generalized osteoarthritis who presents for follow-up. Early this year patient was evaluated for polyarthralgia, labs showed borderline positive anti CCP antibody but she was deemed not to have an inflammatory arthritis. Today she is complaining of pain in her lower back towards the right side. She states that she had an L-spine MRI earlier this year and was referred to see a spine surgeon. Per patient the spine surgeon stated that she does not need the surgery. She was evaluated by a machine paint mixer about 7 years ago and directions were discussed but were not done. She takes oxycodone for her pains. [facility] Medical History Age-related osteoporosis without current pathological fracture Trochanteric bursitis of left hip Long-term use of immunosuppressant medication Osteoarthritis involving multiple joints on both sides of body Inflammatory arthropathy Flank pain Breast pain Pelvic pain in female Encounter for annual routine gynecological examination Right flank pain Chondral defect of patella Migraines Fungal infection of the groin Yeast infection involving the vagina and surrounding area History of uterine fibroid Para-ovarian adhesion Gallbladder abscess Migraine HTN (hypertension) Kidney stones Surgical History Hx of colonoscopy History of bladder surgery Hx of knee surgery History of kidney surgery History of cholecystectomy History of tubal ligation History of bunionectomy Family History Mother Stroke Diabetes HTN (hypertension) Father Heart attack Sister Lupus Leukemia Social History Household Members: Spouse and Children Housing: Apartment Alcohol intake: never Patient Tobacco Use Status: Former Tobacco user Tobacco use type: Cigarette Cigarettes Per Day: 2 Current occupational status: unemployed Sexual orientation: Straight/Heterosexual Gender identity: Female Review of Systems [facility] [place] back pain and Reports arthralgias Physical Exam Vital Signs: Last Vital Signs Pulse 65 05/23/24 15:39 BP 100/60 05/23/24 15:39 Pulse Ox 97 05/23/24 15:39 Oxygen Delivery Method Room Air 05/23/24 15:39 BMI result Body Mass Index 32.1 Const General: cooperative, healthy appearing and comfortable Nutritional Appearance: obese Orientation/consciousness: patient oriented x3 Limitations: no limitations HEENT Head: Yes normocephalic and Yes atraumatic Resp Effort & Inspection: normal respiratory effort and able to speak in complete sentences Back/Spine/Pelvis Other: Lumbar paraspinal muscle tenderness Negative straight leg raise test bilaterally Neuro General: patient oriented x3 Assessment & Plan Assessment & Plan (1) Degenerative disc disease, lumbar: Code(s): M51.36 - Other intervertebral disc degeneration, lumbar region Category: Medical Plan: This is a 58-year-old female who presents for evaluation of diffuse pain, most bothersome of her low back. L-spine MRI showed degenerative disc disease. She is on oxycodone to manage her pain. Per patient, She was recently evaluated by a spine surgeon and surgery was not pursued. Referred patient to pain management for evaluation Plan I spent 12 minutes reviewing patient's chart, evaluating patient, counseling patient and documenting in the chart Orders: Referrals Pain Management Referral M51.36 - Other intervertebral disc degeneration, lumbar region Coding Level of Care Code Est Pt Level 3 (58935) Diagnoses Degenerative disc disease, lumbar M51.36
[2024-05-23 15:39] VITALS: BP 100/60; PULSE 65; O2SAT 97; BMI 32.1
== END 2024-05-23 16:08 | disposition home or self-care (01) ==
PROVIDERS: PCP Student in an Organized Health Care Education/Training Program; Visit Provider Student in an Organized Health Care Education/Training Program
DX: M51.369 Other intervertebral disc degeneration, lumbar region without mention of lumbar back pain or lower extremity pain (principal)
CPT/HCPCS: 99213

== ENCOUNTER → 2024-05-23 15:33 | Outpatient (BNVA) | payer MEDICAID, SELFPAY | PROVIDERS: PCP Student in an Organized Health Care Education/Training Program; Visit Provider Student in an Organized Health Care Education/Training Program | DX: M51.360 Other intervertebral disc degeneration, lumbar region with discogenic back pain only (principal) | CPT/HCPCS: 99212 ==

== ENCOUNTER 2024-06-17 14:16 | Outpatient (REF) | payer MEDICAID, SELFPAY ==
[2024-06-18 13:35] LABS: Bacterial Vaginosis PCR NEGATIVE (Negative); Candida Group PCR NOT DETECTED (Not Detect); Candida glab krusei PCR NOT DETECTED (Not Detect); Trichomonas vaginalis PCR NOT DETECTED (Not Detect)
[2024-06-18 14:06] LABS: CT PCR NOT DETECTED (Not Detect.); NG PCR NOT DETECTED (Not Detect.)
== END 2024-06-17 14:17 | disposition home or self-care (01) ==
LOC: HO.LAB 14:16
PROVIDERS: PCP Student in an Organized Health Care Education/Training Program; Visit Provider Advanced Practice Midwife
DX: R39.89 Other symptoms and signs involving the genitourinary system (principal); N89.8 Other specified noninflammatory disorders of vagina; N94.9 Unspecified condition associated with female genital organs and menstrual cycle; Z86.018 Personal history of other benign neoplasm
CPT/HCPCS: 81515; 87491; 87591; 99212

== ENCOUNTER 2024-06-17 14:16 | Outpatient (AMB) | payer MEDICAID, SELFPAY ==
[2024-06-17 14:18] VITALS: BP 132/78; BMI 32.0
--- NOTE | 2024-06-17 14:18 | MHC.OFFVIS ---
Vital Signs 06/17/24 14:18 Height 5 ft 6 in Weight 198 lb BMI 32.0 BP 132/78 Intake Visit Reasons: pelvic pain Transformation Consultant Services: Transformation Consultant Present Information Interpreted: clinical only Child Care Centre Director: Child Care Centre Director Present Allergies morphine [MORPHINE] Allergy (Severe, Verified 06/17/24 14:19) HIVES, rash, itching,hives tramadol [TRAMADOL] Allergy (Intermediate, Verified 06/17/24 14:19) HIVES Medication List - Last Reconciled 06/17/24 by Yu Dhaliwal CNM acetaminophen 500 mg PO Q8H PRN albuterol sulfate 90 mcg/actuation (ProAir HFA) 2 puffs PO Q4-6H PRN albuterol sulfate mg inhalation QID alendronate 70 mg PO QWEEK amlodipine 10 mg PO DAILY budesonide-formoterol 160-4.5 mcg/actuation (Symbicort) 2 puffs PO buspirone 5 mg PO BID utebaezvrx-afbgmplejjlod-lphq 50-300-40 mg (Fioricet) 1 cap PO Q8H PRN calcium carbonate 500 mg PO carvedilol 25 mg PO BID chlorthalidone 25 mg PO QAM clotrimazole-betamethasone 1-0.05 % 1 appl topical BID PRN 7 days ergocalciferol (vitamin D2) 1,250 mcg PO QWEEK escitalopram oxalate 10 mg PO QAM gabapentin 100 mg PO DAILY leflunomide 10 mg PO DAILY lisinopril 40 mg PO QAM loratadine 10 mg PO DAILY magnesium oxide 400 mg PO QAM naloxone 4 mg/actuation 0 sprays intranasal omeprazole 20 mg PO DAILY oxycodone 7.5 mg PO BID PRN oxycodone-acetaminophen 7.5-325 mg 1 tab PO Q12H PRN tiotropium bromide (Spiriva with HandiHaler) 1 cap inhalation DAILY Post menopausal: Yes HPI HPI pelvic pain: Details: Patient is here for an appointment she is scheduled today for pelvic pain that she has had for about a week she has a history of a fibroid in the past though it did not show up on last year's ultrasound and she does have a history of bladder issues and she had a lemon sized mass removed from her bladder some years ago. She does have frequency of urination but she says she is on some medicine that helps with her swelling.. She does not know which of her many medications that is.. She has a primary care provider that she sees her the [facility] but she is on maternity leave so she does not know who her covering provider would be. She is also feeling a lot of abdominal discomfort when she walks she feels it when she eats feels like it blows her up she is eaten a lot even if it is a little bit she does not have gas or diarrhea she says she is constipated from medications. She is not having any itching burning or other symptoms and she denies dysuria. Her last period was when she was 46. She last had her mammogram last year. [facility] Medical History Age-related osteoporosis without current pathological fracture Trochanteric bursitis of left hip Long-term use of immunosuppressant medication Osteoarthritis involving multiple joints on both sides of body Inflammatory arthropathy Flank pain Breast pain Pelvic pain in female Encounter for annual routine gynecological examination Right flank pain Chondral defect of patella Migraines Fungal infection of the groin Yeast infection involving the vagina and surrounding area History of uterine fibroid Para-ovarian adhesion Gallbladder abscess Migraine HTN (hypertension) Kidney stones Surgical History Hx of colonoscopy History of bladder surgery Hx of knee surgery History of kidney surgery History of cholecystectomy History of tubal ligation History of bunionectomy Family History Mother Stroke Diabetes HTN (hypertension) Father Heart attack Sister Lupus Leukemia Social History Household Members: Spouse and Children Housing: Apartment Alcohol intake: never Patient Tobacco Use Status: Former Tobacco user Tobacco use type: Cigarette Cigarettes Per Day: 2 Current occupational status: unemployed Sexual orientation: Straight/Heterosexual Gender identity: Female Female Reproductive History Menstrual control method: permanent sterilization Total pregnancies: 4 Full term: 4 Date of last pap smear: 05/18/23 (negative) History of abnormal pap smear: Yes (2017,abn pap) Physical Exam Vital Signs: Last Vital Signs BP 132/78 06/17/24 14:18 BMI result Body Mass Index 32.0 General: Yes Bimanual renal exam normal bilaterally, Yes bladder normal to palpation (Patient is very slightly tender in the suprapubic area) and Yes no CVA tenderness External Female Exam: normal external appearance Speculum Exam - Vagina: normal appearance of the vagina and normal vaginal discharge Speculum Exam - Cervix: normal appearance of the cervix and nontender Bimanual exam- vagina & uterus: normal bimanual exam, uterine size normal, bladder normal to palpation (Patient is very slightly tender in the suprapubic area), consistency normal, uterine mobility normal, uterine shape normal, No Cervical tenderness present, non-tender, no cervical motion tenderness and other (Patient is very slightly tender suprapubically in bladder area) Bimanual Exam- Adnexa, other: normal adnexae, no masses and No adnexal tenderness Back/Spine/Pelvis Back: no CVA tenderness Results Reviewed Results Reviewed: marco: Shira Molina Age/Sex: 57/F Attending: Lina Christian CNM : 1965 Submitted by: Lina Christian CNM Copies to: MR #: [id number] Status: DEP REF Collected: 05/18/23 Location: [facility] Received: 05/22/23 Interpretation Satisfactory for evaluation. Mild inflammation. Negative for intraepithelial lesion or malignancy. HPV mRNA E6/E7: NOT DETECTED This assay detects E6/E7 viral messenger RNA (mRNA) from 14 high-risk HPV types (16, 18, 31, 33, 35, 39, 45, 51, 52, 56, 58, 59, 66, 68) HPV testing performed by [employer], [place], [place]. See reference laboratory portion of the EMR for entire report. Clinical Information LMP: Menopausal Previous PAP test: 2019 neg, 2017 ASCUS Material Received ThinPrep-Cervical Electronically Signed By: RIGOBERTO Gage ([facility]) 05/26/23 0958 The Pap Test is a screening procedure with the inherent possibility of both false negative and false positive results. Results should be interpreted in the context of historic and current clinical findings. Reliability of the Pap Test is enhanced by performing the test on a regular repetitive basis. Patient: Shira Molina Age/Sex: 57/F MR#: [id number] Page 1 of 1 Patient: Shira Molina MR#: [id number] : 1965 Acct:[id number] Age/Sex: 58 / F ADM Date: 07/19/23 Loc: .[place] Attending Dr: Lina Christian CNM Ordering Physician: Lina Christian CNM Date of Service: 07/19/23 Procedure(s): US pelvic and transvaginal Accession Number(s): [id number] cc: Lina Christian CNM; Niyah Scott MD~ EXAMINATION: US PELVIS CLINICAL INFORMATION: Benign neoplasm of connective and other soft tissue, unspecified Fibroids Postmenopausal COMPARISON: Pelvic ultrasound 07/29/2022 TECHNIQUE: Ultrasound of the pelvis is performed using both transabdominal and transvaginal transducers along with Doppler. Transvaginal imaging is performed due to inadequate visualization transabdominally. FINDINGS: Uterus: The uterus is retroverted and measures 9.7 x 3.8 x 5.0 cm. The myometrium is heterogeneous without evidence of a focal fibroid. The endometrial thickness is 0.35 cm. Small amount of fluid is seen within the endometrial cavity. Adnexa: Both ovaries are visualized. There is normal color flow to the adnexa. There is no ovarian torsion. There is no pelvic ascites or fluid collection. Right ovary measures 1.9 x 1.8 x 1.7 cm. Volume 2.9 mL. Left ovary measures 2.0 x 1.4 x 1.4 cm. Volume 2.0 mL. US/US pelvic and transvaginal IMPRESSION: 1. Retroverted heterogeneous uterus without a focal fibroid. 2. Normal ovaries. Dictated By: Nikki Sheriff MD Signed By: <Electronically signed by Nikki Sheriff MD in OV> 07/20/23 1133 DD/ 1144 Assessment & Plan Assessment & Plan (1) Bladder pain: Comment: Rule out UTI we will await UA C&S. Code(s): R39.89 - Other symptoms and signs involving the genitourinary system Category: Medical (2) History of uterine fibroid: Code(s): Z86.018 - Personal history of other benign neoplasm Category: Medical Plan The patient her symptoms in detail she does not have gas pains that she admits to or diarrhea she does have constipation but she says it is from the medication she is on. She does feel some abdominal bloating and that is uncomfortable to her she does not have dysuria per se or urgency or frequency per se other than urinating more frequently because of medications to reduce swelling. 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 She is very slightly tender suprapubically from external exam and also via internal them anterior to uterus leading to suspicion that she might have a urinary tract infection. She does not remember what medications she would responded to well in the past for urinary tract infections and she thinks her last 1 was perhaps about a year ago. I am sending her to lab now to submit a clean-catch UA C&S and we will await the results I did also discuss with her the possibility trialing medication while we await results but she is in favor of awaiting the results because she does not to take more medicines then she needs to take,. In the meantime for her discomfort, I recommend that she drink lots of fluids perhaps try not to eat heavily and see if that makes a difference as you issue could well be intestinal in origin. In addition I recommend she go to the team that she is a patient of, here at the [facility] and make an appointment to see somebody in the interim. Additionally she needs to reschedule her annual exam. I told her to call us if she does not hear from us regarding results of the UA C&S in 3 days so that she can find out the results and she should call the exact same number she call to make this appointment today.. Discussed possibility that this may not have anything to do with her female organs in may have to do with either her bladder or intestines. We will await the results of the UA C&S but depending on findings she may need follow-up with primary care gastroenterology or urology Orders: Orders Urine Culture Today R39.89 - Other symptoms and signs involving the genitourinary system CT NG by PCR Today N89.8 - Other specified noninflammatory disorders of vagina Bacterial Vaginosis Panel Today N89.8 - Other specified noninflammatory disorders of vagina, N94.9 - Unspecified condition associated with female genital organs and menstrual cycle Coding Level of Care Code Est Pt Level 3 (75113) Diagnoses Bladder pain R39.89 History of uterine fibroid Z86.018
== END 2024-06-17 15:28 | disposition home or self-care (01) ==
LOC: HO.HWSM 14:16
PROVIDERS: PCP Student in an Organized Health Care Education/Training Program; Visit Provider Advanced Practice Midwife
DX: R39.89 Other symptoms and signs involving the genitourinary system (principal); Z86.018 Personal history of other benign neoplasm
CPT/HCPCS: 99213

== ENCOUNTER 2024-06-17 14:55 | Outpatient (REF) | payer MEDICAID, SELFPAY | END 2024-06-17 14:56 | disposition home or self-care (01) | LOC: HO.HHCL 14:55 | PROVIDERS: Visit Provider Student in an Organized Health Care Education/Training Program | DX: Z13.89 Encounter for screening for other disorder (principal) ==

== ENCOUNTER 2024-06-20 08:55 | Outpatient (REF) | payer MEDICAID, SELFPAY ==
[2024-06-20 11:38] LABS: Hematocrit 44.9 % (37.0-47.0); Hemoglobin 15.1 g/dl (12.0-16.0); Mean Corpuscular HGB Conc 33.6 g/dl (31.0-35.0); Mean Corpuscular Hemoglobin 30.5 pg (27.0-33.0); Mean Corpuscular Volume 90.7 fL (80.0-98.0); Platelet Count 257 X10*3/uL (160-400); Red Blood Count 4.95 X10*6/uL (4.20-5.50); Red Cell Distribution Width 13.2 % (11.0-16.0); White Blood Count 8.9 X10*3/uL (4.8-10.8)
[2024-06-20 11:54] LABS: Estimated Average Glucose 105 mg/dL; Hemoglobin A1C 136.8139 umol/L; Hemoglobin A1c % 5.3 % (<6.0); Total Hemoglobin (HGBA1C) 3981.4843 umol/L
[2024-06-20 12:12] LABS: Creatinine Urine 280.16 mg/dL; Microalbum/Creatinine Ratio Ur 3.5 ug/mg cr (<30)
[2024-06-20 12:32] LABS: Vitamin B12 564 pg/mL (200-900)
[2024-06-20 13:04] LABS: Syphilis Screen Nonreactive (Nonreactive)
[2024-06-20 13:05] LABS: HBsAGNum1 0.42 S/CO (0.00-0.99); HIV AB/AG Nonreactive (Nonreactive); HIV Num 1 0.06 S/CO (0.00-0.99); Hepatitis B Core Antibody Nonreactive (Nonreactive); Hepatitis B Surface Antigen Negative (Negative); ~HepC Num1 0.17 S/CO (0.00-0.79); ~Hepatitis B Surface Antibody NONREACTIVE (Nonreactive); ~Hepatitis C Antibody Nonreactive (Nonreactive)
[2024-06-20 13:11] LABS: Alanine Aminotransferase 19 U/L (0-31); Albumin Level 4.3 g/dL (3.5-5.0); Alkaline Phosphatase 71 U/L (39-117); Anion Gap 12 (12-20); Aspartate Amino Transferase 24 U/L (5-31); Bilirubin Total 1.1 mg/dL (0.0-1.0); Blood Urea Nitrogen 12 mg/dL (9-16); Calcium 9.6 mg/dL (8.4-10.2); Carbon Dioxide 29 mmol/L (22-29); Chloride 104 mmol/L (96-108); Cholesterol 208 mg/dL (<200); Estimated Glomerular Filt Rate > 60; Glucose Random 95 mg/dL (60-115); HDL Cholesterol 62 mg/dL (>40); LDL Cholesterol Calculated 123 mg/dL (<100); Potassium 3.8 mmol/L (3.3-5.1); Sodium 141 mmol/L (135-145); TSH reflex Free T4 3.78 uIU/mL (0.32-4.0); Total Protein 7.9 g/dL (6.5-8.0); Triglycerides 119 mg/dL (<150); Vitamin D 25-OH Total 71.2 ng/mL (>30)
== END 2024-06-20 08:56 | disposition home or self-care (01) ==
LOC: HO.HHCL 08:55
PROVIDERS: Visit Provider Student in an Organized Health Care Education/Training Program
DX: Z00.00 Encounter for general adult medical examination without abnormal findings (principal); Z11.59 Encounter for screening for other viral diseases; Z72.89 Other problems related to lifestyle
CPT/HCPCS: 36415; 80053; 80061; 82043; 82306; 82570; 82607; 82746; 83036; 84443; 85027; 86704; 86706; 86780; 86803; 87340; 87389

== ENCOUNTER 2024-08-20 07:39 | Outpatient (AMB) | payer MEDICAID, SELFPAY ==
--- NOTE | 2024-08-20 07:41 | A.OFFVIS_ITS ---
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 Intake Note: no concerns In File Operator Required: Yes In File Operator Language: Chief General [facility] Services: In File Operator Present (in person) In File Operator Name: Yady DA SILVA Information Interpreted: non-clinical & clinical Rib Matcher And Fitter: Rib Matcher And Fitter Present (Yady DA SILVA) Accompanied by: Self / Same As Patient Allergies morphine [MORPHINE] Allergy (Severe, Verified 08/20/24 07:44) HIVES, rash, itching,hives tramadol [TRAMADOL] Allergy (Intermediate, Verified 08/20/24 07:44) HIVES Post menopausal: Yes HPI Comments Details: She is a postmenopausal woman presenting for her annual visual effects editor examination. She is doing well with no visual effects editor concerns. Currently sexually active. Denies any vaginal dryness or irritation. STI testing offered; she declined. Attempting to eat a healthy diet with calcium and vitamin D and stays active with exercise. Last pap smear; 2022. Last mammogram; 2023. Colonoscopy is UTD. Denies any family history of breast, ovarian or colon cancer. [facility] Medical History Age-related osteoporosis without current pathological fracture Trochanteric bursitis of left hip Long-term use of immunosuppressant medication Osteoarthritis involving multiple joints on both sides of body Inflammatory arthropathy Flank pain Breast pain Pelvic pain in female Encounter for annual routine gynecological examination Right flank pain Chondral defect of patella Migraines Fungal infection of the groin Yeast infection involving the vagina and surrounding area History of uterine fibroid Para-ovarian adhesion Gallbladder abscess Migraine HTN (hypertension) Kidney stones Surgical History Hx of colonoscopy History of bladder surgery Hx of knee surgery History of kidney surgery History of cholecystectomy History of tubal ligation History of bunionectomy Family History Mother Stroke Diabetes HTN (hypertension) Father Heart attack Sister Lupus Leukemia Social History (Updated 08/20/24 @ 07:47 by Yady Headley CMA) Household Members: Spouse and Children Housing: Apartment Alcohol intake: never Patient Tobacco Use Status: Former Tobacco user Tobacco use type: Cigarette Cigarettes Per Day: 2 Current occupational status: unemployed Sexually active: Yes Sexual orientation: Straight/Heterosexual Gender identity: Female Female Reproductive History Menstrual Date of last pap smear: 05/22/23 Date of Mammogram: 02/29/24 Review of Systems Const All systems reviewed & are unremarkable except as noted in HPI and below Reports as per HPI Eyes Reports no additional complaints ENT Reports no additional complaints Card Reports no additional complaints Resp Reports no additional complaints GI Reports as per HPI and Reports no additional complaints Reports as per HPI Musc Reports no additional complaints Skin/Breast Reports as per HPI Neuro Reports no additional complaints Psych Reports no additional complaints Endo Reports no additional complaints Jamal/Lymph Reports no additional complaints Aller/Immun Reports no additional complaints Physical Exam Vital Signs: Last Vital Signs BP 134/86 08/20/24 07:42 BMI result Body Mass Index 31.1 Const General: cooperative, healthy appearing, no acute distress, well developed and alert Orientation/consciousness: patient oriented x3 HEENT Head: Yes normal to inspection Eyes General: appearance normal, both eyes and all related structures Neck Neck: Yes normal visual inspection Thyroid: Thyroid normal Chest Chest palpation & inspection: normal inspection of the chest and other (no puckering, dimpling, peau de orange, retraction, discharge, masses) Breast/axilla inspection: normal inspection of the breasts Breast/axilla palpation: normal palpation of the breasts Resp Effort & Inspection: normal respiratory effort GI Inspection: Yes normal to inspection Palpation (GI): Soft to palpation Rectal Exam - Female: deferred General: Yes bladder normal to palpation External Female Exam: normal external appearance and normal appearance of the urethra Speculum Exam - Vagina: normal appearance of the vagina, normal palpation, normal vaginal discharge and vagina atrophic Speculum Exam - Cervix: normal appearance of the cervix and normal palpation Bimanual exam- vagina & uterus: normal bimanual exam, normal palpation, uterine size normal, bladder normal to palpation, normal palpation and non-tender Bimanual Exam- Adnexa, other: no masses Skin General skin exam: no rashes or lesions noted Rashes: no rashes Neuro General: patient oriented x3 Cognition (Neuro): normal cognition Extrem General: Yes normal to inspection Psych Attitude: cooperative Thought process: Normal thought process present Assessment & Plan Assessment & Plan (1) Encounter for well woman exam with routine gynecological exam: Code(s): Z01.419 - Encounter for gynecological examination (general) (routine) without abnormal findings Category: Medical Plan Discussed: Current recommendations for pap smears per ASCCP guidelines. Breast awareness, periodic self breast exams and yearly mammogram. Maintain a healthy lifestyle, well balanced diet including Calcium 1,200 mg and Vitamin D 600 IU daily, and routine exercise. Contact the office with any postmenopausal bleeding. Patient verbalizes understanding and agrees to the plan of care. She was given opportunity to ask questions and all questions were answered to the best of my ability. RTO in 1 year for annual visual effects editor exam. This note is constructed using voice recognition software. While every effort has been made to ensure accuracy, drilling assistant errors may have been included. Coding Level of Care Code Est Pt Prev Care 40-64y(54128) Diagnoses Encounter for well woman exam with routine gynecological exam Z01.419
[2024-08-20 07:42] VITALS: BP 134/86; BMI 31.1
--- OUTSIDE RECORDS SUMMARY | 2024-08-20 07:42 | XMS_ITS | Encounter Summary ---
Author Organization [employer] [facility] Address [address] [place] [address] Care Team Providers Care Channel Machine Operator Name Role Phone Name, Humble NIEVES Primary Care Provider [phone] Niyah Scott MD Primary Care Pro vider Reason for Visit * Reason Onset Date Comments Medication Question 12/19/2022 Encounter Details Date Type Department Care Team ([facility] st Contact Info) Description 12/19/2022 Telephone [facility] MEDICINE [address] [place], [place] [phone] Name, MD Humble [address] [place] [address] Medication Question Social History Tobacco Use Types Packs/Day Years Used Date Smoking Tobacco: Former Cigarettes Passive Smoke Exposure: Past Smokeless Tobacco: Never Alcohol Use Standard Drinks/Week Comments Never 0 (1 standard drink = 0.6 oz pur e alcohol) Comments Unknown Sex and Gender Information Value Date Recorded Sex Assigned at Female 04/11/2022 10:17 AM EDT Legal Sex Female 10:17 AM EDT Gender Identity Female 04/11/2022 10:17 AM EDT Sexual Orientation Straight 04/11/2022 10 :17 AM EDT COVID-19 Exposure Response Date Recorded In the last 10 days, have yo u been in contact with someone who was confirmed or suspected to have Coronavirus/COVID-19? No / Unsure 11/29/2022 10:13 AM EDT documented as of this encounter Miscellaneous Notes * Telephone Encounter - Julianne Carmona RN - 12/20/2022 3:25 PM EDT Pt. Has upcoming apt. With PCP on 01/03/2023, advised to discuss with PCP, daughter verbally agreedand understood. * Telephone Encounter - Alexsandra Becerril - 12/19/2022 11:59 AM EDT Tc from pt daughter requesting a call in regards to medication. Seems upset on the situation with oxycodone and would like to know what is going on and why PCP wont prescribe it to her. Please contact daughter at [phone] documented in this encounter Plan of Treatment Upcoming Encounters Date Type Department Care Team ([facility] st Contact Info) Description 09/16/2024 11:00 AM EDT Telemedicine [facility] CHC MED & PEDS [address] [place] [address] Katia De Jesus RN [address] [place] [address] 09/17/2024 9:00 AM EDT Office Visit [facility] ADULT DENTAL [address] [place] [address] Iona Mae documented as of this encounter Visit Diagnoses Not on filedocumented in this encounter Additional Health Concerns Assessment Noted Time PHQ-9 Depression Total Score: 17 12/08/ 023 2:31 PM EDT documented as of this encounter Care Teams Channel Machine Operator Relationship Specialty Start Date End Date Name, MD Humble [address] [place] [address] PCP - General Family Medicine 08/07/15 02/09/23 Niyah Scott MD [address] [place] [address] PCP - General Internal Medicine 02/10/[address] Glassware ReplacerHay Chopper 06/01/23 documented as of this encounter
--- OUTSIDE RECORDS SUMMARY | 2024-08-20 07:42 | XMS_ITS | Encounter Summary ---
Author Organization [employer] [facility] Address [address] [place] [address] Care Team Providers Care Health Promotion Educator Name Role Phone Name, Humble NIEVES Primary Care Provider Niyah Scott MD Primary Care Pro vider Reason for Visit * Reason Comments Med Refill Encounter Details Date Type Department Care Team ([facility] st Contact Info) Description 12/14/2022 Refill [facility] MEDICINE [address] [place], [place] [phone] Name, MD Humble [address] [place], [place] [phone] Low back pain with radiation Social History Tobacco Use Types Packs/Day Years [...] encounter Miscellaneous Notes * Telephone Encounter - Vanessa Pryor RN - 12/14/2022 1:38 PM EDT Medication Dcd by PCP d/t multiple negative tests. Call made to pt by Trudi, RN 12/07, reports VMleft as pt did not answer * Telephone Encounter - Humble Cifuentes MD - 12/14/2022 1:33 PM EDT I stopped the med since she keeps testing negative for the Percocet documented in this encounter Plan of Treatment Upcoming Encounters Date Type Department Care Team (Late st Contact Info) Description 09/16/2024 11:00 AM EDT Telemedicine [facility] CHC MED & PEDS [address] [place] [address] Katia De Jesus, VADIM [address] [place] [address] 09/17/2024 9:00 AM EDT Office Visit [facility] ADULT DENTAL [address] [place] [address] Iona Mae documented as of this encounter Visit Diagnoses Diagnosis Low back pain with radiation documented in this encounter Additional Health Concerns Assessment Noted Time PHQ-9 Depression Total Score: 17 023 2:31 PM EDT documented as of this encounter Care Teams Health Promotion Educator Relationship Specialty Start Date End Date Humble Cifuentes MD [address] [place] [address] PCP - General Family Medicine 08/07/15 02/09/23 Niyah Scott MD [address] [place] [address] PCP - General Internal Medicine 02/10/23 Zainab Hermosillo Rotating Equipment SpecialistMorgue Librarian 06/01/23 documented as of this encounter
--- OUTSIDE RECORDS SUMMARY | 2024-08-20 07:42 | XMS_ITS | Encounter Summary ---
Author Organization [employer] Address [address] [place] [address] [address] [place] [address] Care Team Providers Care Apigee Developer Name Role Phone Niyah Scott MD Primary Care Pro vider Reason for Visit * Reason Onset Date Comments Med Refill 02/20/2023 Encounter Details Date Type Department Care Team ([facility] st Contact Info) Description 02/20/2023 Telephone [facility] MEDICINE [address] [place], [place] [phone] Niyah Scott MD [address] [place], [place] [phone] Med Refill Social History Tobacco Use Types Packs/Day Years Used Date Smoking Tobacco: Some Days Cigarettes Passive Smoke Exposure: Past Smokeless Tobacco: Never Comments:Started at her 27 y ears until now , smokes 4 cig a day ,smoking for 30 years. PQT a year 6 Alcohol Use Standard Drinks/Week Comments Never 0 (1 standard drink = 0.6 oz pur e alcohol) Comments Unknown Sex and Gender Information Value Date Recorded Sex Assigned at Female 04/11/2022 10:17 AM EDT Legal Sex Female 10:17 AM EDT Gender Identity Female 04/11/2022 10:17 AM EDT Sexual Orientation Straight 04/11/2022 10 :17 AM EDT documented as of this encounter Miscellaneous Notes * Telephone Encounter - Kimberly Hope - 02/20/2023 8:51 AM EDT Tc from pt requesting med refill for medication oxycodone-acetaminophen 7.5mg- 325mg tablet . documented in this encounter Plan of Treatment Upcoming Encounters Date Type Department Care Team (Late st Contact Info) Description 09/16/2024 11:00 AM EDT Telemedicine [facility] CHC MED & PEDS [address] [place] [address] Katia De Jessu, RN [address] [place] [address] 09/17/2024 9:00 AM EDT Office Visit [facility] ADULT DENTAL [address] [place] [address] Iona Mae documented as of this encounter Visit Diagnoses Not on filedocumented in this encounter Additional Health Concerns Assessment Noted Time PHQ-9 Depression Total Score: 20 023 10:26 AM EDT documented as of this encounter Care Teams Apigee Developer Relationship Specialty Start Date End Date Niyah Scott MD [address] [place] [address] PCP - General Internal Medicine 02/10/23 Zainab Hermosillo Glass Cutter HandClient Manager 06/01/23 documented as of this encounter
--- OUTSIDE RECORDS SUMMARY | 2024-08-20 07:42 | XMS_ITS | Encounter Summary ---
Author Organization [employer] Address [address] [facility] 7t [place] [address] Care Team Providers Care Outboard Motorboat Operator Name Role Phone Name, Humble NIEVES Primary Care Provider [phone] Niyah Scott MD Primary Care Pro vider Reason for Visit * Reason Comments Med Refill Encounter Details Date Type Department Care Team (Late st Contact Info) Description 12/15/2022 Refill [facility] [address] [place], [place] [phone] Name, MD Humble [address] [place] [address] Low back pain with radiation Social History [...] AM EDT documented as of this encounter Plan of Treatment Upcoming Encounters Date Type Department Care Team (Late Contact Info) Description 09/16/2024 11:00 AM EDT Telemedicine [facility] [address] [place] [address] Katia De Jesus, RN [address] [place] [address] 09/17/2024 9:00 AM EDT Office Visit [facility] ADULT DENTAL [address] [place] [address] Iona Mae documented as of this encounter Visit Diagnoses Diagnosis Low back pain with radiation documented in this encounter Additional Health Concerns Assessment Noted Time PHQ-9 Depression Total Score: 17 023 2:31 PM EDT documented as of this encounter Care Teams Outboard Motorboat Operator Relationship Specialty Start Date End Date Name, MD Humble [address] [place] [address] PCP - General Family Medicine 08/07/15 02/09/23 Niyah Scott MD [address] [place] [address] PCP - General Internal Medicine 02/10/23 Zainab Hermosillo Laminator HandX Ray Control Equipment Repairer 06/01/23 documented as of this encounter
--- OUTSIDE RECORDS SUMMARY | 2024-08-20 07:42 | XMS_ITS | Encounter Summary ---
Author Organization [employer] [facility] Address [address] [facility] 7t [place] [address] Care Team Providers Care Flight Paramedic Name Role Phone Name, Humble NIEVES Primary Care Provider [phone] Niyah Scott MD Primary Care Pro vider Reason for Visit * Reason Onset Date Comments ER Follow-up 01/31/2023 Encounter Details Date Type Department Care Team ([facility] st Contact Info) Description 01/31/2023 Telephone [facility] [address] [place], [place] [phone] Name, MD Humble [address] [place] [address] ER Follow-up Social History Tobacco Use Types Packs/Day Years [...] encounter Miscellaneous Notes * Telephone Encounter - Angi Johnson RN - 01/31/2023 9:30 AM EDT Called pt. Via [employer] professional application designer [id number] Iris. Pt. States that she has back pain and high BP. Pt. Went to [facility] ED and BP was 186/113. Pt. Is taking her BP medication as prescribed but BP is still 186/115 along with her back pain. Pt. States that as long as her back pain is not controlled her blood pressure is not going to be under control. I offered appt. For with [facility] but pt. Declines stating that she will not see a Nurse Practitioner and that she wants to see her PCP. Pt. States I want my Dr. To prescribe the Oxycodone that I was on before for my back pain because when Iwas on that my pain was manageable and my BP was under control. Pt. Has upcoming appt. On 02/10/[address] Bradley and pt. Requesting back pain med for now. Pt. Advised to go to ED if chest pain occursor any other sx. Of high blood pressure as pt. Is declining to be seen at [facility] unless she can see her PCP. Pt. Is requesting refill of Oxycodone given in past by PCP. Will forward this note to PCP as pt. Wants to talk to PCP or PCP nurse. Protocol Used: Blood Pressure - High (Adult) Protocol-Based Disposition: See in Office or Video Visit Today- Pt. Declines walk in. Declines appt. With Nurse practitioner for 02/01/23 @ 930am,. Video visit not offered Positive Triage Question: * Systolic BP >= 180 OR Diastolic >= 110 * All higher-acuity triage questions were negative Protocol Used: Back Pain (Adult) Protocol-Based Disposition: See in Office or Video Visit within 2 Weeks Video visit not offered Positive Triage Question: * Back pain is a chronic symptom (recurrent or ongoing AND lasting > 4 weeks) * All higher-acuity triage questions were negative Care Advice Discussed: * Reassurance and Education - Back Pain * Cold or Heat * Sleep * Activity * Pain Medicines * Telephone Encounter - Yuly Mccullough - 01/31/2023 9:26 AM EDT Patient calling to report ED visit on 01/30/22 at [facility]. Seen for back pain and high blood pressure. Patient advised will forward to team nurse for follow up. Patient still has high BP 168/113 and back pain. Patient speaks filipino. documented in this encounter Plan of Treatment Upcoming Encounters Date Type Department Care Team (Late st Contact Info) Description 09/16/2024 11:00 AM EDT Telemedicine [facility] [address] [place] [address] Katia De Jesus, RN [address] [place] [address] 09/17/2024 9:00 AM EDT Office Visit [facility] ADULT D[facility] [address] [place] [address] Iona Mae documented as of this encounter Visit Diagnoses Not on filedocumented in this encounter Additional Health Concerns Assessment Noted Time PHQ-9 Depression Total Score: 17 023 2:31 PM EDT documented as of this encounter Care Teams Flight Paramedic Relationship Specialty Start Date End Date Name, MD Humble [address] [place] [address] PCP - General Family Medicine 08/07/15 02/09/23 Niyah Scott MD [address] [place] [address] PCP - General Internal Medicine 02/10/23 Zainab Hermosillo Instructor ModelingTwister Tender Paper 06/01/23 documented as of this encounter
--- OUTSIDE RECORDS SUMMARY | 2024-08-20 07:42 | XMS_ITS | Encounter Summary ---
Author Organization [facility] Address [address] [facility] 7t [place] [address] Care Team Providers Care Active Directory Systems Administrator Name Role Phone Name, Humble NIEVES Primary Care Provider [phone] Niyah Scott MD Primary Care Pro vider Reason for Visit * Reason Comments Med Refill Encounter Details Date Type Department Care Team (Late st Contact Info) Description 12/16/2022 Refill [facility] [address] [place], [place] [phone] Name, MD Humble [address] [place] [address] Low back pain with radiation Social History [...] Info) Description 09/16/2024 11:00 AM EDT Telemedicine [facility] [address] [place] [address] Katia De Jesus, RN [address] [place] [address] 09/17/2024 9:00 AM EDT Office Visit [facility] ADULT DENTAL [address] [place] [address] Iona Mae documented as of this encounter Visit Diagnoses Diagnosis Low back pain with radiation documented in this encounter Additional Health Concerns Assessment Noted Time PHQ-9 Depression Total Score: 17 023 2:31 PM EDT documented as of this encounter Care Teams Active Directory Systems Administrator Relationship Specialty Start Date End Date Name, MD Humble [address] [place] [address] PCP - General Family Medicine 08/07/15 02/09/23 Niyah Scott MD [address] [place] [address] PCP - General Internal Medicine 02/10/23 Zainab Hermosillo Retail Mortgage BankerRotoformer Backtender 06/01/23 documented as of this encounter
--- OUTSIDE RECORDS SUMMARY | 2024-08-20 07:42 | XMS_ITS | Clinical Summary ---
Author Organization [employer] Address [address] [facility] [address] [place] [address] Care Team Providers Care [employer]ges [employer] Buildings Supervisor Name Role Phone Niyah Scott MD Primary Care Pro vider Allergies Active Allergy Reactions Criticality Noted Date Comments Hydralazine Rash Low 04/11/2023 Morphine Rash Low 01/10/2012 Tramadol Itching 01/16/2018 Other reaction(s): Hives / Skin Rash Medications * This document contains information received from the source organization and may not represent a complete record from that organization. albuterol (2.5 MG/3ML) 0.083% nebulizer solutionIndicat ions:Moderate persistent asthma, unspecified whether complicated INHALE 1 AMPULE USING A NEBULIZER FOUR TIMES DAILY 270 mL 3 023 Active Garlic 1000 MG capsule Take by mouth. Activ e Acetaminophen Extra Strength 500 MG tablet TAKE 1 TABLET BY MOUTH EVERY 8 HOURS NEEDED MILD PAIN 90 tablet 2 023 Active alendronate (Fosamax) 70 MG tablet take 1 tablet once a week with 6 to 8 oz of water 30 min before first food of day. do not lie down for 30 minutes 12 tablet 3 024 Active Blood Pressure Monitoring (Blood Pressure Kit) kitIndications: Essential hypertension Take blood pressure daily, seated in chair with feet on floor 1 kit 024 Active Pain Reliever Plus 250-250-65 MG tablet TAKE 1 TABLET BY MOUTH EVERY 6 HOURS NEEDED FOR HEADACHE 30 tablet 1 024 Active pregabalin (Lyrica) 50 MG capsule Take 1 capsule (50 mg) by mouth at bedtime. 30 capsule 2 024 2024 Active docusate sodium (Colace) 100 MG capsule Take 1 tab po bid prn constipation 60 capsule 2 024 Active meloxicam (Mobic) 15 MG tablet TAKE 1 TABLET BY MOUTH EVERY DAY 30 tablet 1 024 Active Ventolin HFA 108 (90 Base) MCG/ACT inhaler INHALE 2 PUFFS BY MOUTH EVERY 6 HOURS NEEDED FOR WHEEZING 18 g 1 024 Active omeprazole (PriLOSEC) [address] capsuleIndicati ons:Gastritis without bleeding, unspecified chronicity, unspecified gastritis type TAKE 1 CAPSULE BY MOUTH EVERY EVENING 90 capsule 1 024 Active loratadine (Claritin) 10 MG tabletIndicatio ns:Hypertension , unspecified type TAKE 1 TABLET BY MOUTH EVERY MORNING FOR ITCHING 90 tablet 025 Active magnesium oxide (Mag-Ox) 400 MG tablet TAKE 1 TABLET BY MOUTH EVERY MORNING 90 tablet 025 Active carvedilol (Coreg) 25 MG tabletIndicatio ns:Essential hypertension,Si tuational stress TAKE 1 TABLET BY MOUTH TWICE DAILY IN THE MORNING AND IN THE EVENING 180 tablet 025 Active Oyster Shell Calcium 500 MG tablet TAKE 1 TABLET BY MOUTH TWICE DAILY IN THE MORNING AND IN THE EVENING WITH FOOD 180 tablet 025 Active amLODIPine (Norvasc) 10 MG tabletIndicatio ns:Essential hypertension TAKE 1 TABLET BY MOUTH EVERY MORNING 90 tablet 025 Active busPIRone (Buspar) 5 MG tabletIndicatio ns:Situational stress TAKE 1 TABLET BY MOUTH TWICE DAILY IN THE MORNING AND IN THE EVENING 180 tablet 025 Active escitalopram (Lexapro) 20 MG tablet TAKE 1 TABLET BY MOUTH EVERY MORNING 90 tablet 025 Active chlorthalidone (Hygroton) 25 MG tabletIndicatio ns:Essential hypertension TAKE 1 TABLET BY MOUTH EVERY MORNING 90 tablet 1 025 Active lisinopril 40 MG tabletIndicatio ns:Essential hypertension TAKE 1 TABLET BY MOUTH EVERY MORNING 90 tablet 1 025 Active budesonide-form oterol (Symbicort) 160-4.5 MCG/ACT inhalerIndicati ons:Asthma, unspecified asthma severity, unspecified whether complicated, unspecified whether persistent INHALE 2 PUFFS BY MOUTH TWICE DAILY IN THE MORNING AND IN THE EVENING RINSE MOUTH AFTER USING. 10.2 g 1 025 Active Tirzepatide-Gerardo ght Management 5 MG/0.5ML solution auto-injectorIn dications:Class 2 obesity due to excess calories with body mass index (BMI) of 36.0 to 36.9 in adult, unspecified whether serious comorbidity present Inject 0.5 mL (5 mg) under the skin 1 (one) time per week. 2 mL 025 Active ergocalciferol (Vitamin D2) 1.25 MG (46630 UT) capsule TAKE 1 CAPSULE BY MOUTH ONCE WEEKLY Monday 12 capsule 025 Active oxyCODONE-aceta minophen (Percocet) 7.5-325 MG tabletIndicatio ns:Chronic pain syndrome TAKE 1 TABLET BY MOUTH EVERY TWELVE HOURS NEEDED FOR SEVERE PAIN 56 tablet 025 Active ergocalciferol (Vitamin D2) 1.25 MG (82782 UT) capsule TAKE 1 CAPSULE BY MOUTH ONCE WEEKLY Monday 12 capsule 024 2024 Discontinued oxyCODONE-aceta minophen (Percocet) 7.5-325 MG tabletIndicatio ns:Chronic pain syndrome Take 1 tablet by mouth every 12 (twelve) hours if needed for severe pain. Do not start before June 28, 2024. 56 tablet 025 2024 Discontinued(R eorder (will not trigger notification to Pharmacy)) Tirzepatide-Gerardo ght Management (Zepbound) 2.5 MG/0.5ML solution auto-injectorIn dications:Class 2 obesity due to excess calories with body mass index (BMI) of 36.0 to 36.9 in adult, unspecified whether serious comorbidity present Inject 0.5 mL (2.5 mg) under the skin 1 (one) time per week. 2 mL 025 2024 Discontinued(D ose adjustment) oxyCODONE-aceta minophen (Percocet) 7.5-325 MG tabletIndicatio ns:Chronic pain syndrome Take 1 tablet by mouth every 12 (twelve) hours if needed for severe pain. Do not start before July 25, 2024. 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 Assessment & Plan (04/10/2023 3:08 PM EDT): Assessment: - Patient reports experiencing ADR; could be from improved adherence to duloxetine/ buspirone. Recommendation: - Consider decreasing duloxetine to 30mg daily to see if lethargy resolves. - Patient to try going every other day without to see if ADRs resolve. Assessment & Plan (03/13/2023 5:44 PM EDT): Education: - Stop 30mg dose and start 60mg dose as prescribed. Nephrolithiasis 02/14/2023 Lumbar radiculopathy 02/14/2023 Overview (03/13/2023): Pharmacotherapy: - Oxycodone/APA 7.5-325mg BID - APAP 500 mg TID ---> patient reports taking up to 7 tablets daily History: Primary concern is pain; percocet helps for ~ 3 hours. Tylenol 500mg caplets; taking up to 7 tabs in a day sometimes; some relief but ADR of dizziness and stomach upset present. Reports that on some days she doesn't think about taking other medications due to pain. Other things that have helped: - Warm Compress - Bengay - Naproxen 500mg daily reports some relief with daily use. ADR: upset stomach/ nausea if used more than once daily Other things tried: - Patches; no relief - Gabapentin 100mg daily - ADR of dizziness and diarrhea; refuses to take - Meloxicam 15mg; not as effective as naproxen per patient. - Ketorolac prescribed in past but patient did not use. Assessment & Plan (03/13/2023 5:58 PM EDT): Assessment: - Pain is uncontrolled and patient factor for medication adherence Recommendation: - Referral to pain management - May consider switching to lyrica as patient refuses gabapentin due to side effects - Alleged drug diversion/ utox as needed Education: - Maximum daily dose of acetaminophen is 4000 mg. When taking Percocet / do not take more than prescribed 500mg APAP caplets. Osteoarthrosis of knee 02/14/2023 Assessment & Plan (02/16/2023 11:17 AM EDT): Has been evaluated by Specialist and tried Physical Therapy -currently taking: Tylenol, Meloxicam and Gabapentin but reports side-effects from gabapentin. -reports drowsiness with gabapentin use, advised to Discontinue medication Health care maintenance 02/14/2023 Overview (04/10/2023): Pharmacotherapy- updated 04/10/2023 OTC: - Garlic - Loratadine 10mg daily (per pt takes every day says allergy test result said she has an allergy to a tiny insect?) History: - Much improved adherence with medboxes and reports satisfaction Assessment & Plan (04/10/2023 3:09 PM EDT): Assessment: - No medication related problems Assessment & Plan (03/13/2023 5:22 PM EDT): Assessment: - Medication Adherence is at goal of >90%; however; patient reports she doesn't take the medications even though she picks-up the medications on time. As a result; she has accrued many bottles of medications at home. Plan: - Start Medboxes for adherence help - Extra medications to be discarded today Obesity 02/14/2023 History of uterine fibroid 02/14/2023 COPD (chronic obstructive pulmonary disease) 10/2022 Overview (03/13/2023): Pharmacotherapy: - Symbicort 2 puffs BID - patient taking TID and as a rescue inhaler - Ventolin HFA 2 puffs PRN - patient taking daily at night - Albuterol for nebulizer - taking every other week History: Episode frequency: Uses Rescue Inhaler (inadvertently using symbicort as rescue) 2-3 times/ week; Uses nebulizer every other week. The problem has been unchanged. Her symptoms are aggravated by climbing stairs, any activity and animal exposure (candie has 15 cats). Her symptoms are alleviated by beta-agonist. Risk factors for lung disease include smoking/tobacco exposure. Assessment & Plan (04/10/2023 3:02 PM EDT): Assessment: - Uses rescue inhaler 1x/ week Recommendations: - May add LAMA; but seems to be be doing better now that symbicort is taken daily. Assessment & Plan (03/13/2023 5:56 PM EDT): Assessment: - Asthma/COPD is not at goal per GOLD guidelines. Recommendation: - Addition of LAMA such as spiriva 1 puff daily for additional respiratory control Education: - Discussed benefits of quitting smoking - Use Ventolin for rescue inhaler and use Symbicort scheduled 2 puffs twice daily Moderate persistent asthma 04/26/2017 Essential hypertension 08/11/2015 Overview (03/13/2023): Pharmacotherapy: - Amlodipine 10 mg daily (AM) - Lisinopril 40 mg daily (AM) - Hydralazine 10 mg BID - Chlorthalidone 25mg daily (AM) - Carvedilol 25mg BID (AM) + (3PM) History: Associated symptoms include anxiety and palpitations. The current treatment provides mild improvement. Compliance problems: adherence is a known issue. Assessment & Plan (03/13/2023 5:04 PM EDT): Assessment: - BP is not at goal of less than 140/90 per JNC8 guidelines Recommendation: - Patient is on quadruple therapy; problem likely to be better controlled with adherence - Next steps include increasing hydralazine to 10mg TID or addition of spironolactone Education: - Monitor for palpitations/ may be aggravated by use of rescue inhaler/ symbicort Assessment & Plan (02/16/2023 2:19 PM EDT): Goal BP < 140/90 per JNC, <130/80 per ACC/AHA -BP not at goal -continue currently prescribed medications: Carvedilol; amlodipine; chlorthalidone; lisinopril; furosemide -Add Hydralazine 10 mg BID -Pt had Sleep Study in 2020, no JUANCARLOS noted -continue low-sodium diet -continue working on lifestyle modifications -follow-up with PCP as scheduled Pt attributes elevated BP to chronic pain Assessment & Plan (01/05/2023 6:45 PM EDT): Educated pt to continue medications ED precautions: chest pain, SOB, unilateral weakness, facial droop, headache. RTC if BP still elevated 140/90 F/u with PCP PRN Assessment & Plan (12/28/2022 5:26 PM EDT): 156/92 before leaving. Patient is to monitor BP twice a day and return in two weeks for HTN. ECG: normal sinus rhythm no ST changes Referring patient to cardiology. Ed precautions advised Migraine 10/11/2013 Overview (03/13/2023): Pharmacotherapy: - APAP 500 mg caplets PRN History: - Reports frequent and recurrent migraines; has not tried anything besides APAP for relief Assessment & Plan (04/10/2023 3:04 PM EDT): Assessment: - No medication related problems Recommendations: - Refer to PCP for further assessment. Assessment & Plan (03/13/2023 5:57 PM EDT): Recommendations: - Refer to PCP for further evaluation Education: - It is not recommended to take more than 4000 mg of tylenol in a day Gastritis 12/15/2011 Overview (03/13/2023): Pharmacotherapy: - Omeprazole 20mg daily (AM) Resolved Problems Problem Noted Date Diagnosed Date Resolved Date Cervical paraspinal muscle spasm 01/13/2023 02/14/2023 Assessment & Plan (01/13/2023 1:44 PM EDT): Has torticollis today, didn't improve with flexeril DC flexeril and use Diazepam 1-2mg po bid + Tylenol x 2-3d only. Cautioned to NOT taking them with oxycodone due to potential interaction and fatal overdose, resp arrest, she understood. Apply heat to affected area and fu w PCP if sxs do not improve within 3d Alleged drug diversion 01/05/202309/04 Overview (01/05/2023): Concern for opiate misuse Per verbal report from PCP, pt is to no longer receive Rx for Percocet. Pt had Neg UTOX X 3 11/29/22, 08/25/22 @ 06/07/22. Per PCP, pt will not require taper since medication is not in her system. [employer] [facility] appt scheduled 01/19/23 has been cancelled d/t no longer on Opiate. TC via P/I#[id number], no answer. L/M requesting she call back regarding her urine results and PCP plan. Chest pain 12/28/2022 02/14/2023 Assessment & Plan (12/28/2022 5:27 PM EDT): 156/92 before leaving. Patient is to monitor BP twice a day and return in two weeks for HTN. ECG: normal sinus rhythm no ST changes Referring patient to cardiology. Ed precautions advised Colitis 05/23/2022 02/14/2023 Hypertensive disorder 05/23/20222022 Low back pain radiating to right leg 08/21/2018 02/14/2023 Assessment & Plan (12/28/2022 5:22 PM EDT): I layed patient down to perform straight leg raise patient was unable to tolerate straightening her legs out at all. I instructed Shira that I could not prescribe her any opioids and that she would need to speak with her PCP about that. I offered her NSAIDS and muscle relaxer's. She refused and stated they don't do anything . She informed me that she has tried everything. We discussed how she had drug screenings that came back negative for opioids and that is why her percocet prescription was stopped. Chronic back pain 05/15/2018 02/14/2023 Overview (01/05/2023): Percocet discontinued by PCP per [facility] policies Concern for Misuse Chronic pain continuing. Treating with Cymbalta 30 mg, Gabapentin 100 mg daily IM toradol at ED, cyclobenzaprine Rx by ED Pain is affecting pt mood Assessment & Plan (01/05/2023 6:39 PM EDT): Reviewed PCP plan for discontinuing Percocet with patient. No taper needed since utox was negative 3 separate times Reviewed clinic policies and that I would not prescribe controlled substances for chronic pain Pt experiencing increased emotional distress during visit. Offered services, pt declined. Offered crisis phone number and encouraged to call if she develops any further suicidal ideation Offered referral to pain management, pt declined Will increase cymbalta dose to 60 mg daily. Educated on Side effects. Rx Voltaren gel and Lidocaine patches F/u PRN H. pylori infection 04/25/2016 03/13/20 23 Helicobacter pylori antibody positive 02/17/2016 02/14/2023 Knee pain 10/11/2013 02/14/2023 Mass of urinary bladder 04/23/201310/2022 Chronic urinary tract infection 02/08/2012 02/14/2023 Anxiety 11/11/2011 02/14/2023 Asthma 11/11/2011 02/14/2023 Kidney stone 11/11/2011 02/14/2023 Major depressive disorder 05/25/2004 Assessment & Plan (12/19/2022 1:37 PM EDT): Assessment: Shira was engaged with active reflective listening and open-ended questions. Assessed symptoms, risks, and social supports with direct questions. Discussed current symptoms intensity and frequency. Emotions were normalized and validated. She was not able to identified any coping skills at this time, but she identify her family as protective factors. Provided psychoeducation around Pain Management and encouraged her to discussed with PCP. She was connected with [facility] and has upcoming with them for OP services. Provided Crisis number for her to call in the event of an emergency. Provided education around integrated medicine and the options of follow up BE's as needed. Provided contact information should questions or concerns arise. Plan: Shira will contact [facility] in the event of an emergency. She will keep her appt with [facility] for MH services and will discussed with Dr. Cifuentes her options during her appt on 01/03/23. Patient with pain all the time, that she has not motivation to get off bed, unable to ambulate, reported lack of energy, feeling like a burden to her family, frustration, crying spells, poor appetite, forgetfulness and trouble with concentration. She denies SI, HI, AVH or self-harm. (Lives with and her son, has chronic conditions that impact her ADLs and IADLs. Patient will benefit from keeping her appt with [facility] for MH services. At this time Shira Molina meets criteria for Visit Diagnoses: Problem List Items Addressed This Visit Other Major depressive disorder Patient ready to address current needs Yes Strengths include support from her family PLAN: 1. Follow up with [facility]: Not recommended for follow-up 2. Patient goal is to engage in MH services and to get treatment for pain 3. Behavioral Recommendations a. Ind. Therapy with [facility] b. Keeping her appt with PCP c. IB support as needed d. Crisis number for emergency Assessment & Plan (12/09/2022 9:53 AM EDT): Assessment: Patient with with anhedonia, depressed mood, trouble falling asleep, fatigue, poor appetite, feeling useless/like a burden, and trouble concentration. She denies SI/HI. Presentation in the context of stress related to her 's son behaviors. Patient will benefit from outpatient therapy. Patient reports she is being prescribed medication thru her PCP. Clinician educated patient on techniques to utilize: progressive muscle relaxation, deep breathing, grounding, and mindfulness. At this time Shira Molina meets criteria for Visit Diagnoses: Problem List Items Addressed This Visit Other Major depressive disorder Patient ready to address current needs Yes Strengths include motivation to seek help PLAN: 1. Follow up with [facility]: Not recommended for follow-up 2. Patient goal is to engage in OP therapy service 3. Behavioral Recommendations a. Patient will comply with medication b. Patient will engage in OP therapy, once established c. Patient will utilize coping techniques discussed d. Patient will reach out to [facility], if needed Encounters Date Type Department Care Team Description 08/19/2024 Refill [facility] [address] [place] [address] Apurva Gallegos MD Chronic pain syndrome 08/19/2024 Refill [facility] [address] [place] [address] Catrina Samuel ANP Class 2 obesity due to excess calories with body mass index (BMI) of 36.0 to 36.9 in adult, unspecified whether serious comorbidity present 08/08/2024 Refill [facility] [address], [place] [phone] Apurva Gallegos MD 07/23/2024 Orders Only [facility] [address], [place] [phone] Catrina Samuel ANP Class 2 obesity due to excess calories with body mass index (BMI) of 36.0 to 36.9 in adult, unspecified whether serious comorbidity present (Primary Dx) 07/23/2024 Refill [facility] [address], [place] [phone] Catrina Samuel ANP Class 2 obesity due to excess calories with body mass index (BMI) of 36.0 to 36.9 in adult, unspecified whether serious comorbidity present 07/22/2024 Refill [facility] [address], [place] [phone] Niyah Scott MD Chronic pain syndrome 07/16/2024 Refill [facility] [address], [place] [phone] Apruva Gallegos MD Asthma, unspecified asthma severity, unspecified whether complicated, unspecified whether persistent 07/15/2024 Refill [facility] [address] [place] [address] Niyah Scott MD Essential hypertension 07/11/2024 3:00 PM EST Clinical Support [facility] [address] [place] [address] Katia De Jesus, VADIM Osteoporosis, unspecified osteoporosis type, unspecified pathological fracture presence 07/11/2024 Travel 07/11/2024 Telephone [facility] [address] [place] [address] Katia De Jesus, VADIM 07/04/2024 Telephone [facility] [address] [place] [address] Catrina Samuel ANP No Show (Pt no show to sick on site for scheduled per catrina. gerd w/ no relief from PPIs on 07/04/2024. No show forward to green team nurses. ) 07/04/2024 Outside Procedure [facility] [address] [place] [address] Keren Ellsworth, OD Presbyopia (Primary Dx) 07/02/2024 1:30 PM EST Office Visit [facility] [address] [place] [address] Keren Ellsworth, OD Hyperopia of both eyes (Primary Dx) 06/25/2024 Telephone [facility] [address] [place] [phone] Betzaida Plasencia, PharmD 06/25/2024 Refill [facility] [address] [place] [address] Niyah Scott MD Chronic pain syndrome 06/24/2024 Telephone [facility] [address] [place] [address] Niyah Scott MD Prior Authorization ([place] ) 06/21/2024 Telephone [facility] [address] [place] [phone] Akila Mckeon, RN Results 06/20/2024 Orders Only [facility] [address] [place] [phone] Niyah De León MD 06/20/2024 Refill [facility] [address] [place] [address] Niyah Scott MD Essential hypertension; Situational stress; Essential hypertension 06/18/2024 Refill [facility] [address] [place] [address] Name, MD Humble Hypertension, unspecified type 06/17/2024 Orders Only GENERIC EXTERNAL DATA DEPARTMENT Provider, Generic External Data 2024 10:30 AM EST Office Visit [facility] [address] [place] [address] Alejandrina De La Paz, DDS Full coverage crown needed for root canal-treated tooth (Primary Dx) 05/28/2024 Refill [facility] [address] [place] [address] Niyah Scott MD Chronic pain syndrome 05/22/2024 10:30 AM EST Telemedicine [facility] [address] [place] [address] Katia De Jesus, VADIM Lumbar radiculopathy 05/22/2024 Refill [facility] [address] [place] [address] Niyah Scott MD Asthma, unspecified asthma severity, unspecified whether complicated, unspecified whether persistent 05/22/2024 Travel from Last 3 Months Immunizations Name Administration Dates Next Due Influenza injectable quadriv alent IIV4 with preservative 03/07/2018,04/26/2017,03/29/2016 Influenza injectable quadriv alent preservative free 03/08/2023,03/12/2021,03/05/2019 Influenza, IIV3, injectable 02/18/2014, 8 Influenza, seasonal, injecta ble, preservative free 06/30/2012 Pneumococcal Conjugate PCV 20 03/08/2023 Pneumococcal Polysaccharide PPSV23 06/30/2012, TD (adult), 2 Lf tetanus tox oid, preservative free, adsorbed 02/10/2023,05/01/2008 Tdap 05/17/2013 Zoster, Recombinant 02/10/2023,04/13/2021 Family History Medical History Relation Name Comments Lupus Brother Schizophrenia Brother DM2 Daughter Heart attack Father DM2 Mother Khushboo Depression Mother Khushboo Diabetes Mother Khushboo 2nd brother gastric ca Mother's Brother Colon cancer Mother's Brother niece : schizophrenia Other Lupus Sister 1 Hypertension Sister 2 Ada Relation Name Status Comments Brother Daughter Father Mother Khushboo Mother's Brother Other Sister 1 Sister 2 Ada Social History Tobacco Use Types Packs/Day Years Used Date Smoking Tobacco: Some Days Cigarettes Passive Smoke Exposure: Past Smokeless Tobacco: Never Comments:Started at her 27 y ears until now , smokes 1 cig twice a week ,smoking for 30 years. PQT a year 6 Alcohol Use Standard Drinks/Week Comments Never 0 (1 standard drink = 0.6 oz pur e alcohol) Depression Answer Date Recorded Patient Health Questionnaire-9 Score 11 04/04/2024 Patient Health Questionnaire-9 Score 11 04/04/2024 Last PHQ-9: Questionnaire Data Not on file 1 Housing Stability Answer Date Recorded What is your housing situation today? I have stephane malloy 03/29/[address] you li ve. Do you have problems with any of the following? None of the above 03/29/2023 Food Insecurity Answer Date Recorded Within the past 12 months, y ou worried that your food would run out before you got money to buy more: Never True 03/29/2023 Within the past 12 months,th e food you bought just didn't last and you didn't have enough money to get more: Never True Transportation Answer Date Recorded In the past 12 months, has l ack of transportation kept you from medical appts, meetings, work or from getting things needed for daily living? No 03/29/2023 Utilities Answer Date Recorded In the past 12 months, has t he electric, gas, oil or water company threatened to shut off services in your home? No 03/29/2023 Depression Answer Date Recorded Patient Health Questionnaire-2 Score 4 04/04/2024 Comments No Sex and Gender Information Value Date Recorded Sex Assigned at Female 04/11/2022 10:17 AM EDT Legal Sex Female 10:17 AM EDT Gender Identity Female 04/11/2022 10:17 AM EDT Sexual Orientation Straight 04/11/2022 10 :17 AM EDT Last Filed Vital Signs Vital Sign Reading Time Taken Comments Blood Pressure 118/70 05/17/2024 8:13 AM EST Pulse 66 04/04/2024 2:20 PM EDT Temperature 36.3 ??C (97.3 ??F) 04/04/2024 2:20 PM ED T Respiratory Rate 20 04/04/2024 2:20 PM EDT Oxygen Saturation 97% 04/04/2024 2:20 PM EDT Inhaled Oxygen Concentration - - Weight 89.6 kg (197 lb 9.6 oz) 04/04/2024 2:20 P M EDT Height 167.6 cm (5' 6 ) 04/04/2024 2:20 PM EDT Body Mass Index 31.89 04/04/2024 2:20 PM EDT Plan of Treatment Upcoming Encounters Date Type Department Care Team (Late st Contact Info) Description 09/16/2024 11:00 AM EDT Telemedicine [facility] [address] [place] [address] Katia De Jesus, VADIM [address] [place] [address] 09/17/2024 9:00 AM EDT Office Visit [facility] [address] [place] [address] Iona Mae Health Maintenance Due Date Last Done Comments CT Colonography 1966 FIT DNA/Cologuard 1965 FIT 1965 FOBT 1965 Sigmoidoscopy 1966 Alcohol/Substance Use Screening 1978 Hepatitis B Vaccines (1 of 3 - 19+ 3-dose series) 1985 COVID-19 Vaccine ( season) 2024 06/09/2021, 11/12/2020, 10/15/2020 Influenza Vaccine (#1) 2024 3, 03/12/2021, 03/05/2019, Additional history exists SDOH Screening 02/11/2024 02/10/2023 Dental Oral Exam 04/28/2024 10/26/2023, , 04/28/2015 Dental Prophylaxis 04/28/2024 10/26/2023, 0 11/05/2015, 04/16/2008 Depression Monitoring (PHQ-9) 10/03/2024 04/04/2024, 04/04/2024 Depression Screening 04/04/2025 04/04/2024, 04/04/20 Tobacco Screening 05/20/2025 05/20/2024 Dental X-Ray: Bitewings 06/01/2025 05/31/20 24, 10/26/2023, 11/05/2015, Additional history exists Diabetes: Hemoglobin A1C 06/20/2025 025, 08/12/2023, 02/14/2023, Additional history exists Mammogram 02/28/2026 02/29/2024, 02/10, 03/22/2022, Additional history exists Dental X-Ray: Full Mouth 10/26/2026 10/26/2023, 04/12 Colonoscopy 02/01/2027 02/01/2017 Colorectal Cancer Screening 02/01/2027 Cervical Cancer Screening 05/18/2028 HPV/Cotest 05/18/2028 01/24/2019 Pap Smear 05/18/2028 05/18/2023, 01/24/2019 Lipid Panel 06/20/2029 06/20/2024, 0307/2023, 02/14/2023, Additional history exists DTaP/Tdap/Td Vaccines (3 - Td or Tdap) 02/10/2033 02/10/2023, 05/17/2013, 05/01/2008 RSV Patients and Patients Aged 60 years or older (1 - 1-dose 75+ series) 2041 Zoster Vaccines Completed 02/10/2023, 04/13/2021 Pneumococcal Vaccine: 50+ Years Completed 03/08/2023, 06/30/2012, 07/18/2005 HIV Screening Completed 06/20/2024, 03/0 07/2023, 05/18/2023, Additional history exists Hepatitis C Screening Completed 06/20/2024 , 08/12/2023, 02/14/2023 HIB Vaccines Aged Out No longer eligi ble based on patient's age to complete this topic HPV Vaccines Aged Out No longer eligi ble based on patient's age to complete this topic Hepatitis A Vaccines Aged Out No long er eligible based on patient's age to complete this topic IPV Vaccines Aged Out No longer eligi ble based on patient's age to complete this topic Meningococcal Vaccine Aged Out No rocio miguel eligible based on patient's age to complete this topic RSV under 20 months Aged Out No longe r eligible based on patient's age to complete this topic Rotavirus Vaccines Aged Out No longer eligible based on patient's age to complete this topic Goals Goal Patient Goal Type Associated Problems Recent Progress Patient-Stated? Author Help patient stop using tobacco General Tobacco dependence Not on track(03/13/20 23 5:32 PM EDT) No Oliver Boothe PharmD Procedures Procedure Name Priority Date/Time Associated Diagnosis Comments POCT MADYSON-14 URINE DRUG SCREEN Routine 07/11/2024 2:44 PM EST Osteoporosis, unspecified osteoporosis type, unspecified pathological fracture presence VITAMIN B12/FOLATE, SERUM PANEL Routine 06/20/2024 8:59 AM EST Annual physical exam VITAMIN D,25-OH,TOTAL,IA Routine 06/20/2024 8:59 AM EST Annual physical exam TSH W/REFLEX TO FT4 Routine 06/20/2024 8 :59 AM EST Annual physical exam LIPID PANEL, STANDARD Routine 06/20/2024 8:59 AM EST Annual physical exam SYPHILIS SCREEN Routine 06/20/2024 8:59 AM EST Annual physical exam HIV 1/2 ANTIGEN/ANTIBODY, FOURTH GENERATION W/RFL Routine 06/20/2024 8:59 AM EST Annual physical exam HEPATITIS C AB W/REFL TO HCV RNA, QN, PCR Routine 06/20/2024 8:59 AM EST Annual physical exam HEPATITIS B SURFACE ANTIGEN, EIA Routine 06/20/2024 8:59 AM EST Annual physical exam HEPATITIS B SURFACE ANTIBODY, QUALITATIVE Routine 06/20/2024 8:59 AM EST Annual physical exam HEPATITIS B CORE AB TOTAL Routine 06/20/2024 8:59 AM EST Annual physical exam HEMOGLOBIN A1C Routine 06/20/2024 8:59 AM EST Annual physical exam COMPREHENSIVE METABOLIC PANEL Routine 06/20/2024 8:59 AM EST Annual physical exam CBC Routine 06/20/2024 8:59 AM EST Annual physical exam ALBUMIN, RANDOM URINE W/CREATININE Routine 06/20/2024 8:59 AM EST Annual physical exam CHLAMYDIA/N. GONORRHOEAE RNA, TMA, UROGENITAL Routine 06/17/2024 3:00 PM EST BACTERIAL VAGINOSIS PANEL Routine 06/17/2024 12:00 AM EST CASE PRESENTATION, DETAILED AND EXTENSIVE TREATMENT PLANNING Routine 2024 10:30 AM EST Full coverage crown needed for root canal-treated tooth BITEWING - SINGLE RADIOGRAPHIC IMAGE Routine 2024 10:30 AM EST Full coverage crown needed for root canal-treated tooth 15 CROWN - PORCELAIN/CERAMIC Routine 2024 10:30 AM EST Full coverage crown needed for root canal-treated tooth BI MAMMOGRAM SCREENING TOMOSYNTHESIS BILATERAL Routine 02/29/2024 10:30 AM EDT PROPHYLAXIS - ADULT Routine 10/26/2023 9 :00 AM EDT Dental plaque Subgingival dental calculus Dental calculus INTRAORAL - COMPLETE SERIES OF RADIOGRAPHIC IMAGES Routine 10/26/2023 9:00 AM EDT PERIODIC ORAL EVALUATION - ESTABLISHED PATIENT Routine 10/26/2023 9:00 AM EDT PAP SMEAR Routine 05/18/2023 ZZZ HISTORICAL HPV MRNA E6/E7 Routine 01/24/2019 9:32 AM EDT HM COLONOSCOPY Routine 02/01/2017 2:34 PM EDT from Last 3 Months or Most Recently Relevant to Health Maintenance Results * POCT MADYSON-14 Urine Drug Screen (07/11/2024 2:44 PM EST) Oxycodone Screen, Urine Positive Urine Urine specimen obtained by clean catch procedure / Unknown 07/11/2024 2:44 PM EST Narrative Katia De Jesus RN - 07/11/2024 2:44 PM EST Lot# [id number] Exp: 05-18-25 us Niyah Ruano MD POINT OF CARE BRUCE T ENTER/EDIT ORDERABLES Final Result * Syphilis Screen (06/20/2024 8:59 AM EST) Syphilis Screen Nonreactive Nonreactive [facility] Blood 06/20/2024 8:59 AM EST 06/20/2024 11:28 AM EST us Niyah Ruano MD LAB BLOOD ORDERAB LES Final Result Performing Organization Address City/State/[facility] Co de Phone Number [facility] [address] [place] [phone] * Vitamin D, 25-Hydroxy, Total, Immunoassay (06/20/2024 8:59 AM EST) Vitamin D 25-OH Total 71.2 >30 ng/mL [facility] Comment:Health Based Referen ce Values*< 20 ng/mL Ctrqmiymq18-04 ng/mL Insufficient> 30 ng/mL Sufficient*Rudy PIEDRA. N Engl J Med. 2007;357:266-280Care must be taken in interpreting Vitamin D results fromdifferent laboratories and methodologies. Published datademonstrated that results from patients undergoinghemodialysis may show a negative bias when tested withvarious automated 25-OH vitamin D assays when compared toLC-MS/MS.When testing samples from patients whose predominant form ofVitamin D is Vitamin D2, such as patients receiving VitaminD2 supplementation, results that are subtherapeutic shouldbe confirmed with another method such as LC-MS/MS. Blood Venous blood specimen / Unknown 06/20/2024 8:59 AM EST 06/20/2024 11:28 AM EST us Niyah Ruano MD LAB BLOOD ORDERAB LES Final Result Performing Organization Address [facility] Co de Phone Number [facility] [address] [place] [phone] * Vitamin B12 (Cobalamin) and Folate Panel, Serum (06/20/2024 8:59 AM EST) Vitamin B12 564 200 - 900 pg/mL [facility] Comment:NORMAL 200-900 PG/ML INDETERMINATE 160-199 PG/ML DEFICIENT < 160 PG/ML Folate 12.0 > or = 4.0 ng/mL [facility] Comment:Reference Values:> o r = 4.0 ng/mL< 4.0 ng/mL suggests folate deficiency Methotrexate, aminopterin and folinic acid(leucovorin) are chemotherapeutic agents whose molecularstructures are similar to folate; therefore, the Architectfolate assay cannot be used for patients using these drugs. Blood 06/20/2024 8:59 AM EST 06/20/2024 11:28 AM EST us Niyah Ruano MD LAB BLOOD ORDERAB LES Final Result Performing Organization Address [facility] Co de Phone Number [facility] [address] [place] [address] [phone] * TSH with Reflex to Free T4 (06/20/2024 8:59 AM EST) TSH reflex Free T4 3.78 0.32 - 4.0 uIU/mL [facility] Blood 06/20/2024 8:59 AM EST 06/20/2024 11:28 AM EST us Niyah Ruano MD LAB BLOOD ORDERAB LES Final Result Performing Organization Address [facility] Co de Phone Number [facility] [address] [place] [phone] * Albumin, Random Urine W/Creatinine (06/20/2024 8:59 AM EST) Pathologist [facility] Creatinine, Urine 280.16 mg/dL [facility] Microalbumin Urine 10.0 mg/L [facility] Microalbum Creatinine Ratio Ur 3.5 <30 ug/mg cr [facility] Comment:Albumin/Creatinine R atio Reference Ranges: Normal: < 30 ug/mg creatinine Microalbuminuria: 30 - 300 ug/mg creatinineClinical Albuminuria: > 300 ug/mg creatinine Urine (Urine, Random) 06/20/2024 8:59 AM EST 06/20/2024 11:21 AM EST us Niyah Ruano MD LAB URINE ORDERAB LES Final Result Performing Organization Address [facility] Co de Phone Number [facility] [address] [place] [phone] * Hepatitis C Antibody with Reflex to HCV, RNA, Quantitative, Real-Time PCR (06/20/2024 8:59 AM EST) Pathologist [facility] Hepatitis C Antibody Nonreactive Nonreactive [facility] Comment:Antibodies to HCV no t detected; does not exclude early acuteHCV infection. Blood Venous blood specimen / Unknown 06/20/2024 8:59 AM EST 06/20/2024 11:28 AM EST us Niyah Ruano MD LAB BLOOD ORDERAB LES Final Result Performing Organization Address [facility] Co de Phone Number [facility] [address] [place] [phone] * Hepatitis B surface antigen, EIA (06/20/2024 8:59 AM EST) Hepatitis B Surface Ag Negative Negative [facility] Blood Venous blood specimen / Unknown 06/20/2024 8:59 AM EST 06/20/2024 11:28 AM EST Niyah Ruano MD LAB BLOOD ORDERAB LES Final Result Performing Organization Address [facility]/ZIP Co de Phone Number [facility] [address] [place] [phone] * Hepatitis B Core Antibody, Total (06/20/2024 8:59 AM EST) Hepatitis B Core Antibody Nonreactive Nonreactive [facility] Blood Venous blood specimen / Unknown 06/20/2024 8:59 AM EST 06/20/2024 11:28 AM EST Niyah Ruano MD LAB BLOOD ORDERAB LES Final Result Performing Organization Address [facility] Co de Phone Number [facility] [address] [place] [phone] * HIV-1/2 Antigen and Antibodies, Fourth Generation, with Reflexes (06/20/2024 8:59 AM EST) HIV AB/AG Nonreactive Nonreactive [facility] Comment:HIV-1 p24 Ag and/or HIV-1/HIV-2 Ab not detected.A test result that is nonreactive does not exclude thepossibility of exposure to or infection with HIV-1 and/orHIV-2. Nonreactive results in this assay for individualswith prior exposure to HIV-1 and/or HIV-2 may be due toantigen and antibody levels that are below the limit ofdetection of this assay.The [employer] HIV Ag/Ab Combo assay result andsupplemental assay results should be interpreted inconjunction with the patient's clinical presentation,history and other laboratory results. If the results areinconsistent with clinical evidence, additional testing issuggested to confirm the result. Blood Venous blood specimen / Unknown 06/20/2024 8:59 AM EST 06/20/2024 11:28 AM EST Niyah Ruano MD LAB BLOOD ORDERAB LES Final Result Performing Organization Address [facility] Co de Phone Number [facility] [address] [place] [phone] * Hepatitis B Surface Antibody, Qualitative (06/20/2024 8:59 AM EST) Pathologist [facility] ~Hepatitis B Surface Antibody NONREACTIVE Nonreactive [facility] Comment:Nonreactive: < 8.00 mIU/mL Blood Venous blood specimen / Unknown 06/20/2024 8:59 AM EST 06/20/2024 11:28 AM EST us Niyah Ruano MD LAB BLOOD ORDERAB LES Final Result Performing Organization Address [facility] Phone Number [facility] [address] [place] [address] [phone] * CBC (06/20/2024 8:59 AM EST) [facility] White Blood Count 8.9 4.8 - 10.8 X10*3/uL [facility] Red Blood Count 4.95 4.20 - 5.50 X10*6/uL [facility] Hemoglobin 15.1 12.0 - 16.0 g/dl [facility] Hematocrit 44.9 37.0 - 47.0 % [facility] Mean Corpuscular Volume 90.7 80.0 - 98.0 fL [facility] Mean Corpuscular Hemoglobin 30.5 27.0 - 33.0 pg [facility] Mean Corpuscular HGB Conc 33.6 31.0 - 35.0 g/dl [facility] Red Cell Distribution Width 13.2 11.0 - 16.0 % [facility] Platelet Count 257 160 - 400 X10*3/uL [facility] Mean Platelet Volume 10.0 9.4 - 12.3 fL [facility] NRBC Pct Auto 0.0 0.0 - 0.2 /100WBC [facility] NRBC Abs Auto 0.000 0.0 - 0.012 X10*3/uL [facility] Blood Venous blood specimen / Unknown 06/20/2024 8:59 AM EST 06/20/2024 11:28 AM EST us Niyah Ruano MD LAB BLOOD ORDERAB LES Final Result Performing Organization Address City/[facility]/ZIP Co de Phone Number [facility] [address] [place] [address] [phone] * Hemoglobin A1c (06/20/2024 8:59 AM EST) Hemoglobin A1c 5.3 <6.0 % [facility] Comment:Hemoglobin A1C Refer ence Range Adults: 4.8 - 6.0 % Non diabetic: < 6.0 % Goal: < 7.0 %Additional Action Suggested: > 8.0 %Note: Hemoglobin A1c results are invalid for patients with abnormal amounts of HbF. Blood transfusions may impact the HbA1c concentration in the patient sample. Estimated Average Glucose 105 mg/dL [facility] Comment:eAG = Estimated ave rage glucose which is %A1C expressed asaverage glucose, using the formula of the D7Q-WdlumuzBsomqiy Glucose study (ADAG), Diabetes Care, Vol.31,#8,2007 Blood Venous blood specimen / Unknown 06/20/2024 8:59 AM EST 06/20/2024 11:28 AM EST us Niyah Ruano MD LAB BLOOD ORDERAB LES Final Result Performing Organization Address City/[facility]/ZIP Co de Phone Number [facility] [address] [place] [address] [phone] * (ABNORMAL) Lipid Panel, Standard (06/20/2024 8:59 AM EST) Triglycerides 119 <150 mg/dL [facility] Comment:Desirable Triglyceri de: less than 150 mg/dLBorderline High Triglyceride 150-199 mg/dLHigh Triglyceride: 200-499 mg/dLVery High Triglyceride: greater than or equal to 5OO mg/dL Cholesterol 208(H) <200 mg/dL [facility] Comment:Desirable Cholestero l: less than 200 mg/dLBorderline High Cholesterol: 200-239 mg/dLHigh Cholesterol: greater than 239 mg/dL LDL Cholesterol Calculated 123(H) <100 mg/dL [facility] Comment:Desirable LDL: less than 100 mg/dLNear Optimal/Above Optimal LDL: 110- 129 mg/dLBorderline High LDL: 130-159 mg/dLHigh LDL: 160-189 mg/dLVery High LDL: greater than or equal to 190 mg/dL HDL Cholesterol 62 >40 mg/dL [facility] Comment:Desirable HDL: great er than 40 mg/dL Note: This HDL assay may give artificially low results in patients with liver disease. Blood Venous blood specimen / Unknown 06/20/2024 8:59 AM EST 06/20/2024 11:28 AM EST us Niyah Ruano MD LAB BLOOD ORDERAB LES Final Result [facility] [address] [place] [address] [phone] * (ABNORMAL) Comprehensive Metabolic Panel (06/20/2024 8:59 AM EST) Sodium 141 135 - 145 mmol/L [facility] Potassium 3.8 3.3 - 5.1 mmol/L [facility] Chloride 104 96 - 108 mmol/L [facility] Carbon Dioxide 29 22 - 29 mmol/L [facility] Anion Gap 12 12 - 20 [facility] Urea Nitrogen (BUN) 12 9 - 16 mg/dL [facility] Creatinine, Serum 0.80 0.5 - 1.4 mg/dL [facility] Estimated Glomerular Filt Rate >60 [facility] Comment:Chronic Kidney Disea se: Estimated GFR < 60 mL/min/1.01m0Wctlas Kidney Disease: Estimated GFR < 15 mL/min/1.73m2 Glucose 95 60 - 115 mg/dL [facility] Calcium 9.6 8.4 - 10.2 mg/dL [facility] Bilirubin, Total 1.1(H) 0.0 - 1.0 mg/dL [facility] Aspartate Amino Transferase 24 5 - 31 U/L [facility] Alanine Aminotransferase 19 0 - 31 U/L [facility] Total Protein 7.9 6.5 - 8.0 g/dL [facility] Albumin Level 4.3 3.5 - 5.0 g/dL [facility] Alkaline Phosphatase 71 39 - 117 U/L [facility] Blood Venous blood specimen / Unknown 06/20/2024 8:59 AM EST 06/20/2024 11:28 AM EST Niyah Rauno MD LAB BLOOD ORDERAB LES Final Result [facility] [address] [place] [address] [phone] * Chlamydia/N. Gonorrhoeae RNA, TMA, Urogenitial (06/17/2024 3:00 PM EST) CT PCR NOT DETECTED Not Detect. [facility] Comment:A not detected test result does not exclude the possibilityof infection because test results can be affected byimproper specimen collection, concurrent antibiotic therapy,or the number of organisms in the specimen which may bebelow the sensitivity of the test. As with many diagnostictests, results from the Xpert CT/NG assay should beinterpreted in conjunction with other laboratory andclinical data available to the clinician.Xpert CT/NG performance has not been evaluated in patientsless than 14 years of age. The assay should not be used forthe evaluationof suspected sexual abuse or for other medico-legalindications. Additional testing is recommended in anycircumstance when false positive or false negative resultscould lead to adverse medical, social or psychologicalconsequences. NG PCR NOT DETECTED Not Detect. [facility] Comment:A not detected test result does not exclude the possibilityof infection because test results can be affected byimproper specimen collection, concurrent antibiotic therapy,or the number of organisms in the specimen which may bebelow the sensitivity of the test. As with many diagnostictests, results from the Xpert CT/NG assay should beinterpreted in conjunction with other laboratory andclinical data available to the clinician.Xpert CT/NG performance has not been evaluated in patientsless than 14 years of age. The assay should not be used forthe evaluationof suspected sexual abuse or for other medico-legalindications. Additional testing is recommended in anycircumstance when false positive or false negative resultscould lead to adverse medical, social or psychologicalconsequences. 06/17/2024 3:00 PM EST 06/17/2024 4:12 PM EST Narrative [facility] - 06/18/2024 2:07 PM EST Vaginal us Generic External Data Provider LAB MICROBIOLOGY - GENERAL ORDERABLES Final Result [facility] [address] [place] [phone] * Bacterial Vaginosis (06/17/2024 12:00 AM EST) TRICHOMONAS VAGINALIS DETECTION BY PCR NOT DETECTED Not Detect [facility] BACTERIAL VAGINOSIS DETECTION BY PCR NEGATIVE Negative [facility] Comment:The BV organism targ ets of the Xpert Xpress MVP test can becommensal in women; Xpert Xpress MVP positive results forbacterial vaginosis should be considered in conjunction withother clinical and patient information to determine thedisease status. Organisms that are not detected by the XpertXpress MVP test have also been reported to be associatedwith BV and aerobic vaginitis.The Xpert Xpress MVP test performance has not been evaluatedin patients under the age of 14. YANY GROUP DETECTION BY PCR NOT DETECTED Not Detect [facility] Yany glab krusei PCR NOT DETECTED Not Detect [facility] 06/17/2024 06/17/2024 us Generic External Data Provider LAB MICROBIOLOGY - GENERAL ORDERABLES Final Result [facility] [address] [place] [phone] * BI Mammogram Screening Tomosynthesis Bilateral (02/29/2024 10:30 AM EDT) Anatomical Region Laterality Modality Breast Bilateral Mammography 02/29/2024 10:3 0 AM EDT Narrative 03/12/2024 7:18 PM EDT ? [facility] ? [address] ?[place] [phone] ? Mammography Report ? Signed ? Patient: MolinaShira ?MR#: [id number] ?? 0 ? : 1965 ?Acct:[id number] ? Age/Sex: 58 / F ?ADM Date: 02/29/24 ? Loc: HO.MAMMO ? Attending Dr: Niyah Ruano MD ? Ordering Physician: Niyah Scott MD ?Re ?? sults: 1Negative ? Date of Service: 02/29/24 ?Follow Up: 1 Year From Orig ?? inal Mammogram ? Procedure(s): MM tomosynthesis screening BI ?? Accession Number(s): [id number] ? cc: Niyah Scott MD ? EXAMINATION: ?? MM SCREENING DIGITAL BREAST TOMOSYNTHESIS, BILATERAL ? CLINICAL INFORMATION: ? Screening. Asymptomatic. ? COMPARISON: ?? Mammography: Comparison is made with available priors ? TECHNIQUE: ?? Digital breast mammography with tomosynthesis is performed in both the ?? craniocaudal and mediolateral oblique views along with computer-aided ?? detection (CAD). ? FINDINGS: ?? There are scattered areas of fibroglandular density (ACR BI-RADS breast ?? composition Category b). ? There are no significant masses, abnormal calcifications, or other ?? abnormalities. ? MM/MM tomosynthesis screening BI ?? IMPRESSION: ?? No mammographic evidence of malignancy. ? ASSESSMENT: ? BI-RADS BI-RADS 1 - Negative ? RECOMMENDATION: ?? Routine annual mammography screening. ? 1 year F/U ? This examination should not preclude the clinical evaluation of a ?? suspicious palpable abnormality. ? This patient's information was entered into a reminder system with a ?? target due date for their next mammogram. ? Electronically signed by: ??Tatianna Sow DO ??03/12/2024 07:15 PM EDT ? Dictated By: ?Tatianna Sow DO ? Signed By: ?<Electronically signed by Tatianna Sow, DO in OV> ? 03/12/24 1915 ? DD/ 1030 ? TD/TT: 02/29/24 1043 ? Commercial Sales Representative: ? Procedure Note Ham, Image - 03/12/2024 [facility] [address] [place] [address] [place] [address] Mammography Report Signed Patient: Valorie Molina#: [id number] 0 : 1965Acct:[id number] Age/Sex: 58 / FADM Date: 02/29/24 Loc: [facility] Attending Dr: Niyah Ruano MD Ordering Physician: Niyah Scott sults: 1Negative Date of Service: 02/29/24Follow Up: 1 Year From Orig inal Mammogram Procedure(s): MM tomosynthesis screening BI Accession Number(s): [id number] cc: Niyah Scott MD EXAMINATION: MM SCREENING DIGITAL BREAST TOMOSYNTHESIS, BILATERAL CLINICAL INFORMATION: Screening. Asymptomatic. COMPARISON: Mammography: Comparison is made with available priors TECHNIQUE: Digital breast mammography with tomosynthesis is performed in both the craniocaudal and mediolateral oblique views along with computer-aided detection (CAD). FINDINGS: There are scattered areas of fibroglandular density (ACR BI-RADS breast composition Category b). There are no significant masses, abnormal calcifications, or other abnormalities. MM/MM tomosynthesis screening BI IMPRESSION: No mammographic evidence of malignancy. ASSESSMENT: BI-RADS BI-RADS 1 - Negative RECOMMENDATION: Routine annual mammography screening. 1 year F/U This examination should not preclude the clinical evaluation of a suspicious palpable abnormality. This patient's information was entered into a reminder system with a target due date for their next mammogram. Electronically signed by: Tatianna Sow DO 03/12/2024 07:15 PM EDT Dictated By: Tatianna Sow DO Signed By: <Electronically signed by Tatianna Sow DO in OV> 03/12/24 1915 DD/ 1030 TD/TT: 02/29/24 1043 Commercial Sales Representative: Niyah Ruano MD IMG BI PROCEDURES Edited Result - Final * Pap Smear (05/18/2023) Pap Smear 1. NILM 1. NILM Comment:HPV negative Swab 05/18/2023 Historical Provider LAB CYTOLOGY ORDERABLES F inal Result * HPV mRNA E6/E7 (01/24/2019 9:32 AM EDT) HPV mRNA E6/E7 Not Detected NOT DETECTED [facility] Comment: This test was performed using the APTIMA(R) HPV Assay ([employer] This assay detects E6/E7 viral messenger RNA (mRNA) from 14 high-risk HPV types (16,18,31,33,35,39,45,51, 52,56,58,59,66,68). For additional information please refer to: http://education.YourListen.com/faq/EWX112f0 (This link is being provided for informational/ educational purposes only.) The analytical performance characteristics of this assay have been determined by [employer] [place], [place]. The modifications have not been cleared or approved by the FDA. This assay has been validated pursuant to the CLIA regulations and is used for clinical purposes. Test Performed by [email or web address] [facility] [place], [place], [address] [place] [address] Kelvin Boston M.D., Ph.D., Director of Laboratories , CLIA [id number] Please note: ??Effective 02/22/2016, HPV testing will be performed using [employer] APTIMA test which targets mRNA. Detecting mRNA instead of DNA, as in older methods, offers significant improvements in specificity. 01/24/2019 9:32 AM EDT Alix Tello CNM HISTORICAL/NON ORDERABLE LABS Final Result [facility] [address] * Colonoscopy (02/01/2017 2:34 PM EDT) Colonoscopy Normal Normal Narrative Margo Esquivel - 02/01/2017 2:34 PM EDT Recommended 10 year follow up Historical Provider MD HEALTH MAINTENANCE Final Result from Last 3 Months or Most Recently Relevant to Health Maintenance [facility] STAND ADULT Care Teams Bridges And Buildings Supervisor Relationship Specialty Start Date End Date Niyah Scott MD [address] [place] [address] PCP - General Internal Medicine 02/10/23 Zainab Hermosillo Cosmetics Machine OperatorShock Absorption Floor Layer 06/01/23
--- OUTSIDE RECORDS SUMMARY | 2024-08-20 07:42 | XMS_ITS | Encounter Summary ---
Author Organization [employer] Address [address] [place] [address] 7 [place] [address] Care Team Providers Care Alternative Medicine Practitioner Name Role Phone Niyah Scott MD Primary Care Pro vider Reason for Visit * Reason Onset Date Comments medication 07/12/2023 Encounter Details Date Type Department Care Team ([facility] st Contact Info) Description 07/12/2023 Telephone [facility] MEDICINE [address] [place], [place] [phone] Niyah Scott MD 230 [place] [address] medication Social History Tobacco Use Types Packs/Day Years [...] Answer Date Recorded Patient Health Questionnaire-9 Score 21 05/29/2023 Patient Health Questionnaire-9 Score 21 05/29/2023 Last PHQ-9: Questionnaire Data Not on file 1 07/30/2022 Housing Stability Answer Date Recorded What is [...] Answer Date Recorded Patient Health Questionnaire-2 Score 5 05/29/2023 Comments Unknown Sex and Gender Information Value Date Recorded Sex Assigned at Female 04/11/2022 10:17 AM EDT Legal Sex Female 10:17 AM EDT Gender Identity Female 04/11/2022 10:17 AM EDT Sexual Orientation Straight 04/11/2022 10 :17 AM EDT documented as of this encounter Miscellaneous Notes * Telephone Encounter - Julissa Gallardo - 07/12/2023 11:11 AM EST Tc from pt requesting Oxy refill for today pt is 9 day early and stated just 4 pills left, pt is also requesting a call back. documented in this encounter Plan of Treatment Upcoming Encounters Date Type Department Care Team ([facility] st Contact Info) Description 09/16/2024 11:00 AM EDT Telemedicine [facility] CHC MED & PEDS [address] [place] [address] Katia De Jesus, RN 505 [place] [address] 09/17/2024 9:00 AM EDT Office Visit [facility] ADULT DENTAL [address] [place] [address] Iona Mae documented as of this encounter Goals Goal Patient Goal Type Associated Problems Recent Progress Patient-Stated? Author Help patient stop using tobacco General Tobacco dependence Not on track(03/13/20 23 5:32 PM EDT) No Oliver Boothe, PharmD documented as of this encounter Visit Diagnoses Not on filedocumented in this encounter Additional Health Concerns Assessment Noted Time PHQ-9 Depression Total Score: 21 023 2:59 PM EST documented as of this encounter Care Teams Alternative Medicine Practitioner Relationship Specialty Start Date End Date Niyah Scott MD [address] [place] [address] PCP - General Internal Medicine 02/10/23 Zainab Hermosillo Water Plant Pump OperatorWhite Lead Grinder 06/01/23 documented as of this encounter
--- OUTSIDE RECORDS SUMMARY | 2024-08-20 07:42 | XMS_ITS | Encounter Summary ---
Author Organization [facility] Address [address] [facility] [facility] 7t [place] [address] Care Team Providers Care Marine Insurance Claim Examiner Name Role Phone Name, Humble NIEVES Primary Care Provider [phone] Niyah Scott MD Primary Care Pro vider Reason for Visit * Reason Onset Date Comments ER Follow-up 12/29/2022 Encounter Details Date Type Department Care Team ([facility] st Contact Info) Description 12/29/2022 Telephone [facility] MEDICINE [address] [place], [place] [phone] Name, MD Humble [address] [place] [address] ER Follow-up Social History Tobacco Use Types [...] Telephone Encounter - Julianne Carmona RN - 12/30/2022 2:51 PM EDT T/C to pt. Through WriteReader ApS id - [id number] for below message, pt. States she is doing O.k,pt. Complains about constipation, Last BM was 4 days ago, pt. Advised to come to walk in [facility] , pt. States she will go to nearest pharmacy for constipation OTC. Pt. Advised to go to nearest ED if her symptoms were to worsen or if she were to develop any dizziness, shortness of breath, difficulty breathing, chest pain, blurry vision, loss of vision, nausea, vomiting, abdominal pain, fever, chills, back pain, or any other complaints. Pt. Schedule for ED follow up on 01/05. ED summery is in pt.'s chart. Pt. Verbally agreed and understood. * Telephone Encounter - Alexsandra Becerril - 12/29/2022 10:33 AM EDT Tc from Patient calling to report ED visit on 12/29 at [facility]. Seen for back pain. Patient advised willforward to team nurse for follow up Please contact pt at [phone] (Turkish) documented in this encounter Plan of Treatment Upcoming Encounters Date Type Department Care Team ([facility] st Contact Info) Description 09/16/2024 11:00 AM EDT Telemedicine [facility] CHC MED & PEDS 505 [place] [address] Katia De Jesus, RN 505 [place] [address] 09/17/2024 9:00 AM EDT Office Visit [facility] ADULT DENTAL [address] [place] [address] Iona Mae documented as of this encounter Visit Diagnoses Not on filedocumented in this encounter Additional Health Concerns Assessment Noted Time PHQ-9 Depression Total Score: 17 12/08/ 023 2:31 PM EDT documented as of this encounter Care Teams Marine Insurance Claim Examiner Relationship Specialty Start Date End Date Name, MD Humble [address] [place] [address] PCP - General Family Medicine 08/07/15 02/09/23 Niyah Scott MD [address] [place] [address] PCP - General Internal Medicine 02/10/23 Zainab Hermosillo Jig Boring Machine Set Up OperatorMachine I Trimmer 06/01/23 documented as of this encounter
--- OUTSIDE RECORDS SUMMARY | 2024-08-20 07:43 | XMS_ITS | Encounter Summary ---
Author Organization [employer] Address [address] 7t [place] [address] Care Team Providers Care Rubber Mixer Name Role Phone Niyah Scott MD Primary Care Pro vider Encounter Details Date Type Department Care Team (Late st Contact Info) Description 07/23/2024 Orders Only [facility] MEDICINE [address] [place] [address] Sahara Samuel, ANP [address] [place] [address] Class 2 obesity due to excess calories with body mass index (BMI) of 36.0 to 36.9 in adult, unspecified whether serious comorbidity present (Primary Dx) Social History Tobacco Use Types Packs/Day Years [...] AM EDT documented as of this encounter Progress Notes * MOSES Blackmon - 07/23/2024 5:27 PM EST Zepbound dose increase documented in this encounter Plan of Treatment Upcoming Encounters Date Type Department Care Team (Late st Contact Info) Description 09/16/2024 11:00 AM EDT Telemedicine [facility] CHC MED & PEDS 505 [place] [address] Katia De Jesus RN 505 [place] [address] 09/17/2024 9:00 AM EDT Office Visit [facility] ADULT DENTAL [address] [place] [address] Iona Mae documented as of this encounter Goals Goal Patient Goal Type Associated Problems Recent Progress Patient-Stated? Author Help patient stop using tobacco General Tobacco dependence Not on track(03/13/20 5:32 PM EDT) No Oliver Boothe, PharmD documented as of this encounter Visit Diagnoses Diagnosis Class 2 obesity due to excess calories with body mass index (BMI) of 36.0 to 36.9 in adult, unspecified whether serious comorbidity present- Primary documented in this encounter Additional Health Concerns Assessment Noted Time PHQ-9 Depression Total Score: 11 024 2:21 PM EDT documented as of this encounter Care Teams Rubber Mixer Relationship Specialty Start Date End Date Niyah Scott MD [address] [place] [address] PCP - General Internal Medicine 02/10/23 Zainab Hermosillo Treasurer Savings BankCigar Packer And Sorter 06/01/23 documented as of this encounter
--- OUTSIDE RECORDS SUMMARY | 2024-08-20 07:43 | XMS_ITS | Encounter Summary ---
Author Organization [facility] [facility] Address [address] [place] [address] 7 [place] [address] Care Team Providers Care Pmo Manager Name Role Phone Name, Humble NIEVES Primary Care Provider [phone] Niyah Scott MD Primary Care Pro vider Encounter Details Date Type Department Care Team (Late st Contact Info) Description 05/27/2022 Orders Only [facility] MEDICINE [address] [place] [address] Vanessa Pryor RN Social History Tobacco Use Types Packs/Day Years Used Date Smoking Tobacco: Never Assessed Comments Unknown Sex and Gender Information Value Date Recorded Sex Assigned at Female 04/11/2022 10:17 AM EDT Legal Sex Female 10:17 AM EDT Gender Identity Female 04/11/2022 10:17 AM EDT Sexual Orientation Straight 04/11/2022 10 :17 AM EDT documented as of this encounter Plan of Treatment Upcoming Encounters Date Type Department Care Team (Late st Contact Info) Description 09/16/2024 11:00 AM EDT Telemedicine [facility] CHC MED & PEDS [address] [place] [address] Katia De Jesus, RN 505 [place] [address] 09/17/2024 9:00 AM EDT Office Visit [facility] ADULT DENTAL [address] [place] [address] Iona Mae documented as of this encounter Visit Diagnoses Not on filedocumented in this encounter Care Teams Pmo Manager Relationship Specialty Start Date End Date Name, MD Humble [address] [place] [address] PCP - General Family Medicine 08/07/15 02/09/23 Niyah Scott MD 230 [place] [address] PCP - General Internal Medicine 02/10/23 Zainab Hermosillo School Adjustment CounselorFountain Waitress/Waiter 06/01/23 documented as of this encounter
--- OUTSIDE RECORDS SUMMARY | 2024-08-20 07:43 | XMS_ITS | Encounter Summary ---
Author Organization [employer] Address [address] [facility] 7t [place] [address] Care Team Providers Care Dyehouse Worker Name Role Phone Niyah Scott MD Primary Care Pro vider Reason for Visit * Reason Comments Med Refill Encounter Details Date Type Department Care Team ([facility] st Contact Info) Description 08/08/2024 Refill [facility] MEDICINE [address] [place], [place] [phone] Apurva Gallegos MD 230 [place], [place] [phone] Social History Tobacco Use Types Packs/Day Years [...] Info) Description 09/16/2024 11:00 AM EDT Telemedicine [facility] CHC MED & PEDS 505 [place] [address] Katia De Jesus RN 505 [place] [address] 09/17/2024 9:00 AM EDT Office Visit [facility] ADULT DENTAL [address] [place] [address] Iona Mae documented as of this encounter [...] documented as of this encounter Care Teams Dyehouse Worker Relationship Specialty Start Date End Date Niyah Scott MD [address] [place] [address] PCP - General Internal Medicine 02/10/23 Zainab Hermosillo Java J2Ee Software EngineerBlack Top Roller 06/01/23 documented as of this encounter
--- OUTSIDE RECORDS SUMMARY | 2024-08-20 07:43 | XMS_ITS | Encounter Summary ---
Author Organization [employer] Address [address] [place] [address] 7 [place] [address] Care Team Providers Care Industrial Organizational Psychologist Name Role Phone Niyah Scott MD Primary Care Pro vider Reason for Visit * Reason Comments Med Refill Encounter Details Date Type Department Care Team ([facility] st Contact Info) Description 03/30/2023 Refill [facility] MEDICINE 230 [place] [address] Niyah Scott MD [address] [place] [address] Chronic pain syndrome Social History Tobacco Use Types Packs/Day Years [...] Answer Date Recorded Patient Health Questionnaire-9 Score 27 03/08/2023 Housing Stability Answer Date Recorded What is [...] Answer Date Recorded Patient Health Questionnaire-2 Score 6 03/08/2023 Comments Unknown Sex and Gender Information Value Date Recorded Sex Assigned at Female 04/11/2022 10:17 AM EDT Legal Sex Female 10:17 AM EDT Gender Identity Female 04/11/2022 10:17 AM EDT Sexual Orientation Straight 04/11/2022 10 :17 AM EDT documented as of this encounter Plan of Treatment Upcoming Encounters Date Type Department Care Team (Late st Contact Info) Description 09/16/2024 11:00 AM EDT Telemedicine [facility] CHC MED & PEDS 505 [place] [address] Katia De Jesus, VADIM 505 [place] [address] 09/17/2024 9:00 AM EDT Office Visit [facility] ADULT DENTAL [address] [place] [address] Iona Mae documented as of this encounter Goals Goal Patient Goal Type Associated Problems Recent Progress Patient-Stated? Author Help patient stop using tobacco General Tobacco dependence Not on track(03/13/20 5:32 PM EDT) No Oliver Boothe, BelindaD documented as of this encounter Visit Diagnoses Diagnosis Chronic pain syndrome documented in this encounter Additional Health Concerns Assessment Noted Time PHQ-9 Depression Total Score: 27 023 10:20 AM EDT documented as of this encounter Care Teams Industrial Organizational Psychologist Relationship Specialty Start Date End Date Niyah Scott MD [address] [place] [address] PCP - General Internal Medicine 02/10/23 Zainab Hermosillo Rfid StrategistStereoptician 06/01/23 documented as of this encounter
--- OUTSIDE RECORDS SUMMARY | 2024-08-20 07:43 | XMS_ITS | Encounter Summary ---
Author Organization [employer] Address [address] [place] [address] 7 [place] [address] Care Team Providers Care Textiles Sales Representative Name Role Phone Niyah Scott MD Primary Care Pro vider Reason for Visit * Reason Comments Med Refill Encounter Details Date Type Department Care Team ([facility] st Contact Info) Description 04/16/2023 Refill [facility] MEDICINE [address] [place] [address] Niyah Scott MD [address] [place], [place] [phone] Essential hypertension; Situational stress Social History Tobacco Use Types Packs/Day Years [...] Info) Description 09/16/2024 11:00 AM EDT Telemedicine [facility] CHC MED & PEDS 505 [place] [address] Katia De Jesus, VADIM 505 [place] [address] 09/17/2024 9:00 AM EDT Office Visit [facility] ADULT DENTAL [address] [place] [address] Iona Mae documented as of this encounter Goals Goal Patient Goal Type Associated Problems Recent Progress Patient-Stated? Author Help patient stop using tobacco General Tobacco dependence Not on track(03/13/20 5:32 PM EDT) No Oliver Boothe, PharmD documented as of this encounter Visit Diagnoses Diagnosis Essential hypertension Unspecified essential hypertension Situational stress Other psychological or physical stress, not elsewhere classified documented in this encounter Additional Health Concerns Assessment Noted Time PHQ-9 Depression Total Score: 27 023 10:20 AM EDT documented as of this encounter Care Teams Textiles Sales Representative Relationship Specialty Start Date End Date Niyah Scott MD [address] [place] [address] PCP - General Internal Medicine 02/10/23 Zainab Hermosillo Gis TechnicianHydraulic Pile Hammer Operator 06/01/23 documented as of this encounter
--- OUTSIDE RECORDS SUMMARY | 2024-08-20 07:43 | XMS_ITS | Encounter Summary ---
Author Organization [employer] Address [address] [place] [address] 7 [place] [address] Care Team Providers Care Building Dismantler Name Role Phone Niyah Scott MD Primary Care Pro vider Reason for Visit * Reason Comments Med Refill Encounter Details Date Type Department Care Team ([facility] st Contact Info) Description 08/04/2023 Refill [facility] MEDICINE 230 [place], [place] [phone] Niyah Scott MD [address] [place] [address] Chronic pain syndrome Social History Tobacco Use [...] Info) Description 09/16/2024 11:00 AM EDT Telemedicine [facility] CHC MED & PEDS [address] [place] [address] Katia De Jesus, VADIM [address] [place] [address] 09/17/2024 9:00 AM EDT Office Visit [facility] ADULT DENTAL 230 [place] [address] Iona Mae documented as of this encounter [...] documented as of this encounter Care Teams Building Dismantler Relationship Specialty Start Date End Date Niyah Scott MD [address] [place] [address] PCP - General Internal Medicine 02/10/23 Zainab Hermosillo Ultra Sound TechnicianInsurance Claims Adjuster 06/01/23 documented as of this encounter
--- OUTSIDE RECORDS SUMMARY | 2024-08-20 07:43 | XMS_ITS | Encounter Summary ---
Author Organization [employer] Address [address] 7[address] [place] [address] Care Team Providers Care Apartment Maintenance Name Role Phone Niyah Scott MD Primary Care Pro vider Reason for Visit * Reason Comments Med Refill Encounter Details Date Type Department Care Team ([facility] st Contact Info) Description 07/23/2024 Refill [facility] CHC MED & PEDS [address] [place], [place] [phone] Sahara Samuel, ANP 230 [place] [address] Class 2 obesity due to excess calories with body mass index (BMI) of 36.0 to 36.9 in adult, unspecified whether serious comorbidity present Social History Tobacco Use Types Packs/Day Years [...] encounter Miscellaneous Notes * Telephone Encounter - MOSES Blackmon - 07/23/2024 5:28 PM EST Sent dose increase documented in this encounter Plan of Treatment Upcoming Encounters Date Type Department Care Team ([facility] st Contact Info) Description 09/16/2024 11:00 AM EDT Telemedicine [facility] CHC MED & PEDS [address] [place] [address] Katia De Jesus, RN [address] [place] [address] 09/17/2024 9:00 AM EDT Office Visit [facility] ADULT DENTAL 230 [place] [address] Iona Mae documented as of this encounter [...] in adult, unspecified whether serious comorbidity present documented in this encounter Additional Health Concerns Assessment Noted Time PHQ-9 Depression Total Score: 11 024 2:21 PM EDT documented as of this encounter Care Teams Apartment Maintenance Relationship Specialty Start Date End Date Niyah Scott MD [address] [place] [address] PCP - General Internal Medicine 02/10/23 Zainab Hermosillo Blueprint MakerLaboratory Assistant 06/01/23 documented as of this encounter
--- OUTSIDE RECORDS SUMMARY | 2024-08-20 07:43 | XMS_ITS | Encounter Summary ---
Author Organization [employer] Address [address] [place] [address] 7 [place] [address] Care Team Providers Care Ice Scraper Name Role Phone Niyah Scott MD Primary Care Pro vider Reason for Visit * Reason Onset Date Comments Med Refill 11/21/2023 Encounter Details Date Type Department Care Team ([facility] st Contact Info) Description 11/21/2023 Telephone [facility] MEDICINE 230 [place], [place] [phone] Niyah Scott MD 230 [place], [place] [phone] Med Refill Social History Tobacco Use Types [...] Patient Health Questionnaire-2 Score 5 05/29/2023 Comments No Sex and Gender Information Value Date Recorded Sex Assigned at Female 04/11/2022 10:17 AM EDT Legal Sex Female 10:17 AM EDT Gender Identity Female 04/11/2022 10:17 AM EDT Sexual Orientation Straight 04/11/2022 10 :17 AM EDT documented as of this encounter Miscellaneous Notes * Telephone Encounter - Aleksey Valenzuela - 11/21/2023 8:02 AM EDT TC from pt requesting medication refill. Medications needing refill : oxyCODONE-acetaminophen (Percocet) 7.5-325 MG tablet To be sent to: [facility] [place], [place] - [address] [facility] documented in this encounter Plan of Treatment Upcoming Encounters Date Type Department Care Team ([facility] st Contact Info) Description 09/16/2024 11:00 AM EDT Telemedicine [facility] CHC MED & PEDS [address] [place] [address] Katia De Jesus, VADIM 505 [place] [address] 09/17/2024 9:00 AM EDT Office Visit [facility] ADULT DENTAL 230 [place] [address] Iona Mae documented as of this encounter [...] documented as of this encounter Care Teams Ice Scraper Relationship Specialty Start Date End Date Niyah Scott MD [address] [place] [address] PCP - General Internal Medicine 02/10/23 Zainab Hermosillo Boating Safety OfficerInstrumentation And Controls Technician 06/01/23 documented as of this encounter
--- OUTSIDE RECORDS SUMMARY | 2024-08-20 07:43 | XMS_ITS | Encounter Summary ---
Author Organization [employer] Address [address] [facility] [address] 7t [place] [address] Care Team Providers Care Supplemental Nurse Name Role Phone Niyah Scott MD Primary Care Pro vider Reason for Visit * Reason Comments Med Refill Encounter Details Date Type Department Care Team ([facility] st Contact Info) Description 09/06/2023 Refill [facility] [address] [place], [place] [phone] Parris Espana FNP [address] [place] [address] Social History Tobacco Use Types Packs/Day Years [...] your housing situation today? I have stephane gama 03/29/[address] you li [...] EDT Telemedicine [facility] MED & PEDS 505 [place] [address] Katia De Jesus, VADIM 505 [place] [address] 09/17/2024 9:00 AM EDT Office Visit [facility] ADULT DENTAL 230 [place] [address] Iona Mae documented as of this encounter [...] documented as of this encounter Care Teams Supplemental Nurse Relationship Specialty Start Date End Date Niyah Scott MD 230 [place] [address] PCP - General Internal Medicine 02/10/23 Zainab Hermosillo Platen Press FeederUndercollar Baster 06/01/23 documented as of this encounter
--- OUTSIDE RECORDS SUMMARY | 2024-08-20 07:43 | XMS_ITS | Encounter Summary ---
Author Organization [employer] Address 75 [facility] 7 [place] [address] Care Team Providers Care Loss Prevention Operations Manager Name Role Phone Niyah Scott MD Primary Care Pro vider Reason for Visit * Reason Comments Med Refill Encounter Details Date Type Department Care Team ([facility] st Contact Info) Description 10/23/2023 Refill [facility] CH[facility] MED & PEDS 505 [place], [place] [phone] Niyah Scott MD 230 [place], [place] [phone] Chronic pain syndrome Social History Tobacco Use [...] Info) Description 09/16/2024 11:00 AM EDT Telemedicine [facility] CH[facility] MED & PEDS 505 [place] [address] Katia De Jesus, VADIM 505 [place] [address] 09/17/2024 9:00 AM EDT Office Visit [facility] ADULT DENTAL 230 [place] [address] Iona Mae documented as of this encounter [...] documented as of this encounter Care Teams Loss Prevention Operations Manager Relationship Specialty Start Date End Date Niyah Scott MD 230 [place] [address] PCP - General Internal Medicine 02/10/23 Zainab Hermosillo Hr InternManager Business Operations 06/01/23 documented as of this encounter
--- OUTSIDE RECORDS SUMMARY | 2024-08-20 07:43 | XMS_ITS | Encounter Summary ---
Author Organization [employer] Address 75 [facility] 7 [place] [address] Care Team Providers Care Loft Patternmaker Name Role Phone Niyah Scott MD Primary Care Pro vider Reason for Visit * Reason Comments Med Refill Encounter Details Date Type Department Care Team ([facility] st Contact Info) Description 06/19/2023 Refill [facility] CHC MED & PEDS 505 [place], [place] [phone] Niyah Scott MD 230 [place], [place] [phone] Chronic pain syndrome Social History Tobacco Use [...] Info) Description 09/16/2024 11:00 AM EDT Telemedicine [facility] CH[facility] MED & PEDS 505 [place] [address] Katia De Jesus, VADIM 505 [place] [address] 09/17/2024 9:00 AM EDT Office Visit [facility] ADULT DENTAL 230 [place] [address] Iona Mae documented as of this encounter [...] documented as of this encounter Care Teams Loft Patternmaker Relationship Specialty Start Date End Date Niyah Scott MD 230 [place] [address] PCP - General Internal Medicine 02/10/23 Zainab Hermosillo FactorerKeymodule Assembly Supervisor 06/01/23 documented as of this encounter
--- OUTSIDE RECORDS SUMMARY | 2024-08-20 07:43 | XMS_ITS | Encounter Summary ---
Author Organization [employer] Address [address] [place] [address] 7 [place] [address] Care Team Providers Care Yam Curer Name Role Phone Niyah Scott MD Primary Care Pro vider Reason for Visit * Reason Onset Date Comments Medication Question 09/26/2023 Encounter Details Date Type Department Care Team ([facility] st Contact Info) Description 09/26/2023 Telephone [facility] MEDICINE 230 [place], [place] [phone] Niyah Scott MD 230 [place] [address] Medication Question Social History Tobacco Use Types [...] encounter Miscellaneous Notes * Telephone Encounter - Jason Kam - 09/26/2023 4:48 PM EDT Tc from pt calling in regards to oxycodone. Pt is dated to hand picker medication on 10/03 but she is traveling to [place] on Monday. She wants to know if it's possible to hand picker medication in a [facility] [place]. Please contact pt at [phone]. documented in this encounter Plan of Treatment Upcoming Encounters Date Type Department Care Team ([facility] st Contact Info) Description 09/16/2024 11:00 AM EDT Telemedicine [facility] CHC MED & PEDS 505 [place] [address] Katia De Jesus, VADIM 505 [place] [address] 09/17/2024 9:00 AM EDT Office Visit [facility] ADULT DENTAL 230 [place] [address] Iona Mae documented as of this encounter [...] documented as of this encounter Care Teams Yam Curer Relationship Specialty Start Date End Date Niyah Scott MD [address] [place] [address] PCP - General Internal Medicine 02/10/23 Zainab Hermosillo Social Science AnalystOutsole Cutter Machine 06/01/23 documented as of this encounter
--- OUTSIDE RECORDS SUMMARY | 2024-08-20 07:43 | XMS_ITS | Encounter Summary ---
Author Organization [employer] Address [address] [place] [address] 7 [place] [address] Care Team Providers Care Bill Clerk Name Role Phone Niyah Scott MD Primary Care Pro vider Reason for Visit * Reason Onset Date Comments Med Refill 04/28/2023 Encounter Details Date Type Department Care Team ([facility] st Contact Info) Description 04/28/[address] [facility] MEDICINE 230 [place], [place] [phone] Niyah Scott MD 230 [place], [place] [phone] Med Refill Social History Tobacco Use Types [...] encounter Miscellaneous Notes * Telephone Encounter - Alexsandra Becerril - 04/28/2023 1:33 PM EST Tc from pt requesting medication refill on oxyCODONE-acetaminophen (Percocet) 7.5-325 MG tablet to be sent to [facility] pharmacy documented in this encounter Plan of Treatment Upcoming Encounters Date Type Department Care Team (Late st Contact Info) Description 09/16/2024 11:[address] [facility] CHC MED & PEDS 505 [place] [address] Katia De Jesus, RN 505 [place] [address] 09/17/2024 9:00 AM EDT Office Visit [facility] ADULT DENTAL 230 [place] [address] Iona Mae documented as of this encounter [...] documented as of this encounter Care Teams Bill Clerk Relationship Specialty Start Date End Date Niyah Scott MD [address] [place] [address] PCP - General Internal Medicine 02/10/23 Zainab Hermosillo Yeast DistillerBookmaker Map 06/01/23 documented as of this encounter
--- OUTSIDE RECORDS SUMMARY | 2024-08-20 07:43 | XMS_ITS | Encounter Summary ---
Author Organization [employer] Address [address] [facility] [address] 7t [place] [address] Care Team Providers Care Bowling Ball Grader Name Role Phone Niyah Scott MD Primary Care Pro vider Encounter Details Date Type Department Care Team (Late st Contact Info) Description 06/20/2024 Orders Only [facility] MEDICINE 230 [place], [place] [phone] Niyah De León MD 230 [place] [address] Social History Tobacco Use Types Packs/Day Years [...] is your housing situation today? I have stephanechristopher malloy 03/29/[address] you [...] Info) Description 09/16/2024 11:00 AM EDT Telemedicine [facility] CHC MED & PEDS 505 [place] [address] Katia De Jesus, VADIM 505 [place] [address] 09/17/2024 9:00 AM EDT Office Visit [facility] ADULT DENTAL 230 [place] [address] Iona Mae documented as of this encounter [...] documented as of this encounter Care Teams Bowling Ball Grader Relationship Specialty Start Date End Date Niyah Scott MD 230 [place] [address] PCP - General Internal Medicine 02/10/23 Zainab Hermosillo Handicapped TeacherObgyn Nurse 06/01/23 documented as of this encounter
--- OUTSIDE RECORDS SUMMARY | 2024-08-20 07:43 | XMS_ITS | Encounter Summary ---
Author Organization [employer] [facility] Address [address] [facility] 7t [place] [address] Care Team Providers Care Broadcast Supervisor Name Role Phone Name, Humble NIEVES Primary Care Provider [phone] Niyah Scott MD Primary Care Pro vider Reason for Visit * Reason Onset Date Comments Referral 09/29/2022 Encounter Details Date Type Department Care Team ([facility] st Contact Info) Description 09/29/2022 Telephone [facility] MEDICINE 230 [place], [place] [phone] Name, MD Humble 230 [place] [address] Referral Social History Tobacco Use Types Packs/Day Years Used Date Smoking Tobacco: Never Passive Smoke Exposure: Past Smokeless Tobacco: Never [...] suspected to have Coronavirus/COVID-19? No / Unsure 09/12/2022 11:07 AM EDT documented as of this encounter Miscellaneous Notes * Telephone Encounter - Verónica Rowe RN - 10/05/2022 2:56 PM EDT Noted, pt directed by airframe technical officer to WIC or ED for evaluation of flank pain. * Telephone Encounter - Aj Seay - 10/04/2022 2:36 PM EDT Tc from pt requesting status on referral. Please contact At [phone] * Telephone Encounter - Bonny Bernabe - 10/03/2022 12:01 PM EDT Tc from pt requesting status on kidney referral. Please contact pt at [phone] (uruguayan speaking) * Telephone Encounter - Estephanie Orta - 09/30/2022 11:36 AM EDT Tc from pt requesting status on kidney referral . States she had has operation for kidney years ago. * Telephone Encounter - Aj Seay - 09/29/2022 3:49 PM EDT Tc from pt requesting a referral for the pain she is having on her right lung. Pt is requesting some labs as well and for it to be sent to [facility]. Please contact pt at [phone] To verify information documented in this encounter Plan of Treatment Upcoming Encounters Date Type Department Care Team (Late st Contact Info) Description 09/16/2024 11:00 AM EDT Telemedicine [facility] CHC MED & PEDS 505 [place] [address] Katia De Jesus, RN [address] [facility] [place] [address] 09/17/2024 9:00 AM EDT Office Visit [facility] ADULT DENTAL 230 [place] [address] Iona Mae documented as of this encounter Visit Diagnoses Not on filedocumented in this encounter Additional Health Concerns Assessment Noted Time PHQ-9 Depression Total Score: 17 022 1:56 PM EST documented as of this encounter Care Teams Broadcast Supervisor Relationship Specialty Start Date End Date Name, MD Humble 230 [place] [address] PCP - General Family Medicine 08/07/15 02/09/23 Niyah Scott MD 230 [place] [address] PCP - General Internal Medicine 02/10/23 Zainab Hermosillo Supervisor Slashing DepartmentJewelry Model Maker 06/01/23 documented as of this encounter
--- OUTSIDE RECORDS SUMMARY | 2024-08-20 07:43 | XMS_ITS | Encounter Summary ---
Author Organization [employer] Address 75 [facility] 7t [place] [address] Care Team Providers Care Materials Branch Chief Name Role Phone Name, Humble NIEVES Primary Care Provider [phone] Niyah Scott MD Primary Care Pro vider Reason for Visit * Reason Comments Med Refill Encounter Details Date Type Department Care Team (Late st Contact Info) Description 12/12/2022 Refill [facility] MEDICINE 230 [place], [place] [phone] Name, MD Humble 230 [place] [address] Low back pain with radiation Social History [...] Info) Description 09/16/2024 11:00 AM EDT Telemedicine [facility] CHC MED & PEDS [address] [place] [address] Katia De Jesus, RN 505 [place] [address] 09/17/2024 9:00 AM EDT Office Visit [facility] ADULT DENTAL 230 [place] [address] Iona Mae documented as of this encounter Visit Diagnoses Diagnosis Low back pain with radiation documented in this encounter Additional Health Concerns Assessment Noted Time PHQ-9 Depression Total Score: 17 023 2:31 PM EDT documented as of this encounter Care Teams Materials Branch Chief Relationship Specialty Start Date End Date Name, MD Humble 230 [place] [address] PCP - General Family Medicine 08/07/15 02/09/23 Niyah Scott MD 230 [place] [address] PCP - General Internal Medicine 02/10/23 Zainab Hermosillo Process Improvement ConsultantChef Under 06/01/23 documented as of this encounter
--- OUTSIDE RECORDS SUMMARY | 2024-08-20 07:43 | XMS_ITS | Encounter Summary ---
Author Organization [employer] Address [address] [place] [address] 7 [place] [address] Care Team Providers Care Coagulant Dipper Name Role Phone Niyah Scott MD Primary Care Pro vider Reason for Visit * Reason Comments Med Refill Encounter Details Date Type Department Care Team ([facility] st Contact Info) Description 09/28/2023 Refill [facility] MEDICINE 230 [place], [place] [phone] Niyah Scott MD 230 [place] [address] Social History Tobacco Use Types Packs/Day Years [...] Info) Description 09/16/2024 11:00 AM EDT Telemedicine [facility] CHC MED & PEDS 505 [place] [address] Katia De Jesus RN 505 [place] [address] 09/17/2024 9:00 AM EDT Office Visit [facility] ADULT DENTAL 230 [place] [address] Iona Mae documented as of this encounter [...] documented as of this encounter Care Teams Coagulant Dipper Relationship Specialty Start Date End Date Niyah Scott MD 230 [place] [address] PCP - General Internal Medicine 02/10/23 Zainab Hermosillo Restorative AideStation Detective 06/01/23 documented as of this encounter
--- OUTSIDE RECORDS SUMMARY | 2024-08-20 07:43 | XMS_ITS | Encounter Summary ---
Author Organization [employer] Address [address] [place] [address] 7 [place] [address] Care Team Providers Care Cane Loader Name Role Phone Niyah Scott MD Primary Care Pro vider Reason for Visit * Reason Comments Med Refill Encounter Details Date Type Department Care Team ([facility] st Contact Info) Description 03/31/2023 Refill [facility] MEDICINE 230 [place] [address] Niyah Scott MD 230 [place] [address] Chronic pain syndrome Social History Tobacco Use [...] Info) Description 09/16/2024 11:00 AM EDT Telemedicine [facility] CHC MED & PEDS 505 [place] [address] Katia De Jesus, VADIM 505 [place] [address] 09/17/2024 9:00 AM EDT Office Visit [facility] ADULT DENTAL 230 [place] [address] Iona Mae documented as of this encounter [...] documented as of this encounter Care Teams Cane Loader Relationship Specialty Start Date End Date Niyah Scott MD 230 [place] [address] PCP - General Internal Medicine 02/10/23 Zainab Hermosillo General AccountantCleat Layer 06/01/23 documented as of this encounter
--- OUTSIDE RECORDS SUMMARY | 2024-08-20 07:43 | XMS_ITS | Encounter Summary ---
Author Organization [email or web address] Address 75 [facility] 7t [place] [address] Care Team Providers Care Psych Coordinator Name Role Phone Niyah Scott MD Primary Care Pro vider Reason for Visit * Reason Comments Med Refill Encounter Details Date Type Department Care Team ([facility] st Contact Info) Description 08/19/2024 Refill [facility] MEDICINE 230 [place], [place] [phone] Apurva Gallegos MD 230 [place], [place] [phone] Chronic pain syndrome Social History Tobacco Use [...] Info) Description 09/16/2024 11:00 AM EDT Telemedicine [facility] CHC MED & PEDS 505 [place] [address] Katia De Jesus, VADIM 505 [place] [address] 09/17/2024 9:00 AM EDT Office Visit [facility] ADULT DENTAL 230 [place] [address] Iona Mae documented as of this encounter Goals Goal Patient Goal Type Associated Problems Recent Progress Patient-Stated? Author Help patient stop using tobacco General Tobacco dependence Not on track(03/13/20 23 5:32 PM EDT) No Oliver Boothe, BelindaD documented as of this encounter Visit Diagnoses Diagnosis Chronic pain syndrome documented in this encounter Additional Health Concerns Assessment Noted Time PHQ-9 Depression Total Score: 11 024 2:21 PM EDT documented as of this encounter Care Teams Psych Coordinator Relationship Specialty Start Date End Date Niyah Scott MD 230 [place] [address] PCP - General Internal Medicine 02/10/23 Zainab Hermosillo Music AutographerRacket Stringer 06/01/23 documented as of this encounter
--- OUTSIDE RECORDS SUMMARY | 2024-08-20 07:43 | XMS_ITS | Encounter Summary ---
Author Organization [employer] [facility] Address 75 [facility] 7t [place] [address] Care Team Providers Care Lining Mechanic Name Role Phone Name, Humble NIEVES Primary Care Provider [phone] Niyah Scott MD Primary Care Pro vider Reason for Visit * Reason Onset Date Comments Med Refill 12/09/2022 Encounter Details Date Type Department Care Team ([facility] st Contact Info) Description 12/09/2022 Telephone [facility] MEDICINE 230 [place], [place] [phone] Name, MD Humble 230 [place] [address] Med Refill Social History Tobacco Use Types [...] encounter Miscellaneous Notes * Telephone Encounter - Rashad Sandra - 12/16/2022 12:42 PM EDT Tc from pt requesting a call back , radio script writer explained notes from 12/07 per BEHAVIORAL INTERVENTION SPECIALIST RN however pt is upsetand does not understand why. Please contact at [phone] * Telephone Encounter - Vanessa Pryor RN - 12/16/2022 9:06 AM EDT Call to pt 12/07. Med DC due to multiple negative testing * Telephone Encounter - Estephanie Orta - 12/16/2022 8:54 AM EDT Tc from pt requesting status on her oxy meds. * Telephone Encounter - Alexsandra Becerril - 12/09/2022 11:11 AM EDT Tc from pt requesting medication refill on oxyCODONE-acetaminophen (Percocet) 7.5-325 MG tablet documented in this encounter Plan of Treatment Upcoming Encounters Date Type Department Care Team (Late st Contact Info) Description 09/16/2024 11:00 AM EDT Telemedicine [facility] CHC MED & PEDS 505 [place] [address] Katia De Jesus, RN 505 [place] [address] 09/17/2024 9:00 AM EDT Office Visit [facility] ADULT DENTAL 230 [place] [address] Iona Mae documented as of this encounter Visit Diagnoses Not on filedocumented in this encounter Additional Health Concerns Assessment Noted Time PHQ-9 Depression Total Score: 17 12/08/2 023 2:31 PM EDT documented as of this encounter Care Teams Lining Mechanic Relationship Specialty Start Date End Date Name, MD Humble 230 [place] [address] PCP - General Family Medicine 08/07/15 02/09/23 Niyah Scott MD 230 [place] [address] PCP - General Internal Medicine 02/10/23 Zainab Hermosillo Experimental Display BuilderEligibility Manager 06/01/23 documented as of this encounter
--- OUTSIDE RECORDS SUMMARY | 2024-08-20 07:43 | XMS_ITS | Encounter Summary ---
Author Organization [employer] Address 75 [facility] 7t [place] [address] Care Team Providers Care Field Service Engineer Name Role Phone Niyah Scott MD Primary Care Pro vider Reason for Visit * Reason Comments Med Refill Encounter Details Date Type Department Care Team ([facility] st Contact Info) Description 08/19/2024 Refill [facility] MEDICINE 230 [place], [place] [phone] Sahara Smauel, ANP 230 [place], [place] [phone] Class 2 obesity due to excess calories [...] Info) Description 09/16/2024 11:00 AM EDT Telemedicine [facility] CHC MED & PEDS 505 [place] [address] Katia De Jesus, VADIM 505 [place] [address] 09/17/2024 9:00 AM EDT Office Visit [facility] ADULT DENTAL 230 [place] [address] Iona Mae documented as of this encounter [...] documented as of this encounter Care Teams Field Service Engineer Relationship Specialty Start Date End Date Niyah Scott MD [address] [place] [address] PCP - General Internal Medicine 02/10/23 Zainab Hermosillo Capacitor InspectorSwaging Machine Operator 06/01/23 documented as of this encounter
--- OUTSIDE RECORDS SUMMARY | 2024-08-20 07:43 | XMS_ITS | Encounter Summary ---
Author Organization [employer] Address [address] [place] [address] 7 [place] [address] Care Team Providers Care Fur Drummer Name Role Phone Niyah Scott MD Primary Care Pro vider Reason for Visit * Reason Onset Date Comments Med Refill 07/22/2024 Encounter Details Date Type Department Care Team (Late st Contact Info) Description 07/22/2024 Refill [facility] MEDICINE 230 [place] [address] Niyah Scott MD 230 [place] [address] Chronic pain syndrome Social History Tobacco Use [...] * Telephone Encounter - Jason Kam - 07/22/2024 9:23 AM EST TC from pt requesting medication refill. Medications needing refill: oxyCODONE-acetaminophen (Percocet) 7.5-325 MG tablet To be sent to: [facility] [place], [place] - 230 [facility] documented in this encounter Plan of Treatment Upcoming Encounters Date Type Department Care Team ([facility] st Contact Info) Description 09/16/2024 11:00 AM EDT Telemedicine [facility] CHC MED & PEDS 505 [place] [address] Katia De Jesus RN 505 [place] [address] 09/17/2024 9:00 AM EDT Office Visit [facility] ADULT DENTAL 230 [place] [address] Iona Mae documented as of this encounter [...] documented as of this encounter Care Teams Fur Drummer Relationship Specialty Start Date End Date Niyah Scott MD [address] [place] [address] PCP - General Internal Medicine 02/10/23 Zainab Hermosillo Coin Counter And WrapperTube Station Attendant 06/01/23 documented as of this encounter
--- OUTSIDE RECORDS SUMMARY | 2024-08-20 07:43 | XMS_ITS | Encounter Summary ---
Author Organization [employer] Address [address] [facility] [address] [place] [address] Care Team Providers Care Social Services Coordinator Name Role Phone Name, Humble NIEVES Primary Care Provider [phone] Niyah Scott MD Primary Care Pro vider Encounter Details Date Type Department Care Team ([facility] Contact Info) Description 11/14/2022 Abstract [facility] MEDICINE [address] [place], [place] [phone] Name, MD Humble [address] [place] [address] Social History Tobacco Use Types Packs/Day Years [...] suspected to have Coronavirus/COVID-19? No / Unsure 10/19/2022 8:48 AM EDT documented as of this encounter Plan of Treatment Upcoming Encounters Date Type Department Care Team ([facility] Contact Info) Description 09/16/2024 11:00 AM EDT Telemedicine [facility] CHC MED & PEDS [address] [place], [place] [phone] Katia De Jesus, VADIM [address] [place] [address] 09/17/2024 9:00 AM EDT Office Visit [facility] ADULT DENTAL [address] [place] [address] Iona Mae documented as of this encounter Procedures Procedure Name Priority Date/Time Associated Diagnosis Comments PAP/HPV Routine 01/24/2019 12:00 AM EDT HM COLONOSCOPY Routine 02/01/2017 2:34 PM EDT documented in this encounter Results * Hm Pap Smear (01/24/2019 12:00 AM EDT) us Historical Provider HEALTH MAINTENANCE Final Result * Hm Colonoscopy (02/01/2017 2:34 PM EDT) Colonoscopy Normal Normal Narrative Margo Esquivel - 02/01/2017 2:34 PM EDT Recommended 10 year follow up us Historical Provider HEALTH MAINTENANCE Final Result documented in this encounter Visit Diagnoses Not on filedocumented in this encounter Additional Health Concerns Assessment Noted Time PHQ-9 Depression Total Score: 17 022 1:56 PM EST documented as of this encounter Care Teams Social Services Coordinator Relationship Specialty Start Date End Date Name, MD Humble [address] [place] [address] PCP - General Family Medicine 08/07/15 02/09/23 Niyah Scott MD [address] [place] [id number] PCP - General Internal Medicine 02/10/23 Zainab Hermosillo Control Valve TechnicianCombatant Diver Qualified 06/01/23 documented as of this encounter
--- OUTSIDE RECORDS SUMMARY | 2024-08-20 07:43 | XMS_ITS | Encounter Summary ---
Author Organization [employer] Address [address] [place] [address] 7 [place] [address] Care Team Providers Care Locomotive Observer Name Role Phone Niyah Scott MD Primary Care Pro vider Reason for Visit * Reason Onset Date Comments Med Refill 02/08/2024 Encounter Details Date Type Department Care Team ([facility] st Contact Info) Description 02/08/2024 Telephone [facility] MED[facility] [address] [place], [place] [phone] Niyah Scott MD [address] [place], [place] [phone] Med Refill Social History Tobacco Use Types Packs/Day Years Used Date Smoking Tobacco: Some Days Cigarettes Passive Smoke Exposure: Past Smokeless Tobacco: Never Comments:Started at her 27 y ears until now , smokes 1 cig a week ,smoking for 30 years. PQT a year 6 Alcohol Use Standard Drinks/Week Comments Never 0 (1 standard drink = 0.6 oz pur e alcohol) Depression Answer Date Recorded Patient Health Questionnaire-9 Score 16 12/07/2023 Patient Health Questionnaire-9 Score 16 12/07/2023 Last PHQ-9: Questionnaire Data Not on file 0 12/07/2023 Housing Stability Answer Date Recorded What is [...] Date Recorded Patient Health Questionnaire-2 Score 6 12/07/2023 Comments No Sex and Gender Information Value Date Recorded Sex Assigned at Female 04/11/2022 10:17 AM EDT Legal Sex Female 10:17 AM EDT Gender Identity Female 04/11/2022 10:17 AM EDT Sexual Orientation Straight 04/11/2022 10 :17 AM EDT documented as of this encounter Miscellaneous Notes * Telephone Encounter - Aleksey Valenzuela - 02/08/2024 9:05 AM EDT TC from pt requesting medication refill. Medications needing refill : oxyCODONE-acetaminophen (Percocet) 7.5-325 MG tablet To be sent to: [facility] - [place], [place] - [address] [facility] documented in this encounter Plan of Treatment Upcoming Encounters Date Type Department Care Team ([facility] st Contact Info) Description 09/16/2024 11:00 AM EDT Telemedicine [facility] CH[facility] MED & PEDS [address] [place] [address] Katia De Jesus RN [address] [place] [address] 09/17/2024 9:00 AM EDT Office Visit [facility] ADULT DENTAL [address] [place] [address] Iona Mae documented as of this encounter Goals Goal Patient Goal Type Associated Problems Recent Progress Patient-Stated? Author Help patient stop using tobacco General Tobacco dependence Not on track(03/13/20 23 5:32 PM EDT) No Oliver Boothe, PharmD documented as of this encounter Visit Diagnoses Not on filedocumented in this encounter Additional Health Concerns Assessment Noted Time PHQ-9 Depression Total Score: 16 024 9:37 AM EDT documented as of this encounter Care Teams Locomotive Observer Relationship Specialty Start Date End Date Niyah Scott MD [address] [place] [id number] PCP - General Internal Medicine 02/10/23 Zainab Hermosillo Pit Crew Support WorkerLine Service Supervisor 06/01/23 documented as of this encounter
--- OUTSIDE RECORDS SUMMARY | 2024-08-20 07:43 | XMS_ITS | Encounter Summary ---
Author Organization [employer] Address [address] [facility] 7 [place] [address] Care Team Providers Care Tyre Builder Name Role Phone Niyah Scott MD Primary Care Pro vider Reason for Visit * Reason Comments Med Refill Encounter Details Date Type Department Care Team ([facility] st Contact Info) Description 06/20/2023 Refill [facility] CHC MED & PEDS [address] [place], [place] [phone] Niyah Scott MD [address] [place], [place] [phone] Chronic pain syndrome Social History Tobacco Use [...] Info) Description 09/16/2024 11:00 AM EDT Telemedicine [facility] CHC MED & PEDS [address] [place] [address] Katia De Jesus, VADIM [address] [place] [address] 09/17/2024 9:00 AM EDT Office Visit [facility] ADULT DENTAL [address] [place] [address] Iona Mae documented as of this encounter [...] documented as of this encounter Care Teams Tyre Builder Relationship Specialty Start Date End Date Niyah Scott MD [address] [place] [address] PCP - General Internal Medicine 02/10/23 Zainab Hermosillo Inside PolisherProvider Relations Rep 06/01/23 documented as of this encounter
== END 2024-08-20 08:47 | disposition home or self-care (01) ==
LOC: HO.HWS 07:39
PROVIDERS: PCP Student in an Organized Health Care Education/Training Program; Visit Provider Advanced Practice Midwife
DX: Z01.419 Encounter for gynecological examination (general) (routine) without abnormal findings (principal)
CPT/HCPCS: 99396; 99459

== ENCOUNTER → 2024-08-20 07:39 | Outpatient (BNVA) | payer MEDICAID, SELFPAY | PROVIDERS: PCP Student in an Organized Health Care Education/Training Program; Visit Provider Advanced Practice Midwife | DX: Z01.419 Encounter for gynecological examination (general) (routine) without abnormal findings (principal) | CPT/HCPCS: 99396; 99459 ==

== ENCOUNTER 2025-01-20 08:40 | Outpatient (REF) | payer MEDICAID, SELFPAY ==
--- NOTE | ~2025-01-20 | US_ITS ---
CLINICAL HISTORY: N20.0 - Calculus of kidney US RENAL Comparison: None provided Findings: Right kidney length is 11.1 cm. Left kidney length is 12.3 cm. Normal cortical thickness and echotexture bilaterally. No hydronephrosis, large shadowing calculus or cortical mass lesion. IMPRESSION: 1. No hydronephrosis. 2. No sonographic evidence for nephrolithiasis. This document has been electronically signed by: Amita Martinez DO on 01/20/2025 16:39:20
--- OUTSIDE RECORDS SUMMARY | 2025-01-20 09:00 | XMS_ITS | Clinical Summary ---
Author Organization [employer] Address [address] [facility] [address] [place] [address] Care Team Providers Care Safety Professional Name Role Phone Niyah Scott MD Primary [...] MILD PAIN 90 tablet 2 023 Active Blood Pressure Monitoring (Blood Pressure Kit) kitIndications: Essential hypertension Take blood pressure daily, seated in chair with feet on floor 1 kit 024 Active pregabalin (Lyrica) 50 MG capsule [...] FOR WHEEZING 18 g 1 024 Active Oyster Shell Calcium 500 MG tablet TAKE 1 TABLET BY MOUTH TWICE DAILY IN THE MORNING AND IN THE EVENING WITH FOOD 180 tablet 025 Active lisinopril 40 MG tabletIndicatio ns:Essential hypertension TAKE 1 TABLET BY MOUTH EVERY MORNING 90 tablet 1 025 Active alendronate (Fosamax) 70 MG tablet take 1 tablet by mouth once a week with 6 to 8 oz of water 30 min before first food of day. do not lie down for 30 minutes 12 tablet 3 025 Active aspirin-acetami nophen-caffeine (Pain Reliever Plus) 250-250-65 MG tablet Take 1 tablet by mouth every 8 (eight) hours if needed for headaches. 30 tablet 1 025 Active naloxone (Narcan) 4 mg/0.1 mL nasal sprayIndication s:Low back pain with radiation FOR SUSPECTED OPIOID OVERDOSE. SPRAY 0.1mL IN ONE NOSTRIL. REPEAT IN ALTERNATE NOSTRIL 2-3 MINUTES IF NEEDED. SEEK MEDICAL ATTENTION IMMEDIATELY EVEN IF PATIENT RESPONDS. 2 each 3 025 Active cholecalciferol (Vitamin D-3) 50 MCG (1999 UT) capsule Take 1 capsule (50 mcg) by mouth Once per day. 90 capsule 1 025 Active carvedilol (Coreg) 25 MG tabletIndicatio ns:Essential hypertension,Si tuational stress TAKE 1 TABLET BY MOUTH TWICE DAILY IN THE MORNING AND IN THE EVENING 180 tablet 025 Active magnesium oxide (Mag-Ox) 400 MG tablet TAKE 1 TABLET BY MOUTH EVERY MORNING 90 tablet 025 Active loratadine (Claritin) 10 MG tabletIndicatio ns:Hypertension , unspecified type TAKE 1 TABLET BY MOUTH EVERY EVENING FOR ITCHING 90 tablet 025 Active oxyCODONE-aceta minophen (Percocet) 7.5-325 MG tabletIndicatio ns:Chronic pain syndrome Take 1 tablet by mouth every 12 (twelve) hours if needed for severe pain. Do not start before January 02, 2025. 56 tablet 025 Active budesonide-form oterol (Symbicort) 160-4.5 MCG/ACT inhalerIndicati ons:Asthma, unspecified asthma severity, unspecified whether complicated, unspecified whether persistent INHALE 2 PUFFS BY MOUTH TWICE DAILY IN THE MORNING AND IN THE EVENING RINSE MOUTH AFTER USING. 10.2 g 1 025 Active chlorthalidone (Hygroton) 25 MG tabletIndicatio ns:Essential hypertension TAKE 1 TABLET BY MOUTH EVERY MORNING 90 tablet 1 025 Active amLODIPine (Norvasc) 10 MG tabletIndicatio ns:Essential hypertension TAKE 1 TABLET BY MOUTH EVERY MORNING 90 tablet 025 Active escitalopram (Lexapro) 20 MG tablet TAKE 1 TABLET BY MOUTH EVERY MORNING 90 tablet 025 Active busPIRone (Buspar) 5 MG tabletIndicatio ns:Situational stress TAKE 1 TABLET BY MOUTH TWICE DAILY IN THE MORNING AND IN THE EVENING 180 tablet 025 Active omeprazole (PriLOSEC) [address] capsuleIndicati ons:Gastritis without bleeding, unspecified chronicity, unspecified gastritis type TAKE 1 CAPSULE BY MOUTH EVERY EVENING 90 capsule 025 Active chlorthalidone (Hygroton) 25 MG tabletIndicatio ns:Essential hypertension TAKE 1 TABLET BY MOUTH EVERY MORNING 90 tablet 1 025 2024 Discontinued omeprazole (PriLOSEC) [address] capsuleIndicati ons:Gastritis without bleeding, unspecified chronicity, unspecified gastritis type TAKE 1 CAPSULE BY MOUTH EVERY EVENING 90 capsule 025 2024 Discontinued(R eorder (will not trigger notification to Pharmacy)) escitalopram (Lexapro) 20 MG tablet TAKE 1 TABLET BY MOUTH EVERY MORNING 90 tablet 025 2024 Discontinued busPIRone (Buspar) 5 MG tabletIndicatio ns:Situational stress TAKE 1 TABLET BY MOUTH TWICE DAILY IN THE MORNING AND IN THE EVENING 180 tablet 025 2024 Discontinued amLODIPine (Norvasc) 10 MG tabletIndicatio ns:Essential hypertension TAKE 1 TABLET BY MOUTH EVERY MORNING 90 tablet 025 2024 Discontinued budesonide-form oterol (Symbicort) 160-4.5 MCG/ACT inhalerIndicati ons:Asthma, unspecified asthma severity, unspecified whether complicated, unspecified whether persistent INHALE 2 PUFFS BY MOUTH TWICE DAILY IN THE MORNING AND IN THE EVENING, RINSE MOUTH AFTER USING. 10.2 g 1 025 2024 Discontinued oxyCODONE-aceta minophen (Percocet) 7.5-325 MG tabletIndicatio ns:Chronic pain syndrome Take 1 tablet by mouth every 12 (twelve) hours if needed for severe pain. Do not start before December 06, 2024. 56 tablet 025 2024 Discontinued(R eorder (will not trigger notification to Pharmacy)) Tirzepatide-Gerardo ght Management (Zepbound) 2.5 MG/0.5ML solution auto-injectorIn dications:Obesi ty Inject 0.5 mL (2.5 mg) under the skin 1 (one) time per week. Start 2.5 mg weekly x 4 weeks, then increased to 5 mg x 4 weeks, then increase to 7.5 mg weekly 2 mL 025 2024 Active Problems Problem Noted Date Diagnosed Date Moderate depressive disorder 12/05/2024 Assessment & Plan (12/05/2024 2:22 PM EDT): During [facility] Consult Shira presenting with depressed mood, change in appetite or weight reduce appetite, changes in sleep difficulty falling asleep and difficulty staying asleep , psychomotor retardation, fatigue/loss of energy, worthlessness, inappropriate/excessive guilt , difficulty concentrating, indecisiveness; for a period of 0-6 mo, for most or all symptoms in the context of unable to identify significant stressors. Pt with depressive symptoms with no specific trigger associated with it. Pt has chronic medical conditions and stable with medication to manage pain. She has positive family and social support. Her persistent low-mood impacts her daily functioning. Pt has stable housing and feels safe at home. Rash 12/05/2024 Long-term current use of opiate analgesic 2024 Urinary incontinence 09/05/2023 Osteoporosis 07/11/2023 Tinnitus, bilateral 04/11/2023 Tobacco dependence 03/13/2023 Overview (03/13/2023): Pharmacotherapy: - None History: Currently smoking 1-3 cigs a few days a week; not ready to quit (03/13/2023) Prediabetes 03/08/2023 Vitamin D deficiency 03/08/2023 Overview (03/13/2023): Pharmacotherapy: - Vitamin D2 10,000 once weekly (Monday) Anti-cyclic citrullinated peptide antibody posit chairs 03/08/2023 Non-ischemic cardiomyopathy 03/08/2023 Anxiety and depression [...] since medication is not in her system. DIRECTOR OF COMPLIANCE RV appt scheduled 01/19/23 has been cancelled d/t no longer on Opiate. TC via P/I#[id number], no answer. L/M requesting she call back [...] Overview (01/05/2023): Percocet discontinued by PCP per [facility] policies Concern for Misuse Chronic pain continuing. [...] discussed with PCP. She was connected with [facility] and has upcoming with them for OP services. Provided Crisis number for her to call in the event of an emergency. Provided education around integrated medicine and the options of follow up BE's as needed. Provided contact information should questions or concerns arise. Plan: Shira will contact [facility] in the event of an emergency. She will keep her appt with [facility] for MH services and will discussed with [...] will benefit from keeping her appt with [facility] for MH services. At this time Shira Molina meets criteria for Visit Diagnoses: Problem List Items Addressed This Visit Other Major depressive disorder Patient ready to address current needs Yes Strengths include support from her family PLAN: 1. Follow up with [facility]: Not recommended for follow-up 2. Patient goal is to engage in MH services and to get treatment for pain 3. Behavioral Recommendations a. Ind. Therapy with [facility] b. Keeping her appt with PCP c. [...] seek help PLAN: 1. Follow up with C: Not recommended for follow-up 2. Patient goal is to engage in OP therapy service 3. Behavioral Recommendations a. Patient will comply with medication b. Patient will engage in OP therapy, once established c. Patient will utilize coping techniques discussed d. Patient will reach out to [facility], if needed Encounters * This document contains information received from the source organization and may not represent a complete record from that organization. Date Type Department Care Team Description 01/16/2025 Telephone [facility] [address] [place] [address] Niyah Scott MD 01/06/2025 Telephone [facility] [address] [place] [address] Niyah Scott MD 01/06/2025 Refill [facility] [address] [place] [address] Niyah De León MD Gastritis without bleeding, unspecified chronicity, unspecified gastritis type 01/05/2025 Refill [facility] [address] [place] [address] Niyah Scott MD Essential hypertension; Situational stress; Gastritis without bleeding, unspecified chronicity, unspecified gastritis type 01/02/2025 9:30 AM EDT Clinical Support [facility] [address] [place] [address] Katia De Jesus RN Lumbar radiculopathy 01/02/2025 Travel 01/01/2025 Telephone [facility] [address] [place] [address] Niyah Scott MD Prior Authorization 01/01/2025 Refill [facility] [address] [place] [address] Shelia Evans MD Essential hypertension 12/28/2024 Refill [facility] [address] [place] [address] Niyah Scott MD Asthma, unspecified asthma severity, unspecified whether complicated, unspecified whether persistent 12/25/2024 Refill [facility] [address] [place] [address] Niyah Scott MD 12/23/2024 Refill [facility] [address] [place] [address] Niyah Scott MD Chronic pain syndrome 12/09/2024 Refill [facility] [address] [place] [address] Niyah Scott MD Hypertension, unspecified type; Essential hypertension; Situational stress 12/08/2024 Refill [facility] [address] [place] [phone] Niyah Scott MD Essential hypertension; Situational stress; Hypertension, unspecified type 12/05/2024 10:30 AM EDT Office Visit [facility] [address] [place] [phone] Niyah Scott MD Hyperlipidemia, unspecified hyperlipidemia type (Primary Dx); Dietary counseling; Exercise counseling; Non-ischemic cardiomyopathy (CMS/HCC); Chronic bronchitis, unspecified chronic bronchitis type (CMS/HCC); Essential hypertension; Tinnitus, bilateral; Class 2 obesity due to excess calories with body mass index (BMI) of 36.0 to 36.9 in adult, unspecified whether serious comorbidity present; Osteoporosis, unspecified osteoporosis type, unspecified pathological fracture presence; Vitamin D deficiency; Health care maintenance; Tobacco dependence; Rash 12/05/2024 Travel 12/04/2024 Telephone [facility] [address] [place] [phone] Niyah Scott MD chart prep 12/04/2024 Refill [facility] [address] [place] [address] Katia De Jesus RN Chronic pain syndrome 12/04/2024 Telephone [facility] [address] [place] [phone] Niyah Scott MD Med Refill 11/27/2024 Patient Outreach [facility] [address] [place] [address] Niyah Scott MD Pre-visit Planning (SDOH negative, Tobacco screening negative) 11/21/2024 Telephone [facility] [address] [place] [phone] Niyah Scott MD Durable Medical Equipment 11/15/2024 Telephone [facility] [address] [place] [address] Alix Tello, FERNANDO January Recall 11/06/2024 Refill [facility] [address] [place] [address] Niyah Scott MD Chronic pain syndrome 11/05/2024 Telephone [facility] [address] [place] [address] Akila Mckeon, RN 11/02/2024 Refill [facility] [address] [place] [address] Shelia Evans MD Asthma, unspecified asthma severity, unspecified whether complicated, unspecified whether persistent 10/30/2024 Telephone [facility] [address] [place] [address] Akila Mckeon, RN Care Coordination; Durable Medical Equipment 10/30/2024 Refill [facility] [address] [place] [address] Apurva Gallegos MD 10/24/2024 Telephone [facility] [address] [place] [address] Niyah Scott MD Appointment Request from Last 3 Months Immunizations Immunization Administration Dates Next Due Influenza injectable quadriv [...] Passive Smoke Exposure: Past Smokeless Tobacco: Never Tobacco Cessation:Ready to Q uit: Not Asked; Counseling Given: Not Answered Comments:Started at her 27 years until now , smokes 1 cig twice [...] housing situation today? I have stephane malloy 11/27/[address] you li ve. Do you have problems with any of the following? None of the above 11/27/2024 Food Insecurity Answer Date Recorded Within the past 12 months, y ou worried that your food would run out before you got money to buy more: Never True 11/27/2024 Within the past 12 months,th e food you bought just didn't last and you didn't have enough money to get more: Never True Transportation Answer Date Recorded In the past 12 months, has l ack of transportation kept you from medical appts, meetings, work or from getting things needed for daily living? No 11/27/2024 Utilities Answer Date Recorded In the past 12 months, has t he electric, gas, oil or water company threatened to shut off services in your home? No 11/27/2024 Depression Answer Date Recorded Patient Health Questionnaire-2 Score 0 12/05/2024 Internet Access Answer Date Recorded Internet Access Q1 Yes 11/27/2024 Internet Access Q2 Not on file 11/27/2024 Comments No Sex and Gender Information Value Date Recorded Sex Assigned at Female 04/11/2022 10:17 AM EDT Legal Sex Female 10:17 AM EDT Gender Identity Female 04/11/2022 10:17 AM EDT Sexual Orientation Straight 04/11/2022 10 :17 AM EDT Last Filed Vital Signs Vital Sign Reading Time Taken Comments Blood Pressure 110/70 12/05/2024 10:18 AM EDT Pulse 66 12/05/2024 10:18 AM EDT Temperature 36.3 C (97.4 F) 12/05/2024 10:18 AM EDT Respiratory Rate 16 12/05/2024 10:18 AM EDT Oxygen Saturation 97% 04/04/2024 2:20 PM EDT Inhaled Oxygen Concentration - - Weight 88.6 kg (195 lb 6.4 oz) 12/05/2024 10:18 AM EDT Height 167.6 cm (5' 6 ) 12/05/2024 10:18 AM EDT Body Mass Index 31.54 12/05/2024 10:18 AM EDT Plan of Treatment Upcoming Encounters Date Type Department Care Team (Late st Contact Info) Description 01/29/2025 10:30 AM EDT Procedure Visit [facility] [address] [place] [phone] Alix Tello, FERNANDO [address] [place] [address] 02/07/2025 11:15 AM EDT Office Visit [facility] [address] [place] [phone] Niyah Scott MD [address] [place] [address] 03/31/2025 10:30 AM EDT Telemedicine [facility] [address], [place] [phone] Katia De Jesus, RN [address] [place] [address] Health Maintenance Due Date Last Done Comments CT Colonography 1965 FIT DNA/Cologuard 1965 FIT 1965 FOBT 1965 Sigmoidoscopy 1965 Hepatitis B Vaccines (1 of 3 - 19+ 3-dose series) 1985 COVID-19 Vaccine ( season) 2024 06/09/2021, 11/12/2020, 10/15/2020 Influenza Vaccine (#1) 2025 , 03/12/2021, 03/05/2019, Additional history exists Dental Oral Exam 03/20/2025 09/17/2024, , 11/05/2015, Additional history exists Dental Prophylaxis 03/20/2025 09/17/2024, 0 10/26/2023, 11/05/2015, Additional history exists Depression Monitoring 06/06/2025 12/05/2024, 024 Diabetes: Hemoglobin A1C 06/20/2025 025, 08/12/2023, 02/14/2023, Additional history exists Dental X-Ray: Bitewings 09/18/2025 09/18/19 25, 2024, 10/26/2023, Additional history exists SDOH Screening 11/27/2025 11/27/2024 Alcohol/Substance Use Screening 12/05/2025 12/05/2024 Disability Screening 12/05/2025 12/05/2024 Tobacco Screening 12/05/2025 12/05/2024 Mammogram 02/28/2026 02/29/2024, 02/10, 03/22/2022, Additional history exists Dental X-Ray: Full Mouth 10/26/2026 10/26/2023, 04/12 Colonoscopy 02/01/2027 02/01/2017 Colorectal Cancer Screening 02/01/2027 Cervical Cancer Screening 05/18/2028 HPV/Cotest 05/18/2028 01/24/2019 Pap Smear 05/18/2028 05/18/2023, 01/24/2019 Lipid Panel 06/20/2029 06/20/2024, 03/07/2023, 02/14/2023, Additional history exists DTaP/Tdap/Td Vaccines (3 - Td or Tdap) 02/10/2033 02/10/2023, 05/17/2013, 05/01/2008 RSV Patients and Patients Aged 60 years or older (1 - 1-dose 75+ series) 2041 Zoster Vaccines Completed 02/10/2023, 04/13/2021 Pneumococcal Vaccine: 50+ Years Completed 03/08/2023, 06/30/2012, 07/18/2005 HIV Screening Completed 06/20/2024, 07/2023, 05/18/2023, Additional history exists Hepatitis C [...] patient's age to complete this topic Meningococcal B Vaccine Aged Out No l onger eligible based on patient's age to complete [...] Comments POCT MADYSON-14 URINE DRUG SCREEN Routine 01/02/2025 9:22 AM EDT Lumbar radiculopathy PROPHYLAXIS - ADULT Routine 09/17/2024 9 :00 AM EDT BITEWINGS - 4 RADIOGRAPHIC IMAGES Routine 09/17/2024 9:00 AM EDT PERIODIC ORAL EVALUATION - ESTABLISHED PATIENT Routine 09/17/2024 9:00 AM EDT Encounter for dental examination Dental calculus Teeth missing HEPATITIS C AB W/REFL TO HCV RNA, QN, PCR Routine 06/20/2024 8:59 AM EST Annual physical exam HIV 1/2 ANTIGEN/ANTIBODY, FOURTH GENERATION W/RFL Routine 06/20/2024 8:59 AM EST Annual physical exam HEMOGLOBIN A1C Routine 06/20/2024 8:59 AM EST Annual physical exam LIPID PANEL, STANDARD Routine 06/20/2024 8:59 AM EST Annual physical exam BI MAMMOGRAM SCREENING TOMOSYNTHESIS BILATERAL Routine 02/29/2024 10:30 AM EDT INTRAORAL - COMPLETE SERIES OF RADIOGRAPHIC IMAGES Routine 10/26/2023 9:00 AM EDT PAP SMEAR Routine 05/18/2023 ZZZ HISTORICAL HPV MRNA E6/E7 Routine 01/24/2019 9:32 AM EDT HM COLONOSCOPY Routine 02/01/2017 2:34 PM EDT from Last 3 Months or Most Recently Relevant to Health Maintenance Results * (ABNORMAL) POCT MADYSON-14 Urine Drug Screen (01/02/2025 9:22 AM EDT) THC Negative Negative Cocaine Screen, Urine Negative Negative Opiate Screen, Urine Negative Negative Methamphetamine Screen Urine Negative Negative Amphetamine Screen, Urine Negative Negative Benzodiazepines Screen, Urine Negative Negative Barbiturate Screen, Urine Negative Negative Methadone Screen, Urine Negative Negative Buprenophine Screen, Urine Negative Negative TCA, Urine Negative Negative MDMA Urine Negative Negative ng/mL Oxycodone Screen, Urine Positive(A) Negative Phencyclidine (PCP), Urine Negative Negative Propoxyphene, Urine Negative Negative Fentanyl, Urine Negative Negative Urine Urine specimen obtained by clean catch procedure / Unknown 01/02/2025 9:22 AM EDT Narrative Katia De Jesus RN - 01/02/2025 9:22 AM EDT Internal Pass Control Lot# [id number] Exp: 04-11-26 us Niyah Ruano MD POINT OF CARE BRUCE T ENTER/EDIT ORDERABLES Final Result * Hepatitis C Antibody with Reflex to HCV, RNA, Quantitative, Real-Time PCR (06/20/2024 8:59 AM EST) Hepatitis C Antibody Nonreactive Nonreactive [facility] Comment:Antibodies to HCV no t detected; does not exclude early acuteHCV infection. Blood Venous blood specimen / Unknown 06/20/2024 8:59 AM EST 06/20/2024 11:28 AM EST us Niyah Ruano MD LAB BLOOD ORDERAB LES Final Result Performing Organization Address City/[facility]/ZIP Co de Phone Number [facility] [address] [place] [phone] * HIV-1/2 Antigen and Antibodies, Fourth Generation, with Reflexes (06/20/2024 8:59 AM EST) HIV AB/AG Nonreactive Nonreactive [facility] Comment:HIV-1 p24 Ag and/or HIV-1/HIV-2 Ab not detected.A test result that is nonreactive does not exclude thepossibility of exposure to or infection with HIV-1 and/orHIV-2. Nonreactive results in this assay for individualswith prior exposure to HIV-1 and/or HIV-2 may be due toantigen and antibody levels that are below the limit ofdetection of this assay.The [employer] HIV Ag/Ab Combo assay result andsupplemental assay results should be interpreted inconjunction with the patient's clinical presentation,history and other laboratory results. If the results areinconsistent with clinical evidence, additional testing issuggested to confirm the result. Blood Venous blood specimen / Unknown 06/20/2024 8:59 AM EST 06/20/2024 11:28 AM EST us Niyah Ruano MD LAB BLOOD ORDERAB LES Final Result Performing Organization Address City/[facility]/ZIP Co de Phone Number [facility] [address] [place] [address] [phone] * Hemoglobin A1c (06/20/2024 8:59 AM EST) Hemoglobin A1c 5.3 <6.0 % [facility] Comment:Hemoglobin A1C Refer ence Range Adults: 4.8 - 6.0 % Non diabetic: < 6.0 % Goal: < 7.0 %Additional Action Suggested: > 8.0 %Note: Hemoglobin A1c results are invalid for patients with abnormal amounts of HbF. Blood transfusions may impact the HbA1c concentration in the patient sample. Estimated Average Glucose 105 mg/dL [facility] Comment:eAG = Estimated ave rage glucose which is %A1C expressed asaverage glucose, using the formula of the G4E-[id number] Glucose study (ADAG), Diabetes Care, Vol.31,#8,Jan. 2007 Blood Venous blood specimen / Unknown 06/20/2024 8:59 AM EST 06/20/2024 11:28 AM EST Niyah Ruano MD LAB BLOOD ORDERAB LES Final Result [facility] [address] [place] [phone] * (ABNORMAL) Lipid Panel, Standard (06/20/2024 8:59 AM EST) Triglycerides 119 <150 mg/dL [facility] Comment:Desirable Triglyceri de: less than 150 mg/dLBorderline High Triglyceride 150-199 mg/dLHigh Triglyceride: 200-499 mg/dLVery High Triglyceride: greater than or equal to 5OO mg/dL Cholesterol 208(H) <200 mg/dL [facility] Comment:Desirable Cholestero l: less than 200 mg/dLBorderline High Cholesterol: 200-239 mg/dLHigh Cholesterol: greater than 239 mg/dL LDL Cholesterol Calculated 123(H) <100 mg/dL [facility] Comment:Desirable LDL: less than 100 mg/dLNear Optimal/Above Optimal LDL: 110- 129 mg/dLBorderline High LDL: 130-159 mg/dLHigh LDL: 160-189 mg/dLVery High LDL: greater than or equal to 190 mg/dL HDL Cholesterol 62 >40 mg/dL [facility] Comment:Desirable HDL: great er than 40 mg/dL Note: This HDL assay may give artificially low results in patients with liver disease. Blood Venous blood specimen / Unknown 06/20/2024 8:59 AM EST 06/20/2024 11:28 AM EST Niyah Ruano MD LAB BLOOD ORDERAB LES Final Result [facility] [address] [place] [address] [phone] * BI Mammogram Screening Tomosynthesis Bilateral (02/29/2024 10:30 AM EDT) Anatomical Region Laterality Modality Breast Bilateral Mammography 02/29/2024 10:3 0 AM EDT Narrative 03/12/2024 7:18 PM EDT [address] [place] [address] Mammography Report Signed Patient: Shira Molina MR#: [id number] 0 : 1965 Acct:[id number] Age/Sex: 58 / F ADM Date: 02/29/24 Loc: HO.MAMMO Attending Dr: Niyah Ruano MD Ordering Physician: Niyah Scott MD Re sults: 1Negative Date of Service: 02/29/24 Follow Up: 1 Year From Orig ina Mammogram Procedure(s): MM tomosynthesis screening BI Accession Number(s): [id number] cc: Niyah Scott MD EXAMINATION: MM SCREENING [...] Tatianna Sow DO 03/12/2024 07:15 PM EDT RP Dictated By: Tatianna Sow DO Signed By: <Electronically signed by Tatianna Sow DO in OV> 03/12/24 191 DD/ 1030 TD/TT: 02/29/24 1043 Stock Raiser: Procedure Note Donotuseinterpreter, Image - 03/12/2024 [facility] [address] [place], [place] [address] Mammography Report Signed Patient: Valorie Molina#: [id number] 0 : 1965Acct:[id number] Age/Sex: 58 / FADM Date: 02/29/24 Loc: HO.MAMMO Attending Dr: Niyah Ruano MD Ordering Physician: Niyah Scott sults: 1Negative Date of Service: 02/29/24Follow Up: 1 Year From Orig inal Mammogram Procedure(s): MM tomosynthesis screening BI Accession Number(s): [id number] cc: Niyah Scott MD EXAMINATION: MM SCREENING [...] Tatianna Sow DO 03/12/2024 07:15 PM EDT RP Dictated By: Tatianna Sow DO Signed By: <Electronically signed by Tatianna Sow DO in OV> 03/12/24 1915 DD/ 1030 TD/TT: 02/29/24 1043 Stock Raiser: Niyah Ruano MD IMG BI PROCEDURES Edited Result - Final * Pap Smear (05/18/2023) Pap Smear 1. NILM 1. NILM Comment:HPV negative Swab 05/18/2023 Historical Provider LAB CYTOLOGY ORDERABLES F inal Result * HPV mRNA E6/E7 (01/24/2019 9:32 AM EDT) HPV mRNA E6/E7 Not Detected NOT DETECTED [facility] Comment: This test was performed using the APTIMA(R) HPV Assay ([employer] This assay detects E6/E7 viral messenger RNA (mRNA) from 14 high-risk HPV types (16,18,31,33,35,39,45,51, 52,56,58,59,66,68). For additional information please refer to: http://education.MashMe.TV/faq/IRA570p7 (This link is being provided for informational/ educational purposes only.) The analytical performance characteristics of this assay have been determined by [employer] [place], [place]. The modifications have not been cleared or approved by the FDA. This assay has been validated pursuant to the CLIA regulations and is used for clinical purposes. Test Performed by [facility], [facility], [address] [place] [address] Kelvin Boston M.D., Ph.D., Director of Laboratories , CLIA [id number] Please note: Effective 02/22/2016, HPV testing will be performed using [employer]'s APTIMA test which targets mRNA. Detecting mRNA instead of DNA, as in older methods, offers significant improvements in specificity. 01/24/2019 9:32 AM EDT us Alix Tello CNM HISTORICAL/NON ORDERABLE LABS Final Result [facility] [facility] [address] * Hm Colonoscopy (02/01/2017 2:34 PM EDT) Colonoscopy Normal Normal Narrative Margo Esquivel - 02/01/2017 2:34 PM EDT Recommended 10 year follow up us Historical Provider MD HEALTH MAINTENANCE Final Result from Last 3 Months or Most Recently Relevant to Health Maintenance Insurance [facility] C3 DENTAL-[facility] MEDICAID STAND ADULT Care Teams Safety Professional Relationship Specialty Start Date End Date Niyah Scott MD [address] [place] [id number] PCP - General Internal Medicine 02/10/23 Zainab Hermosillo District Traffic ChiefCreative Project Manager 06/01/23
[2025-01-20 13:55] LABS: Alanine Aminotransferase 14 U/L (0-31); Albumin Level 4.4 g/dL (3.5-5.0); Alkaline Phosphatase 70 U/L (39-117); Anion Gap 14 (12-20); Aspartate Amino Transferase 24 U/L (5-31); Blood Urea Nitrogen 14 mg/dL (9-16); Calcium 9.5 mg/dL (8.4-10.2); Carbon Dioxide 31 mmol/L (22-29); Chloride 104 mmol/L (96-108); Cholesterol 214 mg/dL (<200); Estimated Glomerular Filt Rate > 60; HDL Cholesterol 64 mg/dL (>40); Potassium 4.1 mmol/L (3.3-5.1); Sodium 145 mmol/L (135-145); Total Protein 7.6 g/dL (6.5-8.0); Triglycerides 117 mg/dL (<150)
[2025-01-20 15:30] LABS: CT PCR Urine NOT DETECTED (Not Detect.); NG PCR Urine NOT DETECTED (Not Detect.)
== END 2025-01-20 08:41 | disposition home or self-care (01) ==
LOC: HO.US 08:40
PROVIDERS: PCP Student in an Organized Health Care Education/Training Program; Referring Provider Student in an Organized Health Care Education/Training Program; Visit Provider Nurse Practitioner Family
DX: Z00.00 Encounter for general adult medical examination without abnormal findings (principal); N20.0 Calculus of kidney; R39.89 Other symptoms and signs involving the genitourinary system; E78.5 Hyperlipidemia, unspecified; R17 Unspecified jaundice; Z11.3 Encounter for screening for infections with a predominantly sexual mode of transmission; Z11.8 Encounter for screening for other infectious and parasitic diseases
CPT/HCPCS: 76775; 80053; 80061; 82248; 87086; 87491; 87591

== ENCOUNTER → 2025-01-20 08:42 | Outpatient (BNV) | payer MEDICAID, SELFPAY | PROVIDERS: PCP Student in an Organized Health Care Education/Training Program; Referring Provider Student in an Organized Health Care Education/Training Program; Visit Provider Radiology Diagnostic Radiology | DX: N20.0 Calculus of kidney (principal) | CPT/HCPCS: 76775 ==

== ENCOUNTER 2025-01-28 11:18 | Outpatient (AMB) | payer MEDICAID, SELFPAY ==
--- NOTE | 2025-01-28 11:18 | A.OFFVIS_ITS ---
Intake Visit Reasons: US follow up Intake Note: Patient presents today via telehealth for follow up on/US * US : 01/20 Urology Medications: none Blood Thinner: none And Rescue Fire Fighter Crash Fire Required: Yes And Rescue Fire Fighter Crash Fire Name: [id number] Accompanied by: Self / Same As Patient Allergies morphine (MORPHINE) Allergy (Severe, Verified 01/28/25 11:47) HIVES, rash, itching,hives tramadol (TRAMADOL) Allergy (Intermediate, Verified 01/28/25 11:47) HIVES Medication List - Last Reconciled 01/28/25 by JADYN George-MAURA acetaminophen 500 mg PO Q8H PRN albuterol sulfate 90 mcg/actuation (ProAir HFA) 2 puffs PO Q4-6H PRN albuterol sulfate mg inhalation QID alendronate 70 mg PO QWEEK amlodipine 10 mg PO DAILY budesonide-formoterol 160-4.5 mcg/actuation (Symbicort) 2 puffs PO buspirone 5 mg PO BID uvsapsbsiq-sclcgxjxxlmnn-slou 50-300-40 mg (Fioricet) 1 cap PO Q8H PRN calcium carbonate 500 mg PO carvedilol 25 mg PO BID chlorthalidone 25 mg PO QAM clotrimazole-betamethasone 1-0.05 % 1 appl topical BID PRN 7 days ergocalciferol (vitamin D2) 1,250 mcg PO QWEEK escitalopram oxalate 20 mg PO QAM gabapentin 100 mg PO DAILY leflunomide 10 mg PO DAILY lisinopril 40 mg PO QAM loratadine 10 mg PO DAILY magnesium oxide 400 mg PO QAM omeprazole 20 mg PO DAILY tiotropium bromide (Spiriva with HandiHaler) 1 cap inhalation DAILY HPI Comments Details: Shira is a pleasant 59 year old French speaking patient of Dr. Cifuentes. She has a past medical history of anxiety, depression, nephrolithiasis, asthma, hypertension, GERD, and migraines. She is being followed up on today via telehealth for her history of nephrolithiasis. In discussion with the patient today she reports since her last office visit here approximately 1 year ago she has had no bothersome urinary issues or concerns. Recent renal imaging results reviewed with the patient today. 02/03 Bilateral kidneys with no calculi, lesions, and or hydronephrosis. When asked denies any urinary issues or concerns at this time. When asked she denies urinary urgency, urinary frequency, incontinence, nocturia, hematuria, dysuria, foul smelling urine, changes to urinary stream, flank pain, fever, and or chills. She is happy with her current voiding parameters. Patient otherwise denies any issues or concerns at this time. [facility] Medical History Age-related osteoporosis without current pathological fracture Trochanteric bursitis of left hip Long-term use of immunosuppressant medication Osteoarthritis involving multiple joints on both sides of body Inflammatory arthropathy Flank pain Breast pain Pelvic pain in female Encounter for annual routine gynecological examination Right flank pain Chondral defect of patella Migraines Fungal infection of the groin Yeast infection involving the vagina and surrounding area History of uterine fibroid Para-ovarian adhesion Gallbladder abscess Migraine HTN (hypertension) Kidney stones Surgical History Hx of colonoscopy History of bladder surgery Hx of knee surgery History of kidney surgery History of cholecystectomy History of tubal ligation History of bunionectomy Family History Mother Stroke Diabetes HTN (hypertension) Father Heart attack Sister Lupus Leukemia Social History Household Members: Spouse and Children Housing: Apartment Alcohol intake: never Patient Tobacco Use Status: Former Tobacco user Tobacco use type: Cigarette Cigarettes Per Day: 2 Current occupational status: unemployed Sexual orientation: Straight/Heterosexual Gender identity: Female Review of Systems Const All systems reviewed & are unremarkable except as noted in HPI and below Reports as per HPI Eyes Reports no additional complaints ENT Reports no additional complaints Card Reports as per HPI Resp Reports no additional complaints GI Reports as per HPI Reports as per HPI Musc Reports as per HPI Neuro Reports as per HPI Psych Reports as per HPI Physical Exam Const General: cooperative Orientation/consciousness: patient oriented x3 Neuro General: patient oriented x3 Psych Mental Status: mental status grossly normal Speech and movement: Clear speech present Attitude: cooperative Thought process: Normal thought process present Thought content: Normal thought content present Insight: Fair insight present (Psych) Judgement: Fair judgement present (Psych) Telehealth Telehealth Telehealth Platform: Telephone Location of provider rendering services: practice address Location of patient: address on file Patient Identification confirmed using: Name, : Yes Telehealth method: voice only Patient verbally consented to treatment: Yes Patient verbally consented to billing insurance company: Yes Patient informed of any privacy concerns related to visit: Yes Minutes spent on Phone/Video with Pt.: 15 Results Reviewed Results Reviewed: Date of Service: 01/20/25 Procedure(s): US renal BI Findings: Right kidney length is 11.1 cm. Left kidney length is 12.3 cm. Normal cortical thickness and echotexture bilaterally. No hydronephrosis, large shadowing calculus or cortical mass lesion. IMPRESSION: 1. No hydronephrosis. 2. No sonographic evidence for nephrolithiasis. Assessment & Plan Assessment & Plan (1) Kidney stones: Code(s): N20.0 - Calculus of kidney Category: Medical (2) Nephrolithiasis: Code(s): N20.0 - Calculus of kidney Category: Medical Plan Recent renal imaging results reviewed with the patient today; as noted above. She denies any urinary issues or concerns at this time. She reports be happy with current voiding parameters. Discussed, educated, encouraged to continue drinking plenty of water daily. Renal ultrasound in 1 year. Follow-up in 1 year with imaging to be completed prior; or sooner with any issues, concerns, and or questions. Orders: Orders US renal BI 1 Year N20.0 - Calculus of kidney Patient Instructions: The patient had an opportunity to ask questions regarding the treatment plan. All questions were answered. Physical exam, labs, and imaging were discussed and reviewed in detail. As well as risks, benefits, and discussion of treatment choices. No major barriers to understanding were identified. The patient expressed understanding and agreement with the above treatment plan. The patient was made aware they should contact our office by phone for worsening of their current condition, the appearance of new symptoms, or with any questions or concerns. Compliance is encouraged with any medications and follow up testing that is ordered. It is a privilege to be allowed the opportunity to participate in? your urological care.? Again, if you have any questions or concerns If you have any questions or concerns please do not hesitate to contact me. The office is [phone]. This note is constructed using voice recognition software. While every effort has been made to ensure accuracy wastewater treatment operator errors may have been included. Yours sincerely, RENITA George Coding Level of Care Code Tele Est Pt Level 3 (61918) Diagnoses Kidney stones N20.0
== END 2025-01-28 12:05 | disposition home or self-care (01) ==
LOC: HO.HUSH 11:18
PROVIDERS: PCP Student in an Organized Health Care Education/Training Program; Visit Provider Nurse Practitioner Family
DX: N20.0 Calculus of kidney (principal)
CPT/HCPCS: 99213

== ENCOUNTER 2025-02-18 05:02 | Emergency (ER) | payer MEDICAID, SELFPAY ==
--- NOTE | ~2025-02-18 | XR_ITS ---
CLINICAL HISTORY: trauma 3 view right foot Comparison: None provided Findings: Postsurgical changes along the distal 1st metatarsal. Ankle joint effusion noted. Calcaneal spurs are present. Impression: No acute fracture involving the osseous structures of the right foot. Suggested ankle fracture not visualized on these images. This document has been electronically signed by: Niranjan Way MD on 02/18/2025 06:03:53
--- NOTE | ~2025-02-18 | XR_ITS ---
CLINICAL HISTORY: trauma 3 view right ankle Comparison: None provided Findings: Moderate ankle joint effusion. Significant soft tissue edema laterally. Tiny bone fragment suggested along the lateral malleolus. No radiopaque foreign body. IMPRESSION: Probable avulsion fracture laterally. Soft tissue edema and joint effusion as noted. This document has been electronically signed by: Niranjan Way MD on 02/18/2025 06:05:18
[2025-02-18 05:05] VITALS: BP 158/90; PULSE 70; O2SAT 98
[2025-02-18 05:13] VITALS: BP 143/74; PULSE 68; RESP 16; TEMP 36.7; O2SAT 97; BMI 30.9
--- NOTE | 2025-02-18 05:18 | ED.GENADULT ---
HPI - General Adult General Chief complaint: Extremity Injury, Lower Stated complaint: fall/rt ankle swollen Time Seen by Provider: 02/18/25 05:08 Source: patient Limitations: language barrier History of Present Illness ED Provider: Cheryl Aiken PA-C HPI narrative: 59-year-old female with a history of arthritis, osteoporosis, obesity, hypertension, asthma, depression and anxiety who presents after fall. Patient was walking down a flight of stairs, she missed the last step, rolling her right ankle. Patient having pain over the ankle in the right foot, with significant swelling laterally. Related Data Home Medications ?Medication ?Instructions ?Recorded ?Confirmed albuterol sulfate 2.5 mg/3 mL mg inhalation QID 03/01/21 01/28/25 (0.083 %) solution for nebulization albuterol sulfate 90 mcg/actuation 2 puff PO Q4-6H PRN 03/01/21 01/28/25 aerosol inhaler (ProAir HFA) amlodipine 10 mg tablet 10 mg PO DAILY 03/01/21 01/28/25 budesonide-formoterol HFA 160 2 puff PO 03/01/21 01/28/25 mcg-4.5 mcg/actuation aerosol inhaler (Symbicort) ktrcrymsjg-cgdltxxisbkwj-maisfbby 1 cap PO Q8H PRN 03/01/21 01/28/25 50 mg-300 mg-40 mg capsule (Fioricet) loratadine 10 mg tablet 10 mg PO DAILY itch 03/01/21 01/28/25 omeprazole 20 mg capsule,delayed 20 mg PO DAILY 03/01/21 01/28/25 release buspirone 5 mg tablet 5 mg PO BID 10/17/22 01/28/25 gabapentin 100 mg capsule 100 mg PO DAILY 10/17/22 01/28/25 tiotropium bromide 18 mcg capsule 1 cap inhalation DAILY 10/17/22 01/28/25 with inhalation device (Spiriva with HandiHaler) acetaminophen 500 mg tablet 500 mg PO Q8H PRN mild pain 03/28/23 01/28/25 carvedilol 25 mg tablet 25 mg PO BID 03/28/23 01/28/25 chlorthalidone 25 mg tablet 25 mg PO QAM 03/29/23 01/28/25 ergocalciferol (vitamin D2) 1,250 1,250 mcg PO QWEEK 03/29/23 01/28/25 mcg (50,000 unit) capsule lisinopril 40 mg tablet 40 mg PO QAM 03/29/23 01/28/25 alendronate 70 mg tablet 70 mg PO QWEEK 07/21/23 01/28/25 calcium carbonate 500 mg PO 07/21/23 01/28/25 magnesium oxide 400 mg (241.3 mg 400 mg PO QAM 07/21/23 01/28/25 magnesium) tablet escitalopram oxalate 20 mg tablet 20 mg PO QAM 01/28/25 01/28/25 Previous Rx's ?Medication ?Instructions ?Recorded leflunomide 10 mg tablet 10 mg PO DAILY #60 tabs 03/29/23 clotrimazole-betamethasone 1 1 appl topical BID PRN fungal rash 05/18/23 %-0.05 % topical cream 7 days #45 grams ketorolac 10 mg tablet 10 mg PO TID PRN pain 5 days #15 02/18/25 tabs Allergies Allergy/AdvReac Type Severity Reaction Status Date / Time morphine (MORPHINE) Allergy Severe HIVES, Verified 02/18/25 05:15 rash, itching,hives tramadol (TRAMADOL) Allergy Intermediate HIVES Verified 02/18/25 05:15 Review of Systems Review of Systems: Yes all other systems are reviewed and are negative Constitutional: Constitutional: Denies fatigue and Denies fever(s) Musculoskeletal: Musculoskeletal: Reports arthralgias and Reports joint swelling Endocrine: Endocrine: Denies fatigue PMFSH Past Medical History Attestation statement: The following information was validated with the patient. Medical History Age-related osteoporosis without current pathological fracture Trochanteric bursitis of left hip Long-term use of immunosuppressant medication Osteoarthritis involving multiple joints on both sides of body Inflammatory arthropathy Flank pain Breast pain Pelvic pain in female Encounter for annual routine gynecological examination Right flank pain Chondral defect of patella Migraines Fungal infection of the groin Yeast infection involving the vagina and surrounding area History of uterine fibroid Para-ovarian adhesion Gallbladder abscess Migraine HTN (hypertension) Kidney stones Surgical History Hx of colonoscopy History of bladder surgery Hx of knee surgery History of kidney surgery History of cholecystectomy History of tubal ligation History of bunionectomy Family History Family History Mother Stroke Diabetes HTN (hypertension) Father Heart attack Sister Lupus Leukemia Social History Social History Household Members: Spouse and Children Housing: Apartment Alcohol intake: never Patient Tobacco Use Status: Former Tobacco user Tobacco use type: Cigarette Cigarettes Per Day: 2 Smoked in Last 30 Days: Yes Use of substances other than those prescribed or required for medical reasons: No Advance Directives: No Advance Directives Information Provided: Yes Patient : No Current occupational status: unemployed Sexual orientation: Straight/Heterosexual Gender identity: Female Physical Exam ED Vital Signs: Vital Signs - 24 hr 02/18/25 05:13 02/18/25 06:56 Temperature 98.1 F 98.1 F Pulse Rate 68 68 Respiratory Rate 16 16 Blood Pressure 143/74 H 143/74 H Pulse Oximetry 97 97 Oxygen Delivery Method Room Air Room Air BMI result Body Mass Index 30.9 Const Other: Alert, tearful Orientation/consciousness: patient oriented x3 Resp Effort & Inspection: normal respiratory effort Cardio Other: Normal peripheral perfusion Skin Other: Warm dry no rash Neuro General: patient oriented x3, gait normal, no focal motor deficits and CN's II-XI intact bilaterally Extrem Other: The right ankle is most swollen laterally with the overlying developing ecchymosis, limited flexion and extension secondary to pain Psych Other: Cooperative, tearful Medications Administered Discontinued Medications Generic Name Dose Route Start Last Admin Trade Name Freq PRN Reason Stop Dose Admin Acetaminophen 975 mg 02/18/25 05:08 02/18/25 05:25 Acetaminophen 325 Mg Tablet PO 02/18/25 05:09 975 mg ONCE ONE Administration Ketorolac Tromethamine 15 mg 02/18/25 05:08 02/18/25 05:25 Ketorolac Tromethamine 15 Mg/Ml Vial IM 02/18/25 05:09 15 mg ONCE ONE Administration Procedures Orthopedic Splinting/Casting Injury #1: Side: right Lower Extremity Injury Location: ankle Lower Extremity Immobilizer: boot orthosis Other Orthopedic Equipment: crutches Medical Decision Making Medical Decision Making MDM Narrative: 59-year-old female with a history of arthritis, osteoporosis, obesity, hypertension, asthma, depression and anxiety who presents after fall. Patient was walking down a flight of stairs, she missed the last step, rolling her right ankle. Patient having pain over the ankle in the right foot, with significant swelling laterally. Problem: Osteoporosis, arthritis, obesity History: Per patient I have considered the following differential diagnoses: Fracture, dislocation, contusion, sprain Plan: We will order x-rays of the foot in the ankle, giving Toradol and Tylenol for her pain. Holding on labs at this point, they may not be clinically warranted I have independently reviewed the following tests: X-ray right ankle: X-ray right foot: Differential Diagnosis Differential Diagnoses: The differential diagnosis associated with the presentation includes See medical decision-making Admission/Observation Consideration of admission/observation: Escalation of care including admission/observation considered Not applicable Discharge Plan Discharge Clinical Impression: Ankle sprain and strain Ankle fracture Qualifiers: Encounter type: initial encounter Fracture type: closed Laterality: right Qualified Code(s): S82.891A - Other fracture of right lower leg, initial encounter for closed fracture Patient Disposition: Home, Self-Care Instructions: Ankle Fracture (ED), Ankle Sprain (ED) Additional Instructions: wear boot and crutches - can take boot off for shower please keep elevated and can ice leg follow up with orthopedics return for worsening symptoms or concerns call orthopedics for appointment Findings: Moderate ankle joint effusion. Significant soft tissue edema laterally. Tiny bone fragment suggested along the lateral malleolus. No radiopaque foreign body. IMPRESSION: Probable avulsion fracture laterally. Soft tissue edema and joint effusion as noted. This document has been electronically signed by: Niranjan Way MD on 02/18/2025 06:05:18 Prescriptions: New ketorolac 10 mg tablet 10 mg PO TID PRN (Reason: pain) 5 Days Qty: 15 0RF Rx Instructions: given IV toradol in department No Action clotrimazole-betamethasone 1-0.05 % cream 1 appl topical BID PRN (Reason: fungal rash) 7 Days Qty: 45 1RF albuterol sulfate [ProAir HFA] 90 mcg/actuation HFA aerosol inhaler 2 puff PO Q4-6H PRN cxaetaagua-gonsagdyeimfw-ztex [Fioricet] 50-300-40 mg capsule 1 cap PO Q8H PRN budesonide-formoterol [Symbicort] 160-4.5 mcg/actuation HFA aerosol inhaler 2 puff PO loratadine 10 mg tablet 10 mg PO DAILY omeprazole 20 mg capsule,delayed release(DR/EC) 20 mg PO DAILY amlodipine 10 mg tablet 10 mg PO DAILY albuterol sulfate 2.5 mg /3 mL (0.083 %) solution for nebulization inhalation QID Spiriva with HandiHaler 18 mcg capsule, w/inhalation device 1 cap inhalation DAILY gabapentin 100 mg capsule 100 mg PO DAILY buspirone 5 mg tablet 5 mg PO BID acetaminophen 500 mg tablet 500 mg PO Q8H PRN (Reason: mild pain) carvedilol 25 mg tablet 25 mg PO BID ergocalciferol (vitamin D2) 1,250 mcg (50,000 unit) capsule 1,250 mcg PO QWEEK lisinopril 40 mg tablet 40 mg PO QAM chlorthalidone 25 mg tablet 25 mg PO QAM leflunomide 10 mg tablet 10 mg PO DAILY Qty: 60 0RF Rx Instructions: 1 tablet for per day for two weeks. Then increase to two tablets per day. calcium carbonate 500 mg calcium (1,250 mg) tablet 500 mg PO alendronate 70 mg tablet 70 mg PO QWEEK magnesium oxide 400 mg (241.3 mg magnesium) tablet 400 mg PO QAM escitalopram oxalate 20 mg tablet 20 mg PO QAM Referrals: [facility] [place] [facility] [Provider Group] Interventions: ED Discharge Assessment Last Done: 02/18/25 06:56 Discharge Date/Time: 02/18/25 06:58 Print Language: Romanian
--- OUTSIDE RECORDS SUMMARY | 2025-02-18 05:32 | XMS_ITS | Encounter Summary ---
Author Organization [employer] Address [address] [place] [address] [address] [place] [address] Care Team Providers Care Flight Readiness Technician Name Role Phone Name, Humble NIEVES Primary Care Provider [phone] Niyah Scott MD Primary Care Pro vider Reason for Visit * Reason Comments Med Refill Encounter Details Date Type Department Care Team (Late Contact Info) Description 12/16/[address] [facility] MEDICINE [address] [place] [address] [phone] Name, MD Humble [address] [place] [address] Low back pain with radiation Social History [...] Upcoming Encounters Date Type Department Care Team ([facility] Contact Info) Description 03/04/2025 9:30 AM EDT Procedure Visit [facility] MEDICINE [address] [place] [id number] Alix Tello, FERNANDO [address] [place], [place] [phone] 03/31/2025 10:30 AM EDT Telemedicine [facility] MED [facility] PEDS [address] [place], [place] [phone] Katia De Jesus, RN [address] [place], [place] [phone] documented as of this encounter Visit Diagnoses Diagnosis Low back pain with radiation documented in this encounter Additional Health Concerns Assessment Noted Time PHQ-9 Depression Total Score: 17 023 2:31 PM EDT documented as of this encounter Care Teams Flight Readiness Technician Relationship Specialty Start Date End Date Name, MD Humble [address] [place] [address] PCP - General Family Medicine 08/07/15 02/09/23 Niyah Scott MD [address] [place] [address] PCP - General Internal Medicine 02/10/23 Zainab Hermosillo Industrial EcologistFinisher Screwdown 06/01/23 documented as of this encounter
--- OUTSIDE RECORDS SUMMARY | 2025-02-18 05:32 | XMS_ITS | Encounter Summary ---
Author Organization [employer] Address [address] [place] [address] [address] [place] [address] Care Team Providers Care Trim Master Operator Name Role Phone Name, Humble NIEVES Primary Care Provider [phone] Niyah Scott MD Primary Care Pro vider Encounter Details Date Type Department Care Team (Late st Contact Info) Description 11/14/2022 Abstract [facility] [address] [place] [phone] Name, MD Humble [address] [place] [phone] Social History Tobacco Use Types Packs/Day Years [...] Department Care Team (Late Contact Info) Description 03/04/2025 9:30 AM EDT Procedure Visit [facility] [address] [place] [phone] Alix Tello CNM [address] [place] [address] 03/31/2025 10:30 AM EDT Telemedicine [facility] [address] [place] [address] Katia De Jesus, RN [address] [place] [address] documented as of this encounter Procedures Procedure Name Priority Date/Time Associated Diagnosis Comments PAP/HPV Routine 01/24/2019 12:00 AM EDT HM COLONOSCOPY Routine 02/01/2017 2:34 PM EDT documented in this encounter Results * Pap Smear (01/24/2019 12:00 AM EDT) us Historical Provider HEALTH MAINTENANCE Final Result * Colonoscopy (02/01/2017 2:34 PM EDT) Colonoscopy Normal Normal Narrative Margo Esquivel - 02/01/2017 2:34 PM EDT Recommended 10 year follow up us Historical Provider HEALTH MAINTENANCE Final Result documented in this encounter Visit Diagnoses Not on filedocumented in this encounter Additional Health Concerns Assessment Noted Time PHQ-9 Depression Total Score: 17 022 1:56 PM EST documented as of this encounter Care Teams Trim Master Operator Relationship Specialty Start Date End Date Name, MD Humble [address] [place] [address] PCP - General Family Medicine 08/07/15 02/09/23 Niyah Scott MD [address] [place], [place] [phone] PCP - General Internal Medicine 02/10/23 Zainab Hermosillo Cardiology TeacherEntry Analyst 06/01/23 documented as of this encounter
--- OUTSIDE RECORDS SUMMARY | 2025-02-18 05:32 | XMS_ITS | Encounter Summary ---
Author Organization [employer] Address [address] [place] [address] 7 [place] [address] Care Team Providers Care Gate Cutter Name Role Phone Niyah Scott MD Primary Care Pro vider Reason for Visit * Reason Onset Date Comments medication 07/12/2023 Encounter Details Date Type Department Care Team ([facility] st Contact Info) Description 07/12/2023 Telephone [facility] MEDICINE 230 [place], [place] [phone] Niyah Scott MD 230 [place] [address] medication Social History Tobacco Use Types Packs/Day [...] Upcoming Encounters Date Type Department Care Team ([facility] st Contact Info) Description 03/04/2025 9:30 AM EDT Procedure Visit [facility] MEDICINE 230 [place] [address] Alix Tello CNM 230 [place] [address] 03/31/2025 10:30 AM EDT Telemedicine [facility] CHC MED & PEDS 505 [place] [address] Katia De Jesus, VADIM 505 [place] [address] documented as of this encounter Goals Goal [...] documented as of this encounter Care Teams Gate Cutter Relationship Specialty Start Date End Date Niyah Scott MD [address] [place] [address] PCP - General Internal Medicine 02/10/23 Zainab Hermosillo Respiratory AssistantPoly Packer And Heat Sealer 06/01/23 documented as of this encounter
--- OUTSIDE RECORDS SUMMARY | 2025-02-18 05:32 | XMS_ITS | Encounter Summary ---
Author Organization [employer] Address [address] [place] [address] 7 [place] [address] Care Team Providers Care Senior Corporate Strategy Manager Name Role Phone Niyah Scott MD Primary Care Pro vider Reason for Visit * Reason Comments Med Refill Encounter Details Date Type Department Care Team ([facility] st Contact Info) Description 02/11/2025 Refill [facility] MEDICINE 230 [place] [address] Niyah Scott MD 230 [place] [address] Chronic pain syndrome Social History Tobacco Use [...] encounter Miscellaneous Notes * Telephone Encounter - Niyah Ruano MD - 02/12/2025 1:23 PM EDT Refill to soon documented in this encounter Plan of Treatment Upcoming Encounters Date Type Department Care Team (Late st Contact Info) Description 03/04/2025 9:30 AM EDT Procedure Visit [facility] MEDICINE 230 [place] [address] Alix Tello CNM 230 [place] [address] 03/31/2025 10:30 AM EDT Telemedicine [facility] CHC MED & PEDS 505 [place] [address] Katia De Jesus, VADIM 505 [place] [address] documented as of this encounter Goals Goal Patient Goal Type Associated Problems Recent Progress Patient-Stated? Author Help patient stop using tobacco General Tobacco dependence Not on track(03/13/20 5:32 PM EDT) No Oliver Boothe BelindaD documented as of this encounter Visit Diagnoses Diagnosis Chronic pain syndrome documented in this encounter Additional Health Concerns Assessment Noted Time PHQ-9 Depression Total Score: 11 024 2:21 PM EDT documented as of this encounter Care Teams Senior Corporate Strategy Manager Relationship Specialty Start Date End Date Niyah Scott MD [address] [place] [address] PCP - General Internal Medicine 02/10/23 Zainab Hermosillo Surveillance SpecialistClark Driver 06/01/23 documented as of this encounter
--- OUTSIDE RECORDS SUMMARY | 2025-02-18 05:32 | XMS_ITS | Encounter Summary ---
Author Organization [employer] Address [address] [place] [address] 7 [place] [address] Care Team Providers Care Drying Equipment Operator Name Role Phone Niyah Scott MD Primary Care Pro vider Reason for Visit * Reason Comments Med Refill Encounter Details Date Type Department Care Team ([facility] st Contact Info) Description 01/31/2025 Refill [facility] MEDICINE 230 [place] [address] Niyah Scott MD 230 [place] [address] Chronic pain syndrome Social History Tobacco Use [...] 9:30 AM EDT Procedure Visit [facility] MEDICINE 230 [place] [address] Alix Tello CNM 230 [place] [address] 03/31/2025 10:30 AM EDT Telemedicine [facility] CHC MED & PEDS 505 [place] [address] Katia De Jesus, VADIM 505 [place] [address] documented as of this encounter Goals Goal Patient Goal Type Associated Problems Recent Progress Patient-Stated? Author Help patient stop using tobacco General Tobacco dependence Not on track(03/13/20 23 5:32 PM EDT) No Oliver Boothe, Edie documented as of this encounter Visit Diagnoses Diagnosis Chronic pain syndrome documented in this encounter Additional Health Concerns Assessment Noted Time PHQ-9 Depression Total Score: 11 024 2:21 PM EDT documented as of this encounter Care Teams Drying Equipment Operator Relationship Specialty Start Date End Date Niyah Scott MD [address] [place] [address] PCP - General Internal Medicine 02/10/23 Zainab Hermosillo Inbound Customer Service RepresentativeMicrostrategy Developer 06/01/23 documented as of this encounter
--- OUTSIDE RECORDS SUMMARY | 2025-02-18 05:32 | XMS_ITS | Encounter Summary ---
Author Organization [employer] Address [address] [place] [address] 7t [place] [address] Care Team Providers Care Solution Coordinator Name Role Phone Name, Humble NIEVES Primary Care Provider [phone] Niyah Scott MD Primary Care Pro vider Reason for Visit * Reason Comments Med Refill Encounter Details Date Type Department Care Team ([facility] st Contact Info) Description 12/14/2022 Refill [facility] MEDICINE 230 [place], [place] [phone] Name, MD Humble 230 [place], [place] [phone] Low back pain with radiation Social History [...] Description 03/04/2025 9:30 AM EDT Procedure Visit [facility] MEDICINE 230 [place] [address] Alix Tello CNM 230 [place] [address] 03/31/2025 10:30 AM EDT Telemedicine [facility] CHC MED & PEDS 505 [place], [place] [phone] Katia De Jesus, VADIM 505 [place], [place] [phone] documented as of this encounter Visit Diagnoses Diagnosis Low back pain with radiation documented in this encounter Additional Health Concerns Assessment Noted Time PHQ-9 Depression Total Score: 17 12/08/ 023 2:31 PM EDT documented as of this encounter Care Teams Solution Coordinator Relationship Specialty Start Date End Date Name, MD Humble [address] [place] [address] PCP - General Family Medicine 08/07/15 02/09/23 Niyah Scott MD 230 [place], [place] [phone] PCP - General Internal Medicine 02/10/23 Zainab Hermosillo Manager Materials ManagementOutside Sales Advertising Executive 06/01/23 documented as of this encounter
--- OUTSIDE RECORDS SUMMARY | 2025-02-18 05:32 | XMS_ITS | Encounter Summary ---
Author Organization [employer] Address [address] [facility] 7 [place] [address] Care Team Providers Care Loader Demolder Name Role Phone Niyah Scott MD Primary Care Pro vider Reason for Visit * Reason Comments Med Refill Encounter Details Date Type Department Care Team ([facility] st Contact Info) Description 06/20/2023 Refill [facility] CHC MED & PEDS 505 [place], [place] [phone] Niyah Scott MD 230 [place], [place] [phone] Chronic pain syndrome Social History Tobacco Use [...] 9:30 AM EDT Procedure Visit [facility] MEDICINE 230 [place] [address] Alix Tello CNM 230 [place] [address] 03/31/2025 10:30 AM EDT Telemedicine [facility] CHC MED & PEDS 505 [place], [place] [phone] Katia De Jesus, RN 505 [place], [place] [phone] documented as of this encounter Goals Goal [...] documented as of this encounter Care Teams Loader Demolder Relationship Specialty Start Date End Date Niyah Scott MD 230 [place] [address] PCP - General Internal Medicine 02/10/23 Zainab Hermosillo Fiber ArtistIrrigationist Designer 06/01/23 documented as of this encounter
--- OUTSIDE RECORDS SUMMARY | 2025-02-18 05:32 | XMS_ITS | Encounter Summary ---
Author Organization [employer] Address [address] [place] [address] 7t [place] [address] Care Team Providers Care Reliability Engineer Name Role Phone Name, Hmuble NIEVES Primary Care Provider [phone] Niyah Scott MD Primary Care Pro vider Reason for Visit * Reason Onset Date Comments ER Follow-up 12/29/2022 Encounter Details Date Type Department Care Team ([facility] st Contact Info) Description 12/29/2022 Telephone [facility] MEDICINE 230 [place], [place] [phone] Name, MD Humble 230 [place] [address] ER Follow-up Social History Tobacco Use Types [...] 2:51 PM EDT T/C to pt. Through [employer] id - [id number] for below message, pt. States she is doing O.k,pt. Complains about constipation, Last BM was 4 days ago, pt. Advised to come [facility] , pt. States she will go to [...] to report ED visit on 12/29 at [facility]. Seen for back pain. Patient advised willforward to team nurse for follow up Please contact pt at [phone] (Citizen [place]) documented in this encounter Plan of Treatment Upcoming Encounters Date Type Department Care Team ([facility] st Contact Info) Description 03/04/2025 9:30 AM EDT Procedure Visit [facility] MEDICINE 230 [place] [address] Alix Tello CNM 230 [place] [address] 03/31/2025 10:30 AM EDT Telemedicine [facility] CHC MED & PEDS 505 [place] [address] Katia De Jesus, VADIM 505 [place] [address] documented as of this encounter Visit Diagnoses Not on filedocumented in this encounter Additional Health Concerns Assessment Noted Time PHQ-9 Depression Total Score: 17 023 2:31 PM EDT documented as of this encounter Care Teams Reliability Engineer Relationship Specialty Start Date End Date Name, MD Humble 230 [place] [address] PCP - General Family Medicine 08/07/15 02/09/23 Niyah Scott MD 230 [place] [address] PCP - General Internal Medicine 02/10/23 Zainab Hermosillo Tower CleanerSpecial Services Supervisor 06/01/23 documented as of this encounter
--- OUTSIDE RECORDS SUMMARY | 2025-02-18 05:32 | XMS_ITS | Encounter Summary ---
Author Organization [employer] Address [address] [place] [address] 7 [place] [address] Care Team Providers Care Yeast Cake Cutter Name Role Phone Niyah Scott MD Primary Care Pro vider Reason for Visit * Reason Onset Date Comments Med Refill 04/28/2023 Encounter Details Date Type Department Care Team ([facility] st Contact Info) Description 04/28/2023 Telephone [facility] MEDICINE 230 [place], [place] [phone] Niyah Scott MD 230 [place], [place] [phone] Med Refill Social History Tobacco Use Types [...] 7.5-325 MG tablet to be sent to [facility] pharmacy documented in this encounter Plan of Treatment Upcoming Encounters Date Type Department Care Team (Late st Contact Info) Description 03/04/2025 9:30 AM EDT Procedure Visit [facility] MEDICINE 230 [place] [address] Alix Tello CNM 230 [place] [address] 03/31/2025 10:30 AM EDT Telemedicine [facility] CHC MED & PEDS 505 [place], [place] [phone] Katia De Jesus, RN 505 [place] [address] documented as of this encounter Goals Goal [...] documented as of this encounter Care Teams Yeast Cake Cutter Relationship Specialty Start Date End Date Niyah Scott MD [address] [place] [address] PCP - General Internal Medicine 02/10/23 Zainab Hermosillo Pulling Machine OperatorTruss Designer 06/01/23 documented as of this encounter
--- OUTSIDE RECORDS SUMMARY | 2025-02-18 05:32 | XMS_ITS | Encounter Summary ---
Author Organization [employer] Address [address] [place] [address] 7 [place] [address] Care Team Providers Care Cigar Patcher Name Role Phone Niyah Scott MD Primary Care Pro vider Reason for Visit * Reason Comments Med Refill Encounter Details Date Type Department Care Team ([facility] st Contact Info) Description 03/30/2023 Refill [facility] MEDICINE 230 [place] [address] Niyah Scott MD 230 [place] [address] Chronic pain syndrome Social History Tobacco Use [...] Description 03/04/2025 9:30 AM EDT Procedure Visit [facility] MEDICINE 230 [place] [address] Alix Tello CNM 230 [place] [address] 03/31/2025 10:30 AM EDT Telemedicine [facility] CHC MED & PEDS 505 [place], [place] [phone] Katia De Jesus, VADIM 505 [place] [address] documented as of this encounter Goals Goal [...] documented as of this encounter Care Teams Cigar Patcher Relationship Specialty Start Date End Date Niyah Scott MD 230 [place] [address] PCP - General Internal Medicine 02/10/23 Zainab Hermosillo Kiln Furniture CasterUnhairer 06/01/23 documented as of this encounter
--- OUTSIDE RECORDS SUMMARY | 2025-02-18 05:32 | XMS_ITS | Encounter Summary ---
Author Organization [employer] Address [address] [place] [address] 7t [place] [address] Care Team Providers Care Electrical Engineer Mep Name Role Phone Name, Humble NIEVES Primary Care Provider [phone] Niyah Scott MD Primary Care Pro vider Reason for Visit * Reason Comments Med Refill Encounter Details Date Type Department Care Team (Late Contact Info) Description 12/12/2022 Refill [facility] MEDICINE [address] [place] [address] [phone] Name, MD Humble 230 [place] [address] Low back pain with radiation Social History [...] Upcoming Encounters Date Type Department Care Team ([facility] Contact Info) Description 03/04/2025 9:30 AM EDT Procedure Visit [facility] MEDICINE [address] [place] [address] Alix Tello, FERNANDO 230 [place], [place] [phone] 03/31/2025 10:30 AM EDT Telemedicine [facility] CHC MED & PEDS 505 [place], [place] [phone] Katia De Jesus, RN 505 [place], [place] [phone] documented as of this encounter Visit Diagnoses Diagnosis Low back pain with radiation documented in this encounter Additional Health Concerns Assessment Noted Time PHQ-9 Depression Total Score: 17 023 2:31 PM EDT documented as of this encounter Care Teams Electrical Engineer Mep Relationship Specialty Start Date End Date Name, MD Humble 230 [place] [address] PCP - General Family Medicine 08/07/15 02/09/23 Niyah Scott MD 230 [place] [address] PCP - General Internal Medicine 02/10/23 Zainab Hermosillo Strategic ManagerBlood Bank Laboratory Professional 06/01/23 documented as of this encounter
--- OUTSIDE RECORDS SUMMARY | 2025-02-18 05:32 | XMS_ITS | Encounter Summary ---
Author Organization [employer] Address [address] [place] [address] 7 [place] [address] Care Team Providers Care Auto Transmission Mechanic Name Role Phone Niyah Scott MD Primary Care Pro vider Reason for Visit * Reason Onset Date Comments Medication Question 09/26/2023 Encounter Details Date Type Department Care Team ([facility] st Contact Info) Description 09/26/2023 Telephone [facility] MEDICINE 230 [place], [place] [phone] Niyah Scott MD 230 [place] [address] Medication Question Social History Tobacco Use Types [...] regards to oxycodone. 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 She wants to know if it's possible to orange picking supervisor medication in a [facility] [place]. Please contact pt at [phone]. documented in this encounter Plan of Treatment Upcoming Encounters Date Type Department Care Team ([facility] st Contact Info) Description 03/04/2025 9:30 AM EDT Procedure Visit [facility] MEDICINE 230 [place] [address] Alix Tello CNM 230 [place] [address] 03/31/2025 10:30 AM EDT Telemedicine [facility] CHC MED & PEDS 505 [place] [address] Katia De Jesus, RN 505 [place] [address] documented as of this encounter Goals Goal [...] documented as of this encounter Care Teams Auto Transmission Mechanic Relationship Specialty Start Date End Date Niyah Scott MD [address] [place] [address] PCP - General Internal Medicine 02/10/23 Zainab Hermosillo RoadmasterTypewriter Mechanic 06/01/23 documented as of this encounter
--- OUTSIDE RECORDS SUMMARY | 2025-02-18 05:32 | XMS_ITS | Encounter Summary ---
Author Organization [employer] Address [address] [place] [address] 7 [place] [address] Care Team Providers Care Metal Bonding Helper Name Role Phone Name, Humble NIEVES Primary Care Provider [phone] Niyah Scott MD Primary Care Pro vider Encounter Details Date Type Department Care Team (Late st Contact Info) Description 05/27/2022 Orders Only [facility] MEDICINE [address] [place] [address] Vanessa Pryor, VADIM Social History Tobacco Use Types Packs/Day Years [...] Description 03/04/2025 9:30 AM EDT Procedure Visit [facility] MEDICINE 230 [place] [address] Alix Tello CNM 230 [place] [address] 03/31/2025 10:30 AM EDT Telemedicine [facility] CHC MED & PEDS 505 [place] [address] Katia De Jesus, RN 505 [place] [address] documented as of this encounter Visit Diagnoses Not on filedocumented in this encounter Care Teams Metal Bonding Helper Relationship Specialty Start Date End Date Name, MD Humble 230 [place] [address] PCP - General Family Medicine 08/07/15 02/09/23 Niyah Scott MD 230 [place] [address] PCP - General Internal Medicine 02/10/23 Zainab Hermosillo Manager OutreachPopcorn Candy Maker 06/01/23 documented as of this encounter
--- OUTSIDE RECORDS SUMMARY | 2025-02-18 05:32 | XMS_ITS | Encounter Summary ---
Author Organization [employer] Address [address] [place] [address] 7t [place] [address] Care Team Providers Care Production Control Clerk Name Role Phone Name, Humble NIEVES Primary Care Provider [phone] Niyah Scott MD Primary Care Pro vider Reason for Visit * Reason Onset Date Comments Medication Question 12/19/2022 Encounter Details Date Type Department Care Team ([facility] st Contact Info) Description 12/19/2022 Telephone [facility] MEDICINE 230 [place], [place] [phone] Name, MD Humble 230 [place] [address] Medication Question Social History Tobacco Use Types [...] it to her. Please contact daughter at [phone] documented in this encounter Plan of Treatment Upcoming Encounters Date Type Department Care Team (Late st Contact Info) Description 03/04/2025 9:30 AM EDT Procedure Visit [facility] MEDICINE 230 [place] [address] Alix Tello CNM 230 [place] [address] 03/31/2025 10:30 AM EDT Telemedicine [facility] CHC MED & PEDS 505 [place], [place] [phone] Katia De Jesus, VADIM 505 [place] [address] documented as of this encounter Visit Diagnoses Not on filedocumented in this encounter Additional Health Concerns Assessment Noted Time PHQ-9 Depression Total Score: 17 12/08/ 023 2:31 PM EDT documented as of this encounter Care Teams Production Control Clerk Relationship Specialty Start Date End Date Name, MD Humble [address] [place] [address] PCP - General Family Medicine 08/07/15 02/09/23 Niyah Scott MD 230 [place] [address] PCP - General Internal Medicine 02/10/23 Zainab Hermosillo Capital Campaign FundraiserField Contact Person 06/01/23 documented as of this encounter
--- OUTSIDE RECORDS SUMMARY | 2025-02-18 05:32 | XMS_ITS | Encounter Summary ---
Author Organization [employer] Address [address] [place] [address] 7 [place] [address] Care Team Providers Care Epic Cadence Specialists Name Role Phone Niyah Scott MD Primary Care Pro vider Reason for Visit * Reason Onset Date Comments Med Refill 12/04/2024 Encounter Details Date Type Department Care Team ([facility] st Contact Info) Description 12/04/2024 Telephone [facility] 230 [place], [place] [phone] Niyah Scott MD 230 [place], [place] [phone] Med Refill Social History Tobacco Use Types [...] AM EDT documented as of this encounter Functional Status * Over the past 2 weeks, how often have you been bothered by any of the following problems? Question Answer Date of Assessment Author Little interest or pleasure in doing things Not at all 12/05/2024 10:19 AM EDT Monica Holloway MA Feeling down, depressed, or hopeless Not at all 12/05/2024 10:19 AM EDT Monica Holloway MA Patient Health Questionnaire -2 Score 0 12/05/2024 10:19 AM EDT Monica Holloway MA documented as of this encounter Miscellaneous Notes * Telephone Encounter - Josie Booth - 12/04/2024 8:18 AM EDT TC from pt requesting medication refill. Medications needing refill : oxyCODONE-acetaminophen (Percocet) 7.5-325 MG tablet To be sent to: [facility] - LEA Fregoso - [address] documented in this encounter Plan of Treatment Upcoming Encounters Date Type Department Care Team (Late st Contact Info) Description 03/04/2025 9:30 AM EDT Procedure Visit [facility] 230 [place] [address] Alix Tello CNM 230 [place] [address] 03/31/2025 10:30 AM EDT Telemedicine [facility]S 505 [place], [place] [phone] Katia De Jesus, RN 505 [place] [address] documented as of this encounter Goals Goal [...] documented as of this encounter Care Teams Epic Cadence Specialists Relationship Specialty Start Date End Date Niyah Scott MD 230 [place] [address] PCP - General Internal Medicine 02/10/23 Zainab Hermosillo Paper CleanerQuality Improvement Engineer 06/01/23 documented as of this encounter
--- OUTSIDE RECORDS SUMMARY | 2025-02-18 05:32 | XMS_ITS | Encounter Summary ---
Author Organization [employer] Address [address] [place] [address] 7 [place] [address] Care Team Providers Care Muff Winder Name Role Phone Niyah Scott MD Primary Care Pro vider Reason for Visit * Reason Comments Med Refill Encounter Details Date Type Department Care Team ([facility] st Contact Info) Description 08/04/2023 Refill [facility] MEDICINE 230 [place], [place] [phone] Niyah Scott MD 230 [place] [address] Chronic pain syndrome Social History Tobacco Use [...] 9:30 AM EDT Procedure Visit [facility] MEDICINE 230 [place] [address] Alix Tello CNM 230 [place] [address] 03/31/2025 10:30 AM EDT Telemedicine [facility] CHC MED & PEDS 505 [place], [place] [phone] Katia De Jesus, RN 505 [place], [place] [phone] documented as of this encounter Goals Goal [...] documented as of this encounter Care Teams Muff Winder Relationship Specialty Start Date End Date Niyah Scott MD 230 [place] [address] PCP - General Internal Medicine 02/10/23 Zainab Hermosillo Automotive Glass SpecialistGrab Driver 06/01/23 documented as of this encounter
--- OUTSIDE RECORDS SUMMARY | 2025-02-18 05:32 | XMS_ITS | Encounter Summary ---
Author Organization [employer] Address [address] [place] [address] 7 [place] [address] Care Team Providers Care Edge Stripper Name Role Phone Niyah Scott MD Primary Care Pro vider Reason for Visit * Reason Comments Med Refill Encounter Details Date Type Department Care Team ([facility] st Contact Info) Description 12/25/2024 Refill [facility] MEDICINE [address] [place], [place] [phone] Niyah Scott MD 230 [place], [place] [phone] Social History Tobacco Use Types Packs/Day Years [...] your housing situation today? I have stephane gmaa 11/27/[address] you li [...] Description 03/04/2025 9:30 AM EDT Procedure Visit [facility] MEDICINE [address] [place] [address] Alix Tello CNM [address] [place] [address] 03/31/2025 10:30 AM EDT Telemedicine [facility] MED & PEDS [address] [place] [address] Katia De Jesus, VADIM 505 [place] [address] documented as of this encounter Goals Goal [...] documented as of this encounter Care Teams Edge Stripper Relationship Specialty Start Date End Date Niyah Scott MD [address] [place] [id number] PCP - General Internal Medicine 02/10/23 Zainab Hermosillo Electrocardiograph OperatorBlender Helper 06/01/23 documented as of this encounter
--- OUTSIDE RECORDS SUMMARY | 2025-02-18 05:32 | XMS_ITS | Encounter Summary ---
Author Organization [employer] Address [address] [place] [address] 7 [place] [address] Care Team Providers Care Cushion Worker Name Role Phone Niyah Scott MD Primary Care Pro vider Reason for Visit * Reason Comments Med Refill Encounter Details Date Type Department Care Team ([facility] st Contact Info) Description 09/28/2023 Refill [facility] MEDICINE [address] [place], [place] [phone] Niyah Scott MD 230 [place] [address] Social History Tobacco Use Types Packs/Day Years [...] Description 03/04/2025 9:30 AM EDT Procedure Visit [facility] MEDICINE [address] [place] [address] Alix Tello CNM [address] [place] [address] 03/31/2025 10:30 AM EDT Telemedicine [facility] CHC MED & PEDS 505 [place], [place] [phone] Katia De Jesus, RN 505 [place], [place] [phone] documented as of this encounter Goals Goal [...] documented as of this encounter Care Teams Cushion Worker Relationship Specialty Start Date End Date Niyah Scott MD [address] [place] [address] PCP - General Internal Medicine 02/10/[address] MagistratePer Diem Physical Therapist 06/01/23 documented as of this encounter
--- OUTSIDE RECORDS SUMMARY | 2025-02-18 05:32 | XMS_ITS | Encounter Summary ---
Author Organization [employer] Address [address] [facility] 7t [place] [address] Care Team Providers Care Roaster Supervisor Name Role Phone Niyah Scott MD Primary Care Pro vider Encounter Details Date Type Department Care Team ([facility] st Contact Info) Description 01/06/2025 Telephone [facility] MEDICINE [address] [place] [address] Niyah Scott MD [address] [place] [address] Social History Tobacco Use Types Packs/Day Years [...] Description 03/04/2025 9:30 AM EDT Procedure Visit [facility] MEDICINE 230 [place] [address] Alix Tello CNM 230 [place] [address] 03/31/2025 10:30 AM EDT Telemedicine [facility] CHC MED & PEDS 505 [place] [address] Katia De Jesus, RN 505 [place] [address] documented as of this encounter Goals Goal [...] documented as of this encounter Care Teams Roaster Supervisor Relationship Specialty Start Date End Date Niyah Scott MD 230 [place] [address] PCP - General Internal Medicine 02/10/23 Zainab Hermosillo Production CoordinatorDrafting Engineer 06/01/23 documented as of this encounter
--- OUTSIDE RECORDS SUMMARY | 2025-02-18 05:32 | XMS_ITS | Encounter Summary ---
Author Organization [employer] Address [address] [place] [address] 7 [place] [address] Care Team Providers Care Induction Coordination Power Engineer Name Role Phone Niyah Scott MD Primary Care Pro vider Reason for Visit * Reason Comments Med Refill Encounter Details Date Type Department Care Team ([facility] st Contact Info) Description 02/13/2025 Refill [facility] MEDICINE 230 [place] [address] Niyah Scott MD 230 [place] [address] Chronic pain syndrome Social History Tobacco Use [...] Description 03/04/2025 9:30 AM EDT Procedure Visit [facility] MEDICINE 230 [place] [address] Alix Tello CNM [address] [place] [address] 03/31/2025 10:30 AM EDT Telemedicine [facility] CHC MED & PEDS 505 [place] [address] Katia De Jesus, VADIM 505 [place] [address] documented as of this encounter Goals Goal [...] documented as of this encounter Care Teams Induction Coordination Power Engineer Relationship Specialty Start Date End Date Niyah Scott MD [address] [place] [address] PCP - General Internal Medicine 02/10/23 Zainab Hermosillo Welding OperatorMaterial Controller 06/01/23 documented as of this encounter
--- OUTSIDE RECORDS SUMMARY | 2025-02-18 05:32 | XMS_ITS | Encounter Summary ---
Author Organization [employer] Address [address] [facility] 7 [place] [address] Care Team Providers Care Optical Mechanic Name Role Phone Niyah Scott MD Primary Care Pro vider Reason for Visit * Reason Comments Med Refill Encounter Details Date Type Department Care Team ([facility] st Contact Info) Description 06/19/2023 Refill [facility] CHC MED & PEDS 505 [place], [place] [phone] Niyah Scott MD 230 [place], [place] [phone] Chronic pain syndrome Social History Tobacco Use [...] Description 03/04/2025 9:30 AM EDT Procedure Visit [facility] MEDICINE [address] [place] [address] Alix Tello CNM [address] [place] [address] 03/31/2025 10:30 AM EDT Telemedicine [facility] CH[facility] MED & PEDS 505 [place], [place] [phone] Katia De Jesus, RN 505 [place], [place] [phone] documented as of this encounter Goals Goal [...] documented as of this encounter Care Teams Optical Mechanic Relationship Specialty Start Date End Date Niyah Scott MD 230 [place] [address] PCP - General Internal Medicine 02/10/23 Zainab Hermosillo Heat Treater ApprenticeSander Wooden Pencils 06/01/23 documented as of this encounter
--- OUTSIDE RECORDS SUMMARY | 2025-02-18 05:32 | XMS_ITS | Encounter Summary ---
Author Organization [employer] Address [address] [facility] 7 [place] [address] Care Team Providers Care Health Policy Nurse Name Role Phone Niyah Scott MD Primary Care Pro vider Reason for Visit * Reason Comments Med Refill Encounter Details Date Type Department Care Team ([facility] st Contact Info) Description 10/23/2023 Refill [facility] CHC MED & PEDS [address] [place], [place] [phone] Niyah Scott MD 230 [place], [place] [phone] Chronic pain syndrome Social History Tobacco Use [...] Description 03/04/2025 9:30 AM EDT Procedure Visit [facility] MEDICINE [address] [place] [address] Alix Tello CNM [address] [place] [address] 03/31/2025 10:30 AM EDT Telemedicine [facility] CHC MED & PEDS 505 [place], [place] [phone] Katia De Jesus, RN 505 [place], [place] [phone] documented as of this encounter Goals Goal [...] as of this encounter Care Teams Health Policy Nurse Relationship Specialty Start Date End Date Niyah Scott MD 230 [place] [address] PCP - General Internal Medicine 02/10/23 Zainab Hermosillo Spectral ScientistDesizing Machine Offbearer 06/01/23 documented as of this encounter
--- OUTSIDE RECORDS SUMMARY | 2025-02-18 05:32 | XMS_ITS | Clinical Summary ---
Author Organization [employer] Address [address] [place] [address] [address] [place] [address] Care Team Providers Care Car Dumper Name Role Phone Niyah Scott MD Primary [...] mouth at bedtime. 30 capsule 2 024 Active docusate sodium (Colace) 100 MG capsule [...] 025 Active cholecalciferol (Vitamin D-3) 50 MCG (2000 UT) capsule Take 1 capsule (50 mcg) [...] EVENING FOR ITCHING 90 tablet 025 Active budesonide-form oterol (Symbicort) 160-4.5 [...] MOUTH EVERY EVENING 90 capsule 025 Active oxyCODONE-aceta minophen (Percocet) 7.5-325 MG tabletIndicatio ns:Chronic pain syndrome Take 1 tablet by mouth every 12 (twelve) hours if needed for severe pain. Do not start before January 29, 2025. 56 tablet 025 Active oxyCODONE-aceta minophen (Percocet) 7.5-325 MG tabletIndicatio ns:Chronic pain syndrome Take 1 tablet by mouth every 12 (twelve) hours if needed for severe pain. Do not start before January 02, 2025. 56 tablet 025 2024 Discontinued(R eorder (will not trigger notification to Pharmacy)) Active Problems Problem Noted Date Diagnosed Date [...] since medication is not in her system. [employer] RV appt scheduled 01/19/23 has been cancelled d/t no longer on Opiate. TC via P/I#[id number], no answer. L/M requesting she call back [...] Overview (01/05/2023): Percocet discontinued by PCP per [facility] policies Concern for Misuse Chronic pain continuing. [...] discussed with PCP. She was connected with [facility] and has upcoming with them for OP services. Provided Crisis number for her to call in the event of an emergency. Provided education around integrated medicine and the options of follow up BE's as needed. Provided contact information should questions or concerns arise. Plan: Shira will contact [facility] in the event of an emergency. She will keep her appt with [facility] for MH services and will discussed with [...] will benefit from keeping her appt with [facility] for MH services. At this time Shira Molina meets criteria for Visit Diagnoses: Problem List Items Addressed This Visit Other Major depressive disorder Patient ready to address current needs Yes Strengths include support from her family PLAN: 1. Follow up with [facility]: Not recommended for follow-up 2. Patient goal is to engage in MH services and to get treatment for pain 3. Behavioral Recommendations a. Ind. Therapy with [facility] b. Keeping her appt with PCP c. [facility] support as needed d. Crisis number for [...] seek help PLAN: 1. Follow up with [facility]: Not recommended for follow-up 2. Patient goal is to engage in OP therapy service 3. Behavioral Recommendations a. Patient will comply with medication b. Patient will engage in OP therapy, once established c. Patient will utilize coping techniques discussed d. Patient will reach out to [facility], if needed Encounters * This document contains information received from the source organization and may not represent a complete record from that organization. Date Type Department Care Team Description 02/17/2025 Refill [facility] [address] [place] [address] Niyah Scott MD Chronic pain syndrome 02/13/2025 Refill [facility] [address] [place] [address] Niyah Scott MD Chronic pain syndrome 02/11/2025 Refill [facility] [address] [place] [address] Niyah Scott MD Chronic pain syndrome 02/05/2025 Refill [facility] [address] [place] [address] Niyah Scott MD Chronic pain syndrome 01/31/2025 Refill [facility] [address] [place] [address] Niyah Scott MD Chronic pain syndrome 01/24/2025 Refill [facility] [address] [place] [address] Katia De Jesus RN Chronic pain syndrome 01/23/2025 Telephone [facility] [address] [place] [address] Niyah Scott MD Med Refill 01/20/2025 Orders Only [facility] [address] [place] [address] Niyah Scott MD 01/20/2025 Results Follow-Up [facility] [address] [place] [phone] Niyah Scott MD Comprehensive Metabolic Panel, Lipid Panel, Standard 01/16/2025 Telephone [facility] [address] [place], [place] [phone] Niyah Scott MD 01/06/2025 Telephone [facility] [address] [place], [place] [phone] Niyah Scott MD 01/06/2025 Refill [facility] [address] [place] [address] Niyah De León MD Gastritis without bleeding, unspecified chronicity, unspecified gastritis type 01/05/2025 Refill [facility] [address] [place] [address] Niyah Scott MD Essential hypertension; Situational stress; Gastritis without bleeding, unspecified chronicity, unspecified gastritis type 01/02/2025 9:30 AM EDT Clinical Support [facility] [address] [place] [address] Katia De Jesus RN Lumbar radiculopathy 01/02/2025 Travel 01/01/2025 Telephone [facility] [address] [place] [phone] Niyah Scott MD Prior Authorization 01/01/2025 Refill [facility] [address] [place] [address] Shelia Evans MD Essential hypertension 12/28/2024 Refill [facility] [address] [place] [address] Niyah Scott MD Asthma, unspecified asthma severity, unspecified whether complicated, unspecified whether persistent 12/25/2024 Refill [facility] [address] [place] [address] Niyah Scott MD 12/23/2024 Refill [facility] [address] [place] [address] Niyah Scott MD Chronic pain syndrome 12/09/2024 Refill [facility] [address] [place] [address] Niyah Scott MD Hypertension, unspecified type; Essential hypertension; Situational stress 12/08/2024 Refill [facility] [address] [place] [address] Niyah Scott MD Essential hypertension; Situational stress; Hypertension, unspecified type 12/05/2024 10:30 AM EDT Office Visit [facility] [address] [place] [address] Niyah Scott MD Hyperlipidemia, unspecified hyperlipidemia type [...] Tobacco dependence; Rash 12/05/2024 Travel 12/04/2024 Telephone [facility] [address] [place] [phone] Niyah Scott MD chart prep 12/04/2024 Refill [facility] [address] [place] [address] Katia De Jesus RN Chronic pain syndrome 12/04/[address] [address] Niyah Scott MD Med Refill 11/27/2024 Patient Outreach [facility] [address] [place] [address] Niyah Scott MD Pre-visit Planning (SDOH negative, Tobacco screening negative) 11/21/[address] [address] Niyah Scott MD Durable Medical Equipment from Last 3 Months Immunizations Immunization Administration [...] Description 03/04/2025 9:30 AM EDT Procedure Visit [facility] [address] [place] [address] Alix Tello CNM [address] [place] [address] 03/31/2025 10:30 AM EDT Telemedicine [facility] [address] [place] [address] Katia De Jesus, RN [address] [place] [address] Health Maintenance Due Date Last Done Comments CT Colonography 1965 FIT DNA/Cologuard 1965 FIT 1965 FOBT 1965 Sigmoidoscopy 1965 Hepatitis B Vaccines (1 of 3 - 19+ 3-dose series) 1985 COVID-19 Vaccine ( season) 2025 06/09/2021, 11/12/2020, 10/15/2020 Influenza Vaccine (#1) 2025 [...] Pap Smear 05/18/2028 05/18/2023, 01/24/2019 Lipid Panel 01/20/2030 01/20/2025, 02/2025, 08/12/2023, Additional history exists DTaP/Tdap/Td Vaccines (3 - [...] Procedure Name Priority Date/Time Associated Diagnosis Comments US RENAL COMPLETE Routine 01/20/2025 4:3 9 PM EDT CHLAMYDIA/TRICHOMONAS /NEISSERIA GONORRHOEAE, PCR, URINE Routine 01/20/2025 10:51 AM EDT BILIRUBIN, DIRECT Routine 01/20/2025 10: 51 AM EDT Elevated bilirubin LIPID PANEL, STANDARD Routine 01/20/2025 10:51 AM EDT Hyperlipidemia, unspecified hyperlipidemia type COMPREHENSIVE METABOLIC PANEL Routine 01/20/2025 10:51 AM EDT Hyperlipidemia, unspecified hyperlipidemia type CULTURE, URINE, ROUTINE Routine 01/20/2025 10:51 AM EDT POCT MADYSON-14 URINE DRUG SCREEN Routine 01/02/2025 [...] Recently Relevant to Health Maintenance Results * US Renal Complete (01/20/2025 4:39 PM EDT) Anatomical Region Laterality Modality Kidney Ultrasound 01/20/2025 4:39 PM EDT Narrative 01/20/2025 4:41 PM EDT [address] [address] Ultrasound Report Signed Patient: Shira Molina MR#: [id number] 0 : 1965 Acct:[id number] Age/Sex: 59 / F ADM Date: 01/20/25 Loc: HO.US Attending Dr: Ruth Ann MARAVILLA Ordering Physician: Ruth Ann Fuentes Date of Service: 01/20/25 Procedure(s): US renal BI Accession Number(s): [id number] cc: Ruth Ann Fuentes; Niyah Scott MD CLINICAL HISTORY: N20.0 - Calculus of kidney US RENAL Comparison: None provided Findings: Right kidney length is 11.1 cm. Left kidney length is 12.3 cm. Normal cortical thickness and echotexture bilaterally. No hydronephrosis, large shadowing calculus or cortical mass lesion. IMPRESSION: 1. No hydronephrosis. 2. No sonographic evidence for nephrolithiasis. This document has been electronically signed by: Amita Martinez DO on 01/20/2025 16:39:20 Dictated By: Amita Martinez MD Signed By: <Electronically signed by Amita Martinez MD in OV> 01/20/25 1640 DD/ 1639 TD/TT: 01/20/25 1639 Pillar Worker: Procedure Note Donotuseinterpreter, Image - 01/20/[address] [address] Ultrasound Report Signed Patient: Moi MolinaR#: [id number] 0 : 1965Acct:[id number] Age/Sex: 59 / FADM Date: 01/20/25 Loc: HO.US Attending Dr: Ruth Ann MARAVILLA Ordering Physician: Ruth Ann Fuentes Date of Service: 01/20/25 Procedure(s): US renal BI Accession Number(s): [id number] cc: Ruth Ann Fuentes; Niyah Scott MD CLINICAL HISTORY: N20.0 - Calculus of kidney US RENAL Comparison: None provided Findings: Right kidney length is 11.1 cm. Left kidney length is 12.3 cm. Normal cortical thickness and echotexture bilaterally. No hydronephrosis, large shadowing calculus or cortical mass lesion. IMPRESSION: 1. No hydronephrosis. 2. No sonographic evidence for nephrolithiasis. This document has been electronically signed by: Amita Martinez DO on 01/20/2025 16:39:20 Dictated By: Amita Martinez MD Signed By: <Electronically signed by Amita Martinez MD in OV> 01/20/25 1640 DD/ 1639 TD/TT: 01/20/25 163 Pillar Worker: [facility] External Provider IMG US PROCEDURES Final Result * Chlamydia/Trichomonas/Neisseria gonorrhoeae, PCR, Urine (01/20/2025 10:51 AM EDT) CT PCR, Urine NOT DETECTED Not Detect. [facility] Comment:A not detected test result does not exclude the possibilityof infection because test results can be affected byimproper specimen collection, concurrent antibiotic therapy,or the number of organisms in the specimen which may bebelow the sensitivity of the test. As with many diagnostictests, results from the Xpert CT/NG assay should beinterpreted in conjunction with other laboratory andclinical data available to the clinician.The Xpert CT/NG assay should not be used for the evaluationof suspected sexual abuse or for other medico-legalindications. Additional testing is recommended in anycircumstance when false positive or false negative resultscould lead to adverse medical, social or psychologicalconsequences. NG PCR, Urine NOT DETECTED Not Detect. [facility] Comment:A not detected test result does not exclude the possibilityof infection because test results can be affected byimproper specimen collection, concurrent antibiotic therapy,or the number of organisms in the specimen which may bebelow the sensitivity of the test. As with many diagnostictests, results from the Xpert CT/NG assay should beinterpreted in conjunction with other laboratory andclinical data available to the clinician.The Xpert CT/NG assay should not be used for the evaluationof suspected sexual abuse or for other medico-legalindications. Additional testing is recommended in anycircumstance when false positive or false negative resultscould lead to adverse medical, social or psychologicalconsequences. 01/20/2025 10:5 1 AM EDT 01/20/2025 1:59 PM EDT us Niyah Ruano MD LAB URINE ORDERAB LES Final Result Performing Organization Address [facility]/ZIP Co de Phone Number [facility] [address] [place] [phone] * Culture, Urine, Routine (01/20/2025 10:51 AM EDT) Urine Urine specimen obtained by clean catch procedure / Unknown 01/20/2025 10:51 AM EDT 01/20/2025 12:52 PM EDT Comment:UACC Narrative [facility] - 01/21/2025 8:15 AM EDT Urine Culture Report Result Urine Culture 10,000 to 50,000 cfu/ml Urine Culture Mixed bacterial nakita characteristic of Urine Culture urogenital contamination. Specimen Source: Urine clean catch Generic External Data Provider LAB MICROBIOLOGY - GENERAL ORDERABLES Final Result Performing Organization Address [facility]/RUST Co de Phone Number [facility] [address] [place] [phone] * Bilirubin, Direct (01/20/2025 10:51 AM EDT) Bilirubin, Direct 0.4 0.0 - 0.5 mg/dL [facility] Blood Venous blood specimen / Unknown 01/20/2025 10:51 AM EDT 01/20/2025 1:18 PM EDT Niyah Ruano MD LAB BLOOD ORDERAB LES Final Result Performing Organization Address City/[facility]/ZIP Co de Phone Number [facility] [address] [place] [phone] * (ABNORMAL) Lipid Panel, Standard (01/20/2025 10:51 AM EDT) Triglycerides 117 <150 mg/dL [facility] Comment:Desirable Triglyceri de: less than 150 mg/dLBorderline High Triglyceride 150-199 mg/dLHigh Triglyceride: 200-499 mg/dLVery High Triglyceride: greater than or equal to 5OO mg/dL Cholesterol 214(H) <200 mg/dL [facility] Comment:Desirable Cholestero l: less than 200 mg/dLBorderline High Cholesterol: 200-239 mg/dLHigh Cholesterol: greater than 239 mg/dL LDL Cholesterol Calculated 127(H) <100 mg/dL [facility] Comment:Desirable LDL: less than 100 mg/dLNear Optimal/Above Optimal LDL: 110- 129 mg/dLBorderline High LDL: 130-159 mg/dLHigh LDL: 160-189 mg/dLVery High LDL: greater than or equal to 190 mg/dL HDL Cholesterol 64 >40 mg/dL [facility] Comment:Desirable HDL: great er than 40 mg/dL Note: This HDL assay may give artificially low results in patients with liver disease. Blood Venous blood specimen / Unknown 01/20/2025 10:51 AM EDT 01/20/2025 1:18 PM EDT us Niyah Ruano MD LAB BLOOD ORDERAB LES Final Result [facility] [address] [place] [phone] * (ABNORMAL) Comprehensive Metabolic Panel (01/20/2025 10:51 AM EDT) Sodium 145 135 - 145 mmol/L [facility] Potassium 4.1 3.3 - 5.1 mmol/L [facility] Chloride 104 96 - 108 mmol/L [facility] Carbon Dioxide 31(H) 22 - 29 mmol/L [facility] Anion Gap 14 12 - 20 [facility] Urea Nitrogen (BUN) 14 9 - 16 mg/dL [facility] Creatinine, Serum 0.73 0.5 - 1.4 mg/dL [facility] Estimated Glomerular Filt Rate >60 [facility] Comment:Chronic Kidney Disea se: Estimated GFR < 60 mL/min/1.95x0Pqubdq Kidney Disease: Estimated GFR < 15 mL/min/1.73m2 Glucose 102 60 - 115 mg/dL [facility] Calcium 9.5 8.4 - 10.2 mg/dL [facility] Bilirubin, Total 1.3(H) 0.0 - 1.0 mg/dL [facility] Aspartate Amino Transferase 24 5 - 31 U/L [facility] Alanine Aminotransferase 14 0 - 31 U/L [facility] Total Protein 7.6 6.5 - 8.0 g/dL [facility] Albumin Level 4.4 3.5 - 5.0 g/dL [facility] Alkaline Phosphatase 70 39 - 117 U/L [facility] Blood Venous blood specimen / Unknown 01/20/2025 10:51 AM EDT 01/20/2025 1:18 PM EDT us Niyah Ruano MD LAB BLOOD ORDERAB LES Final Result [facility] [address] [place] [phone] * (ABNORMAL) POCT MADYSON-14 Urine Drug Screen [...] 01/02/2025 9:22 AM EDT Narrative Katia De Jesus, RN - 01/02/2025 9:22 AM EDT Internal Pass Control Lot# [id number] Exp: 04-11-26 Niyah Ruano MD POINT OF CARE BRUCE T ENTER/EDIT ORDERABLES Final Result * Hepatitis C Antibody with Reflex to HCV, RNA, Quantitative, Real-Time PCR (06/20/2024 8:59 AM EST) Hepatitis C Antibody Nonreactive Nonreactive [facility] Comment:Antibodies to HCV no t detected; does not exclude early acuteHCV infection. Blood Venous blood specimen / Unknown 06/20/2024 8:59 AM EST 06/20/2024 11:28 AM EST Niyah Ruano MD LAB BLOOD ORDERAB LES Final Result [facility] [address] [place] [phone] * HIV-1/2 Antigen and Antibodies, Fourth Generation, with Reflexes (06/20/2024 8:59 AM EST) HIV AB/AG Nonreactive Nonreactive [facility] Comment:HIV-1 p24 Ag and/or HIV-1/HIV-2 Ab not detected.A test result that is nonreactive does not exclude thepossibility of exposure to or infection with HIV-1 and/orHIV-2. Nonreactive results in this assay for individualswith prior exposure to HIV-1 and/or HIV-2 may be due toantigen and antibody levels that are below the limit ofdetection of this assay.The [employer] HIV Ag/Ab Combo assay result andsupplemental assay results should be interpreted inconjunction with the patient's clinical presentation,history and other laboratory results. If the results areinconsistent with clinical evidence, additional testing issuggested to confirm the result. Blood Venous blood specimen / Unknown 06/20/2024 8:59 AM EST 06/20/2024 11:28 AM EST us Niyah Ruano MD LAB BLOOD ORDERAB LES Final Result Performing Organization Address [facility]/[place]UST Co de Phone Number [facility] [address] [place] [phone] * Hemoglobin A1c (06/20/2024 8:59 AM EST) Hemoglobin A1c 5.3 <6.0 % [facility] Comment:Hemoglobin A1C Refer ence Range Adults: 4.8 - 6.0 % Non diabetic: < 6.0 % Goal: < 7.0 %Additional Action Suggested: > 8.0 %Note: Hemoglobin A1c results are invalid for patients with abnormal amounts of HbF. Blood transfusions may impact the HbA1c concentration in the patient sample. Estimated Average Glucose 105 mg/dL [facility] Comment:eAG = Estimated ave rage glucose which is %A1C expressed asaverage glucose, using the formula of the N7I-BddyjehCjmrqcc Glucose study (ADAG), Diabetes Care, Vol.31,#8,2007 Blood Venous blood specimen / Unknown 06/20/2024 8:59 AM EST 06/20/2024 11:28 AM EST us Niyah Ruano MD LAB BLOOD ORDERAB LES Final Result Performing Organization Address City/[facility]/ZIP Co de Phone Number [facility] [address] [place] [phone] * BI Mammogram Screening Tomosynthesis Bilateral (02/29/2024 10:30 AM EDT) Anatomical Region Laterality Modality Breast Bilateral Mammography 02/29/2024 10:3 0 AM EDT Narrative 03/12/2024 7:18 PM EDT [facility] [address] [place] [address] Mammography Report Signed Patient: Shira Molina MR#: [id number] 0 : 1965 Acct:[id number] Age/Sex: 58 / F ADM Date: 02/29/24 Loc: MAMMO Attending Dr: Niyah Ruano MD Ordering Physician: Niyah Scott MD Re sults: 1Negative Date of Service: 02/29/24 Follow Up: 1 Year From Orig inal Mammogram Procedure(s): MM tomosynthesis screening BI Accession Number(s): [id number] cc: Niyah Scott MD EXAMINATION: MM SCREENING [...] 03/12/24 1915 DD/ 1030 TD/TT: 02/29/24 1043 Pillar Worker: Procedure Note Donotuseinterpreter, Image - 03/12/2024 [facility] [address] [place] [address] Dr. [place], [place] [address] Mammography Report Signed Patient: Valorie Molina#: [id number] 0 : 1965Acct:[id number] Age/Sex: 58 / FADM Date: 02/29/24 Loc: MAMMO Attending Dr: Niyah Ruano MD Ordering Physician: Niyah Scott sults: 1Negative Date of Service: 02/29/24Follow Up: 1 Year From Orig inal Mammogram Procedure(s): MM tomosynthesis screening BI Accession Number(s): [id number] cc: Niyah Scott MD EXAMINATION: MM SCREENING [...] 03/12/24 1915 DD/ 1030 TD/TT: 02/29/24 1043 Pillar Worker: Niyah Ruano MD IMG BI PROCEDURES Edited Result - Final * Pap Smear (05/18/2023) Pap Smear 1. NILM 1. NILM Comment:HPV negative Swab 05/18/2023 Historical Provider LAB CYTOLOGY ORDERABLES F inal Result * HPV mRNA E6/E7 (01/24/2019 9:32 AM EDT) HPV mRNA E6/E7 Not Detected NOT DETECTED [facility] Comment: This test was performed using the APTIMA(R) HPV Assay ([employer] This assay detects E6/E7 viral messenger RNA (mRNA) from 14 high-risk HPV types (16,18,31,33,35,39,45,51, 52,56,58,59,66,68). For additional information please refer to: http://education.Thename.is/faq/NBQ031g7 (This link is being provided for informational/ educational purposes only.) The analytical performance characteristics of this assay have been determined by [employer] [place], [place]. The modifications have not been cleared or approved by the FDA. This assay has been validated pursuant to the CLIA regulations and is used for clinical purposes. Test Performed by [facility], [employer] [place], [address] [place] [address] Kelvin Boston M.D., Ph.D., Director of Laboratories , CLIA [id number] Please note: Effective 02/22/2016, HPV testing will be performed using [employer]'s APTIMA test which targets mRNA. Detecting mRNA instead of DNA, as in older methods, offers significant improvements in specificity. 01/24/2019 9:32 AM EDT us Alix Tello CNM HISTORICAL/NON ORDERABLE LABS Final Result [facility] Counts include 234 beds at the [facility] [address] * Hm Colonoscopy (02/01/2017 2:34 PM EDT) Colonoscopy Normal Normal Narrative Margo Esquivel - 02/01/2017 2:34 PM EDT Recommended 10 year follow up Historical Provider MD HEALTH MAINTENANCE Final Result from Last 3 Months or Most Recently Relevant to Health Maintenance Insurance * Guarantor: Shira Molina Account Type Relation to Patient Date of Phone Billing Address Personal/Family Self [phone] Care Teams Car Dumper Relationship Specialty Start Date End Date Niyah Scott MD [address] [place] [address] PCP - General Internal Medicine 02/10/23 Zainab Hermosillo Spray Rig OperatorFlower Machine Operator 06/01/23
--- OUTSIDE RECORDS SUMMARY | 2025-02-18 05:32 | XMS_ITS | Encounter Summary ---
Author Organization [employer] Address [address] [place] [address] [address] [place] [address] Care Team Providers Care Jewel Staker Name Role Phone Niyah Scott MD Primary Care Pro vider Reason for Visit * Reason Comments Med Refill Encounter Details Date Type Department Care Team ([facility] st Contact Info) Description 04/16/2023 Refill [facility] [address] [place], [place] [phone] Niyah Scott MD [address] [place], [place] [phone] Essential hypertension; Situational stress Social History Tobacco [...] 03/04/2025 9:30 AM EDT Procedure Visit [facility] [address] [place] [address] Alix Tello CNM [address] [place] [address] 03/31/2025 10:30 AM EDT Telemedicine [facility] [address] [place], [place] [phone] Katia De Jesus, VADIM [address] [place] [address] documented as of this encounter Goals Goal [...] documented as of this encounter Care Teams Jewel Staker Relationship Specialty Start Date End Date Niyah Scott MD [address] [place], [place] [phone] PCP - General Internal Medicine 02/10/23 Zaniab Hermosillo Automobile WreckerDistribution Field Technician 06/01/23 documented as of this encounter
--- OUTSIDE RECORDS SUMMARY | 2025-02-18 05:32 | XMS_ITS | Encounter Summary ---
Author Organization [employer] Address [address] [facility] 7t [place] [address] Care Team Providers Care Real Estate Rep Name Role Phone Niyah Scott MD Primary Care Pro vider Encounter Details Date Type Department Care Team (Late st Contact Info) Description 06/20/2024 Orders Only [facility] 230 [place] [address] Niyah De León MD 230 [place] [address] Social History Tobacco Use Types Packs/Day Years [...] Description 03/04/2025 9:30 AM EDT Procedure Visit [facility] 230 [place] [address] Alix Tello CNM 230 [place] [address] 03/31/2025 10:30 AM EDT Telemedicine [facility] 505 [place], [place] [phone] Katia De Jesus, RN 505 [place], [place] [phone] documented as of this encounter Goals Goal [...] documented as of this encounter Care Teams Real Estate Rep Relationship Specialty Start Date End Date Niyah Scott MD 230 [place] [address] PCP - General Internal Medicine 02/10/23 Zainab Hermosillo Nozzle Cement Sprayer HelperCertified Financial Planner 06/01/23 documented as of this encounter
--- OUTSIDE RECORDS SUMMARY | 2025-02-18 05:32 | XMS_ITS | Encounter Summary ---
Author Organization [employer] Address [address] [facility] 7t [place] [address] Care Team Providers Care Interstate Bus Driver Name Role Phone Niyah Scott MD Primary Care Pro vider Reason for Visit * Reason Comments Med Refill Encounter Details Date Type Department Care Team ([facility] st Contact Info) Description 09/06/2023 Refill [facility] 230 [place], [place] [phone] Parris Espana FNP 230 [place] [address] Social History Tobacco Use Types Packs/Day Years [...] Description 03/04/2025 9:30 AM EDT Procedure Visit [facility] 230 [place] [address] Alix Tello CNM 230 [place] [address] 03/31/2025 10:30 AM EDT Telemedicine [facility] 505 [place], [place] [phone] Katia De Jesus, RN 505 [place], [place] [phone] documented as of this encounter Goals Goal [...] documented as of this encounter Care Teams Interstate Bus Driver Relationship Specialty Start Date End Date Niyah Scott MD 230 [place] [address] PCP - General Internal Medicine 02/10/23 Zainab Hermosillo Maxillofacial PathologyPet Trainer 06/01/23 documented as of this encounter
--- OUTSIDE RECORDS SUMMARY | 2025-02-18 05:32 | XMS_ITS | Encounter Summary ---
Author Organization [employer] Address [address] [place] [address] 7t [place] [address] Care Team Providers Care Store Receiving Clerk Name Role Phone Name, Humble NIEVES Primary Care Provider [phone] Niyah Scott MD Primary Care Pro vider Reason for Visit * Reason Onset Date Comments Referral 09/29/2022 Encounter Details Date Type Department Care Team ([facility] st Contact Info) Description 09/29/2022 Telephone [facility] MEDICINE 230 [place], [place] [phone] Name, MD Humble 230 [place] [address] Referral Social History Tobacco Use Types Packs/Day [...] 2:56 PM EDT Noted, pt directed by lead software developer to WIC or ED for evaluation of flank pain. * Telephone Encounter - Aj Seay - 10/04/2022 2:36 PM EDT Tc from pt requesting status on referral. Please contact At [phone] * Telephone Encounter - Bonny Bernabe - 10/03/2022 12:01 PM EDT Tc from pt requesting status on kidney referral. Please contact pt at [phone] (russian speaking) * Telephone Encounter - Estephanie Orta [...] and for it to be sent to [facility]. Please contact pt at [phone] To verify information documented in this encounter Plan of Treatment Upcoming Encounters Date Type Department Care Team (Late st Contact Info) Description 03/04/2025 9:30 AM EDT Procedure Visit [facility] MEDICINE 230 [place] [address] Alix Tello CNM 230 [place] [address] 03/31/2025 10:30 AM EDT Telemedicine [facility] 505 [place] [address] Katia De Jesus, RN 505 [place] [address] documented as of this encounter Visit Diagnoses Not on filedocumented in this encounter Additional Health Concerns Assessment Noted Time PHQ-9 Depression Total Score: 17 022 1:56 PM EST documented as of this encounter Care Teams Store Receiving Clerk Relationship Specialty Start Date End Date Name, MD Humble 230 [place] [address] PCP - General Family Medicine 08/07/15 02/09/23 Niyah Scott MD 230 [place] [address] PCP - General Internal Medicine 02/10/23 Zainab Hermosillo Powerhouse Electrician ApprenticeBookkeeping Service Sales Agent 06/01/23 documented as of this encounter
--- OUTSIDE RECORDS SUMMARY | 2025-02-18 05:32 | XMS_ITS | Encounter Summary ---
Author Organization [employer] Address [address] [facility] 7t [place] [address] Care Team Providers Care Supervisor Compressed Yeast Name Role Phone Niyah Scott MD Primary Care Pro vider Encounter Details Date Type Department Care Team ([facility] st Contact Info) Description 08/20/2024 Telephone [facility] MEDICINE 230 [place] [address] Niyah Scott MD 230 [place] [address] Social History Tobacco Use Types Packs/Day Years [...] Description 03/04/2025 9:30 AM EDT Procedure Visit [facility] 230 [place] [address] Alix Tello CNM 230 [place] [address] 03/31/2025 10:30 AM EDT Telemedicine [facility]S 505 [place], [place] [phone] Katia De Jesus, RN 505 [place] [address] documented as of this encounter Goals Goal [...] documented as of this encounter Care Teams Supervisor Compressed Yeast Relationship Specialty Start Date End Date Niyah Scott MD 230 [place] [address] PCP - General Internal Medicine 02/10/23 Zainab Hermosillo Balance Staff StakerMalter Operator 06/01/23 documented as of this encounter
--- OUTSIDE RECORDS SUMMARY | 2025-02-18 05:32 | XMS_ITS | Encounter Summary ---
Author Organization [employer] Address [address] [place] [address] 7 [place] [address] Care Team Providers Care Regulatory Leader Name Role Phone Niyah Scott MD Primary Care Pro vider Reason for Visit * Reason Onset Date Comments Med Refill 02/17/2025 Encounter Details Date Type Department Care Team (Late st Contact Info) Description 02/17/2025 Refill [facility] MEDICINE 230 [place] [address] Niyah Scott MD 230 [place] [address] Chronic pain syndrome Social History Tobacco Use [...] Telephone Encounter - Niyah Ruano MD - 02/17/2025 9:18 PM EDT Refill too soon * Telephone Encounter - Josie Booth - 02/17/2025 8:10 AM EDT TC from pt requesting medication refill. Medications needing refill : oxyCODONE-acetaminophen (Percocet) 7.5-325 MG tablet To be sent to: [facility]/pharmacy #[id number] AT [facility] documented in this encounter Plan of Treatment Upcoming Encounters Date Type Department Care Team (Late st Contact Info) Description 03/04/2025 9:30 AM EDT Procedure Visit [facility] MEDICINE 230 [place] [address] Alix Tello CNM 230 [place] [address] 03/31/2025 10:30 AM EDT Telemedicine [facility] [address] [place] [address] Katia De Jesus, RN [address] [place] [address] documented as of this encounter Goals Goal [...] documented as of this encounter Care Teams Regulatory Leader Relationship Specialty Start Date End Date Niyah Scott MD [address] [place] [address] PCP - General Internal Medicine 02/10/23 Zainab Hermosillo Warehouse StockerThread Cutter 06/01/23 documented as of this encounter
--- OUTSIDE RECORDS SUMMARY | 2025-02-18 05:32 | XMS_ITS | Encounter Summary ---
Author Organization [employer] Address [address] [place] [address] 7 [place] [address] Care Team Providers Care Humanities And Languages Professor Name Role Phone Niyah Scott MD Primary Care Pro vider Reason for Visit * Reason Onset Date Comments Med Refill 11/21/2023 Encounter Details Date Type Department Care Team ([facility] st Contact Info) Description 11/21/2023 Telephone [facility] MEDICINE 230 [place], [place] [phone] Niyah Scott MD 230 [place], [place] [phone] Med Refill Social History Tobacco Use Types [...] 7.5-325 MG tablet To be sent to: [facility] [place], [place] - [address] [place] [address] documented in this encounter Plan of Treatment Upcoming Encounters Date Type Department Care Team ([facility] st Contact Info) Description 03/04/2025 9:30 AM EDT Procedure Visit [facility] 230 [place] [address] Alix Tello CNM 230 [place] [address] 03/31/2025 10:30 AM EDT Telemedicine [facility] 505 [place] [address] Katia De Jesus, VADIM 505 [place] [address] documented as of this encounter Goals Goal [...] documented as of this encounter Care Teams Humanities And Languages Professor Relationship Specialty Start Date End Date Niyah Scott MD [address] [place] [address] PCP - General Internal Medicine 02/10/23 Zainab Hermosillo High Lead YarderWelding Machine Operator Helper Arc 06/01/23 documented as of this encounter
--- OUTSIDE RECORDS SUMMARY | 2025-02-18 05:32 | XMS_ITS | Encounter Summary ---
Author Organization [employer] Address [address] [place] [address] 7 [place] [address] Care Team Providers Care Spd Manager Name Role Phone Niyah Scott MD Primary Care Pro vider Reason for Visit * Reason Comments Med Refill Encounter Details Date Type Department Care Team ([facility] st Contact Info) Description 03/31/2023 Refill [facility] MEDICINE 230 [place] [address] Niyah Scott MD 230 [place] [address] Chronic pain syndrome Social History Tobacco Use [...] 03/04/2025 9:30 AM EDT Procedure Visit [facility] MEDICINE 230 [place] [address] Alix Tello CNM 230 [place] [address] 03/31/2025 10:30 AM EDT Telemedicine [facility] 505 [place], [place] [phone] Katia De Jesus, VADIM 505 [place] [address] documented as of this encounter Goals Goal [...] documented as of this encounter Care Teams Spd Manager Relationship Specialty Start Date End Date Niyah Scott MD 230 [place] [address] PCP - General Internal Medicine 02/10/23 Zainab Hermosillo Wet Wash AssemblerUnscrambler 06/01/23 documented as of this encounter
--- OUTSIDE RECORDS SUMMARY | 2025-02-18 05:32 | XMS_ITS | Encounter Summary ---
Author Organization [employer] Address [address] [place] [address] 7t [place] [address] Care Team Providers Care Paint Line Operator Name Role Phone Name, Humble NIEVES Primary Care Provider Niyah Scott MD Primary Care Pro vider Reason for Visit * Reason Onset Date Comments ER Follow-up 01/31/2023 Encounter Details Date Type Department Care Team ([facility] st Contact Info) Description 01/31/2023 Telephone [facility] MEDICINE 230 [place], [place] [phone] Name, MD Humble 230 [place] [address] ER Follow-up Social History Tobacco Use Types [...] 01/31/2023 9:30 AM EDT Called pt. Via [place] data typist [id number] Iris. Pt. States that she has back pain and high BP. Pt. Went to [facility] ED and BP was 186/113. Pt. Is taking her BP medication as prescribed but BP is still 186/115 along with her back pain. Pt. States that as long as her back pain is not controlled her blood pressure is not going to be under control. I offered appt. For with [facility] but pt. Declines stating that she will [...] pt. Is declining to be seen at [facility] unless she can see her PCP. Pt. [...] to report ED visit on 01/30/22 at [facility]. Seen for back pain and high blood pressure. Patient advised will forward to team nurse for follow up. Patient still has high BP 168/113 and back pain. Patient speaks czech. documented in this encounter Plan of Treatment Upcoming Encounters Date Type Department Care Team (Late st Contact Info) Description 03/04/2025 9:30 AM EDT Procedure Visit [facility] MEDICINE 230 [place] [address] Alix Tello CNM 230 [place], [place] [phone] 03/31/2025 10:30 AM EDT Telemedicine [facility] 505 [place], [place] [phone] Katia De Jesus, VADIM 505 [place], [place] [phone] documented as of this encounter Visit Diagnoses Not on filedocumented in this encounter Additional Health Concerns Assessment Noted Time PHQ-9 Depression Total Score: 17 023 2:31 PM EDT documented as of this encounter Care Teams Paint Line Operator Relationship Specialty Start Date End Date Name, MD Humble [address] [place] [address] PCP - General Family Medicine 08/07/15 02/09/23 Niyah Scott MD [address] [place] [address] PCP - General Internal Medicine 02/10/23 Zainab Hermosillo Forming Roll Operator Heavy DutyDesign Technician 06/01/23 documented as of this encounter
--- OUTSIDE RECORDS SUMMARY | 2025-02-18 05:32 | XMS_ITS | Encounter Summary ---
Author Organization [employer] Address [address] [place] [address] 7t [place] [address] Care Team Providers Care Family Member Caretaker Name Role Phone Name, Humble NIEVES Primary Care Provider [phone] Niyah Scott MD Primary Care Pro vider Reason for Visit * Reason Comments Med Refill Encounter Details Date Type Department Care Team (Late Contact Info) Description 12/15/2022 Refill [facility] MEDICINE [address] [place] [phone] Name, MD Humble 230 [place] [address] Low back pain with radiation Social History [...] Upcoming Encounters Date Type Department Care Team ([facility] Contact Info) Description 03/04/2025 9:30 AM EDT Procedure Visit [facility] MEDICINE [address] [place] [address] Alix Tello, FERNANDO 230 [place], [place] [phone] 03/31/2025 10:30 AM EDT Telemedicine [facility] MED [facility] PEDS 505 [place], [place] [phone] Katia De Jesus, RN 505 [place], [place] [phone] documented as of this encounter Visit Diagnoses Diagnosis Low back pain with radiation documented in this encounter Additional Health Concerns Assessment Noted Time PHQ-9 Depression Total Score: 17 023 2:31 PM EDT documented as of this encounter Care Teams Family Member Caretaker Relationship Specialty Start Date End Date Name, MD Humble 230 [place] [address] PCP - General Family Medicine 08/07/15 02/09/23 Niyah Scott MD 230 [place] [address] PCP - General Internal Medicine 02/10/23 Zainab Hermosillo Deicer Element Winder MachineMake Up Girl 06/01/23 documented as of this encounter
--- OUTSIDE RECORDS SUMMARY | 2025-02-18 05:32 | XMS_ITS | Encounter Summary ---
Author Organization [employer] Address [address] [place] [address] 7 [place] [address] Care Team Providers Care White Sugar Pan Tank Operator Name Role Phone Niyah Scott MD Primary Care Pro vider Reason for Visit * Reason Onset Date Comments Med Refill 02/20/2023 Encounter Details Date Type Department Care Team ([facility] st Contact Info) Description 02/20/2023 Telephone [facility] MEDICINE 230 [place] [address] Niyah Scott MD 230 [place], [place] [phone] Med Refill Social History Tobacco Use Types [...] 9:30 AM EDT Procedure Visit [facility] MEDICINE 230 [place], [place] [phone] Alix Tello CNM 230 [place], [place] [phone] 03/31/2025 10:30 AM EDT Telemedicine [facility] 505 [place], [place] [phone] Katia De Jesus, RN 505 [place], [place] [phone] documented as of this encounter Visit Diagnoses Not on filedocumented in this encounter Additional Health Concerns Assessment Noted Time PHQ-9 Depression Total Score: 20 023 10:26 AM EDT documented as of this encounter Care Teams White Sugar Pan Tank Operator Relationship Specialty Start Date End Date Niyah Scott MD 230 [place] [address] PCP - General Internal Medicine 02/10/23 Zainab Hermosillo Card ReaderLieutenant General 06/01/23 documented as of this encounter
--- OUTSIDE RECORDS SUMMARY | 2025-02-18 05:32 | XMS_ITS | Encounter Summary ---
Author Organization [employer] Address [address] [place] [address] 7t [place] [address] Care Team Providers Care Air And Hydronic Balancing Technician Name Role Phone Name, Humble NIEVES Primary Care Provider [phone] Niyah Scott MD Primary Care Pro vider Reason for Visit * Reason Onset Date Comments Med Refill 12/09/2022 Encounter Details Date Type Department Care Team ([facility] st Contact Info) Description 12/09/2022 Telephone [facility] MEDICINE 230 [place], [place] [phone] Name, MD Hubmle 230 [place] [address] Med Refill Social History Tobacco Use Types [...] from pt requesting a call back , news writer explained notes from 12/07 per [employer] SPECIALIST RN however pt is upsetand does not understand why. Please contact at [phone] * Telephone Encounter - Vanessa Pryor RN [...] Description 03/04/2025 9:30 AM EDT Procedure Visit [facility] MEDICINE 230 [place] [address] Alix Tello CNM 230 [place] [address] 03/31/2025 10:30 AM EDT Telemedicine [facility] 505 [place] [address] Katia De Jesus, RN 505 [place] [address] documented as of this encounter Visit Diagnoses Not on filedocumented in this encounter Additional Health Concerns Assessment Noted Time PHQ-9 Depression Total Score: 17 023 2:31 PM EDT documented as of this encounter Care Teams Air And Hydronic Balancing Technician Relationship Specialty Start Date End Date Name, MD Humble 230 [place] [address] PCP - General Family Medicine 08/07/15 02/09/23 Niyah Scott MD 230 [place] [address] PCP - General Internal Medicine 02/10/23 Zainab Hermosillo Firearms Sales AssociatePlug Sorter 06/01/23 documented as of this encounter
--- OUTSIDE RECORDS SUMMARY | 2025-02-18 05:33 | XMS_ITS | Encounter Summary ---
Author Organization [employer] Address [address] [place] [address] 7 [place] [address] Care Team Providers Care Securities Trader Name Role Phone Niyah Scott MD Primary Care Pro vider Reason for Visit * Reason Onset Date Comments Med Refill 02/08/2024 Encounter Details Date Type Department Care Team ([facility] st Contact Info) Description 02/08/2024 Telephone [facility] MEDICINE 230 [place], [place] [phone] Niyah Scott MD 230 [place], [place] [phone] Med Refill Social History Tobacco Use Types [...] 7.5-325 MG tablet To be sent to: [facility] - [place], [place] - [address] [place] [address] documented in this encounter Plan of Treatment Upcoming Encounters Date Type Department Care Team ([facility] st Contact Info) Description 03/04/2025 9:30 AM EDT Procedure Visit [facility] MEDICINE 230 [place] [address] Alix Tello CNM 230 [place] [address] 03/31/2025 10:30 AM EDT Telemedicine [facility]S 505 [place] [address] Katia De Jesus, VADIM 505 [place] [address] documented as of this encounter Goals Goal Patient Goal Type Associated Problems Recent Progress Patient-Stated? Author Help patient stop using tobacco General Tobacco dependence Not on track(03/13/20 23 5:32 PM EDT) No Oliver Boothe, PharmD documented as of this encounter Visit Diagnoses Not on filedocumented in this encounter Additional Health Concerns Assessment Noted Time PHQ-9 Depression Total Score: 16 12/06/ 024 9:37 AM EDT documented as of this encounter Care Teams Securities Trader Relationship Specialty Start Date End Date Niyah Scott MD [address] [place] [address] PCP - General Internal Medicine 02/10/23 Zainab Hermosillo Data Collection SpecialistIntramural Director 06/01/23 documented as of this encounter
[2025-02-18 06:56] VITALS: BP 143/74; PULSE 68; RESP 16; TEMP 36.7; O2SAT 97
== END 2025-02-18 06:58 | disposition home or self-care (01) ==
PROVIDERS: Emergency Provider Emergency Medicine; PCP Student in an Organized Health Care Education/Training Program
DX: S82.891A Other fracture of right lower leg, initial encounter for closed fracture (principal); R60.0 Localized edema; M25.571 Pain in right ankle and joints of right foot; X50.1XXA Overexertion from prolonged static or awkward postures, initial encounter; Y93.01 Activity, walking, marching and hiking; Y92.9 Unspecified place or not applicable; Y99.8 Other external cause status; Z87.891 Personal history of nicotine dependence; Z79.899 Other long term (current) drug therapy
CPT/HCPCS: 73610; 73630; 96372; 99284; J1885

== ENCOUNTER → 2025-02-18 05:08 | Outpatient (BNV) | payer MEDICAID, SELFPAY | PROVIDERS: Emergency Provider Emergency Medicine; PCP Student in an Organized Health Care Education/Training Program; Visit Provider Radiology Vascular & Interventional Radiology | DX: S93.401A Sprain of unspecified ligament of right ankle, initial encounter (principal) | CPT/HCPCS: 73610; 73630 ==

== ENCOUNTER 2025-03-03 13:50 | Outpatient (AMB) | payer MEDICAID, SELFPAY ==
--- NOTE | 2025-03-03 14:01 | A.OFFVIS_ITS ---
Vital Signs 03/03/25 14:02 Height 5 ft 6 in Weight 194 lb BMI 31.3 Intake Visit Reasons: New Pt-ED F/U Rt Ankle Sprain and Strain Intake Note: Shira is a 59 year old female who presents today as new patient for an evaluation of her right ankle sprain. She mentions her injury occurred when she was walking down a flight of stairs, she missed the last step, rolling her right ankle. She was seen at the ED where X-rays were performed and she was provided a walking boot and crutches to assist with ambulating. Patient was prescribed ketorolac 10 mg tablet at the ED for pain and she states it has not helped manage her pain. Patient reports her ankle is swollen and in alot of pain. Right ankle X ray: IMPRESSION: Probable avulsion fracture laterally. Soft tissue edema and joint effusion Right foot Xray No acute fracture involving the osseous structures of the right foot. Suggested ankle fracture not visualized on these images. as noted. Professional Employer Consultant Required: Yes Professional Employer Consultant Services: Professional Employer Consultant Present Professional Employer Consultant Name: [id number] Allergies morphine (MORPHINE) Allergy (Severe, Verified 03/03/25 14:04) HIVES, rash, itching,hives tramadol (TRAMADOL) Allergy (Intermediate, Verified 03/03/25 14:04) HIVES gummy skittles Allergy (Uncoded 03/03/25 14:04) throat swelled Medication List - Last Reconciled 03/03/25 by Brennon Hodge DPM acetaminophen 500 mg PO Q8H PRN albuterol sulfate 90 mcg/actuation (ProAir HFA) 2 puffs PO Q4-6H PRN albuterol sulfate mg inhalation QID alendronate 70 mg PO QWEEK amlodipine 10 mg PO DAILY budesonide-formoterol 160-4.5 mcg/actuation (Symbicort) 2 puffs PO buspirone 5 mg PO BID ncstjgvfwg-aybvcsitluivc-jbvs 50-300-40 mg (Fioricet) 1 cap PO Q8H PRN calcium carbonate 500 mg PO carvedilol 25 mg PO BID chlorthalidone 25 mg PO QAM clotrimazole-betamethasone 1-0.05 % 1 appl topical BID PRN 7 days ergocalciferol (vitamin D2) 1,250 mcg PO QWEEK escitalopram oxalate 20 mg PO QAM gabapentin 100 mg PO DAILY ketorolac 10 mg PO TID PRN 5 days leflunomide 10 mg PO DAILY lisinopril 40 mg PO QAM loratadine 10 mg PO DAILY magnesium oxide 400 mg PO QAM omeprazole 20 mg PO DAILY tiotropium bromide (Spiriva with HandiHaler) 1 cap inhalation DAILY HPI HPI New Pt-ED F/U Rt Ankle Sprain and Strain: Details: The patient is a 59-year-old female presenting for initial evaluation of acute right ankle sprain. The injury occurred when she rolled her ankle and subsequently visited the emergency room where x-rays were taken on 02/18/25. She was discharged in a CAM boot which she has been using daily. The patient reports being able to put weight on the ankle in the CAM boot but still experiences pain at the front of her ankle. She does feel more stable without the boot but is cautious walking barefoot due to feeling unstable. The patient reports managing her pain with oxycodone at home. She also reports a history of osteoporosis. [facility] Medical History Age-related osteoporosis without current pathological fracture Trochanteric bursitis of left hip Long-term use of immunosuppressant medication Osteoarthritis involving multiple joints on both sides of body Inflammatory arthropathy Flank pain Breast pain Pelvic pain in female Encounter for annual routine gynecological examination Right flank pain Chondral defect of patella Migraines Fungal infection of the groin Yeast infection involving the vagina and surrounding area History of uterine fibroid Para-ovarian adhesion Gallbladder abscess Migraine HTN (hypertension) Kidney stones Surgical History Hx of colonoscopy History of bladder surgery Hx of knee surgery History of kidney surgery History of cholecystectomy History of tubal ligation History of bunionectomy Family History Mother Stroke Diabetes HTN (hypertension) Father Heart attack Sister Lupus Leukemia Social History Household Members: Spouse and Children Housing: Apartment Alcohol intake: never Patient Tobacco Use Status: Former Tobacco user Tobacco use type: Cigarette Cigarettes Per Day: 2 Current occupational status: unemployed Sexual orientation: Straight/Heterosexual Gender identity: Female Review of Systems Const All systems reviewed & are unremarkable except as noted in HPI and below Physical Exam Vital Signs: BMI result Body Mass Index 31.3 Extrem Other: *Bilateral Lower Extremity Focused Foot/Ankle Exam Vascular: DP/PT 2/4, CFT<3s to digits, TG warm to cool, moderate lateral and anterior ankle edema, pedal hair present Derm: Moderate ecchymosis to the right medial distal leg, mild Ecchymosis present to the lateral ankle right lower extremity. Neuro: Protective sensation grossly intact to bilateral lower extremities. Negative Tinel sign to the intermediate dorsal cutaneous nerve. Msk: moderate pain on palpation along the right lateral ankle ligaments moderate Pain on palpation along the deltoid ligament right ankle moderate Pain on palpation along the syndesmosis right ankle Unable to perform stress exams of the ankle guarding due to pain Mild tenderness on palpation of the anterior tibia along the tibial crest the distal 3rd of the leg. Deformities: No evidence of hammertoes, bunions, Charcot changes, or other structural abnormalities. Gait: Antalgic Weight-bearing to the right lower extremity. Office Procedures [facility] Podiatry Dressing Details of Procedure: Applied Scott wrap compression dressing to the right lower extremity from the distal calf to the toes. 86564 - Strapping of foot/ankle Procedure code (CPT) selection complete Results Reviewed Results Reviewed: Podiatry X-ray Read: 02/18/2025 X-ray right ankle 3 views (AP, Mortise, Lateral) reviewed which shows avulsion charanjit fragment of the distal fibula/lateral talar process. No talar tilt, no other fractures, dislocations, osteochondral defects, or gross abnormalities. Anatomic alignment of the tibiotalar joint. Bone density is within normal limits. No evidence of swelling, foreign body, or calcifications. I personally reviewed the imaging and my findings are listed above. Assessment & Plan Assessment & Plan (1) Right ankle sprain: Code(s): S93.401A - Sprain of unspecified ligament of right ankle, initial encounter Category: Medical Qualifiers: Encounter type: initial encounter Involved ligament of ankle: anterior talofibular ligament Qualified Code(s): S93.491A - Sprain of other ligament of right ankle, initial encounter Plan: * Reviewed right ankle x-ray with the patient. * Instructed to perform R.I.C.E. protocol. * Recommended range of motion dorsiflexion/plantar flexion exercises at home. * Transition from CAM boot to lace-up ankle brace, which was dispensed at clinic today. The patient ambulated in the clinic in the ankle brace and felt more support and less pain than when wearing her boot. She was otherwise instructed to weight-bearing Cam boot for 1 more week if she has pain while weight- bearing in the lace-up ankle brace. * Referred to physical therapy. * Follow up in 2 weeks. She may require an MRI within 4-6 weeks if symptoms persist. (2) Muscle strain of right lower extremity: Comment: Extensor tendons right anterior compartment Code(s): S86.911A - Strain of unspecified muscle(s) and tendon(s) at lower leg level, right leg, initial encounter Category: Medical Qualifiers: Encounter type: initial encounter Qualified Code(s): S86.911A - Strain of unspecified muscle(s) and tendon(s) at lower leg level, right leg, initial encounter Plan: * Instructed to rest, ice, compress, elevate. * Instructed to weight-bearing in the cam boot for another week if she still has pain to her leg while weight-bearing. Otherwise, may transition to lace-up ankle brace. * Instructed to perform range of motion and stretching exercises. * Referred for physical therapy. Orders: Orders PT Evaluation and Treatment Today S93.401A - Sprain of unspecified ligament of right ankle, initial encounter [facility]B Podiatry Dressing Today S93.491A - Sprain of other ligament of right ankle, initial encounter Coding Level of Care Code New Pt Level 3 (35046) Diagnoses Sprain of anterior talofibular ligament of right ankle, initial encounter S93.491A Encounter type: initial encounter Involved ligament of ankle: anterior talofibular ligament Muscle strain of right lower extremity, initial encounter S86.911A Encounter type: initial encounter CPT Codes Podiatry Dressing - CPT: 49494 - Strapping of foot/ankle ([id number]) Time Spent (min) 35
[2025-03-03 14:02] VITALS: BMI 31.3
--- OUTSIDE RECORDS SUMMARY | 2025-03-03 16:21 | XMS_ITS | Encounter Summary ---
Author Organization [facility] Address [address] [place] [address] [address] [place] [address] Care Team Providers Care Housekeeping Assistant Name Role Phone Name, Humble NIEVES Primary Care Provider [phone] Niyah Scott MD Primary Care Pro vider Reason for Visit * Reason Comments Med Refill Encounter Details Date Type Department Care Team (Late st Contact Info) Description 12/12/2022 Refill
--- OUTSIDE RECORDS SUMMARY | 2025-03-03 16:21 | XMS_ITS | Encounter Summary ---
Demographics Address [address] [place] [id number] Mobile Phone
--- OUTSIDE RECORDS SUMMARY | 2025-03-03 16:22 | XMS_ITS | Encounter Summary ---
Demographics Address [address] [place] [id number] Mobile Phone Home Phone Email Address [email or web address]
--- OUTSIDE RECORDS SUMMARY | 2025-03-03 16:22 | XMS_ITS | Encounter Summary ---
Demographics
== END 2025-03-03 14:36 | disposition home or self-care (01) ==
LOC: HO.HPODS 13:51
PROVIDERS: PCP Student in an Organized Health Care Education/Training Program; Visit Provider Student in an Organized Health Care Education/Training Program
DX: S93.491A Sprain of other ligament of right ankle, initial encounter (principal); S86.911A Strain of unspecified muscle(s) and tendon(s) at lower leg level, right leg, initial encounter
CPT/HCPCS: 29540; 99203

== ENCOUNTER → 2025-03-03 13:50 | Outpatient (BNVA) | payer MEDICAID, SELFPAY | PROVIDERS: PCP Student in an Organized Health Care Education/Training Program; Visit Provider Student in an Organized Health Care Education/Training Program | DX: S93.491A Sprain of other ligament of right ankle, initial encounter (principal); S86.911A Strain of unspecified muscle(s) and tendon(s) at lower leg level, right leg, initial encounter; X50.1XXA Overexertion from prolonged static or awkward postures, initial encounter; Y93.9 Activity, unspecified; Y92.9 Unspecified place or not applicable; Y99.9 Unspecified external cause status | CPT/HCPCS: 29540; 99202 ==